=== PATIENT | male | born 1965 | race Caucasian/White ===

== ENCOUNTER 2018-01-04 08:57 | Outpatient (CLI) | payer MEDICARE ==
[~2018-01-04] VITALS: Ht 185.4 cm; Wt 112.5 kg
[2018-01-04 09:07] VITALS: BP 126/73
[2018-01-04 09:41] LABS: BASOPHILS % (AUTO) 0 % (0-10); EOSINOPHILS # (AUTO) 0.1 10^3/uL (0.0-0.3); EOSINOPHILS % (AUTO) 1 % (0-10); HEMATOCRIT 36 % (40-54); HEMOGLOBIN 12.6 G/DL (13.3-17.7); LYMPHOCYTES % (AUTO) 22 % (12-44); MEAN CORPUSCULAR HEMOGLOBIN 29 PG (25-34); MEAN CORPUSCULAR HGB CONC 35 G/DL (32-36); MEAN CORPUSCULAR VOLUME 82 FL (80-99); MEAN PLATELET VOLUME 10.1 FL (7.4-10.4); MONOCYTES # (AUTO) 0.7 X 10^3 (0.0-1.0); MONOCYTES % (AUTO) 8 % (0-12); NEUTROPHILS # (AUTO) 5.9 X 10^3 (1.8-7.8); NEUTROPHILS % (AUTO) 68 % (42-75); PLATELET COUNT 250 10^3/uL (130-400); RED BLOOD COUNT 4.33 10^6/uL (4.35-5.85); RED CELL DISTRIBUTION WIDTH 13.7 % (10.0-14.5); WHITE BLOOD COUNT 8.7 10^3/uL (4.3-11.0)
[2018-01-04] MEDS ORDERED: GLIM4TAB PO (09:54)
[2018-01-04] MEDS ORDERED: ROPI5TAB PO (09:54)
[2018-01-04] MEDS ORDERED: ASPI-586 PO (09:54)
[2018-01-04] MEDS ORDERED: MULT-1056 PO (09:54)
[2018-01-04] MEDS ORDERED: QUET150T PO (09:54)
[2018-01-04] MEDS ORDERED: DOXY100T19 PO (09:54)
[2018-01-04] MEDS ORDERED: DOCU250C11 PO (09:54)
[2018-01-04] MEDS ORDERED: NAPR-1033 PO (09:54)
[2018-01-04] MEDS ORDERED: SENN8.6T68 PO (09:54)
[2018-01-04 09:58] LABS: CALCIUM 8.9 MG/DL (8.5-10.1); CREATININE SERUM 1.32 MG/DL (0.60-1.30); POTASSIUM 3.7 MMOL/L (3.6-5.0)
== END 2018-01-04 09:25 | disposition home or self-care (01) ==
LOC: PREOP 08:57
PROVIDERS: ATTEND Orthopaedic Surgery
DX: Z01.812 Encounter for preprocedural laboratory examination (principal); Z11.2 Encounter for screening for other bacterial diseases; M75.101 Unspecified rotator cuff tear or rupture of right shoulder, not specified as traumatic
CPT/HCPCS: 36415; 80048; 85025; 87081

== ENCOUNTER 2019-02-17 13:07 | Inpatient (IN) | payer MEDICARE ==
[~2019-02-17] VITALS: Ht 182.9 cm; Wt 122.2 kg
[~2019-02-17 13:07] MED LIST: ASPI-586 PO; DOCU250C11 PO; DOXY100T19 PO; GLIM4TAB PO; MULT-1056 PO; NAPR-1033 PO; QUET150T PO; ROPI5TAB3 PO; SENN8.6T68 PO
[2019-02-17] MEDS ORDERED: cefTRIAXone FOR IV USE 2,000 MG in WATER (STERILE) FOR INJECTION 20 ML IV ONE (13:45)
[2019-02-17] MEDS ORDERED: fentaNYL INJECTION 100 MCG/2 ML AMP IVP PRN (13:45)
--- NOTE | 2019-02-17 13:53 | ED Integumentary General ---
General Chief Complaint: Skin/Wound Problems Stated Complaint: LT HAND SWOLLEN Source: patient, family Exam Limitations: no limitations History of Present Illness Date Seen by Provider: Feb 17, 2019 Time Seen by Provider: 13:50 Initial Comments This 53-year-old white male presents with a progressive infection to the dorsum of his left hand. Patient denies puncture wound laceration or bite to the area. Patient denies similar episodes in the past. He denies other area of infection. Patient is diabetic. Allergies and Home Medications Allergies Coded Allergies: No Known Drug Allergies (Unverified , 01/04/18) Home Medications Aspirin 81 Mg Tablet.dr, 81 MG PO DAILY, (Reported) Docusate Sodium 250 Mg Capsule, 250 MG PO BID, (Reported) Doxycycline Monohydrate 100 Mg Tablet, 100 MG PO BID, (Reported) Glimepiride 4 Mg Tablet, 2 MG PO DAILY, (Reported) take 1/2 of 4mg tab Multivit-Min/FA/Lycopen/Lutein 1 Each Tablet, 1 EACH PO DAILY, (Reported) Naproxen Sodium 220 Mg Tablet, 220 MG PO BID, (Reported) Quetiapine Fumarate 150 Mg Tab.er.24h, 150 MG PO HS, (Reported) Ropinirole HCl 5 Mg Tablet, 5 MG PO TID, (Reported) Sennosides 8.6 Mg Tablet, 8.6 MG PO BID, (Reported) Patient Home Medication List Home Medication List Reviewed: Yes Review of Systems Review of Systems Constitutional: No chills, No fever EENTM: no symptoms reported Respiratory: no symptoms reported Cardiovascular: no symptoms reported Gastrointestinal: no symptoms reported Genitourinary: no symptoms reported Musculoskeletal: no symptoms reported Skin: see HPI, other (diffuse erythema over the dorsum of the left hand) Psychiatric/Neurological: No Symptoms Reported Endocrine: No Symptoms Reported Hematologic/Lymphatic: No Symptoms Reported Past Pqagygw-Aufzyh-Ezrzdy Hx Past Med/Social Hx: Reviewed Nursing Past Med/Soc Hx Patient Social History Type Used: Smokeless Tobacco Recent Hopitalizations: No Seasonal Allergies Seasonal Allergies: No Past Medical History Sleep Apnea Currently Using CPAP: No Neuropathy Chronic Constipation Degenerate Disk Disease, Arthritis, Chronic Back Pain Anxiety Physical Exam Vital Signs Capillary Refill : General Appearance: mild distress HEENT: normal ENT inspection Neck: normal inspection Cardiovascular: regular rate, rhythm Respiratory: lungs clear Gastrointestinal: normal bowel sounds, non tender Back: normal inspection Extremities: normal range of motion, swelling (and erythema to the dorsum of the left hand. There is warmth to the elbow but no distinct ascending edema) Neurologic/Psychiatric: no motor/sensory deficits, alert Skin: other (erythema left hand.) Progress/Results/Core Measures Results/Orders Lab Results Laboratory Tests Test 02/17/19 14:15 02/17/19 14:30 Range/Units White Blood Count 15.7 H 4.3-11.0 10^3/uL Red Blood Count 4.26 L 4.35-5.85 10^6/uL Hemoglobin 12.7 L 13.3-17.7 G/DL Hematocrit 35 L 40-54 % Mean Corpuscular Volume 83 80-99 FL Mean Corpuscular Hemoglobin 30 25-34 PG Mean Corpuscular Hemoglobin Concent 36 32-36 G/DL Red Cell Distribution Width 12.0 10.0-14.5 % Platelet Count 274 130-400 10^3/uL Mean Platelet Volume 9.5 7.4-10.4 FL Neutrophils (%) (Auto) 73 42-75 % Lymphocytes (%) (Auto) 18 12-44 % Monocytes (%) (Auto) 8 0-12 % Eosinophils (%) (Auto) 1 0-10 % Basophils (%) (Auto) 0 0-10 % Neutrophils # (Auto) 11.4 H 1.8-7.8 X 10^3 Lymphocytes # (Auto) 2.8 1.0-4.0 X 10^3 Monocytes # (Auto) 1.3 H 0.0-1.0 X 10^3 Eosinophils # (Auto) 0.1 0.0-0.3 10^3/uL Basophils # (Auto) 0.1 0.0-0.1 10^3/uL Neutrophils % (Manual) 64 % Lymphocytes % (Manual) 22 % Monocytes % (Manual) 9 % Eosinophils % (Manual) 0 % Basophils % (Manual) 0 % Band Neutrophils 2 % Atypical Lymphocytes 3 % Erythrocyte Sedimentation Rate 70 H 0-30 MM/HR Sodium Level 129 L 135-145 MMOL/L Potassium Level 4.0 3.6-5.0 MMOL/L Chloride Level 91 L 98-107 MMOL/L Carbon Dioxide Level 21 21-32 MMOL/L Anion Gap 17 H 5-14 MMOL/L Blood Urea Nitrogen 15 7-18 MG/DL Creatinine 0.87 0.60-1.30 MG/DL Estimat Glomerular Filtration Rate > 60 BUN/Creatinine Ratio 17 Glucose Level 282 H 70-105 MG/DL Calcium Level 9.0 8.5-10.1 MG/DL Corrected Calcium 9.5 8.5-10.1 MG/DL Total Bilirubin 0.7 0.1-1.0 MG/DL Aspartate Amino Transf (AST/SGOT) 13 5-34 U/L Alanine Aminotransferase (ALT/SGPT) 17 0-55 U/L Alkaline Phosphatase 114 40-136 U/L Total Protein 7.0 6.4-8.2 GM/DL Albumin 3.4 3.2-4.5 GM/DL Lactic Acid Level 2.16 *H 0.50-2.00 MMOL/L My Orders Orders - PADMINI MARIE MD Ceftriaxone For Iv Use (Rocephin For I (02/17/19 13:45) Fentanyl Injection (Sublimaze Injection (02/17/19 13:45) Vancomycin Injection (Vancomycin Injecti (02/17/19 14:00) Cbc With Automated Diff (02/17/19 13:54) Comprehensive Metabolic Panel (02/17/19 13:54) Ua Culture If Indicated (02/17/19 13:54) Hand 3 View Left (02/17/19 13:54) Erythrocyte Sedimentation Rate (02/17/19 13:54) Blood Culture (02/17/19 13:54) Manual Differential (02/17/19 14:15) Vancomycin Injection (Vancomycin Injecti (02/17/19 15:23) Ns (Ivpb) (Sodium Chloride 0.9%) (02/17/19 15:23) Lactic Acid Analyzer (02/17/19 15:48) Hydromorphone Injection (Dilaudid Inject (02/17/19 16:00) Medications Given in ED Current Medications Medications Dose Ordered Sig/Abhishek Route Start Time Stop Time Status Last Admin Dose Admin Ceftriaxone Sodium 2000 mg/ Sterile Water 20 ml @ 240 mls/hr ONCE ONCE IV 02/17/19 13:45 02/17/19 13:49 DC 02/17/19 15:33 240 MLS/HR Hydromorphone HCl 1 mg ONCE ONCE IVP 02/17/19 16:00 02/17/19 16:01 DC 02/17/19 16:30 1 MG Progress Progress Note : Time: 16:49 Progress Note The patient demonstrated on his workup and elevated white count, hyperglycemia, hyponatremia, and a sedimentation rate that was markedly elevated. Patient received IV Rocephin 2 g and a gram of vancomycin IV. Telephone consultation was undertaken with Drs. Bravo and Rafael. Dr. Bravo except the patient transfer. Dr. Hall will consult on the patient's cellulitis. Departure Communication (Admissions) Time/Spoke to Admitting Phy: 16:51 Dr. Bravo Time/Spoke to Consulting Phy: 16:51 Dr. Hall Impression Primary Impression: Cellulitis of left hand Disposition: ADMITTED INPATIENT Condition: Improved Admissions Decision to Admit Reason: Admit from ER (General) Decision to Admit/Date: Feb 17, 2019 Time/Decision to Admit Time: 16:51 Departure-Patient Inst. Referrals: JESSICA MALDONADO MD (PCP/Family) Primary Care Physician PADMINI MRAIE MD Feb 17, 2019 13:53
[2019-02-17] MEDS ORDERED: VANCOMYCIN INJECTION 1,000 MG in NS (IVPB) 250 ML IV SCH (14:00)
[2019-02-17 14:28] LABS: BASOPHILS % (AUTO) 0 % (0-10); EOSINOPHILS % (AUTO) 1 % (0-10); HEMATOCRIT 35 % (40-54); HEMOGLOBIN 12.7 G/DL (13.3-17.7); LYMPHOCYTES % (AUTO) 18 % (12-44); MEAN CORPUSCULAR HEMOGLOBIN 30 PG (25-34); MEAN CORPUSCULAR HGB CONC 36 G/DL (32-36); MEAN CORPUSCULAR VOLUME 83 FL (80-99); MEAN PLATELET VOLUME 9.5 FL (7.4-10.4); MONOCYTES % (AUTO) 8 % (0-12); NEUTROPHILS # (AUTO) 11.4 X 10^3 (1.8-7.8); NEUTROPHILS % (AUTO) 73 % (42-75); PLATELET COUNT 274 10^3/uL (130-400); WHITE BLOOD COUNT 15.7 10^3/uL (4.3-11.0)
[2019-02-17 14:29] LABS: BASOPHILS # (AUTO) 0.1 10^3/uL (0.0-0.1); EOSINOPHILS # (AUTO) 0.1 10^3/uL (0.0-0.3); LYMPHOCYTES # (AUTO) 2.8 X 10^3 (1.0-4.0); MONOCYTES # (AUTO) 1.3 X 10^3 (0.0-1.0)
[2019-02-17 14:51] LABS: ATYPICAL LYMPHOCYTES 3 %; BAND NEUTROPHILS 2 %; BASOPHILS % (MANUAL) 0 %; EOSINOPHILS % (MANUAL) 0 %; LYMPHOCYTES % (MANUAL) 22 %; MONOCYTES % (MANUAL) 9 %; NEUTROPHILS % (MANUAL) 64 %
[2019-02-17 14:52] LABS: ERYTHROCYTE SEDIMENTATION RATE 70 MM/HR (0-30)
[2019-02-17 14:53] LABS: SODIUM 129 MMOL/L (135-145)
[2019-02-17 14:54] LABS: ALANINE AMINOTRANSFERASE 17 U/L (0-55); ALKALINE PHOSPHATASE 114 U/L (40-136); BILIRUBIN,TOTAL 0.7 MG/DL (0.1-1.0); BUN/CREATININE RATIO 17; CARBON DIOXIDE 21 MMOL/L (21-32); CHLORIDE 91 MMOL/L (98-107); CREATININE SERUM 0.87 MG/DL (0.60-1.30); GFR ESTIMATED > 60; GLUCOSE 282 MG/DL (70-105)
[2019-02-17 14:55] LABS: ALBUMIN 3.4 GM/DL (3.2-4.5)
--- NOTE | 2019-02-17 15:15 | Diagnostic Imaging Report ---
INDICATION: Pain and swelling. EXAMINATION: Three views were obtained. FINDINGS: The fingers are not well evaluated as all three images were obtained during flexion. There is no fracture or dislocation within the carpal bones or metacarpals. Soft tissues are unremarkable. IMPRESSION: No acute fracture or dislocation. The evaluation is limited due to flexion of the fingers on all three images. Dictated by: Dictated on workstation # [id number]
[2019-02-17] MEDS ORDERED: VANCOMYCIN 1000 MG/VIAL ONE (15:23)
[2019-02-17] MEDS ORDERED: NS (IVPB) 250 ML ONE (15:23)
[2019-02-17] MEDS ORDERED: HYDROmorphone 2 MG/ML VIAL (DILAUDID) IVP ONE (16:00)
[2019-02-17] MEDS ORDERED: ACETAMINOPHEN 500 MG TAB (TYLENOL) PO ONE (17:30)
[2019-02-17] MEDS ORDERED: NS IV 1000 ML 1,000 ML IV SCH (17:45)
--- NOTE | 2019-02-17 18:33 | NUR ---
PRINCE SHARMA admitted to room 414-1, with an admitting diagnosis of CELLULITIS OF LEFT HAND, on 02/17/19 from [facility] ED via EMS, accompanied by EMS. PRINCE SHARMA introduced to surroundings, call light, bed controls, phone, TV, temperature control, lights, meal times, smoking policy, visitor policy, side rail policy, bathrooms and showers. PRINCE SHARMA verbalizes understanding that [facility] is not responsible for the loss or damage to any personal effects or valuables that are kept in the patients posession during their hospitalization. The following Patient Care Plans were discussed with the PT: Discharge Planning, CELLULITIS, AND PAIN. PRINCE SHARMA verbalizes understanding of Interdisciplinary Patient Education. Patient and/or family were informed about the Rapid Response Team and its purpose.
[2019-02-17 18:37] VITALS: BP 124/76
--- NOTE | 2019-02-17 19:01 | NUR ---
DR. SALEH NOTIFIED OF NEED FOR PAIN MED ORDERS AND IV ABX ORDER. NOTED TO ONLY MED ORDER IS NS @ 50 CC/HR.
[2019-02-17] MEDS: NS IV 1000 ML 1,000 ML IV SCH ×2 (19:12→20:12)
[2019-02-17] MEDS ORDERED: ONDANSETRON 4 MG/2 ML (SDV) Z0FRAN IVP PRN (19:15)
[2019-02-17] MEDS ORDERED: PHARMACY TO DOSE IV SCH (19:15)
[2019-02-17 20:20] VITALS: BP 132/82
[2019-02-17] MEDS: fentaNYL INJECTION 100 MCG/2 ML AMP IVP PRN (20:31)
--- NOTE | 2019-02-17 20:41 | Consultation - Surgery ---
History of Present Illness History of Present Illness Patient Consulted On(raimundo/time) 02/17/19 20:35 Time Seen by Provider: 18:28 History of Present Illness Surgery asked to consult regarding cellulitis of the left hand. HPI per ED: This 53-year-old white male presents with a progressive infection to the dorsum of his left hand. Patient denies puncture wound laceration or bite to the area. Patient denies similar episodes in the past. He denies other area of infection. Patient is diabetic. When I spoke to pt he rates the pain as 7 out of 10, a dull constant pain. Pain is worse if the hand hangs down. States he can move his fingers with only minimal pain. Only the pain medicines make it better, he has not had any drainage from the hand. Allergies and Home Medications Allergies Coded Allergies: No Known Drug Allergies (Unverified , 01/04/18) Home Medications Aspirin 81 Mg Tablet.dr, 81 MG PO DAILY, (Reported) Docusate Sodium 250 Mg Capsule, 250 MG PO BID, (Reported) Doxycycline Monohydrate 100 Mg Tablet, 100 MG PO BID, (Reported) Glimepiride 4 Mg Tablet, 2 MG PO DAILY, (Reported) take 1/2 of 4mg tab Multivit-Min/FA/Lycopen/Lutein 1 Each Tablet, 1 EACH PO DAILY, (Reported) Naproxen Sodium 220 Mg Tablet, 220 MG PO BID, (Reported) Quetiapine Fumarate 150 Mg Tab.er.24h, 150 MG PO HS, (Reported) Ropinirole HCl 5 Mg Tablet, 5 MG PO TID, (Reported) Sennosides 8.6 Mg Tablet, 8.6 MG PO BID, (Reported) Patient Home Medication List Home Medication List Reviewed: Yes Past Qbooqam-Bannyg-Dacrog Hx Patient Social History Alcohol Use: Denies Use Recreational Drug Use: No Smoking Status: Never a Smoker Type Used: Smokeless Tobacco 2nd Hand Smoke Exposure: No Recent Foreign Travel: No Contact w/Someone Who Travel: No Recent Infectious Disease Expo: No Recent Hopitalizations: No Physical Abuse Screen: No Sexual Abuse: No Immunizations Up To Date Tetanus Booster (TDap): Unknown Seasonal Allergies Seasonal Allergies: No Surgeries History of Surgeries: Yes (Back surgery, Right shoulder surgery) Surgeries: Orthopedic Respiratory History of Respiratory Disorde: Yes Respiratory Disorders: Sleep Apnea Cardiovascular History of Cardiac Disorders: No Cardiac Disorders: Hypertension Neurological History of Neurological Disord: Yes Neurological Disorders: Neuropathy Genitourinary History of Genitourinary Disor: No Gastrointestinal History of Gastrointestinal Di: Yes Gastrointestinal Disorders: Chronic Constipation Musculoskeletal History of Musculoskeletal Dis: Yes Musculoskeletal Disorders: Degenerate Disk Disease, Arthritis, Chronic Back Pain Endocrine History of Endocrine Disorders: Yes Endocrine Disorders: Diabetes, Non-Insulin dep HEENT History of HEENT Disorders: No Loss of Vision: Denies Hearing Impairment: Denies Cancer History of Cancer: No Psychosocial History of Psychiatric Problem: Yes Behavioral Health Disorders: Anxiety, Depression Integumentary History of Skin or Integumenta: Yes (left foot diabetic ulcer NONE CURRENTLY) Blood Transfusions History of Blood Disorders: No Family Medical History Significant Family History: Diabetes (Father) Review of Systems-General Constitutional: No chills, No diaphoresis; malaise EENTM: No blurred vision, No double vision, No mouth pain, No mouth swelling, No epistaxis Respiratory: No cough, No dyspnea on exertion Cardiovascular: No chest pain, No edema, No palpitations Gastrointestinal: No abdominal pain, No constipation, No diarrhea, No nausea, No vomiting Genitourinary: No dysuria, No frequency, No hematuria Musculoskeletal: joint pain, muscle pain, muscle stiffness Skin: see HPI; No hx of skin cancer Psychiatric/Neurological: Anxiety, Depressed; Denies Seizure, Denies Tremors Other pt denies any history of abnormal bleeding or bruising. Physical Exam-General Problems Physical Exam Vital Signs Vital Signs - First Documented 02/17/19 13:10 Temp 98.3 Pulse 102 Resp 22 B/P (MAP) 134/73 (93) Pulse Ox 99 O2 Delivery Room Air Capillary Refill : Less Than 3 Seconds General Appearance: WD/WN, mild distress, obese Eyes: Bilateral Eye PERRL, Bilateral Eye EOMI HEENT: pharynx normal; No scleral icterus (R), No scleral icterus (L), No pale conjunctivae (R), No pale conjunctivae (L) Neck: non-tender, supple, normal inspection Respiratory: chest non-tender, lungs clear, normal breath sounds, no respiratory distress Cardiovascular: regular rate, rhythm, no murmur Gastrointestinal: normal bowel sounds, non tender, soft, no organomegaly, no pulsatile mass Back: no CVA tenderness, no vertebral tenderness Extremities: normal range of motion, non-tender, normal inspection, no pedal edema, no calf tenderness, other (left hand - dorsum, there is erythema and ??fluctuance, does not extend into his fingers) 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, no motor/sensory deficits, alert, normal mood/affect, oriented x 3 Skin: normal color, warm/dry Lymphatic: no adenopathy (neck, axilla or groin) Data Review Labs Laboratory Tests 02/17/19 14:15: White Blood Count 15.7H, Red Blood Count 4.26L, Hemoglobin 12.7L, Hematocrit 35L , Mean Corpuscular Volume 83, Mean Corpuscular Hemoglobin 30, Mean Corpuscular Hemoglobin Concent 36, Red Cell Distribution Width 12.0, Platelet Count 274, Mean Platelet Volume 9.5, Neutrophils (%) (Auto) 73, Lymphocytes (%) (Auto) 18, Monocytes (%) (Auto) 8, Eosinophils (%) (Auto) 1, Basophils (%) (Auto) 0, Neut rophils # (Auto) 11.4H, Lymphocytes # (Auto) 2.8, Monocytes # (Auto) 1.3H, Eosinophils # (Auto) 0.1, Basophils # (Auto) 0.1, Neutrophils % (Manual) 64, Lymphocytes % (Manual) 22, Monocytes % (Manual) 9, Eosinophils % (Manual) 0, Basophils % (Manual) 0, Band Neutrophils 2, Atypical Lymphocytes 3, Erythrocyte Sedimentation Rate 70H, Sodium Level 129L, Potassium Level 4.0, Chloride Level 91L, Carbon Dioxide Level 21, Anion Gap 17H, Blood Urea Nitrogen 15, Creatinine 0.87, Estimat Glomerular Filtration Rate > 60, BUN/Creatinine Ratio 17, Glucose Level 282H, Calcium Level 9.0, Corrected Calcium 9.5, Total Bilirubin 0.7, Aspartate Amino Transf (AST/SGOT) 13, Alanine Aminotransferase (ALT/SGPT) 17, Alkaline Phosphatase 114, Total Protein 7.0, Albumin 3.4 02/17/19 14:30: Lactic Acid Level 2.16*H Assessment/Plan Assessment/Plan Assessment/Plan Left Hand Cellulitis DM Plan is IV ABX, IV fluids, npo after midnight and pt should elevate hand and can use some warm compresses. I will order an US for the morning, would like to assess for abscess collection. If it gets worse or stays the same, I think he will need I&D of this area. If it gets better may be able to hold off on surgery; unless the US shows large abscess. Pt understood this, all questions answered to his satisfaction. Clinical Quality Measures DVT/VTE Risk/Contraindication: Risk Factor Score Per Nursin RFS Level Per Nursing on Admit: 3=High JOSH FOURNIER DO Feb 17, 2019 20:41
--- NOTE | 2019-02-17 22:27 | NUR ---
THIS RN SPOKE WITH GIANNA OF [facility] ABOUT PT VANCO & ZOSYN. THIS RN WAS INFORMED THAT THE VANCO WOULD BE EVALUATED BY THE IN HOUSE PHARMACY IN THE AM SINCE THE PT HAS ALREADY RECEIVED THE INITIAL DOSE. THIS RN WAS ASLO INFORMED THAT GIANNA WOULD LOOK INTO STARTING THE ZOSYN ORDERS.
[2019-02-17] MEDS ORDERED: NS (IVPB) 100 ML ONE (22:29)
[2019-02-17] MEDS ORDERED: PIPERACILLIN/TAZO 4.5 GM VIAL (ZOSYN) IV ONE (22:29)
[2019-02-17] MEDS ORDERED: PIPERACILLIN/TAZO 4.5 GM/NS 100 ML IV ONE ×2 (22:30)
[2019-02-17 23:59] VITALS: BP 133/65
[2019-02-18] VITALS (12 sets, daily range): BP systolic 101–144; BP diastolic 52–80
[2019-02-18] MEDS: fentaNYL INJECTION 100 MCG/2 ML AMP IVP PRN (00:03)
[2019-02-18] MEDS ORDERED: NS (IVPB) 100 ML ONE (04:30)
[2019-02-18] MEDS ORDERED: PIPERACILLIN/TAZO 4.5 GM VIAL (ZOSYN) IV ONE (04:30)
[2019-02-18] MEDS: oxyCODONE/APAP 10/325MG (PERCOCET 10) TABLET PO PRN ×3 (04:48→18:32)
[2019-02-18] MEDS: PIPERACILLIN/TAZO 4.5 GM/NS 100 ML IV SCH ×6 (04:53→22:49)
[2019-02-18 05:17] LABS: BASOPHILS % (AUTO) 0 % (0-10); EOSINOPHILS # (AUTO) 0.1 10^3/uL (0.0-0.3); EOSINOPHILS % (AUTO) 0 % (0-10); HEMATOCRIT 34 % (40-54); HEMOGLOBIN 12.1 G/DL (13.3-17.7); LYMPHOCYTES # (AUTO) 1.5 X 10^3 (1.0-4.0); LYMPHOCYTES % (AUTO) 9 % (12-44); MEAN CORPUSCULAR HEMOGLOBIN 30 PG (25-34); MEAN CORPUSCULAR HGB CONC 35 G/DL (32-36); MEAN CORPUSCULAR VOLUME 84 FL (80-99); MEAN PLATELET VOLUME 10.1 FL (7.4-10.4); MONOCYTES # (AUTO) 1.3 X 10^3 (0.0-1.0); MONOCYTES % (AUTO) 8 % (0-12); NEUTROPHILS # (AUTO) 13.2 X 10^3 (1.8-7.8); NEUTROPHILS % (AUTO) 83 % (42-75); PLATELET COUNT 239 10^3/uL (130-400); RED CELL DISTRIBUTION WIDTH 12.3 % (10.0-14.5)
[2019-02-18 05:37] LABS: ALANINE AMINOTRANSFERASE 26 U/L (0-55); ALBUMIN 3.2 GM/DL (3.2-4.5); ALKALINE PHOSPHATASE 119 U/L (40-136); BILIRUBIN,TOTAL 0.4 MG/DL (0.1-1.0); BUN/CREATININE RATIO 15; CALCIUM 8.6 MG/DL (8.5-10.1); CARBON DIOXIDE 22 MMOL/L (21-32); CHLORIDE 97 MMOL/L (98-107); CREATININE SERUM 0.94 MG/DL (0.60-1.30); GFR ESTIMATED > 60; GLUCOSE 285 MG/DL (70-105); SODIUM 130 MMOL/L (135-145); TOTAL PROTEIN 6.4 GM/DL (6.4-8.2)
[2019-02-18] MEDS: NS IV 1000 ML 1,000 ML IV SCH ×2 (06:33→18:22)
[2019-02-18] MEDS: VANCOMYCIN INJECTION 1,750 MG in NS IV 500 ML 500 ML IV SCH ×2 (08:05→20:37)
--- NOTE | 2019-02-18 08:15 | NUR ---
VANCOMYCIN DOSING SCR 0.94; CRCL ~ 119; VANC 1 GM GIVEN IN ED LAST NIGHT; VANC 15 MG/KG X 122 KG ~ 1750 MG Q12H CHECK TROUGH AFTER 3RD DOSE 02/19 1900 HOLD DOSE AND CONTACT PHARMACY IF LEVEL IS GREATER THAN 20
--- NOTE | 2019-02-18 10:13 | NUR ---
PT BECAME VERY ANGRY WHEN ASKED TO TAKE SURGICAL SHOWER FOR POSSIBLE SURGERY TODAY. STATES HE IS GOING AMA, HOWEVER WENT BACK TO BED AFTER SHOWER AND WENT TO SLEEP.
[2019-02-18] MEDS ORDERED: ALPR0.5T PO (12:43)
[2019-02-18] MEDS ORDERED: BUSP15TA60 PO (12:45)
[2019-02-18] MEDS ORDERED: GABA-488 PO (12:46)
[2019-02-18] MEDS ORDERED: METF-399 PO (12:48)
[2019-02-18] MEDS ORDERED: OMEP40CA36 PO (12:49)
[2019-02-18] MEDS ORDERED: QUET300T2 PO (12:50)
--- NOTE | 2019-02-18 13:28 | History & Physical-Hospitalist ---
History of Present Illness HPI/Chief Complaint Chief complaint: Severe left hand cellulitis History of present illness: This is a 53-year-old white male clinic patient of Dr. [place] in [place] with a past medical history of diabetes mellitus and chronic pain syndrome who presents to the [place] ER with left hand swelling and pain and redness. He was found to have significant right hand cellulitis at high risk for compartment syndrome. X-rays did not show any type of gas formation but Dr. Hall general surgery was consulted. Patient was placed on empiric antibiotics of Zosyn and vancomycin along with IV fluids due to elevated lactic acid and diagnosis of sepsis. Patient is currently reporting not much improvement and is taking pain medication. His white count remains 16,000 patient is overall showing slow progress but remains stable. I did reconcile and restart all of his home medications at his request. Source: patient, RN/MD Exam Limitations: no limitations Date Seen 02/18/19 Time Seen by a Provider: 12:30 Attending Physician Josefa Bravo Maxwell MD Referring Physician Date of Admission Feb 17, 2019 at 16:48 Home Medications & Allergies Home Medications Reviewed patient Home Medication Reconciliation performed by pharmacy medication reconciliations donor support technician and/or nursing. Patients Allergies have been reviewed. Allergies Allergies Coded Allergies No Known Drug Allergies (Unverified01/04/18) Past Chsflmi-Hahfah-Jvkrea Hx Past Med/Social Hx: Reviewed Nursing Past Med/Soc Hx, Reviewed and Corrections made Patient Social History Marrital Status: Alcohol Use: Denies Use Recreational Drug Use: No Smoking Status: Never a Smoker Type Used: Smokeless Tobacco 2nd Hand Smoke Exposure: No Physical Abuse Screen: No Sexual Abuse: No Recent Foreign Travel: No Contact w/other who traveled: No Recent Hopitalizations: No Recent Infectious Disease Expo: No Immunizations Up To Date Tetanus Booster (TDap): Unknown Seasonal Allergies Seasonal Allergies: No Past Medical History Surgeries: Orthopedic Currently Using CPAP: No Cardiac: Hypertension Neurological: Neuropathy Gastrointestinal: Chronic Constipation Musculoskeletal: Degenerate Disk Disease, Arthritis, Chronic Back Pain Endocrine: Diabetes, Non-Insulin dep Loss of Vision: Denies Hearing Impairment: Denies Psychosocial: Anxiety, Depression History of Blood Disorders: No Family History Diabetes (Father) Review of Systems Constitutional: see HPI, fever, malaise, weakness EENTM: no symptoms reported Respiratory: no symptoms reported Cardiovascular: no symptoms reported Gastrointestinal: no symptoms reported Genitourinary: no symptoms reported Musculoskeletal: other (left hand pain) Skin: see HPI Psychiatric/Neurological: No Symptoms Reported All Other Systems Reviewed Negative Unless Noted: Yes Physical Exam Physical Exam Vital Signs Vital Signs - First Documented 02/17/19 02/18/19 13:10 08:00 Temp 98.3 Pulse 102 Resp 22 B/P (MAP) 134/73 (93) Pulse Ox 99 O2 Delivery Room Air O2 Flow Rate 0.00 Capillary Refill : Less Than 3 SecondsLess Than 3 Seconds Height, Weight, BMI Height: 6'0.00" Weight: 269lbs. 5.0oz. 122.209609ml; 35.1 BMI Method:Stated General Appearance: No Apparent Distress, WD/WN, Chronically ill, Obese Eyes: Right Eye Normal Inspection, Right Eye PERRL HEENT: PERRL/EOMI, Normal ENT Inspection, Pharynx Normal, Moist Mucous Membranes Neck: Full Range of Motion, Normal Inspection, Non Tender Respiratory: Chest Non Tender, Lungs Clear, Normal Breath Sounds, No Accessory Muscle Use, No Respiratory Distress Cardiovascular: Regular Rate, Rhythm, No Edema, No Gallop, No JVD, No Murmur, Normal Peripheral Pulses Gastrointestinal: Normal Bowel Sounds, No Organomegaly, No Pulsatile Mass, Non Tender, Soft Back: Normal Inspection, No CVA Tenderness, No Vertebral Tenderness Extremity: Normal Capillary Refill, Normal Inspection, Normal Range of Motion, Non Tender, No Calf Tenderness, No Pedal Edema Neurologic/Psychiatric: Alert, Oriented x3, No Motor/Sensory Deficits, Normal Mood/Affect, 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 Assessment/Plan Admission Diagnosis Assessment: Severe left hand cellulitis at risk for compartment syndrome without gas production on x-ray consulting general surgery Diabetes mellitus mhk-zrmlnrz-qstpuozsn but anv-os-etqigyc levels Chronic anxiety Osteoarthritis Neuropathy Hyperlipidemia Plan: IV antibiotics of Zosyn and vancomycin Appreciate Dr. Hall consultation Pain control IV fluids Home meds Admission Status: Inpatient Order (span 2 midnights) Reason for Inpatient Admission: Severe left hand cellulitis with DM in need of IV abx 4-5 days Diagnosis/Problems Diagnosis/Problems (1) Sepsis Status: Acute Qualifiers: Sepsis type: sepsis due to unspecified organism Qualified Codes: A41.9 - Sepsis, unspecified organism (2) Cellulitis of left hand Status: Acute (3) Left hand pain Status: Acute (4) Diabetes mellitus Status: Chronic Qualifiers: Diabetes mellitus type: type 2 Diabetes mellitus fpc insulin use: without fpc use Diabetes mellitus complication status: with other specified complication Qualified Codes: E11.69 - Type 2 diabetes mellitus with other specified complication (5) Hyperlipemia Status: Chronic Qualifiers: Hyperlipidemia type: mixed hyperlipidemia Qualified Codes: E78.2 - Mixed hyperlipidemia (6) Leukocytosis Status: Acute Qualifiers: Leukocytosis type: leukemoid reaction Qualified Codes: D72.823 - Leukemoid reaction (7) Neuropathy Status: Chronic (8) Anxiety Status: Chronic Clinical Quality Measures DVT/VTE Risk/Contraindication: Risk Factor Score Per Nursin RFS Level Per Nursing on Admit: 3=High JOSEFA BRAVO DO Feb 18, 2019 13:28
--- NOTE | 2019-02-18 14:00 | NUR ---
ORDERS REC'D FOR CONSENT. SIGNED AND MRSA NASAL SWAB DONE. HAD CHLORHEXIDINE SHOWER THIS AM. DR. FOURNIER AND ANESTHESIA NOTIFIED THAT PT HAD GOT COPENHAGEN CANS OUT OF CLOTHING AND WAS BELIEVED TO BE CHEWING TOBACCO THIS AM. NOT VISUALIZED, BUT PT STATED HE "WOULD GO AMA IF HE COULDN'T CHEW."
[2019-02-18] MEDS ORDERED: ONDANSETRON 4 MG/2 ML (SDV) Z0FRAN ONE (14:02)
[2019-02-18] MEDS ORDERED: SEVOFLURANE (ULTANE) 15 ML INHAL SOLN ONE ×2 (14:02→14:46)
[2019-02-18] MEDS ORDERED: proPOfol 200 MG/20 ML (DIPRIVAN) VIAL IV ONE (14:02)
[2019-02-18] MEDS ORDERED: fentaNYL INJECTION 100 MCG/2 ML AMP ONE (14:02)
[2019-02-18] MEDS ORDERED: LIDOCAINE PF 2% 5 ML (XYLOCAINE) VIAL ONE (14:02)
[2019-02-18] MEDS ORDERED: MIDAZOLAM 2 MG/2 ML (VERSED) VIAL ONE (14:03)
[2019-02-18] MEDS: ALPRAZolam 0.5 MG (XANAX) TAB PO SCH ×2 (14:08→20:41)
--- NOTE | 2019-02-18 14:14 | Progress Note - Surgery ---
Subjective Time Seen by a Provider: 13:15 Subjective/Events-last exam Pt seen and examined, he thinks the hand is maybe a little worse and swelling is up to his elbow (per ). Pt states pain is definitely worse. He denies chewing tobacco at all today. Review of Systems General: No Chills, No Night Sweats Pulmonary: No Dyspnea, No Cough Cardiovascular: No: Chest Pain, Palpitations Gastrointestinal: No: Nausea, Vomiting, Abdominal Pain Musculoskeletal: hand pain (left) Focused Exam Lactate Level 02/17/19 14:30: Lactic Acid Level 2.16*H Objective Exam Vital Signs Date Time Temp Pulse Resp B/P (MAP) Pulse Ox O2 Delivery O2 Flow Rate FiO2 02/18/19 12:09 97.6 92 21 101/52 (68) 100 Room Air 0.00 02/18/19 08:00 98.3 95 19 123/56 (78) 99 Room Air 0.00 02/18/19 08:00 Room Air 02/18/19 04:00 100.1 102 18 128/75 (92) 98 Room Air 02/18/19 00:03 99.0 02/17/19 23:59 99.0 90 20 133/65 (87) 99 Room Air 02/17/19 20:20 98.4 94 22 132/82 (99) 98 Room Air 02/17/19 19:30 Room Air 02/17/19 18:37 99.3 92 22 124/76 96 Room Air 02/17/19 18:37 99.3 92 22 124/76 (92) 96 Room Air 02/17/19 17:43 99.3 101 20 132/66 (88) 96 Room Air 02/17/19 17:00 100.6 75 18 126/68 98 Room Air 02/17/19 15:30 99.8 87 20 135/67 99 Room Air I & O 02/18/19 07:00 Intake Total 1860 ml Balance 1860 ml Capillary Refill : Less Than 3 SecondsLess Than 3 Seconds General Appearance: Mild Distress, Obese HEENT: PERRL/EOMI, Moist Mucous Membranes Respiratory: Chest Non Tender, Lungs Clear, Normal Breath Sounds, No Accessory Muscle Use, No Respiratory Distress Cardiovascular: Regular Rate, Rhythm, No Murmur Gastrointestinal: normal bowel sounds, non tender, soft, no organomegaly, no pulsatile mass Extremity: Other (left hand is at least as erythematous as yesterday, hasn't really spread off the hand. Fingers are swollen and he has swelling up to elbow when compared to right hand and arm.) Results Lab Laboratory Tests 02/17/19 14:15: White Blood Count 15.7H, Red Blood Count 4.26L, Hemoglobin 12.7L, Hematocrit 35L , Mean Corpuscular Volume 83, Mean Corpuscular Hemoglobin 30, Mean Corpuscular Hemoglobin Concent 36, Red Cell Distribution Width 12.0, Platelet Count 274, Mean Platelet Volume 9.5, Neutrophils (%) (Auto) 73, Lymphocytes (%) (Auto) 18, Monocytes (%) (Auto) 8, Eosinophils (%) (Auto) 1, Basophils (%) (Auto) 0, Neutrophils # (Auto) 11.4H, Lymphocytes # (Auto) 2.8, Monocytes # (Auto) 1.3H, Eosinophils # (Auto) 0.1, Basophils # (Auto) 0.1, Neutrophils % (Manual) 64, Lymphocytes % (Manual) 22, Monocytes % (Manual) 9, Eosinophils % (Manual) 0, Basophils % (Manual) 0, Band Neutrophils 2, Atypical Lymphocytes 3, Erythrocyte Sedimentation Rate 70H, Sodium Level 129L, Potassium Level 4.0, Chloride Level 91L, Carbon Dioxide Level 21, Anion Gap 17H, Blood Urea Nitrogen 15, Creatinine 0.87, Estimat Glomerular Filtration Rate > 60, BUN/Creatinine Ratio 17, Glucose Level 282H, Calcium Level 9.0, Corrected Calcium 9.5, Total Bilirubin 0.7, Aspartate Amino Transf (AST/SGOT) 13, Alanine Aminotransferase (ALT/SGPT) 17, Alkaline Phosphatase 114, Total Protein 7.0, Albumin 3.4 02/17/19 14:30: Lactic Acid Level 2.16*H 02/18/19 04:55: White Blood Count 16.0H, Red Blood Count 4.10L, Hemoglobin 12.1L, Hematocrit 34L , Mean Corpuscular Volume 84, Mean Corpuscular Hemoglobin 30, Mean Corpuscular Hemoglobin Concent 35, Red Cell Distribution Width 12.3, Platelet Count 239, Mean Platelet Volume 10.1, Neutrophils (%) (Auto) 83H, Lymphocytes (%) (Auto) 9L , Monocytes (%) (Auto) 8, Eosinophils (%) (Auto) 0, Basophils (%) (Auto) 0, Neutrophils # (Auto) 13.2H, Lymphocytes # (Auto) 1.5, Monocytes # (Auto) 1.3H, Eosinophils # (Auto) 0.1, Basophils # (Auto) 0.0, Sodium Level 130L, Potassium Level 4.0, Chloride Level 97L, Carbon Dioxide Level 22, Anion Gap 11, Blood Urea Nitrogen 14, Creatinine 0.94, Estimat Glomerular Filtration Rate > 60, BUN/Creatinine Ratio 15, Glucose Level 285H, Calcium Level 8.6, Corrected Calcium 9.2, Total Bilirubin 0.4, Aspartate Amino Transf (AST/SGOT) 21, Alanine Aminotransferase (ALT/SGPT) 26, Alkaline Phosphatase 119, Total Protein 6.4, Albumin 3.2 Assessment/Plan Assessment/Plan Assessment/Plan Left Hand Cellulitis DM I used an US on the dorsum of his left hand, I think I see abscess and it is not getting better. Plan is to take pt to the OR to do an I&D with possible debridement and possible packing. Will continue IV ABX, IV fluids, elevate hand and can use some warm compresses. All questions answered to his satisfaction. Clinical Quality Measures DVT/VTE Risk/Contraindication: Risk Factor Score Per Nursin RFS Level Per Nursing on Admit: 3=High JOSH FOURNIER DO Feb 18, 2019 14:14
[2019-02-18] MEDS ORDERED: morphine INJ 10 MG/ML 1ML (SYR OR VIAL) ONE (14:20)
[2019-02-18] MEDS ORDERED: HYDROmorphone 2 MG/ML VIAL (DILAUDID) ONE ×2 (14:20→14:47)
--- NOTE | 2019-02-18 14:28 | NUR ---
TO OR PER BED.
[2019-02-18] MEDS ORDERED: SUCCINYLCHOLINE INJ 100 MG/5 ML SYR ONE (14:33)
[2019-02-18] MEDS ORDERED: ROCURONIUM 10 MG/ML 5 ML SYRINGE IV ONE (14:33)
[2019-02-18] MEDS ORDERED: METOCLOPRAMIDE INJ 10 MG/2 ML (REGLAN) ONE (14:44)
[2019-02-18] MEDS ORDERED: GLYCOPYRROLATE 0.2 MG/ML (ROBINUL) 2 ML VIAL ONE (14:46)
[2019-02-18] MEDS ORDERED: NEOSTIGMINE 3 MG/3 ML VIAL ONE (14:46)
--- NOTE | 2019-02-18 15:03 | Progress Note-Post Operative ---
Post-Operative Progess Note Surgeon (s)/Track Man (s) Surgeon JOSH FOURNIER DO Track Man: none Pre-Operative Diagnosis Left hand cellulitis and abscess Post-Operative Diagnosis Same Procedure & Operative Findings Date of Procedure 02/18/19 Procedure Performed/Findings I&D with packing Anesthesia Type GET Estimated Blood Loss Estimated blood loss (mL): less than 20ml Specimens/Packing Specimens Removed abscess culture Packin/2" iodophor packing JOSH FOURNIER DO Feb 18, 2019 15:03
[2019-02-18] MEDS ORDERED: ONDANSETRON 4 MG/2 ML (SDV) Z0FRAN IVP PRN (15:15)
[2019-02-18] MEDS ORDERED: HYDROmorphone 2 MG/ML VIAL (DILAUDID) IV ONE (15:15)
--- NOTE | 2019-02-18 15:57 | NUR ---
REC'D PER BED FROM PAR. ALERT AND ORIENTED. ON RA. IV PATENT. DRESSING WITH COBAN INTACT LEFT HAND. SEE ASSESSMENT.
[2019-02-18] MEDS: metFORMIN 500 MG (GLUCOPHAGE) TAB PO SCH (17:29)
[2019-02-18] MEDS: inSUlin ASPART (NovoLOG) 1 UNIT/0.01 ML (CHARGE PER UNIT) SC SCH ×2 (17:29→21:53)
--- NOTE | 2019-02-18 17:29 | NUR ---
REFUSED TO ORDER DINNER. REFUSED SSI AND METFORMIN.
--- NOTE | 2019-02-18 18:29 | NUR ---
REFUSED TO AMBULATE OR GET UP IN CHAIR. STATES "LEAVE ME ALONE, I WANT TO SLEEP." ATTEMPTED EDUCATION, BUT INAPPROPRIATE AND RUDE WITH STAFF AND CALLING STAFF VULGAR NAMES.
[2019-02-18] MEDS: busPIRone 15 MG (BUSPAR) TABLET PO SCH (20:39)
[2019-02-18] MEDS: NAPROXEN 250 MG (NAPROSYN) TABLET PO SCH (20:40)
[2019-02-18] MEDS: rOPINIRole 5 MG TAB (REQUIP) PO SCH (20:40)
[2019-02-18] MEDS: GABAPENTIN 300 MG (NEURONTIN) CAP PO SCH (20:41)
[2019-02-18] MEDS ORDERED: QUEtiapine 100 MG (SEROquel) TAB IMMEDIATE RELEASE PO SCH (21:00)
--- NOTE | 2019-02-18 22:24 | OPERATIVE REPORT ---
DATE OF SERVICE: 02/18/2019 PREOPERATIVE DIAGNOSIS: Left hand cellulitis abscess. POSTOPERATIVE DIAGNOSIS: Left hand cellulitis abscess. PROCEDURE: Incision and drainage with packing of left hand. BLOOD LOSS: Less than 10 mL. FLUIDS: Per anesthesia. POSTOPERATIVE CONDITION: Stable. INDICATION FOR PROCEDURE: The patient is a 53-year-old male who has had left hand abscess cellulitis and needed a drain. FINDINGS: The patient had purulent fluid drained from deep in his hand. Cultures obtained and sent to pathology. PROCEDURE NOTE: After informed consent was obtained, the patient was brought to the operating room, placed on the table in supine position. He was sterilely prepped and draped in normal fashion. Made incision on the dorsum of his left hand. Right in the middle with a #11 blade approximately 3 to 4 cm incision, carried down through the skin into the subcutaneous tissue and then with blunt dissection went deeper and immediately got purulent fluid coming out. I then kind of use my finger to roughly debride and open up the pockets going superiorly up to just past the wrist medially over to the thumb and then down towards the first knuckle, was a pretty wide area of abscess and purulence measured probably about 4 x 6 cm and then carefully flushed this out with normal saline and then packed with half inch iodoform packing and placed a pressure dressing. The patient tolerated the procedure. Sponge, instrument and needle count correct at the end of the case. Job ID: [id number] DocumentID: [id number] Dictated Date: 02/18/2019 14:58:42 Coroner'S Juror Date: 02/18/2019 22:24:17 Dictated By: JOSH FOURNIER DO
[2019-02-19 00:18] VITALS: BP 104/55
[2019-02-19 04:32] VITALS: BP 101/57
[2019-02-19] MEDS: ALPRAZolam 0.5 MG (XANAX) TAB PO SCH ×3 (05:30→20:44)
[2019-02-19 05:33] LABS: BASOPHILS # (AUTO) 0.1 10^3/uL (0.0-0.1); BASOPHILS % (AUTO) 0 % (0-10); EOSINOPHILS # (AUTO) 0.1 10^3/uL (0.0-0.3); EOSINOPHILS % (AUTO) 1 % (0-10); HEMATOCRIT 30 % (40-54); HEMOGLOBIN 10.5 G/DL (13.3-17.7); LYMPHOCYTES # (AUTO) 2.1 X 10^3 (1.0-4.0); LYMPHOCYTES % (AUTO) 18 % (12-44); MEAN CORPUSCULAR HEMOGLOBIN 30 PG (25-34); MEAN CORPUSCULAR HGB CONC 35 G/DL (32-36); MEAN CORPUSCULAR VOLUME 86 FL (80-99); MEAN PLATELET VOLUME 9.6 FL (7.4-10.4); MONOCYTES # (AUTO) 1.2 X 10^3 (0.0-1.0); MONOCYTES % (AUTO) 10 % (0-12); NEUTROPHILS # (AUTO) 8.4 X 10^3 (1.8-7.8); NEUTROPHILS % (AUTO) 71 % (42-75); PLATELET COUNT 225 10^3/uL (130-400); RED CELL DISTRIBUTION WIDTH 12.5 % (10.0-14.5); WHITE BLOOD COUNT 11.8 10^3/uL (4.3-11.0)
[2019-02-19] MEDS: PIPERACILLIN/TAZO 4.5 GM/NS 100 ML IV SCH ×6 (05:47→20:43)
[2019-02-19 05:55] LABS: ALBUMIN 2.8 GM/DL (3.2-4.5); BILIRUBIN,TOTAL 0.5 MG/DL (0.1-1.0); CALCIUM 7.8 MG/DL (8.5-10.1); CREATININE SERUM 1.53 MG/DL (0.60-1.30); POTASSIUM 3.8 MMOL/L (3.6-5.0); TOTAL PROTEIN 5.9 GM/DL (6.4-8.2)
[2019-02-19] MEDS ORDERED: GLIMEPIRIDE 2 MG (AMARYL) TAB PO SCH (06:30)
[2019-02-19] MEDS: inSUlin ASPART (NovoLOG) 1 UNIT/0.01 ML (CHARGE PER UNIT) SC SCH ×4 (07:58→21:35)
[2019-02-19] MEDS: metFORMIN 500 MG (GLUCOPHAGE) TAB PO SCH ×2 (07:58→16:26)
[2019-02-19 08:00] VITALS: BP 105/68
[2019-02-19] MEDS: GABAPENTIN 300 MG (NEURONTIN) CAP PO SCH ×3 (08:52→20:44)
[2019-02-19] MEDS: PANTOPRAZOLE 40 MG (PROTONIX) TAB PO SCH (08:52)
[2019-02-19] MEDS: busPIRone 15 MG (BUSPAR) TABLET PO SCH ×3 (08:53→20:44)
[2019-02-19] MEDS: rOPINIRole 5 MG TAB (REQUIP) PO SCH ×3 (08:53→20:44)
[2019-02-19] MEDS: ASPIRIN 81 MG CHEW (CHILDREN'S ASA) PO SCH (08:53)
[2019-02-19] MEDS: NAPROXEN 250 MG (NAPROSYN) TABLET PO SCH (08:53)
[2019-02-19] MEDS: VANCOMYCIN INJECTION 1,750 MG in NS IV 500 ML 500 ML IV SCH (08:53)
[2019-02-19 12:00] VITALS: BP 102/62
[2019-02-19] MEDS: NS IV 1000 ML 1,000 ML IV SCH (12:01)
--- NOTE | 2019-02-19 13:55 | Progress Note ---
Subjective Subjective/Events-last exam Patient states that he is feeling much better since surgery. Pain has improved. Swelling and redness has improved. wound Cultures still pending Review of Systems Date Seen by Provider: Feb 19, 2019 Time Seen by Provider: 11:45 Pulmonary: No Dyspnea, No Cough Cardiovascular: No: Chest Pain, Palpitations Gastrointestinal: No: Nausea, Vomiting Musculoskeletal: hand pain (left) Neurological: Weakness Focused Exam Lactate Level 02/17/19 14:30: Lactic Acid Level 2.16*H Objective Exam Last Set of Vital Signs Vital Signs Date Time Temp Pulse Resp B/P (MAP) Pulse Ox O2 Delivery O2 Flow Rate FiO2 02/19/19 12:00 98.2 96 18 102/62 (75) 96 Room Air 0.00 Capillary Refill : Less Than 3 SecondsLess Than 3 Seconds I&O Intake and Output 02/19/19 00:00 Intake Total 4115.0 ml Balance 4115.0 ml Intake Oral 960 ml IV Total 3155.0 ml # Voids 5 General: Alert, Oriented X3, Cooperative, No Acute Distress Lungs: Clear to Auscultation, Normal Air Movement Heart: Regular Rate, No Murmurs Abdomen: Normal Bowel Sounds, Soft, No Tenderness, No Masses Extremities: Other (Swelling and erythema of left hand, ttp, decreased sensation of finger tip, normal cap refill <5 sec) Results/Procedures Lab Laboratory Tests 02/18/19 16:30: Glucometer 189H 02/18/19 21:21: Glucometer 280H 02/19/19 05:19: White Blood Count 11.8H, Red Blood Count 3.53L, Hemoglobin 10.5L, Hematocrit 30L , Mean Corpuscular Volume 86, Mean Corpuscular Hemoglobin 30, Mean Corpuscular Hemoglobin Concent 35, Red Cell Distribution Width 12.5, Platelet Count 225, Mean Platelet Volume 9.6, Neutrophils (%) (Auto) 71, Lymphocytes (%) (Auto) 18, Monocytes (%) (Auto) 10, Eosinophils (%) (Auto) 1, Basophils (%) (Auto) 0, Neutrophils # (Auto) 8.4H, Lymphocytes # (Auto) 2.1, Monocytes # (Auto) 1.2H, Eosinophils # (Auto) 0.1, Basophils # (Auto) 0.1, Sodium Level 132L, Potassium Level 3.8, Chloride Level 102, Carbon Dioxide Level 21, Anion Gap 9, Blood Urea Nitrogen 15, Creatinine 1.53H, Estimat Glomerular Filtration Rate 47, BUN/Creatinine Ratio 10, Glucose Level 216H, Calcium Level 7.8L, Corrected Calcium 8.8, Total Bilirubin 0.5, Aspartate Amino Transf (AST/SGOT) 19, Alanine Aminotransferase (ALT/SGPT) 25, Alkaline Phosphatase 111, Total Protein 5.9L, Albumin 2.8L 02/19/19 07:51: Glucometer 192H 02/19/19 11:12: Glucometer 171H Microbiology 02/18/19 Gram Stain, Resulted Pending 02/18/19 Anaerobic Culture, Resulted Pending 02/18/19 Surgical Culture - Preliminary, Resulted Assessment/Plan Assessment/Plan (1) Cellulitis of left hand Status: Acute Assessment & Plan: 02/19: Wound cultures pending, POD #1, Continue Vanc/Zosyn, Dr Hall consulted (2) Left hand pain Status: Acute Assessment & Plan: 02/19: Improving, D/c IV pain meds (3) Diabetes mellitus Status: Chronic Assessment & Plan: 02/19: Continue home meds, continue to monitor blood sugars, discussed the importance of controlling DM and its role in wound healing Qualifiers: Qualified Codes: E11.69 - Type 2 diabetes mellitus with other specified complication Clinical Quality Measures DVT/VTE Risk/Contraindication: Risk Factor Score Per Nursin RFS Level Per Nursing on Admit: 3=High BENJAMIN AMADOR MD Feb 19, 2019 13:54
--- NOTE | 2019-02-19 14:16 | Progress Note - Surgery ---
Subjective Time Seen by a Provider: 13:14 Subjective/Events-last exam Pt seen and examined, he states his pain is much better and he thinks the swelling is down today. Review of Systems General: No Chills Pulmonary: No Dyspnea, No Cough Cardiovascular: No: Chest Pain, Palpitations Focused Exam Lactate Level 02/17/19 14:30: Lactic Acid Level 2.16*H Objective Exam Vital Signs Date Time Temp Pulse Resp B/P (MAP) Pulse Ox O2 Delivery O2 Flow Rate FiO2 02/19/19 12:00 98.2 96 18 102/62 (75) 96 Room Air 0.00 02/19/19 08:00 Room Air 02/19/19 08:00 98.5 93 18 105/68 (80) 96 Room Air 0.00 02/19/19 04:32 98.6 96 20 101/57 (72) 90 Room Air 0.00 02/19/19 00:18 99.2 94 20 104/55 (71) 94 Room Air 0.00 02/18/19 21:51 99.4 02/18/19 20:00 Room Air 02/18/19 19:51 101.8 107 20 144/77 (99) 98 Room Air 0.00 02/18/19 16:31 99.9 103 22 112/71 (85) 94 Room Air 0.00 02/18/19 15:55 99.4 16 100 Room Air 02/18/19 15:55 Room Air 02/18/19 15:50 20 100 Room Air 02/18/19 15:45 Room Air 02/18/19 15:40 14 99 Room Air 02/18/19 15:30 Room Air 02/18/19 15:30 14 100 Room Air 02/18/19 15:20 15 100 OxyMask 3 02/18/19 15:20 OxyMask 3 02/18/19 15:10 14 100 OxyMask 6 02/18/19 15:08 98.0 12 100 OxyMask 10 02/18/19 15:08 OxyMask 10 I & O 02/19/19 07:00 Intake Total 3285.0 ml Balance 3285.0 ml Capillary Refill : Less Than 3 SecondsLess Than 3 Seconds General Appearance: No Apparent Distress, WD/WN, Obese HEENT: PERRL/EOMI, Moist Mucous Membranes Respiratory: Chest Non Tender, Lungs Clear, No Accessory Muscle Use, No Resp iratory Distress Cardiovascular: Regular Rate, Rhythm, No Murmur Gastrointestinal: normal bowel sounds, non tender, soft, no organomegaly, no pulsatile mass Extremity: No Calf Tenderness Skin: Other (left hand wrapped, but fingers and arm seem less swollen, pt has good motion and feeling in fingers) Results Lab Laboratory Tests 02/18/19 16:30: Glucometer 189H 02/18/19 21:21: Glucometer 280H 02/19/19 05:19: White Blood Count 11.8H, Red Blood Count 3.53L, Hemoglobin 10.5L, Hematocrit 30L , Mean Corpuscular Volume 86, Mean Corpuscular Hemoglobin 30, Mean Corpuscular Hemoglobin Concent 35, Red Cell Distribution Width 12.5, Platelet Count 225, Mean Platelet Volume 9.6, Neutrophils (%) (Auto) 71, Lymphocytes (%) (Auto) 18, Monocytes (%) (Auto) 10, Eosinophils (%) (Auto) 1, Basophils (%) (Auto) 0, Neutrophils # (Auto) 8.4H, Lymphocytes # (Auto) 2.1, Monocytes # (Auto) 1.2H, Eosinophils # (Auto) 0.1, Basophils # (Auto) 0.1, Sodium Level 132L, Potassium Level 3.8, Chloride Level 102, Carbon Dioxide Level 21, Anion Gap 9, Blood Urea Nitrogen 15, Creatinine 1.53H, Estimat Glomerular Filtration Rate 47, BUN/Creatinine Ratio 10, Glucose Level 216H, Calcium Level 7.8L, Corrected Calcium 8.8, Total Bilirubin 0.5, Aspartate Amino Transf (AST/SGOT) 19, Alanine Aminotransferase (ALT/SGPT) 25, Alkaline Phosphatase 111, Total Protein 5.9L, Albumin 2.8L 02/19/19 07:51: Glucometer 192H 02/19/19 11:12: Glucometer 171H Microbiology 02/18/19 Gram Stain, Resulted Pending 02/18/19 Anaerobic Culture, Resulted Pending 02/18/19 Surgical Culture - Preliminary, Resulted Assessment/Plan Assessment/Plan Assessment/Plan Left Hand Cellulitis DM S/P I&D with packing of left hand. Will continue IV ABX until we get culture results. Continue IV fluids, elevate hand and can use some warm compresses. Pain control. Clinical Quality Measures DVT/VTE Risk/Contraindication: Risk Factor Score Per Nursin RFS Level Per Nursing on Admit: 3=High JOSH FOURNIER DO Feb 19, 2019 14:16
[2019-02-19] MEDS ORDERED: HYDR-3820 PO (15:29)
--- NOTE | 2019-02-19 15:34 | NUR ---
SPOKE WITH THE PATIENT AND HIS ABOUT MEDICATIONS. WE WENT OVER THE EXT MED HX AND SHE VERIFIED HOW HE TAKES THEM. SHE STATES HIS GABAPENTIN IS 3 CAPSULES BID HOWEVER IT IS PRESCRIBED 1 TID. SHE STATES SHE NEEDS TO TALK TO TO SEE ABOUT GETTING IT CHANGED HOWEVER ADMITS HE DOES NOT ALWAYS TAKE HIS MEDICATIONS. I LEFT IT IT IS PRESCRIBED AT THIS TIME. HE IS PAST DUE FOR REFILLS ON SEVERAL MEDS, I NOTED THE DATES ON THE MED REC. HE WAS TAKING 1/2 TAB DAILY OF HIS GLIMEPIRIDE BUT HAS RESUMED TAKING 2 TABS DAILY, BECAUSE HE WAS TAKING SIGNIFICANTLY LESS FOR AWHILE HE HAS A SUPPLY BUILT UP ON HAND AT HOME. HE TAKES NAPROXEN BID AND ASPIRIN 81MG OTC. Addendum: 02/19/19 at 1537 by JUSTO VARELA [facility] HE DOES NOT HAVE THE SEROQUEL ON HAND AT HOME, HE RAN OUT AND IT WAS OUT OF REFILLS. HE NO LONGER SEES THE THAT HAD ORIGINALLY PRESCRIBED IT BUT STATES HE NEEDS TO GET IT BECAUSE IT HELPS HIM SLEEP AT NIGHT, HE IS GOING TO TALK TO HIS PCP. I REMOVED IT FROM THE MED REC AT THIS TIME.
[2019-02-19 15:56] VITALS: BP 109/55
[2019-02-19] MEDS ORDERED: TROUGH ORDER-PHARMACY XX NR (19:00)
[2019-02-19 20:58] VITALS: BP 121/57
[2019-02-20] MEDS: oxyCODONE/APAP 10/325MG (PERCOCET 10) TABLET PO PRN ×2 (00:24→12:43)
[2019-02-20 00:48] VITALS: BP 126/51
[2019-02-20 04:24] VITALS: BP 140/65
[2019-02-20] MEDS: PIPERACILLIN/TAZO 4.5 GM/NS 100 ML IV SCH ×6 (05:34→21:08)
[2019-02-20] MEDS: inSUlin ASPART (NovoLOG) 1 UNIT/0.01 ML (CHARGE PER UNIT) SC SCH ×4 (06:01→21:00)
[2019-02-20] MEDS: ALPRAZolam 0.5 MG (XANAX) TAB PO SCH ×3 (06:01→21:09)
[2019-02-20 07:00] LABS: BASOPHILS % (AUTO) 0 % (0-10); EOSINOPHILS # (AUTO) 0.3 10^3/uL (0.0-0.3); EOSINOPHILS % (AUTO) 2 % (0-10); HEMATOCRIT 32 % (40-54); LYMPHOCYTES # (AUTO) 1.6 X 10^3 (1.0-4.0); LYMPHOCYTES % (AUTO) 14 % (12-44); MEAN CORPUSCULAR HEMOGLOBIN 30 PG (25-34); MEAN CORPUSCULAR HGB CONC 35 G/DL (32-36); MEAN CORPUSCULAR VOLUME 85 FL (80-99); MEAN PLATELET VOLUME 9.8 FL (7.4-10.4); MONOCYTES # (AUTO) 0.9 X 10^3 (0.0-1.0); MONOCYTES % (AUTO) 8 % (0-12); NEUTROPHILS # (AUTO) 8.8 X 10^3 (1.8-7.8); NEUTROPHILS % (AUTO) 76 % (42-75); PLATELET COUNT 235 10^3/uL (130-400); RED CELL DISTRIBUTION WIDTH 12.3 % (10.0-14.5); WHITE BLOOD COUNT 11.7 10^3/uL (4.3-11.0)
[2019-02-20] MEDS ORDERED: TROUGH ORDER-PHARMACY XX NR (07:00)
[2019-02-20 07:15] LABS: CALCIUM 8.1 MG/DL (8.5-10.1); CREATININE SERUM 2.52 MG/DL (0.60-1.30)
[2019-02-20 07:23] LABS: VANCOMYCIN,TROUGH 19.7 UG/ML (10.0-20.0)
[2019-02-20] MEDS: GLIMEPIRIDE 4 MG (AMARYL) TAB PO SCH (07:43)
[2019-02-20] MEDS: metFORMIN 500 MG (GLUCOPHAGE) TAB PO SCH (07:43)
[2019-02-20] MEDS: NS IV 1000 ML 1,000 ML IV SCH ×4 (07:43→21:08)
[2019-02-20 08:00] VITALS: BP 124/73
[2019-02-20] MEDS: busPIRone 15 MG (BUSPAR) TABLET PO SCH ×3 (08:34→21:09)
[2019-02-20] MEDS: rOPINIRole 5 MG TAB (REQUIP) PO SCH ×3 (08:34→21:09)
[2019-02-20] MEDS: GABAPENTIN 300 MG (NEURONTIN) CAP PO SCH (08:34)
[2019-02-20] MEDS: PANTOPRAZOLE 40 MG (PROTONIX) TAB PO SCH (08:34)
[2019-02-20] MEDS: ASPIRIN 81 MG CHEW (CHILDREN'S ASA) PO SCH (08:34)
--- NOTE | 2019-02-20 09:23 | Anesthesia-General Post-Op ---
General Patient Condition Mental Status/LOC: Same as Preop Cardiovascular: Satisfactory Nausea/Vomiting: Absent Respiratory: Satisfactory Pain: Controlled Complications: Absent Post Op Complications Complications None Follow Up Care/Instructions Patient Instructions None needed. Anesthesia/Patient Condition Patient Condition Patient is doing well, no complaints, stable vital signs, no apparent adverse anesthesia problems. No complications reported per nursing. [place] [facility] [place] ADAN Dorado CRNA Feb 20, 2019 09:23
[2019-02-20] MEDS: VANCOMYCIN INJECTION 1,250 MG in NS (IVPB) 250 ML IV SCH (11:19)
[2019-02-20 12:00] VITALS: BP 135/76
[2019-02-20] MEDS ORDERED: NS IV 1000 ML 1,000 ML IV SCH (12:45)
--- NOTE | 2019-02-20 13:30 | NUR ---
DRESSING CHANGE DONE BY DR FOURNIER'S VERBAL/TELEPHONE ORDER. FLUSHED WITH NORMAL SALINE, PACKED WITH IODOFORM PACKING STRIP, 4X4 GAUZE AND ABD PAD PLACE ON TOP OF WOUND. WRAPPED WITH GAUZY ROLL..
[2019-02-20 16:19] VITALS: BP 170/78
--- NOTE | 2019-02-20 18:48 | Progress Note - Surgery ---
Subjective Time Seen by a Provider: 12:50 Subjective/Events-last exam Pt seen and examined, took down dressing and looks good. Pt states he feels much better, thinks the swelling has improved. He is asking to go home. Review of Systems General: No Chills, No Night Sweats Pulmonary: No Dyspnea, No Cough Objective Exam Vital Signs Date Time Temp Pulse Resp B/P (MAP) Pulse Ox O2 Delivery O2 Flow Rate FiO2 02/20/19 16:19 98.4 94 20 170/78 (108) 98 Room Air 0.00 02/20/19 12:00 99.0 95 18 135/76 (95) 99 Room Air 0.00 02/20/19 08:00 98.5 93 18 124/73 (90) 96 Room Air 0.00 02/20/19 08:00 Room Air 02/20/19 04:24 98.0 94 16 140/65 (90) Room Air 02/20/19 00:48 99.4 98 18 126/51 (76) 97 Room Air 02/19/19 20:58 98.6 106 22 121/57 (78) 97 Room Air 0.00 02/19/19 20:00 97 Room Air 0.00 I & O 02/20/19 07:00 Intake Total 5677.5 ml Output Total 0 ml Balance 5677.5 ml Capillary Refill : Less Than 3 SecondsLess Than 3 Seconds General Appearance: No Apparent Distress, Obese HEENT: PERRL/EOMI, Moist Mucous Membranes Respiratory: Chest Non Tender, Lungs Clear, No Accessory Muscle Use, No Respiratory Distress Cardiovascular: Regular Rate, Rhythm, No Murmur Extremity: No Calf Tenderness, Other (Left hand wound looks good, no bleeding, no purulence, erythema is less) Skin: Other Results Lab Laboratory Tests 02/19/19 19:04: Vancomycin Level Trough 24.8H 02/19/19 20:58: Glucometer 346H 02/20/19 05:47: Glucometer 173H 02/20/19 06:40: Vancomycin Level Trough 19.7, White Blood Count 11.7H, Red Blood Count 3.71L, Hemoglobin 11.0L, Hematocrit 32L, Mean Corpuscular Volume 85, Mean Corpuscular Hemoglobin 30, Mean Corpuscular Hemoglobin Concent 35, Red Cell Distribution Width 12.3, Platelet Count 235, Mean Platelet Volume 9.8, Neutrophils (%) (Auto) 76H, Lymphocytes (%) (Auto) 14, Monocytes (%) (Auto) 8, Eosinophils (%) (Auto) 2, Basophils (%) (Auto) 0, Neutrophils # (Auto) 8.8H, Lymphocytes # (Auto) 1.6, Monocytes # (Auto) 0.9, Eosinophils # (Auto) 0.3, Basophils # (Auto) 0.0, Sodium Level 138, Potassium Level 4.0, Chloride Level 106, Carbon Dioxide Level 21, Anion Gap 11, Blood Urea Nitrogen 20H, Creatinine 2.52#H, Estimat Glomerular Filtration Rate 27, BUN/Creatinine Ratio 8, Glucose Level 155H, Calcium Level 8.1L 02/20/19 11:00: Glucometer 164H 02/20/19 16:19: Glucometer 186H Microbiology 02/17/19 Blood Culture - Preliminary, Resulted No growth 02/18/19 MRSA Screen - Final, Complete MRSA not isolated 02/18/19 Gram Stain - Final, Resulted 02/18/19 Anaerobic Culture - Preliminary, Resulted No anaerobes isolated 02/18/19 Surgical Culture - Preliminary, Resulted Strep anginosus Strptcoc constellatus ss const Assessment/Plan Assessment/Plan Assessment/Plan Left Hand Cellulitis DM Plan to repack left hand with Iodophor packing. Will switch to PO ABX once we find out what treats the Strep species he has. Continue IV fluids, elevate hand and can use some warm compresses. Pain control. Clinical Quality Measures DVT/VTE Risk/Contraindication: Risk Factor Score Per Nursin RFS Level Per Nursing on Admit: 3=High JOSH FOURNIER DO Feb 20, 2019 18:48
--- NOTE | 2019-02-20 19:21 | Progress Note ---
Subjective Subjective/Events-last exam Patient states that pain is much better. Draining purulent fluid. Tolerating PO diet and ambulation Review of Systems Date Seen by Provider: Feb 20, 2019 Time Seen by Provider: 11:25 Pulmonary: No Dyspnea, No Cough Cardiovascular: No: Chest Pain, Palpitations Musculoskeletal: hand pain Objective Exam Last Set of Vital Signs Vital Signs Date Time Temp Pulse Resp B/P (MAP) Pulse Ox O2 Delivery O2 Flow Rate FiO2 02/20/19 16:19 98.4 94 20 170/78 (108) 98 Room Air 0.00 Capillary Refill : Less Than 3 SecondsLess Than 3 Seconds I&O Intake and Output 02/20/19 00:00 Intake Total 5357.5 ml Output Total 0 ml Balance 5357.5 ml Intake Oral 2480 ml IV Total 2877.5 ml Output Urine Total 0 ml # Voids 2 General: Alert, Oriented X3, Cooperative, No Acute Distress Lungs: Clear to Auscultation, Normal Air Movement Heart: Regular Rate, No Murmurs Abdomen: Normal Bowel Sounds, Soft, No Tenderness, No Masses Skin: Other (Open surgical wound on back of left hand, draining purulent fluid, decreased ROM and strength in left hand, decreased sensation to finger tips) Results/Procedures Lab Laboratory Tests 02/19/19 20:58: Glucometer 346H 02/20/19 05:47: Glucometer 173H 02/20/19 06:40: White Blood Count 11.7H, Red Blood Count 3.71L, Hemoglobin 11.0L, Hematocrit 32L , Mean Corpuscular Volume 85, Mean Corpuscular Hemoglobin 30, Mean Corpuscular Hemoglobin Concent 35, Red Cell Distribution Width 12.3, Platelet Count 235, Mean Platelet Volume 9.8, Neutrophils (%) (Auto) 76H, Lymphocytes (%) (Auto) 14, Monocytes (%) (Auto) 8, Eosinophils (%) (Auto) 2, Basophils (%) (Auto) 0, Neutrophils # (Auto) 8.8H, Lymphocytes # (Auto) 1.6, Monocytes # (Auto) 0.9, Eosinophils # (Auto) 0.3, Basophils # (Auto) 0.0, Sodium Level 138, Potassium Level 4.0, Chloride Level 106, Carbon Dioxide Level 21, Anion Gap 11, Blood Urea Nitrogen 20H, Creatinine 2.52#H, Estimat Glomerular Filtration Rate 27, BUN/Creatinine Ratio 8, Glucose Level 155H, Calcium Level 8.1L, Vancomycin Level Trough 19.7 02/20/19 11:00: Glucometer 164H 02/20/19 16:19: Glucometer 186H Microbiology 02/17/19 Blood Culture - Preliminary, Resulted No growth 02/18/19 MRSA Screen - Final, Complete MRSA not isolated 02/18/19 Gram Stain - Final, Resulted 02/18/19 Anaerobic Culture - Preliminary, Resulted No anaerobes isolated 02/18/19 Surgical Culture - Preliminary, Resulted Strep anginosus Strptcoc constellatus ss const Assessment/Plan Assessment/Plan (1) Cellulitis of left hand Status: Acute Assessment & Plan: 02/19: Wound cultures pending, POD #1, Continue Vanc/Zosyn, Dr Hall consulted 02/20: POD #2, cultures pending (2) Acute renal failure Status: Acute Assessment & Plan: 02/20: Likely 2/2 to Vanc, stopped metformin and Gabapentin due to renal failure Qualifiers: Qualified Codes: N17.9 - Acute kidney failure, unspecified (3) Left hand pain Status: Acute Assessment & Plan: 02/19: Improving, D/c IV pain meds (4) Diabetes mellitus Status: Chronic Assessment & Plan: 02/19: Continue home meds, continue to monitor blood sugars, discussed the importance of controlling DM and its role in wound healing Qualifiers: Qualified Codes: E11.69 - Type 2 diabetes mellitus with other specified complication Clinical Quality Measures DVT/VTE Risk/Contraindication: Risk Factor Score Per Nursin RFS Level Per Nursing on Admit: 3=High BENJAMIN AMADOR MD Feb 20, 2019 19:21
[2019-02-20 20:53] VITALS: BP 130/77
[2019-02-20] MEDS: ACETAMINOPHEN 325 MG TABLET PO PRN (21:09)
[2019-02-20] MEDS: amLODIPine 5 MG (NORVASC) TAB PO SCH (21:09)
[2019-02-21 00:38] VITALS: BP 125/60
[2019-02-21 04:21] VITALS: BP 160/77
[2019-02-21] MEDS: oxyCODONE/APAP 10/325MG (PERCOCET 10) TABLET PO PRN (04:40)
[2019-02-21] MEDS: PIPERACILLIN/TAZO 4.5 GM/NS 100 ML IV SCH ×4 (04:40→12:44)
[2019-02-21] MEDS: inSUlin ASPART (NovoLOG) 1 UNIT/0.01 ML (CHARGE PER UNIT) SC SCH ×2 (06:15→11:14)
[2019-02-21] MEDS: GLIMEPIRIDE 4 MG (AMARYL) TAB PO SCH (06:15)
[2019-02-21] MEDS: ALPRAZolam 0.5 MG (XANAX) TAB PO SCH ×2 (06:20→14:10)
[2019-02-21] MEDS ORDERED: TROUGH ORDER-PHARMACY XX NR (07:00)
[2019-02-21 07:32] LABS: BASOPHILS % (AUTO) 0 % (0-10); EOSINOPHILS # (AUTO) 0.4 10^3/uL (0.0-0.3); EOSINOPHILS % (AUTO) 3 % (0-10); HEMATOCRIT 30 % (40-54); HEMOGLOBIN 10.5 G/DL (13.3-17.7); LYMPHOCYTES # (AUTO) 1.3 X 10^3 (1.0-4.0); LYMPHOCYTES % (AUTO) 12 % (12-44); MEAN CORPUSCULAR HEMOGLOBIN 30 PG (25-34); MEAN CORPUSCULAR HGB CONC 35 G/DL (32-36); MEAN CORPUSCULAR VOLUME 86 FL (80-99); MONOCYTES # (AUTO) 0.8 X 10^3 (0.0-1.0); MONOCYTES % (AUTO) 7 % (0-12); NEUTROPHILS # (AUTO) 9.1 X 10^3 (1.8-7.8); NEUTROPHILS % (AUTO) 78 % (42-75); PLATELET COUNT 274 10^3/uL (130-400); RED CELL DISTRIBUTION WIDTH 12.4 % (10.0-14.5); WHITE BLOOD COUNT 11.6 10^3/uL (4.3-11.0)
[2019-02-21 07:50] LABS: CALCIUM 8.5 MG/DL (8.5-10.1); CREATININE SERUM 2.53 MG/DL (0.60-1.30)
[2019-02-21 08:00] VITALS: BP 149/73
[2019-02-21] MEDS: busPIRone 15 MG (BUSPAR) TABLET PO SCH ×2 (09:18→12:44)
[2019-02-21] MEDS: amLODIPine 5 MG (NORVASC) TAB PO SCH (09:18)
[2019-02-21] MEDS: PANTOPRAZOLE 40 MG (PROTONIX) TAB PO SCH (09:18)
[2019-02-21] MEDS: rOPINIRole 5 MG TAB (REQUIP) PO SCH ×2 (09:18→12:44)
[2019-02-21] MEDS: ASPIRIN 81 MG CHEW (CHILDREN'S ASA) PO SCH (09:18)
[2019-02-21] MEDS: NS IV 1000 ML 1,000 ML IV SCH (09:23)
[2019-02-21] MEDS: VANCOMYCIN INJECTION 1,250 MG in NS (IVPB) 250 ML IV SCH (09:27)
[2019-02-21] MEDS: ACETAMINOPHEN 325 MG TABLET PO PRN ×2 (11:16→12:45)
[2019-02-21] MEDS ORDERED: NS IV 1000 ML 1,000 ML IV SCH (11:30)
[2019-02-21 12:00] VITALS: BP 178/93
[2019-02-21 13:38] LABS: CALCIUM 8.7 MG/DL (8.5-10.1); CREATININE SERUM 2.42 MG/DL (0.60-1.30); POTASSIUM 4.1 MMOL/L (3.6-5.0)
--- NOTE | 2019-02-21 14:56 | Discharge Summary ---
Diagnosis/Chief Complaint Date of Admission Feb 17, 2019 at 16:48 Date of Discharge 02/21/2019 Admission Diagnosis Admission Diagnosis See problem list Discharge Diagnosis See below Problems/Diagnosis: (1) Cellulitis of left hand Assessment & Plan: 02/19: Wound cultures pending, POD #1, Continue Vanc/Zosyn, Dr Hall consulted 02/20: POD #2, cultures pending 02/21: Culture growing Strep, PO antibiotics adjusted, Will have close f.u with Dr Hall to monitor wound Status: Acute (2) Acute renal failure Assessment & Plan: 02/20: Likely 2/2 to Vanc, stopped metformin and Gabapentin due to renal failure Qualifiers: Qualified Codes: N17.9 - Acute kidney failure, unspecified Status: Acute (3) Left hand pain Assessment & Plan: 02/19: Improving, D/c IV pain meds Status: Acute (4) Diabetes mellitus Assessment & Plan: 02/19: Continue home meds, continue to monitor blood sugars, discussed the importance of controlling DM and its role in wound healing Qualifiers: Qualified Codes: E11.69 - Type 2 diabetes mellitus with other specified complication Status: Chronic Discharge Summary-Simple/Stand Procedures Incision and Drainage of left hand Consultations Dr Hall: General Surgery Discharge Physical Examination Allergies: Coded Allergies: No Known Drug Allergies (Unverified , 01/04/18) Vitals & I&Os Vital Sign - Last 12Hours Date Time Temp Pulse Resp B/P (MAP) Pulse Ox O2 Delivery O2 Flow Rate FiO2 02/21/19 12:00 99.0 96 18 178/93 (121) 98 Room Air 02/21/19 08:00 0.00 Intake and Output 02/21/19 00:00 Intake Total 3242.5 ml Balance 3242.5 ml General Appearance: Alert, Oriented X3, Cooperative, No Acute Distress HEENT: Mucous Memb Moist/[place] Respiratory: Clear to Auscultation, Normal Air Movement Cardiovascular: Regular Rate, No Murmurs Abdominal: Normal Bowel Sounds, Soft, No Tenderness, No Masses Extremities: No Edema, No Tenderness/Swelling Skin: Other (Open and draining hand wound on left, erythema and swelling improved) Neuro: Normal Speech, Strength at 5/5 X4 Ext, Sensation Intact, Cranial Nerves 3-12 NL Psych/Mental Status: Mental Status NL, Mood NL Hospital Course Was the Problem List Reviewed?: Yes See final discharge diagnosis. Discussion & Recommendations 53 yo M that presented with cellulitis and abscess of left hand. Seen by general surgery and required I&D and IV antibiotics. Cultures grew out strep. Patient will have f.u with general surgery and PCP. Discharge Condition at discharge stable Instructions to patient/family Please see electronic discharge instructions given to patient. Discharge Medications Reviewed and agree with Discharge Medication list on patient's Discharge Instruction sheet Clinical Quality Measures DVT/VTE Risk/Contraindication: Risk Factor Score Per Nursin RFS Level Per Nursing on Admit: 3=High Copy Copies To 1: SELF,BENJAMIN LOOMIS MD, MD Feb 21, 2019 14:56
--- NOTE | 2019-02-21 15:00 | NUR ---
DRESSING CHANGED PER DR FOURNIER VERBAL ORDERS.
[2019-02-21] MEDS ORDERED: AMOX500T2 PO (15:01)
[2019-02-21] MEDS ORDERED: AMLO5TAB9 PO (15:01)
--- NOTE | 2019-02-21 15:15 | Discharge Instructions ---
Discharge Inst-[facility] Discharge Medications New, Converted or Re-Newed RX: Transmitted to Pharmacy New Medications: Amoxicillin (Amoxicillin) 500 Mg Tablet 500 MG PO BID for 10 Days, #20 TAB Amlodipine Besylate (Amlodipine Besylate) 5 Mg Tablet 5 MG PO DAILY, #30 TAB Continued Medications: Alprazolam (Xanax) 0.5 Mg Tablet 0.5 MG PO Q8H PRN for ANXIETY, TAB Aspirin (Aspir 81) 81 Mg Tablet.dr 81 MG PO DAILY, TAB Buspirone HCl (Buspirone HCl) 15 Mg Tablet 45 MG PO DAILY, TAB LAST FILLED #90 12-14-18 Gabapentin (Gabapentin) 300 Mg Capsule 300 MG PO TID, CAP Glimepiride (Glimepiride) 4 Mg Tablet 8 MG PO DAILY, TAB TAKES 2 (4MG) TABLETS Hydrocodone/Acetaminophen (Hydrocodon-Acetaminophn 10-325) 1 Each Tablet 1 TAB PO Q8H PRN for PAIN-MODERATE, TAB Metformin HCl (Metformin HCl) 1,000 Mg Tablet 1000 MG PO BID, TAB LAST FILLED #180 09-27-18 Naproxen Sodium (Naproxen Sodium) 220 Mg Tablet 220 MG PO BID, TAB Omeprazole (Omeprazole) 40 Mg Capsule.dr 40 MG PO DAILY, CAP Ropinirole HCl (Ropinirole HCl) 5 Mg Tablet 5 MG PO TID, TAB LAST FILLED #90 11-12-18 Patient Instructions Goal/Follow Up Appt: Close f/u with Surgery for wound care F.u with Dr [place] next week Patient Instructions: - Make sure to complete your antibiotics Return to The Hospital For: - Increased Pain or swelling Activity & Diet Discharge Diet: ADA Diet Activity as Tolerated: Yes Orders-Post D/C & Referrals Pneu Vac Indicated: Yes Copy Copies To 1: SELF,BENJAMIN LOOMIS MD, MD Feb 21, 2019 15:06
[2019-02-21 15:37] VITALS: BP 171/80
[2019-02-21 16:00] VITALS: BP 171/80
--- NOTE | 2019-02-21 16:20 | NUR ---
PT STABLE AND READY FOR DISCHARGE PER DR. AMADOR ORDERS. WRITTEN AND VERBAL D/C INSTRUCTIONS GONE OVER WITH PT. SCHEDULED F/U APPOINTMENTS GIVEN TO PT. PT VERBALIZED UNDERSTANDING OF DISCHARGE INSTRUCTIONS. PT AMBULATED DOWN TO PRIVATE VEHICLE WITH AT SIDE. NO FURTHER NEEDS IDENTIFIED
--- NOTE | 2019-02-23 12:14 | Physician Query Clarification ---
PQ-Uncertain Diagnosis Admission/Discharge Admission Date: Feb 17, 2019 at 16:48 Discharge Date: Feb 21, 2019 at 16:20 The medical record reflects the following clinical scenario: History/Risk Factors: cellulitis Clinical Findings: cellulitis, elevated lactic acid Treatment: Zosyn, Vancomycin Question: Is SEPSIS a clinically valid diagnosis? SEPSIS was documented in Dr. Bravo's H&P and with no further documentation in the medical record. Please document a response in Progress Note or Discharge Summary. 1. Yes, clinically valid, condition resolved. 2. No, condition ruled out. 3. Other, with explanation of clinical findings. 4. Undetermined, no explanation for clinical findings. PHYSICIAN RESPONSE Diagnosis clinically valid: No, conditon ruled out Please remember a lack of response to the above will prompt a phone page by [facility]/Coding staff. In responding to this query, please exercise your independent professional judgment. The purpose of this communication is to more accurately reflect the complexity of your patients condition. The fact that a question is asked does not imply that any particular answer is desired or expected. Thank you for your timely response to this clarification. Requestors name: [ ] Phone # [ ] THIS PHYSICIAN QUERY FORM IS A PERMANENT PART OF THE MEDICAL RECORD THOMPSON GONZALEZ Feb 23, 2019 12:14 BENJAMIN AMADOR MD Feb 23, 2019 13:14
== END 2019-02-21 16:20 | disposition home or self-care (01) | DRG 580 ==
LOC: EDUNIT# 13:07 → ER FS 13:09 → 4TH 16:48
PROVIDERS: ADMIT Internal Medicine; ATTEND Family Medicine
PROC: 0J9K0ZZ Drainage of Left Hand Subcutaneous Tissue and Fascia, Open Approach (ICD-10-PCS; principal; 2019-02-18 14:30)
DX: L03.114 Cellulitis of left upper limb (principal); E87.1 Hypo-osmolality and hyponatremia; E78.2 Mixed hyperlipidemia; N17.9 Acute kidney failure, unspecified; E11.65 Type 2 diabetes mellitus with hyperglycemia; E11.40 Type 2 diabetes mellitus with diabetic neuropathy, unspecified; E11.69 Type 2 diabetes mellitus with other specified complication; I10 Essential (primary) hypertension; M54.9 Dorsalgia, unspecified; E66.9 Obesity, unspecified; G89.4 Chronic pain syndrome; G47.30 Sleep apnea, unspecified; F41.9 Anxiety disorder, unspecified; F32.9 Major depressive disorder, single episode, unspecified; K59.09 Other constipation; M19.91 Primary osteoarthritis, unspecified site; Z68.36 Body mass index [BMI] 36.0-36.9, adult; Z72.0 Tobacco use; Z79.84 Long term (current) use of oral hypoglycemic drugs
CPT/HCPCS: 36415; 73130; 80048; 80053; 80202; 82962; 83605; 85007; 85025; 85027; 85652; 87040; 87070; 87075; 87077; 87081; 87185; 87205; 96365; 96375

== ENCOUNTER → 2019-10-29 | Outpatient (CLI) | payer MEDICARE ==
[~2019-10-29] MED LIST changes: +ACHYD1T PO; +ALPR0.5T PO; +AMLO5TAB9 PO; +AMOX500T2 PO; +BUSP15TA60 PO; -DOXY100T19 PO; +DOXY100T31 PO; +GABA-488 PO; -GLIM4TAB PO; +GLIM4TAB5 PO; +METF-399 PO; +OMEP40CA27 PO; +QUET300T2 PO
== END | disposition home or self-care (01) ==
LOC: PREOP 05:57
PROVIDERS: ATTEND Surgery
DX: Z01.818 Encounter for other preprocedural examination (principal)

== ENCOUNTER 2020-12-08 05:37 | Outpatient (CLI) | payer MEDICARE ==
[~2020-12-08] VITALS: Ht 185.4 cm; Wt 119.2 kg
[~2020-12-08 05:37] MED LIST changes: +AMLO-250 PO; -AMLO5TAB9 PO
[2020-12-08] MEDS ORDERED: INSU100V37 SQ (12:54)
[2020-12-08] MEDS ORDERED: INSU100I14 SQ (12:54)
[2020-12-08] MEDS ORDERED: DULA0.75 SQ (12:54)
== END 2020-12-08 13:42 | disposition home or self-care (01) ==
LOC: PREOP 05:37
PROVIDERS: ATTEND Surgery
DX: Z01.818 Encounter for other preprocedural examination (principal)

== ENCOUNTER → 2020-12-11 | Outpatient (CLI) | payer MEDICARE ==
[~2020-12-11] MED LIST changes: +DULA0.75 SQ; +INSU100I14 SQ; +INSU100V37 SQ
--- NOTE | 2020-12-11 12:15 | Diagnostic Imaging Report ---
INDICATION: Foot pain. Wound. COMPARISON: None. FINDINGS: Three views of the right foot demonstrate no acute fracture or dislocation. Moderate degenerative changes at the first metatarsophalangeal joint space are noted. There are no focal osseous lesions. There is no soft tissue swelling. Joint spaces are well maintained. No radiopaque foreign bodies are seen. IMPRESSION: No acute fractures or dislocations of the right foot. Dictated by: Dictated on workstation # [id number]
== END ==
LOC: RAD FS 11:13
PROVIDERS: ATTEND Nurse Practitioner Family
DX: S91.301A Unspecified open wound, right foot, initial encounter (principal)
CPT/HCPCS: 73630

== ENCOUNTER → 2021-01-13 | Outpatient (CLI) | payer MEDICARE ==
--- NOTE | 2021-01-13 20:05 | Diagnostic Imaging Report ---
INDICATION: Soft tissue infection. Three views of the left foot were obtained. FINDINGS: There is a chronic appearing subluxation of the left 5th toe at the metatarsophalangeal joint. There is no acute fracture. There is no radiographic evidence of osteomyelitis. Soft tissues are grossly unremarkable. IMPRESSION: Chronic appearing subluxation at the left 5th metatarsophalangeal joint. No other acute radiographic abnormality. Specifically, there is no radiographic evidence of osteomyelitis. Dictated by: Dictated on workstation # [id number]
== END ==
LOC: RAD FS 15:12
PROVIDERS: ATTEND Nurse Practitioner Family
DX: L97.529 Non-pressure chronic ulcer of other part of left foot with unspecified severity (principal)
CPT/HCPCS: 73630

== ENCOUNTER 2021-06-20 09:47 | Emergency (ER) | payer MEDICARE ==
[~2021-06-20] VITALS: Ht 185 cm; Wt 108.0 kg
[~2021-06-20 09:47] MED LIST changes: -OMEP40CA27 PO; +OMEP40CA6 PO
--- OUTSIDE RECORDS SUMMARY | 2021-06-20 09:52 | XMS REPORT | Clinical Summary ---
Author Author [facility] Organization [facility] Address Unknown Phone Unavailable Care Team Providers Care Hearing Care Professional Name Role Phone PCP Unavailable Allergies Not on File Medications Not on file Active Problems Not on file Social History Date Tobacco Use Types Packs/Day Years Used Never Assessed Sex Assigned at Date Recorded Not on file Last Filed Vital Signs Not on file Plan of Treatment Health Maintenance Due Date Last Done Comments Hepatitis C Screen 1965 Td/Tdap# 1965 COVID-19 Vaccine (1) 1975 Colorectal Screening via 2013 Colonoscopy Zoster Vaccine# (1 of 2) 2013 Influenza Vaccine (#1) 2021 Pneumococcal Vaccine: Aged Out No longer elimalissab jayy based on patient's age to Pediatrics (0 to 5 Years) complete this topic and At-Risk Patients (6 to 64 Years) Results Not on filefrom Last 3 Months
[2021-06-20] MEDS ORDERED: NS IV 1000 ML 1,000 ML IV STA ×2 (10:04→11:42)
[2021-06-20 10:19] LABS: BASOPHILS # (AUTO) 0.1 10^3/uL (0.0-0.1); BASOPHILS % (AUTO) 0 % (0-10); EOSINOPHILS # (AUTO) 0.1 10^3/uL (0.0-0.3); EOSINOPHILS % (AUTO) 1 % (0-10); HEMATOCRIT 42 % (40-54); HEMOGLOBIN 15.1 g/dL (13.3-17.7); LYMPHOCYTES # (AUTO) 1.7 X 10^3 (1.0-4.0); LYMPHOCYTES % (AUTO) 15 % (12-44); MEAN CORPUSCULAR HEMOGLOBIN 30 pg (25-34); MEAN CORPUSCULAR HGB CONC 36 g/dL (32-36); MEAN CORPUSCULAR VOLUME 82 fL (80-99); MEAN PLATELET VOLUME 9.8 fL (9.0-12.2); MONOCYTES # (AUTO) 0.7 X 10^3 (0.0-1.0); MONOCYTES % (AUTO) 6 % (0-12); NEUTROPHILS # (AUTO) 8.9 X 10^3 (1.8-7.8); NEUTROPHILS % (AUTO) 77 % (42-75); PLATELET COUNT 212 10^3/uL (130-400); WHITE BLOOD COUNT 11.5 10^3/uL (4.3-11.0)
--- NOTE | 2021-06-20 10:31 | Diagnostic Imaging Report ---
CHEST 1 VIEW AP/PA ONLY Indication: Shortness of breath Comparison: None available. Findings: No focal airspace disease in the visualized lungs. Please note that the posterior lower lobes are poorly evaluated by portable radiography. No pleural effusion or pneumothorax. Normal cardiomediastinal silhouette. Impression: 1. No acute cardiopulmonary process by portable radiography. Dictated by: Dictated on workstation # [id number]
--- NOTE | 2021-06-20 10:36 | ED General ---
General Chief Complaint: Skin/Wound Problems Stated Complaint: LT TOE WOUND Nursing Triage Note: Pt here from urgent care c/o wound to L 5th toe. pt also reports ulcer to lateral R foot. pt is uncontrolled diabetic and sees wound care HEAD SAMPLER in [place]. Pt's s/o reports fever at home of 104 and motrin taken at 0800 this morning. Source of Information: Patient, Spouse History of Present Illness Date Seen by Provider: Jun 20, 2021 Time Seen by Provider: 09:50 Initial Comments 56 yo male presenting with complaint of new wound to his left pinky toe, between 4th and 5th toes. He is unsure how long it has been present. He had some blood dried on his skin last night that his noticed and she said she thought it was dirt but they did not clean it or do anything with it last night. Then today he had a fever of 104 at home so took Ibuprofen at 8 am and went to urgent care. Urgent care told him he might be septic so they advised him to go to the ED. He follows with Dr. Birmingham for his diabetes but is poorly controlled. He has a Dexcom unit to monitor his sugars but does not remember when it was last working and has not called anybody about it not working. He does not check his sugars or monitor his diabetes. He follows with a wound care nurse at [facility] and was seen this week for a chronic wound on right foot but the area on left foot is new. He just finished a "strong antibiotic" last week for infection to the bone on right foot. He has chronic shortness of breath. He continues to use tobacco and drink alcohol in addition to poor compliance with managing and monitoring his Diabetes. Associated Systoms: No Chest Pain, No Cough, No Diaphoresis, No Headaches, No Loss of Appetite, No Nausea/Vomiting, No Seizure, No Syncope Allergies and Home Medications Allergies Coded Allergies: No Known Drug Allergies (Unverified , 01/04/18) Patient Home Medication List Home Medication List Reviewed: Yes Aspirin (Aspir 81) 81 Mg Tablet.dr, 81 MG PO DAILY, (Reported) Entered as Reported by: MARY HOLMAN on 01/04/18 0954 Dulaglutide (Trulicity) 0.75 Mg/0.5 Ml Pen.injctr, 0.75 MG SQ WEEK, (Reported) Entered as Reported by: YURI VALVERDE on 12/08/20 1254 Insulin Aspart (Novolog Flexpen) 300 Units/3 Ml Solution, UNITS SQ AC, (Reported) Entered as Reported by: YURI VALVERDE on 12/08/20 1254 Insulin Degludec (Tresiba) 100 Unit/1 Ml Vial, 200 UNIT SQ HS, (Reported) Entered as Reported by: YURI VALVERDE on 12/08/20 1254 Naproxen Sodium (Naproxen Sodium) 220 Mg Tablet, 220 MG PO BID, (Reported) Entered as Reported by: MARY HOLMAN on 01/04/18 0954 Omeprazole (Omeprazole) 40 Mg Capsule.dr, 40 MG PO DAILY, (Reported) Entered as Reported by: YAZAN LI on 02/18/19 1249 Ropinirole HCl (Ropinirole HCl) 5 Mg Tablet, 5 MG PO TID, (Reported) Entered as Reported by: MARY HOLMAN on 01/04/18 0954 Review of Systems Review of Systems Constitutional: No chills; fever (reported fever of 104 F this am treated with Ibuprofen at 8 am. ) EENTM: no symptoms reported Respiratory: see HPI Cardiovascular: No chest pain Gastrointestinal: no symptoms reported Genitourinary: no symptoms reported Skin: change in color (redness to both feet around his toes, especially around the left little toe) Psychiatric/Neurological: Numbness (chronic neuropathy to feet) Past Sbvjnmi-Pacwld-Jbmrvx Hx Patient Social History Tobacco Use?: Yes Smokeless Tobacco Frequency: Current Everyday User Use of E-Cig and/or Vaping dev: No Substance use?: No Alcohol Use?: Yes Alcohol Frequency: Rarely Pt feels they are or have been: No Immunizations Up To Date Tetanus Booster (TDap): Unknown Seasonal Allergies Seasonal Allergies: No Past Medical History Surgery/Hospitalization HX: diabetes, high cholesterol, non-compliance, recurrent diabetic foot ulcers Surgeries: Yes (Back surgery, Right shoulder surgery) Orthopedic Respiratory: Yes Sleep Apnea Currently Using CPAP: No Cardiac: No Hypertension Neurological: Yes Neuropathy Genitourinary: No Gastrointestinal: Yes Chronic Constipation Musculoskeletal: Yes Degenerate Disk Disease, Arthritis, Chronic Back Pain Endocrine: Yes Diabetes, Non-Insulin dep HEENT: No Loss of Vision: Denies Hearing Impairment: Denies Cancer: No Psychosocial: Yes Anxiety, Depression Integumentary: Yes (left foot diabetic ulcer NONE CURRENTLY) Blood Disorders: No Family Medical History Diabetes Physical Exam Vital Signs Vital Signs - First Documented 06/20/21 09:52 Temp 36.0 Pulse 102 Resp 20 B/P (MAP) 104/68 (80) Pulse Ox 98 O2 Delivery Room Air Capillary Refill : Less Than 3 Seconds Height, Weight, BMI Height: 6'0.00" Weight: 269lbs. 5.0oz. 122.887896ne; 31.00 BMI Method:Stated General Appearance: No Apparent Distress, Chronically ill HEENT: PERRL/EOMI, Pharynx Normal, Other (mostly edentulous with a few teeth remaining that have advanced dental decay) Neck: Full Range of Motion, Normal Inspection, Non Tender, Supple Respiratory: Chest Non Tender, No Accessory Muscle Use, No Respiratory Distress, Decreased Breath Sounds Cardiovascular: No Normal Peripheral Pulses (decreased peripheral pulses, 1+ bilateral dorsalis pedis); Tachycardia (heart rate 100-108 bpm) Gastrointestinal: Normal Bowel Sounds, No Pulsatile Mass, Non Tender, Soft Rectal: Deferred Extremity: No Pedal Edema, Inflammation (erythema to left pinky toe and surrounding lateral left foot. macerated area between left 4th and 5th toes that has dried bloody drainage present. no purulent drainage noted. callous to left lateral 5th MTP joint ) Neurologic/Psychiatric: Alert, Oriented x3 Skin: Warm/Dry, Erythema (left pinky toe and surrounding area lateral left foot) Focused Exam Lactate Level 06/20/21 10:08: Lactic Acid Level 2.60*H Lactic Acid Level Laboratory Tests Test 06/20/21 10:08 Lactic Acid Level 2.60 MMOL/L (0.50-2.00) *H Progress/Results/Core Measures Suspected Sepsis SIRS Temperature: Pulse: 102 Respiratory Rate: 20 Laboratory Tests 06/20/21 10:08: White Blood Count 11.5H Blood Pressure 104 /68 Mean: 80 06/20/21 10:08: Lactic Acid Level 2.60*H Laboratory Tests 06/20/21 10:08: Creatinine 1.00, Platelet Count 212, Total Bilirubin 0.7 Results/Orders Lab Results Laboratory Tests Test 06/20/21 10:07 06/20/21 10:08 Range/Units Glucometer 306 H 70-110 MG/DL White Blood Count 11.5 H 4.3-11.0 10^3/uL Red Blood Count 5.09 4.30-5.52 10^6/uL Hemoglobin 15.1 13.3-17.7 g/dL Hematocrit 42 40-54 % Mean Corpuscular Volume 82 80-99 fL Mean Corpuscular Hemoglobin 30 25-34 pg Mean Corpuscular Hemoglobin Concent 36 32-36 g/dL Red Cell Distribution Width 12.5 10.0-14.5 % Platelet Count 212 130-400 10^3/uL Mean Platelet Volume 9.8 9.0-12.2 fL Immature Granulocyte % (Auto) 1 % Neutrophils (%) (Auto) 77 H 42-75 % Lymphocytes (%) (Auto) 15 12-44 % Monocytes (%) (Auto) 6 0-12 % Eosinophils (%) (Auto) 1 0-10 % Basophils (%) (Auto) 0 0-10 % Neutrophils # (Auto) 8.9 H 1.8-7.8 X 10^3 Lymphocytes # (Auto) 1.7 1.0-4.0 X 10^3 Monocytes # (Auto) 0.7 0.0-1.0 X 10^3 Eosinophils # (Auto) 0.1 0.0-0.3 10^3/uL Basophils # (Auto) 0.1 0.0-0.1 10^3/uL Immature Granulocyte # (Auto) 0.1 0.0-0.1 10^3/uL Sodium Level 128 L 135-145 MMOL/L Potassium Level 3.6 3.6-5.0 MMOL/L Chloride Level 92 L 98-107 MMOL/L Carbon Dioxide Level 23 21-32 MMOL/L Anion Gap 13 5-14 MMOL/L Blood Urea Nitrogen 11 7-18 MG/DL Creatinine 1.00 0.60-1.30 MG/DL Estimat Glomerular Filtration Rate 77 BUN/Creatinine Ratio 11 Glucose Level 312 H 70-105 MG/DL Lactic Acid Level 2.60 *H 0.50-2.00 MMOL/L Calcium Level 9.0 8.5-10.1 MG/DL Corrected Calcium 9.3 8.5-10.1 MG/DL Total Bilirubin 0.7 0.1-1.0 MG/DL Aspartate Amino Transf (AST/SGOT) 11 5-34 U/L Alanine Aminotransferase (ALT/SGPT) 12 0-55 U/L Alkaline Phosphatase 143 H 40-136 U/L Troponin I < 0.30 <0.30 NG/ML C-Reactive Protein 8.69 H <0.50 MG/DL Pro-B-Type Natriuretic Peptide 265.8 H <75.0 PG/ML Total Protein 7.1 6.4-8.2 GM/DL Albumin 3.6 3.2-4.5 GM/DL My Orders Orders - CRISTINE ROJAS MD Cbc With Automated Diff (06/20/21 10:02) Comprehensive Metabolic Panel (06/20/21 10:02) Blood Culture (06/20/21 10:02) Ua Culture If Indicated (06/20/21 10:02) Chest 1 View Ap/Pa Only (06/20/21 10:02) Ed Iv/Invasive Line Start (06/20/21 10:02) Crp Fs (06/20/21 10:02) Lactic Acid Analyzer (06/20/21 10:02) Ekg Tracing (06/20/21 10:02) Monitor-Rhythm Ecg Trace Only (06/20/21 10:02) Troponin I Fs (06/20/21 10:02) Probnp Fs (06/20/21 10:02) Accucheck Stat ONCE (06/20/21 10:02) Ns Iv 1000 Ml (Sodium Chloride 0.9%) (06/20/21 10:04) Foot 3 View Bilateral (06/20/21 10:05) Vancomycin Injection (Vancomycin Injecti (06/20/21 10:54) Piperacillin Sodium/Tazobactam (Zosyn Vi (06/20/21 10:54) Ns Iv 1000 Ml (Sodium Chloride 0.9%) (06/20/21 11:42) Ns Iv 1000 Ml (Sodium Chloride 0.9%) (06/20/21 11:45) Vital Signs/I&O 06/20/21 09:52 Temp 36.0 Pulse 102 Resp 20 B/P (MAP) 104/68 (80) Pulse Ox 98 O2 Delivery Room Air Capillary Refill : Less Than 3 Seconds Blood Pressure Mean: 80 Point of Care Testing Finger Stick Blood Glucose: 306 Progress Note #1: Progress Note Since complaint of having fever 104 at home although he is afebrile here, he does have an area for possible ear infection the sore on his left foot between the fourth and fifth toes. With his poor compliance and uncontrolled diabetes he is at risk for sepsis as well as osteomyelitis. He reports having just finished a course of antibiotics a week ago for osteomyelitis in the right foot. Will obtain x-rays to evaluate both feet to look for any evidence of bony erosion concerning for osteomyelitis. Check labs as well as blood cultures and lactic acid to help evaluate for sepsis or electrolyte imbalance. Give IV fluids for hydration with his borderline tachycardia heart rate at 100 and concern for possible sepsis as well as complaint of fever of 104 this morning. Differential diagnosis includes sepsis, osteomyelitis, diabetic foot wound, myocardial infarction, pneumonia, congestive heart failure, uncontrolled diabetes, DKA Progress Note #2: Progress Note Labs show elevated white blood cell count of 11.5 with a left shift with 77% neutrophils. The chemistry panel shows glucose of 312 with a fingerstick of 306. His lactic acid was elevated to 2.6. His sodium was 128 due to his elevated glucose. He has troponin was negative. His CRP was elevated to 8.69. His alkaline phosphatase is elevated to 143. His x-rays of the chest did not show any acute process. His x-rays of the feet showed no acute process on the right foot but on the left he does have signs of osteolytic process concerning for osteomyelitis of the head of the left fifth metatarsal at the site of where he has the sore or wound between his fourth and fifth toes on the left foot. Considering he has uncontrolled diabetes as well as recurrent osteomyelitis and reported temperature of 104 Fahrenheit earlier this is concerning for sepsis and advancing osteomyelitis of his foot since he also reports just finishing antibio tics a week ago. On arrival continue with IV fluids for sepsis and hydration as well as start vancomycin and Zosyn for his osteomyelitis. Blood cultures are pending. Discussed with patient and spouse about the need for admission to get IV antibiotics and he may need surgery on the left foot. They requested to go to [facility] if possible since that was closer for them as well as his wound care is managed there. 1104 am left voice mail for nursing correctional supervisor at [facility] to see about possible transfer of patient. [address] Coker as he is usually the Hospitalist for [facility]. He advised to contact the hospital to get in touch with the Hospitalist montessori program director and have them accept for him. 1113 Called the batch operator at [facility] and asked for Hospitalist to see if they would be able to accept pt for transfer. 1119 Dr. Blake Dias is the Hospitalist today and after reviewing the case w ith him he accepted the patient for transfer, provided beds were available. 1121 d/w ARMIDA Miles, Nurse correctional supervisor at [facility]. She was given information about the patient and that Dr. Dias was willing to accept transfer provided a bed is available. She stated they did have med/surg beds available. Will pass info to nurses on Med/surg floor and then they will call ARMIDA Spencer, here at [facility] to give room number and get report. ECG Initial ECG Impression Date: Jun 20, 2021 Initial ECG Impression Time: 10:04 Initial ECG Rate: 100 Initial ECG Rhythm: S.Tach Initial ECG Comparisson: No Previous ECG Available Comment Sinus tachycardia with heart rate 100 bpm. MA interval [address] elevation. QT interval 353 ms with a QTc interval 456 ms. No prior tracing available for comparison. Diagnostic Imaging Diagonstic Imaging: Xray Plain Films/CT/US/NM/MRI: other (foot bilateral) Comments [facility] [place] [place] NAME: [facility]IN[facility] D [facility] REC#: [id number] PT STATUS: REG ER : 1965 PHYSICIAN: CRISTINE ROJAS MD ADMIT DATE: 06/20/21/ER FS Signed Date of Exam:06/20/21 FOOT 3 VIEW BILATERAL FOOT 3 VIEW BILATERAL INDICATION: Bilateral foot ulcers. History of osteomyelitis. COMPARISON: Left foot radiographs of 01/13/2021 and right foot radiograph's of 12/11/2020 TECHNIQUE: 3 nonweightbearing views of each foot were obtained for a total of 6 views. FINDINGS: Left foot: There is a chronic deformity of the 5th metatarsal head and phalanges. However, there appear to be some increased erosive changes along the lateral aspect of the 5th metatarsal head. No additional osseous erosions are appreciated. No acute fracture. Vascular calcifications are unchanged. Right foot: No osseous erosions or periosteal reaction. 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 No fracture. Vascular calcifications are unchanged. IMPRESSION: 1. Since left foot radiographs of 01/13/2021, there are progressive erosive changes in the left 5th metatarsal head. This could be due to osteomyelitis if there is a open wound in this region. 2. No radiographic features of osteomyelitis in the right foot. Dictated by: Dictated on workstation # [id number] Dict: 06/20/21 1027 Trans: 06/20/21 1040 [facility] [id number] Interpreted by: SPENCER ROMAN MD Electronically signed by: SPENECR ROMAN MD 06/20/21 1040 Reviewed: Reviewed by Me Diagonstic Imaging: Xray Plain Films/CT/US/NM/MRI: chest Comments [facility] [place], [place] NAME: [facility] REC#: [id number] PT STATUS: REG ER : 1965 PHYSICIAN: CRISTINE ROJAS MD ADMIT DATE: 06/20/21/ER FS Signed Date of Exam:06/20/21 CHEST 1 VIEW AP/PA ONLY CHEST 1 VIEW AP/PA ONLY Indication: Shortness of breath Comparison: None available. Findings: No focal airspace disease in the visualized lungs. Please note that the posterior lower lobes are poorly evaluated by portable radiography. No pleural effusion or pneumothorax. Normal cardiomediastinal silhouette. Impression: 1. No acute cardiopulmonary process by portable radiography. 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 Blake Dias montessori program director hospitalist for [facility]. D/w him that the patient follows with Casandra Barry and wound care at [facility] and has chronic wounds to feet as well as recurrent osteomyelitis and diabetic wounds with uncontrolled DM. he Has some signs for sepsis with lactic acid at 2.6, which may be up from infection but may also be up due to his hyperglycemia of 306. Xrays show osteomyelitis left 5th metatarsal. Given IVF here and started on Vancomycin and Zosyn. He accepted pt for transfer provided a bed was available. 1121 d/w Ginger, hothouse worker, and she advised they did have a med surg bed available for the patient. She would give the information to Med Surg floor nurses and they would call ARMIDA Spencer, Here in the [facility] ED to give room number and get report. Transfer Facility: [facility] Method of Transfer: EMS Departure-Patient Inst. Referrals: SELF,JESSICA ORDOÑEZ (PCP/Family) Primary Care Physician Images Extremities-Lower 1 - Cellulitis, Other-See Progress Note (erythema to left lateral foot with callous over 5th MTP joint. macerated skin with open wound between 4th and 5th toes on left foot. trace amount serosanguineous drainage. no purulent drainage noted) 1 - Other-See Progress Note (Mild erythema between Big toe and 2nd toe on right foot. Callous to lateral foot 5th MTP joint) CRISTINE ROJAS MD Jun 20, 2021 10:36
[2021-06-20 10:37] LABS: ALBUMIN 3.6 GM/DL (3.2-4.5); BILIRUBIN,TOTAL 0.7 MG/DL (0.1-1.0); POTASSIUM 3.6 MMOL/L (3.6-5.0); TOTAL PROTEIN 7.1 GM/DL (6.4-8.2)
[2021-06-20] MEDS ORDERED: VANCOMYCIN INJECTION 1,000 MG in NS (IVPB) 250 ML IV STA (10:54)
[2021-06-20] MEDS ORDERED: PIPERACILLIN SODIUM/TAZOBACTAM 4.5 GM in NS (IVPB) 100 ML IV STA (10:54)
[2021-06-20] MEDS ORDERED: NS IV 1000 ML 1,000 ML ONE (11:45)
[2021-06-20 12:24] VITALS: BP 102/54
== END 2021-06-20 12:24 | disposition short-term general hospital (02) ==
LOC: EDUNIT# 09:47 → ER FS 09:49
DX: M86.8X7 Other osteomyelitis, ankle and foot (principal); A41.9 Sepsis, unspecified organism; E10.65 Type 1 diabetes mellitus with hyperglycemia; R00.0 Tachycardia, unspecified; G47.30 Sleep apnea, unspecified; I10 Essential (primary) hypertension; F17.200 Nicotine dependence, unspecified, uncomplicated; Z79.82 Long term (current) use of aspirin
CPT/HCPCS: 36415; 71045; 80053; 82947; 83605; 83880; 84484; 85025; 86141; 87040; 87077; 87186; 93005; 93041

== ENCOUNTER 2021-07-31 12:59 | Inpatient (IN) | payer MEDICARE ==
[~2021-07-31] VITALS: Ht 185 cm; Wt 118.6 kg
[2021-07-31] MEDS ORDERED: ACETAMINOPHEN 325 MG TABLET PO ONE (13:15)
[2021-07-31] MEDS ORDERED: NS IV 1000 ML 1,000 ML IV SCH ×3 (13:15→18:15)
--- NOTE | 2021-07-31 13:25 | ED General ---
General Stated Complaint: SOB Source of Information: Patient, EMS, Old Records History of Present Illness Date Seen by Provider: Jul 31, 2021 Time Seen by Provider: 12:59 Initial Comments 56-year-old male presenting by EMS with complaints of increased shortness of breath and weakness. He was starting to get sick on 23 July. She was diagnosed with Covid on July 25. He was having increased cough and shortness of breath as well as weakness today. He denies having nausea or vomiting. He has had no diarrhea. He has decreased urination. He has had fevers but has not taken anything for his temperature today. He was having more trouble concentrating today. Severity: Moderate Associated Systoms: No Chest Pain; Cough, Diaphoresis, Fever/Chills, Headaches, Loss of Appetite, Malaise; No Nausea/Vomiting, No Seizure; Shortness of Air; No Syncope; Weakness Allergies and Home Medications Allergies Coded Allergies: No Known Drug Allergies (Unverified , 01/04/18) Patient Home Medication List Home Medication List Reviewed: Yes Aspirin (Aspir 81) 81 Mg Tablet.dr, 81 MG PO DAILY, (Reported) Entered as Reported by: MARY HOLMAN on 01/04/18 0954 Dulaglutide (Trulicity) 0.75 Mg/0.5 Ml Pen.injctr, 0.75 MG SQ WEEK, (Reported) Entered as Reported by: YURI VALVERDE on 12/08/20 1254 Insulin Aspart (Novolog Flexpen) 300 Units/3 Ml Solution, UNITS SQ AC, (Reported) Entered as Reported by: YURI VALVERDE on 12/08/20 1254 Insulin Degludec (Tresiba) 100 Unit/1 Ml Vial, 200 UNIT SQ HS, (Reported) Entered as Reported by: YURI VALVERDE on 12/08/20 1254 Naproxen Sodium (Naproxen Sodium) 220 Mg Tablet, 220 MG PO BID, (Reported) Entered as Reported by: MARY HOLMAN on 01/04/18 0954 Omeprazole (Omeprazole) 40 Mg Capsule.dr, 40 MG PO DAILY, (Reported) Entered as Reported by: YAZAN LI on 02/18/19 1249 Ropinirole HCl (Ropinirole HCl) 5 Mg Tablet, 5 MG PO TID, (Reported) Entered as Reported by: MARY HOLMAN on 01/04/18 0954 Review of Systems Review of Systems Constitutional: see HPI EENTM: see HPI Respiratory: see HPI, cough, phlegm, short of breath; No stridor; wheezing Cardiovascular: palpitations Gastrointestinal: No nausea, No vomiting Genitourinary: decreased output; No dysuria Musculoskeletal: joint pain (Generalized muscle and joint pain), muscle pain (Generalized muscle and joint pain) Skin: No rash Psychiatric/Neurological: Anxiety, Headache, Weakness (Generalized weakness) Past Mpfqawa-Rltalc-Fjlpku Hx Immunizations Up To Date Tetanus Booster (TDap): Unknown Seasonal Allergies Seasonal Allergies: No Past Medical History Surgery/Hospitalization HX: diabetes, high cholesterol, non-compliance, recurrent diabetic foot ulcers Surgeries: Yes (Back surgery, Right shoulder surgery) Orthopedic Respiratory: Yes Sleep Apnea Currently Using CPAP: No Cardiac: No Hypertension Neurological: Yes Neuropathy Genitourinary: No Gastrointestinal: Yes Chronic Constipation Musculoskeletal: Yes Degenerate Disk Disease, Arthritis, Chronic Back Pain Endocrine: Yes Diabetes, Non-Insulin dep HEENT: No Loss of Vision: Denies Hearing Impairment: Denies Cancer: No Psychosocial: Yes Anxiety, Depression Integumentary: Yes (left foot diabetic ulcer NONE CURRENTLY) Blood Disorders: No Family Medical History Diabetes Physical Exam Vital Signs Vital Signs - First Documented 07/31/21 13:49 Temp 39.5 Pulse 150 Resp 32 B/P (MAP) 180/95 (123) Capillary Refill : Height, Weight, BMI Height: 6'0.00" Weight: 269lbs. 5.0oz. 122.061876cp; 31.00 BMI Method:Stated General Appearance: Chronically ill, Moderate Distress, Obese, Other (Diaphoretic. Asking repetitive questions) HEENT: PERRL/EOMI; No Moist Mucous Membranes (Slightly dry mucous membranes) Neck: Full Range of Motion, Normal Inspection, Non Tender, Supple Respiratory: Chest Non Tender, Accessory Muscle Use, Decreased Breath Sounds, Respiratory Distress; No Stridor; Wheezing Cardiovascular: Normal Peripheral Pulses, Tachycardia Gastrointestinal: Normal Bowel Sounds, No Pulsatile Mass, Non Tender, Soft Rectal: Deferred Back: No CVA Tenderness Extremity: Normal Capillary Refill, Normal Inspection Neurologic/Psychiatric: Alert Skin: Diaphoresis Focused Exam Lactate Level 07/31/21 13:15: Lactic Acid Level 4.09*H Lactic Acid Level Laboratory Tests Test 07/31/21 13:15 Lactic Acid Level 4.09 MMOL/L (0.50-2.00) *H Progress/Results/Core Measures Suspected Sepsis Recent Fever Within 48 Hours: Yes Infection Criteria Present: Documented Infection (COVID 07/25) New/Unexplained Altered Menta: Yes Within 3hrs of presentation: Admin fluids, Admin ABX, Blood cultures prior to ABX's, Lactate level SIRS Temperature: Pulse: Respiratory Rate: Laboratory Tests 07/31/21 13:15: White Blood Count 32.8*H Blood Pressure / Mean: 07/31/21 13:15: Lactic Acid Level 4.09*H Laboratory Tests 07/31/21 13:15: Creatinine 1.48H, INR Comment 1.3, Platelet Count 234, Total Bilirubin 1.3H Results/Orders Lab Results Laboratory Tests Test 07/31/21 13:15 Range/Units White Blood Count 32.8 *H 4.3-11.0 10^3/uL Red Blood Count 4.64 4.30-5.52 10^6/uL Hemoglobin 13.6 13.3-17.7 g/dL Hematocrit 37 L 40-54 % Mean Corpuscular Volume 80 80-99 fL Mean Corpuscular Hemoglobin 29 25-34 pg Mean Corpuscular Hemoglobin Concent 37 H 32-36 g/dL Red Cell Distribution Width 13.0 10.0-14.5 % Platelet Count 234 130-400 10^3/uL Mean Platelet Volume 10.9 9.0-12.2 fL Immature Granulocyte % (Auto) 6 % Neutrophils (%) (Auto) 82 H 42-75 % Lymphocytes (%) (Auto) 4 L 12-44 % Monocytes (%) (Auto) 7 0-12 % Eosinophils (%) (Auto) 0 0-10 % Basophils (%) (Auto) 0 0-10 % Neutrophils # (Auto) 27.0 H 1.8-7.8 X 10^3 Lymphocytes # (Auto) 1.2 1.0-4.0 X 10^3 Monocytes # (Auto) 2.4 H 0.0-1.0 X 10^3 Eosinophils # (Auto) 0.0 0.0-0.3 10^3/uL Basophils # (Auto) 0.1 0.0-0.1 10^3/uL Immature Granulocyte # (Auto) 2.0 H 0.0-0.1 10^3/uL Neutrophils % (Manual) 76 % Lymphocytes % (Manual) 2 % Monocytes % (Manual) 8 % Metamyelocytes % 4 % Myelocytes % 1 % Band Neutrophils 9 % Toxic Granulation 1+ Platelet Estimate NORMAL Blood Morphology Comment NORMAL Prothrombin Time 16.4 H 12.2-14.7 SEC INR Comment 1.3 0.8-1.4 Activated Partial Thromboplast Time 34 24-35 SEC D-Dimer 7.64 H 0.00-0.49 UG/ML Blood Gas Puncture Site LT. RADIAL Blood Gas Patient Temperature 39.5 Arterial Blood pH 7.51 H 7.37-7.43 Arterial Blood Partial Pressure CO2 29 L 35-45 MMHG Arterial Blood Partial Pressure O2 53 L 79-93 MMHG Arterial Blood HCO3 23 23-27 MMOL/L Arterial Blood Total CO2 24.0 21.0-31.0 MMOL/L Arterial Blood Oxygen Saturation 90 L 94-100 % Arterial Blood Base Excess 0.9 -2.5-2.5 MMOL/L Dima Test YES-POS Blood Gas Ventilator Setting NO Blood Gas Inspired Oxygen ROOM AIR Sodium Level 116 *L 135-145 MMOL/L Potassium Level 4.9 3.6-5.0 MMOL/L Chloride Level 75 L 98-107 MMOL/L Carbon Dioxide Level 20 L 21-32 MMOL/L Anion Gap 21 H 5-14 MMOL/L Blood Urea Nitrogen 33 H 7-18 MG/DL Creatinine 1.48 H 0.60-1.30 MG/DL Estimat Glomerular Filtration Rate 49 BUN/Creatinine Ratio 22 Glucose Level 511 *H 70-105 MG/DL Lactic Acid Level 4.09 *H 0.50-2.00 MMOL/L Calcium Level 9.1 8.5-10.1 MG/DL Corrected Calcium 9.8 8.5-10.1 MG/DL Total Bilirubin 1.3 H 0.1-1.0 MG/DL Aspartate Amino Transf (AST/SGOT) 65 H 5-34 U/L Alanine Aminotransferase (ALT/SGPT) 25 0-55 U/L Alkaline Phosphatase 130 40-136 U/L Troponin I < 0.30 <0.30 NG/ML C-Reactive Protein > 41.00 H <0.50 MG/DL Pro-B-Type Natriuretic Peptide 18375.0 H <75.0 PG/ML Total Protein 8.1 6.4-8.2 GM/DL Albumin 3.1 L 3.2-4.5 GM/DL My Orders Orders - CRISTINE ROJAS MD Monitor-Rhythm Ecg Trace Only (07/31/21 13:13) Ed Iv/Invasive Line Start (07/31/21 13:13) Cbc With Automated Diff (07/31/21 13:13) Comprehensive Metabolic Panel (07/31/21 13:13) Crp Fs (07/31/21 13:13) Troponin I Fs (07/31/21 13:13) Protime With Inr (07/31/21 13:13) Partial Thromboplastin Time (07/31/21 13:13) Ekg Tracing (07/31/21 13:13) Arterial Blood Gas (07/31/21 13:13) Ns Iv 1000 Ml (Sodium Chloride 0.9%) (07/31/21 13:15) Acetaminophen Tablet/Caplet (Tylenol T (07/31/21 13:15) Covid-19 External Lab Results (07/31/21 13:13) Isolation Central Supply Req (07/31/21 13:13) Blood Culture (07/31/21 13:13) Chest 1 View Ap/Pa Only (07/31/21 13:13) Fibrin Degradation Products (07/31/21 13:13) Probnp Fs (07/31/21 13:13) Ua Culture If Indicated (07/31/21 13:13) Lactic Acid Analyzer (07/31/21 13:13) O2 (07/31/21 13:30) Manual Differential (07/31/21 13:15) Ns Iv 1000 Ml (Sodium Chloride 0.9%) (07/31/21 14:43) Morphine Injection (Morphine Injection (07/31/21 14:43) Lorazepam Injection (Ativan Injection) (07/31/21 14:43) Ceftriaxone (Rocephin) (07/31/21 14:45) Azithromycin Injection (Zithromax Inject (07/31/21 14:45) Dexamethasone Injection (Decadron Inje (07/31/21 14:45) Ed Admission (Communication) (07/31/21 15:04) Medications Given in ED Current Medications Medications Dose Ordered Sig/Abhishek Route Start Time Stop Time Status Last Admin Dose Admin Acetaminophen 650 mg ONCE ONCE PO 07/31/21 13:15 07/31/21 13:17 DC 07/31/21 13:26 650 MG Ceftriaxone Sodium 1000 mg/ Sterile Water 10 ml @ 60 mls/hr ONCE ONCE IV 07/31/21 14:45 07/31/21 14:54 DC 07/31/21 15:00 60 MLS/HR Vital Signs/I&O 07/31/21 13:49 Temp 39.5 Pulse 150 Resp 32 B/P (MAP) 180/95 (123) Capillary Refill : Progress Note #1: Progress Note With his oxygen 90 to 91% on room air obtain a blood gas as well as IV with blood cultures. Give IV fluids for his tachycardia and dehydration. Supplemental oxygen once the ABG has been obtained. Electrocardiogram for evaluation of his tachycardia. Cardiac telemetry monitoring to watch his heart rate and rhythm. Check basic labs to look at electrolytes and blood count. Coags and cardiac enzymes. Progress Note #2: Progress Note His blood gas shows he is alkalotic with a pH of 7.51, PCO2 of 29, PO2 of 53 and this was on room air with an O2 sat of 90%. His lactic acid came back at 4.09. His CBC showed a white count of 32.8 with a left shift. Chest x-ray was showing diffuse patchy bilateral infiltrates. While the initial liter bolus was infusing patient had removed all of his monitoring leads and pulled his own IV after about half of that liter bolus at infuse. He was complaining that his buttocks hurt from sitting in the bed and that he was going to walk home. He wanted his back in the room although she was not here at the ED. It was explained that with him being Covid positive he cannot have visitors coming to the room. He initially was confused and did not understand that he could not have people back. He was becoming ill agitated and said that he was just going to walk home. I explained to him that he is v denny sick and was septic with a bad pneumonia infection from the Covid and he would not live if he tried to walk home. As I was speaking with him his other labs came back showing sodium of 116 and glucose of 511 with elevated creatinine of 1.48. His CRP was greater than 41. proBNP was 10,000 599. His D-dimer was high at 7.64. His troponin was normal at less than 0.3. Patient family agreed and understood that he needed to be admitted and understood that he was very sick. He was agreeable for the admission but said that he needed something to take care of the pain in his buttocks. I ordered at 2 mg IV dose of morphine in addition to 0.5 mg of Ativan to try and help with pain and agitation. I also ordered Rocephin 1 g IV and Zithromax 500 mg IV as well as 10 mg of Decadron IV. Progress Note #3: Progress Note 1502 after checking with the household assistant at [facility] to ensure that there was an ICU bed available I spoke with Dr. Medel the on-call provider for Dr. Birmingham and the [facility] clinic. She accepted the patient for admission to the ICU. She will place acute orders for him. In the meantime I ordered 2 L of fluid for treatment of sepsis and antibiotics. He was more calm and cooperative after the morphine and Ativan. He was assigned a bed in the ICU at [facility]. I will call and update the [facility] eICU provider so that they are also aware and can follow along. 1543 I spoke with the eICU provider and advised her of the patient and gave her a rundown of what was going on with the patient so far so that she has at least an idea of what is going on for the patient when they arrive in ICU 7 in [place]. ECG Initial ECG Impression Date: Jul 31, 2021 Initial ECG Impression Time: 13:05 Initial ECG Rate: 147 Initial ECG Rhythm: S.Tach Initial ECG Comparisson: No Previous ECG Available Comment Sinus tachycardia with a heart rate of 147 bpm. MT interval 121 ms. QT interval 279 ms with a QTc interval 437 ms. There is no acute ST elevation. There is baseline wander on the tracing due to tachypnea. There is low voltage throughout the leads. There is no prior tracing available for comparison. Diagnostic Imaging Diagonstic Imaging: Xray Plain Films/CT/US/NM/MRI: chest Comments NAME: [facility] REC#: [id number] PT STATUS: REG ER : 1965 PHYSICIAN: CRISTINE ROJAS MD ADMIT DATE: 07/31/21/ER FS Draft Date of Exam:07/31/21 CHEST 1 VIEW AP/PA ONLY Portable erect AP chest at 137 hours. INDICATION: Tachycardia. FINDINGS: The heart size is within normal limits, but the heart does seem more prominent than noted on the prior exam of 06/20/2021. Furthermore, in the interval since the prior study, a few vague alveolar/interstitial infiltrates have developed in the right midlung, the left suprahilar region and the left lung base. These findings are suspicious for pneumonia/atelectasis and may be related to the patient's diagnosis of Covid-19. The mediastinum is not widened. The osseous structures are intact. IMPRESSION: The appearance of the chest has worsened since the prior study as patchy alveolar/interstitial infiltrates have developed in both lungs, particularly the left lung. This finding may be related to pneumonia/atelectasis secondary to the patient's diagnosis of Covid-19. Dictated on workstation # [id number] Dict: 07/31/21 1346 Trans: 07/31/21 1350 [id number] Interpreted by: GIGI ASHBY MD Electronically signed by: Reviewed: Reviewed by Me Departure Communication (Admissions) Time/Spoke to Admitting Phy: 15:02 d/w Dr. Medel for [facility] service since pt follows with Dr. Birmingham. She accepts the patient to the ICU for sepsis and Covid pneumonia. He also has hyponatremia with hyperglycemia and dehydration. He has hypoxic. He was having some agitation and had pulled his own IV out so a 2 mg dose of morphine to help with his breathing and because he was complaining of pain in his buttocks from sitting on the bed as well as 0.5 mg of Ativan was given to help with his anxiety and agitation. Impression Primary Impression: Sepsis Qualified Codes: A41.9 - Sepsis, unspecified organism; R65.20 - Severe sepsis without septic shock; J96.01 - Acute respiratory failure with hypoxia Additional Impressions: Lower respiratory tract infection due to COVID-19 virus Dehydration Hypoxia Weakness Pneumonia due to COVID-19 virus Hyponatremia Hyperglycemia Acute kidney injury Disposition: 30 STILL A PATIENT Condition: Critical Admissions Decision to Admit Reason: Admit from ER (General) Decision to Admit/Date: Jul 31, 2021 Time/Decision to Admit Time: 15:02 Departure-Patient Inst. Referrals: JESSICA BIRMINGHAM MD (PCP/Family) Primary Care Physician CRISTINE ROJAS MD Jul 31, 2021 13:25
[2021-07-31 13:39] LABS: ABG BASE EXCESS 0.9 MMOL/L (-2.5-2.5); ABG OXYGEN SATURATION 90 % (94-100); ABG PCO2 29 MMHG (35-45); ABG PH 7.51 (7.37-7.43); ABG PO2 53 MMHG (79-93)
[2021-07-31 13:40] LABS: ALLENS TEST YES-POS; INSPIRED O2 ROOM AIR; PATIENT TEMP 39.5; VENTILATOR NO
--- NOTE | 2021-07-31 13:50 | Diagnostic Imaging Report ---
Portable erect AP chest at 137 hours. INDICATION: Tachycardia. FINDINGS: The heart size is within normal limits, but the heart does seem more prominent than noted on the prior exam of 06/20/2021. Furthermore, in the interval since the prior study, a few vague alveolar/interstitial infiltrates have developed in the right midlung, the left suprahilar region and the left lung base. These findings are suspicious for pneumonia/atelectasis and may be related to the patient's diagnosis of Covid-19. The mediastinum is not widened. The osseous structures are intact. IMPRESSION: The appearance of the chest has worsened since the prior study as patchy alveolar/interstitial infiltrates have developed in both lungs, particularly the left lung. This finding may be related to pneumonia/atelectasis secondary to the patient's diagnosis of Covid-19. Dictated by: Dictated on workstation # [id number]
[2021-07-31 14:01] LABS: INR 1.3 (0.8-1.4); PROTHROMBIN TIME PATIENT 16.4 SEC (12.2-14.7)
[2021-07-31 14:04] LABS: WHITE BLOOD COUNT 32.8 10^3/uL (4.3-11.0)
[2021-07-31 14:05] LABS: HEMATOCRIT 37 % (40-54); HEMOGLOBIN 13.6 g/dL (13.3-17.7); MEAN CORPUSCULAR HEMOGLOBIN 29 pg (25-34); MEAN CORPUSCULAR HGB CONC 37 g/dL (32-36); MEAN CORPUSCULAR VOLUME 80 fL (80-99)
[2021-07-31 14:06] LABS: BASOPHILS # (AUTO) 0.1 10^3/uL (0.0-0.1); BASOPHILS % (AUTO) 0 % (0-10); EOSINOPHILS % (AUTO) 0 % (0-10); LYMPHOCYTES # (AUTO) 1.2 X 10^3 (1.0-4.0); LYMPHOCYTES % (AUTO) 4 % (12-44); MEAN PLATELET VOLUME 10.9 fL (9.0-12.2); MONOCYTES # (AUTO) 2.4 X 10^3 (0.0-1.0); MONOCYTES % (AUTO) 7 % (0-12); NEUTROPHILS % (AUTO) 82 % (42-75); PLATELET COUNT 234 10^3/uL (130-400)
[2021-07-31 14:28] LABS: BUN/CREATININE RATIO 22; CARBON DIOXIDE 20 MMOL/L (21-32); CHLORIDE 75 MMOL/L (98-107); CREATININE SERUM 1.48 MG/DL (0.60-1.30); GFR ESTIMATED 49; POTASSIUM 4.9 MMOL/L (3.6-5.0)
[2021-07-31 14:29] LABS: ALANINE AMINOTRANSFERASE 25 U/L (0-55); ALBUMIN 3.1 GM/DL (3.2-4.5); ALKALINE PHOSPHATASE 130 U/L (40-136); BILIRUBIN,TOTAL 1.3 MG/DL (0.1-1.0); CALCIUM 9.1 MG/DL (8.5-10.1); TOTAL PROTEIN 8.1 GM/DL (6.4-8.2)
[2021-07-31 14:34] LABS: GLUCOSE 511 MG/DL (70-105); SODIUM 116 MMOL/L (135-145)
[2021-07-31] MEDS ORDERED: LORazepam INJ 2 MG/ML (ATIVAN) VIAL IVP STA (14:43)
[2021-07-31] MEDS ORDERED: NS IV 1000 ML 1,000 ML IV STA (14:43)
[2021-07-31] MEDS ORDERED: morphine INJ 10 MG/ML 1ML (SYR OR VIAL) IVP STA (14:43)
[2021-07-31] MEDS ORDERED: AZITHROMYCIN INJECTION 500 MG in NS (IVPB) 250 ML IV STA (14:45)
[2021-07-31] MEDS ORDERED: cefTRIAXone 1,000 MG in WATER (STERILE) FOR INJECTION 10 ML IV ONE (14:45)
[2021-07-31 15:02] LABS: BAND NEUTROPHILS 9 %; LYMPHOCYTES % (MANUAL) 2 %; NEUTROPHILS % (MANUAL) 76 %
[2021-07-31 15:03] LABS: METAMYELOCYTES % 4 %; MONOCYTES % (MANUAL) 8 %; MYELOCYTES % 1 %; PLATELET ESTIMATE NORMAL; RBC MORPH NORMAL; TOXIC GRANULATION/VACUOLAZATIO 1+
[2021-07-31] MEDS ORDERED: ONDANSETRON 4 MG/2 ML (SDV) Z0FRAN IV PRN (16:00)
[2021-07-31] MEDS ORDERED: RT-ALBUTEROL HFA 8.5 GM INHALER IH PRN (16:00)
[2021-07-31] MEDS ORDERED: inSUlin ASPART (NovoLOG) 1 UNIT/0.01 ML (CHARGE PER UNIT) SQ PRN (16:00)
[2021-07-31] MEDS ORDERED: ENOXAPARIN 100 MG/1 ML (LOVENOX) SYR SC SCH (16:00)
[2021-07-31] MEDS ORDERED: NS (IVPB) 50 ML IV SCH (16:00)
[2021-07-31] MEDS ORDERED: ACETAMINOPHEN 325 MG TABLET PO PRN (16:00)
[2021-07-31 17:08] VITALS: BP_SYST 111
[2021-07-31 17:25] LABS: ABG BASE EXCESS -5.8 MMOL/L (-2.5-2.5); ABG OXYGEN SATURATION 100 % (94-100); ABG PCO2 31 MMHG (35-45); ABG PH 7.39 (7.37-7.43); ABG PO2 326 MMHG (79-93); ABG TCO2 19.6 MMOL/L (21.0-31.0); INSPIRED O2 16/8 100%; PATIENT TEMP 96; VENTILATOR NO
--- NOTE | 2021-07-31 17:25 | Tele-ICU Consult ---
History of Present Illness History of Present Illness Date Seen by Provider: Jul 31, 2021 Time Seen by Provider: 17:00 Date of Admission Allergies and Home Medications Allergies Coded Allergies: No Known Drug Allergies (Unverified , 01/04/18) Home Medications Aspirin 81 Mg Tablet.dr, 81 MG PO DAILY, (Reported) Dulaglutide 0.75 Mg/0.5 Ml Pen.injctr, 0.75 MG SQ WEEK, (Reported) Insulin Aspart 300 Units/3 Ml Solution, UNITS SQ AC, (Reported) Insulin Degludec 100 Unit/1 Ml Vial, 200 UNIT SQ HS, (Reported) Naproxen Sodium 220 Mg Tablet, 220 MG PO BID, (Reported) Omeprazole 40 Mg Capsule.dr, 40 MG PO DAILY, (Reported) Ropinirole HCl 5 Mg Tablet, 5 MG PO TID, (Reported) LAST FILLED #90 11-12-18 Past Medical/Social/Family Hx Patient Social History Use of E-Cig and/or Vaping dev: No Substance use?: No Alcohol Use?: No Immunizations Up To Date Tetanus Booster (TDap): Unknown Current Status Primary Language: Tamazight Preferred Spoken Language: Tamazight Review of Systems Constitutional: see HPI Focused Exam Lactate Level 07/31/21 13:15: Lactic Acid Level 4.09*H Height, Weight, BMI Height: 6'0.00" Weight: 269lbs. 5.0oz. 122.667631ih; 35.00 BMI Method:Stated Exam Exam Patient acknowledged, consented, and participated in this virtual visit which was conducted using real time audio/video Vital Signs Date Time Temp Pulse Resp B/P (MAP) Pulse Ox O2 Delivery O2 Flow Rate FiO2 07/31/21 17:08 131 40 95 80.00 07/31/21 17:05 138 07/31/21 17:00 131 18 111/103 99 NIV Bilevel 80.00 07/31/21 16:30 138 21 109/96 91 NIV Bilevel 80.00 07/31/21 13:49 39.5 150 32 180/95 (123) Height & Weight Height: 6'0.00" Weight: 269lbs. 5.0oz. 122.966711qh; 35.00 BMI Method:Stated General Appearance: No Apparent Distress, Chronically ill, Moderate Distress, Obese, Other (Diaphoretic. Asking repetitive questions) HEENT: PERRL/EOMI; No Moist Mucous Membranes (Slightly dry mucous membranes) Neck: Full Range of Motion, Normal Inspection, Non Tender, Supple Respiratory: Chest Non Tender, Accessory Muscle Use, Decreased Breath Sounds, Respiratory Distress; No Stridor; Wheezing Cardiovascular: Normal Peripheral Pulses, Tachycardia Extremity: Normal Capillary Refill, Normal Inspection Neurologic/Psychiatric: Alert Skin: Diaphoresis Results Lab Laboratory Tests 07/31/21 13:15 Assessment/Plan Assessment/Plan (Tele-ICU Physician , consultation) Available chart/ vitals / labs / Images reviewed H&P is from ER notes Patient's information available about PMH, Shx, Fhx allergy reviewed in EMR. ROS as per chart and RN report Now in ICU, hemodynamically stable Video assessment done using teleICU camera, rest of exam as per RN Discussed with RN. Consultants: Hospital course: 07/31 - to ICU from ER with COVID , hyperglycemia, o2 - FM 5L A/P AHRF due to COVID19 - on FM 5L -prone position if able - conservative fluid strategy (aim for even fluid balance [id number]-19 PNA ( Symptom onset ~07/23 DX unvaccinted --Remdesivir 12 ( given severe dz and time frame no major clinical benefit ) --Dexamethasone -- Cytokine release syndrome - CRP 40 - ?Tocilizumab to consider , one might want to hold on Tocilizumab due to concomitant septicemia of unclear etiology -Hypercoagulable state , DDIMER= 7.6 on -> with TED would fully anticoagulate now , and follow with CT with Cr is better ( heparin gtt would be preferable to lovenox ) . Suspected superimposed bact PNA / infection -empiric abx started TED - cont hydration very carefuly , follow Elvated BNP > 10 K - monitor for VO Diabetes Mellitus with severe hyperglycemia - repeat now - might need insulin gtt ( non DKA - ISS , close f/up on steroids Hyponatremia ( adjusted to BS NA =126 _ at 1 pm - minitor carefully , repeat now Confusion - receicved morphine and ativan in ER [facility] - follow closely ,repeat abg Plans in collaboration with bedside consultants and IM MDs. Discussed with RN to reach out if any questions or concerns A total of 40 minutes of critical care time was devoted to this patient today, required to treat and/or prevent further deterioration of critical care condition ( as above) . ONIEL SOTO MD Jul 31, 2021 17:25
[2021-07-31] MEDS ORDERED: inSUlin (REGULAR) HUMAN 1 UNIT/0.01 ML (CHARGE PER UNIT) IV NR ×2 (17:30→18:30)
[2021-07-31 18:02] LABS: HEMATOCRIT 36 % (40-54); HEMOGLOBIN 12.9 g/dL (13.3-17.7); MEAN CORPUSCULAR HEMOGLOBIN 29 pg (25-34); MEAN CORPUSCULAR HGB CONC 36 g/dL (32-36); MEAN CORPUSCULAR VOLUME 82 fL (80-99); MEAN PLATELET VOLUME 11.4 fL (9.0-12.2); PLATELET COUNT 215 10^3/uL (130-400)
[2021-07-31 18:13] LABS: POTASSIUM 5.4 MMOL/L (3.6-5.0)
[2021-07-31 18:14] LABS: CALCIUM 8.5 MG/DL (8.5-10.1)
[2021-07-31] MEDS ORDERED: D5 1/2 NS 1000 ML IV SOLUTION 1,000 ML IV SCH (18:15)
[2021-07-31] MEDS ORDERED: 1/2 NS IV SOLUTION 1,000 ML IV SCH (18:15)
[2021-07-31] MEDS ORDERED: POTASSIUM CL 10MEQ/50ML IVPB 50 ML IV SCH ×3 (18:15→23:15)
[2021-07-31 18:18] LABS: CREATININE SERUM 1.98 MG/DL (0.60-1.30)
[2021-07-31 18:35] LABS: WHITE BLOOD COUNT 31.3 10^3/uL (4.3-11.0)
[2021-07-31] MEDS: ENOXAPARIN 300 MG/3 ML (LOVENOX) MULTI-DOSE VIAL SQ SCH (18:56)
[2021-07-31 19:27] VITALS: BP 140/94
[2021-07-31] MEDS: NS IV 1000 ML 1,000 ML IV SCH (19:55)
--- NOTE | 2021-07-31 20:13 | Diagnostic Imaging Report ---
INDICATION: Line placement. Comparison made with prior examination of 07/31/2021. FINDINGS: The right upper extremity PICC line is directed in a cephalad direction up the right internal jugular vein. The heart size is normal. Lungs clear. No pleural effusion or pneumothorax. IMPRESSION: The right upper extremity PICC line has its tip directed in a cephalad direction up the right internal jugular vein. Please contact the PICC line nurse with these results. No other acute cardiopulmonary abnormality. Dictated by: Dictated on workstation # [id number]
[2021-07-31 22:26] VITALS: BP 139/84
[2021-07-31 22:39] LABS: POTASSIUM 4.9 MMOL/L (3.6-5.0)
[2021-07-31 22:41] LABS: CALCIUM 8.5 MG/DL (8.5-10.1)
[2021-07-31 22:45] LABS: CREATININE SERUM 1.93 MG/DL (0.60-1.30)
[2021-07-31] MEDS ORDERED: POTASSIUM CL 10MEQ/50ML IVPB 50 ML IV ONE (23:40)
[2021-07-31] MEDS: POTASSIUM CL 10MEQ/50ML IVPB 50 ML IV SCH (23:58)
[2021-08-01 02:23] LABS: POTASSIUM 4.5 MMOL/L (3.6-5.0)
[2021-08-01 02:24] LABS: CALCIUM 8.5 MG/DL (8.5-10.1)
[2021-08-01] MEDS: POTASSIUM CL 10MEQ/50ML IVPB 50 ML IV SCH ×8 (02:28→16:05)
[2021-08-01 02:29] LABS: CREATININE SERUM 1.81 MG/DL (0.60-1.30)
[2021-08-01] MEDS: NS IV 1000 ML 1,000 ML IV SCH ×3 (03:29→16:05)
[2021-08-01 03:38] VITALS: BP 125/83
[2021-08-01] MEDS ORDERED: D5 NS 1000 ML IV SOLUTION 1,000 ML IV ONE (04:38)
[2021-08-01 05:12] LABS: BASOPHILS # (AUTO) 0.1 10^3/uL (0.0-0.1); BASOPHILS % (AUTO) 0 % (0-10); EOSINOPHILS % (AUTO) 0 % (0-10); HEMATOCRIT 34 % (40-54); HEMOGLOBIN 11.9 g/dL (13.3-17.7); LYMPHOCYTES # (AUTO) 1.1 10^3/uL (1.0-4.0); LYMPHOCYTES % (AUTO) 4 % (12-44); MEAN CORPUSCULAR HEMOGLOBIN 29 pg (25-34); MEAN CORPUSCULAR HGB CONC 35 g/dL (32-36); MEAN CORPUSCULAR VOLUME 81 fL (80-99); MEAN PLATELET VOLUME 11.4 fL (9.0-12.2); MONOCYTES # (AUTO) 1.7 10^3/uL (0.0-1.0); MONOCYTES % (AUTO) 6 % (0-12); NEUTROPHILS # (AUTO) 23.5 10^3/uL (1.8-7.8); NEUTROPHILS % (AUTO) 88 % (42-75); PLATELET COUNT 238 10^3/uL (130-400); WHITE BLOOD COUNT 26.7 10^3/uL (4.3-11.0)
[2021-08-01 05:31] LABS: ALBUMIN 2.9 GM/DL (3.2-4.5)
[2021-08-01 05:32] LABS: POTASSIUM 4.4 MMOL/L (3.6-5.0)
[2021-08-01 05:33] LABS: CALCIUM 8.6 MG/DL (8.5-10.1)
[2021-08-01 05:34] LABS: TOTAL PROTEIN 7.2 GM/DL (6.4-8.2)
[2021-08-01 05:36] LABS: BILIRUBIN,TOTAL 0.6 MG/DL (0.1-1.0)
[2021-08-01 05:37] LABS: PHOSPHORUS 2.5 MG/DL (2.3-4.7)
[2021-08-01 05:38] LABS: CREATININE SERUM 1.67 MG/DL (0.60-1.30)
[2021-08-01 05:41] LABS: MAGNESIUM 2.1 MG/DL (1.6-2.4)
[2021-08-01] MEDS: MAGNESIUM 1 GM/100 ML IVPB 100 ML IV SCH (05:42)
[2021-08-01] MEDS: KCL 20 MEQ TAB (K-DUR) PO SCH (05:43)
[2021-08-01] MEDS: ENOXAPARIN 300 MG/3 ML (LOVENOX) MULTI-DOSE VIAL SQ SCH ×2 (05:52→18:17)
[2021-08-01] MEDS: D5 NS 1000 ML IV SOLUTION 1,000 ML IV SCH ×3 (05:52→13:28)
[2021-08-01 07:02] VITALS: BP 134/84
[2021-08-01] MEDS ORDERED: VANCOMYCIN INJECTION 0.1 MG in NS (IVPB) 250 ML IV SCH (07:30)
[2021-08-01] MEDS ORDERED: VANCOMYCIN 2000 MG/NS 500 ML IVPB IV NR ×2 (08:00)
--- NOTE | 2021-08-01 08:06 | History & Physical-Hospitalist ---
History of Present Illness HPI/Chief Complaint Chief complaint: Respiratory failure History of present illness: This is a 56-year-old white male known to [facility] for frequent ER visits who has been very noncompliant with all medical management who presents to ICU 7 in respiratory failure BiPAP dependent. He was found to have delirium and very complicated medical issues requiring BiPAP and insulin drip with aggressive IV fluids to resolve elevated lactic acid from sepsis. Creatinine was 1.80 is 1.4 for now. D-dimer was elevated at 7.64 and Lovenox initiated therapeutic dose twice daily due to unable to perform angiogram to rule out PE due to kidney function. Currently patient is sleeping. Microbiology notified me that 4/4 bottles of blood cultures were positive for MRSA. Vancomycin. ABG 7.3 . Source: RN/ Exam Limitations: clinical condition (On BiPAP) Date Seen 08/01/21 Time Seen by a Provider: 10:00 Attending Physician Josefa Bravo DO PCP Self,Jarocho ORDOÑEZ Referring Physician Date of Admission Jul 31, 2021 at 16:10 Home Medications & Allergies Home Medications Reviewed patient Home Medication Reconciliation performed by pharmacy medication reconciliations certified ophthalmic medical technician and/or nursing. Patients Allergies have been reviewed. Allergies Allergies Coded Allergies No Known Drug Allergies (Unverified01/04/18) Past Cwhlicz-Ozedah-Qnlwfu Hx Patient Social History Marrital Status: single Employed/Student: unemployed Smoking Status: Current Everyday Smoker Use of E-Cig and/or Vaping dev: No Substance use?: No Alcohol Use?: No Immunizations Up To Date Tetanus Booster (TDap): Unknown Seasonal Allergies Seasonal Allergies: No Current Status Primary Language: Romanian Preferred Spoken Language: Romanian Past Medical History Surgeries: Orthopedic Sleep Apnea Currently Using CPAP: No Hypertension Neuropathy Chronic Constipation Degenerate Disk Disease, Arthritis, Chronic Back Pain Diabetes, Non-Insulin dep Loss of Vision: Denies Hearing Impairment: Denies Anxiety, Depression Blood Disorders: No Family Medical History Diabetes Review of Systems Constitutional: see HPI, malaise, weakness EENTM: no symptoms reported Respiratory: no symptoms reported Cardiovascular: no symptoms reported Gastrointestinal: no symptoms reported Genitourinary: no symptoms reported Musculoskeletal: no symptoms reported Skin: no symptoms reported Psychiatric/Neurological: No Symptoms Reported All Other Systems Reviewed Negative Unless Noted: Yes Physical Exam Physical Exam Vital Signs Vital Signs - First Documented 07/31/21 07/31/21 08/01/21 13:49 16:00 08:00 Temp 39.5 Pulse 150 Resp 32 B/P (MAP) 180/95 (123) Pulse Ox 96 O2 Delivery Non Rebreather O2 Flow Rate 5.00 FiO2 30 Capillary Refill : Height, Weight, BMI Height: 6'0.00" Weight: 269lbs. 5.0oz. [id number]; 35.00 BMI Method:Stated General Appearance: No Apparent Distress, Chronically ill, Obese, Other (Sedated) Eyes: Right Eye Normal Inspection, Right Eye PERRL HEENT: PERRL/EOMI, Normal ENT Inspection, Pharynx Normal, Moist Mucous Membranes Neck: Full Range of Motion, Normal Inspection, Non Tender Respiratory: Chest Non Tender, Lungs Clear, Normal Breath Sounds, No Accessory Muscle Use, No Respiratory Distress Cardiovascular: Regular Rate, Rhythm, No Edema, No Gallop, No JVD, No Murmur, Normal Peripheral Pulses Gastrointestinal: Normal Bowel Sounds, No Organomegaly, No Pulsatile Mass, Soft Back: Normal Inspection, No CVA Tenderness Extremity: Normal Capillary Refill, Normal Inspection, Normal Range of Motion, No Calf Tenderness, No Pedal Edema Skin: Normal Color, Warm/Dry Lymphatic: No Adenopathy Results Results/Procedures Labs Laboratory Tests 07/31/21 13:15 07/31/21 17:45 07/31/21 22:20 08/01/21 02:05 08/01/21 04:54 08/01/21 10:20 08/01/21 13:56 08/01/21 18:25 Patient resulted labs reviewed. Assessment/Plan Admission Diagnosis Assessment: Respiratory failure maintain on BiPAP COVID-19 pneumonia Sepsis Hyperosmolar hyperglycemic nonketotic state placed on insulin drip Hyponatremia of 115 Acute kidney injury MRSA bacteremia Hyperkalemia Elevated D-dimer unable to rule out PE so placed on Lovenox therapeutic dose Noncompliance Plan: Vancomycin Rocephin eICU management BiPAP Insulin drip Lovenox Aggressive IV fluid of D5NS Admission Status: Inpatient Order (span 2 midnights) Reason for Inpatient Admission: Critical illness Diagnosis/Problems Diagnosis/Problems (1) Pneumonia due to COVID-19 virus Status: Acute (2) Lower respiratory tract infection due to COVID-19 virus Status: Acute (3) Acute kidney injury Status: Acute (4) Sepsis Status: Acute Qualifiers: Sepsis type: sepsis due to unspecified organism Sepsis acute organ dysfunction status: with acute organ dysfunction Severe sepsis acute organ dysfunction type: acute respiratory failure Acute respiratory failure type: with hypoxia Severe sepsis shock status: without septic shock Qualified Codes: A41.9 - Sepsis, unspecified organism; R65.20 - Severe sepsis without septic shock; J96.01 - Acute respiratory failure with hypoxia (5) Hypoxia Status: Acute (6) Hyponatremia Status: Acute (7) Hyperglycemia Status: Acute (8) Dehydration Status: Acute (9) 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
[2021-08-01] MEDS: cefTRIAXone 1 GM/50 ML (PRE-MIX) IV SCH (08:40)
--- NOTE | 2021-08-01 09:08 | Tele-ICU Progress Note ---
Progress Note video rounds completed 56 y/o male with Covid PNA and 2nard bacterial PNA Severe hyperglycemia with decadron and on insulin drip PE: BIPAP currently Pulse: 116 BP: 135/81 O2 sat 98% RR 14 On vanc/ ceftriaxone and zithromax Glu 214 on insulin drip Focused Exam Lactate Level 07/31/21 13:15: Lactic Acid Level 4.09*H 07/31/21 17:45: Lactic Acid Level 2.60*H 07/31/21 19:45: Lactic Acid Level 1.76 Height, Weight, BMI Height: 6'0.00" Weight: 269lbs. 5.0oz. [id number]; 34.47 BMI Method:Stated Labs Laboratory Tests 07/31/21 13:15 07/31/21 17:45 07/31/21 22:20 08/01/21 02:05 08/01/21 04:54 Labs Labs Laboratory Tests 07/31/21 13:15: White Blood Count 32.8*H, Red Blood Count 4.64, Hemoglobin 13.6, Hematocrit 37L, Mean Corpuscular Volume 80, Mean Corpuscular Hemoglobin 29, Mean Corpuscular Hemoglobin Concent 37H, Red Cell Distribution Width 13.0, Platelet Count 234, Mean Platelet Volume 10.9, Immature Granulocyte % (Auto) 6, Neutrophils (%) (Auto) 82H, Lymphocytes (%) (Auto) 4L, Monocytes (%) (Auto) 7, Eosinophils (%) (Auto) 0, Basophils (%) (Auto) 0, Neutrophils # (Auto) 27.0H, Lymphocytes # (Auto) 1.2, Monocytes # (Auto) 2.4H, Eosinophils # (Auto) 0.0, Basophils # (Auto) 0.1, Immature Granulocyte # (Auto) 2.0H, Neutrophils % (Manual) 76, Lymphocytes % (Manual) 2, Monocytes % (Manual) 8, Metamyelocytes % 4, Myelocytes % 1, Band Neutrophils 9, Toxic Granulation 1+, Platelet Estimate NORMAL, Blood Morphology Comment NORMAL, Prothrombin Time 16.4H, INR Comment 1.3, Activated Partial Thromboplast Time 34, D-Dimer 7.64H, Blood Gas Puncture Site LT. RADIAL, Blood Gas Patient Temperature 39.5, Arterial Blood pH 7.51H, Arterial Blood Partial Pressure CO2 29L, Arterial Blood Partial Pressure O2 53L, Arterial Blood HCO3 23, Arterial Blood Total CO2 24.0, Arterial Blood Oxygen Saturation 90L, Arterial Blood Base Excess 0.9, Dima Test YES-POS, Blood Gas Ventilator Setting NO, Blood Gas Inspired Oxygen ROOM AIR, Sodium Level 116*L, Potassium Level 4.9, Chloride Level 75L, Carbon Dioxide Level 20L, Anion Gap 21H, Blood Urea Nitrogen 33H, Creatinine 1.48H, Estimat Glomerular Filtration Rate 49, BUN/Creatinine Ratio 22, Glucose Level 511*H, Lactic Acid Level 4.09*H, Calcium Level 9.1, Corrected Calcium 9.8, Total Bilirubin 1.3H, Aspartate Amino Transf (AST/SGOT) 65H, Alanine Aminotransferase (ALT/SGPT) 25, Alkaline Phosphatase 130, Troponin I < 0.30, C-Reactive Protein > 41.00H, Pro-B-Type Natriuretic Peptide 28438.0H, Total Protein 8.1, Albumin 3.1L 07/31/21 16:55: Blood Gas Puncture Site LT RAD, Blood Gas Patient Temperature 96, Arterial Blood pH 7.39, Arterial Blood Partial Pressure CO2 31L, Arterial Blood Partial Pressure O2 326H, Arterial Blood HCO3 19L, Arterial Blood Total CO2 19.6L, Arterial Blood Oxygen Saturation 100, Arterial Blood Base Excess -5.8L, Dima Test NA, Blood Gas Ventilator Setting NO, Blood Gas Inspired Oxygen 16/8 100% 07/31/21 17:26: Glucometer 570*H 07/31/21 17:45: White Blood Count 31.3*H, Red Blood Count 4.44, Hemoglobin 12.9L, Hematocrit 36L , Mean Corpuscular Volume 82, Mean Corpuscular Hemoglobin 29, Mean Corpuscular Hemoglobin Concent 36, Red Cell Distribution Width 13.1, Platelet Count 215, Mean Platelet Volume 11.4, Sodium Level 115*L, Potassium Level 5.4H, Chloride Level 85L, Carbon Dioxide Level 16L, Anion Gap 14, Blood Urea Nitrogen 38H, Creatinine 1.98H, Estimat Glomerular Filtration Rate 35, BUN/Creatinine Ratio 19, Glucose Level 635*H, Lactic Acid Level 2.60*H, Calcium Level 8.5 07/31/21 19:45: Lactic Acid Level 1.76 07/31/21 21:13: Glucometer 385H 07/31/21 21:57: Glucometer 484*H 07/31/21 22:20: Sodium Level 119*L, Potassium Level 4.9, Chloride Level 87L, Carbon Dioxide Level 17L, Anion Gap 15H, Blood Urea Nitrogen 42H, Creatinine 1.93H, Estimat Glomerular Filtration Rate 36, BUN/Creatinine Ratio 22, Glucose Level 515*H, Calcium Level 8.5 07/31/21 23:54: Glucometer 463*H 08/01/21 01:07: Glucometer 411*H 08/01/21 02:05: Sodium Level 122*L, Potassium Level 4.5, Chloride Level 91L, Carbon Dioxide Level 18L, Anion Gap 13, Blood Urea Nitrogen 44H, Creatinine 1.81H, Estimat Glomerular Filtration Rate 39, BUN/Creatinine Ratio 24, Glucose Level 370H, Calcium Level 8.5 08/01/21 02:27: Glucometer 360H 08/01/21 03:33: Glucometer 299H 08/01/21 04:52: Glucometer 268H 08/01/21 04:54: White Blood Count 26.7H, Red Blood Count 4.14L, Hemoglobin 11.9L, Hematocrit 34L , Mean Corpuscular Volume 81, Mean Corpuscular Hemoglobin 29, Mean Corpuscular Hemoglobin Concent 35, Red Cell Distribution Width 13.1, Platelet Count 238, Mean Platelet Volume 11.4, Immature Granulocyte % (Auto) 1, Neutrophils (%) (Auto) 88H, Lymphocytes (%) (Auto) 4L, Monocytes (%) (Auto) 6, Eosinophils (%) (Auto) 0, Basophils (%) (Auto) 0, Neutrophils # (Auto) 23.5H, Lymphocytes # (Auto) 1.1, Monocytes # (Auto) 1.7H, Eosinophils # (Auto) 0.0, Basophils # (Auto) 0.1, Immature Granulocyte # (Auto) 0.3H, Sodium Level 125*L, Potassium Level 4.4, Chloride Level 93L, Carbon Dioxide Level 19L, Anion Gap 13, Blood Urea Nitrogen 44H, Creatinine 1.67H, Estimat Glomerular Filtration Rate 42, BUN/Creatinine Ratio 26, Glucose Level 259H, Calcium Level 8.6, Corrected Calcium 9.5, Phosphorus Level 2.5, Magnesium Level 2.1, Total Bilirubin 0.6, Aspartate Amino Transf (AST/SGOT) 51H, Alanine Aminotransferase (ALT/SGPT) 29, Alkaline Phosphatase 97, Total Protein 7.2, Albumin 2.9L 08/01/21 05:49: Glucometer 214H 08/01/21 06:38: Glucometer 224H 08/01/21 08:01: Glucometer 263H 08/01/21 08:05: Glucometer 257H 08/01/21 08:58: Glucometer 267H Microbiology 07/31/21 Blood Culture - Preliminary, Resulted Staphylococcus aureus GA BARBOZA MD Aug 01, 2021 09:08
[2021-08-01 10:11] VITALS: BP 134/84
[2021-08-01 10:39] LABS: POTASSIUM 4.2 MMOL/L (3.6-5.0)
[2021-08-01 10:41] LABS: CALCIUM 8.3 MG/DL (8.5-10.1)
[2021-08-01 10:45] LABS: CREATININE SERUM 1.44 MG/DL (0.60-1.30)
[2021-08-01 14:17] LABS: POTASSIUM 4.5 MMOL/L (3.6-5.0)
[2021-08-01 14:19] LABS: CALCIUM 8.5 MG/DL (8.5-10.1)
[2021-08-01 14:23] LABS: CREATININE SERUM 1.45 MG/DL (0.60-1.30)
[2021-08-01] MEDS ORDERED: AZITHROMYCIN INJECTION 500 MG in NS (IVPB) 250 ML IV SCH (15:00)
[2021-08-01 15:47] VITALS: BP 138/93
[2021-08-01] MEDS: AZITHROMYCIN INJECTION 500 MG in NS (IVPB) 250 ML IV SCH (16:15)
--- NOTE | 2021-08-01 16:28 | Consultation-Cardiology ---
HPI-Cardiology Cardiology Consultation: Date of Consultation 08/01/21 Time Seen by a Provider: 16:10 Date of Admission Attending Physician Josefa Bravo DO Admitting Physician Jarocho Birmingham MD Consulting Physician DEANDRE FRANK MD, MA, FACP, FACC, FSCAI, CCDS Physician requesting Card consult: Dr Bravo HPI: Chief Complaint: Reason for Card consult: MRSA 56 yo man admitted with increasing shortness of breath to Dr Bravo's service on 07/31/21. He is currently on BiPAP and does not provide any detailed history. D oes acknowledge shortness of breath for a few days prior to admission. Reports fever at home. Denies cp. Denies palp or syncope. Does not report n/v/d. Reports feeling generally unwell Review of Systems-Cardiology Review of Systems Constitutional: other (pt is mildly confused, on BiPAP, and not able to provide a detailed history or ROS. To the extent an ROS could be obtained is reported under HPI) YQF-Puuduf-Siyvxi Hx Patient Social History Smoking Status: Never a Smoker 2nd Hand Smoke Exposure: No Alcohol Use?: No Immunizations Up To Date Tetanus Booster (TDap): Unknown Past Medical History PMH As described under Assessment. Family Medical History Family Medical History: Pt did not report fam h/o early CAD Allergies and Home Medications Allergies Coded Allergies: No Known Drug Allergies (Unverified , 01/04/18) Patient Home Medication List Home Medication List Reviewed: Yes Aspirin (Aspir 81) 81 Mg Tablet.dr, 81 MG PO DAILY, (Reported) Entered as Reported by: MARY HOLMAN on 01/04/18 0954 Dulaglutide (Trulicity) 0.75 Mg/0.5 Ml Pen.injctr, 0.75 MG SQ WEEK, (Reported) Entered as Reported by: YURI VALVERDE on 12/08/20 1254 Insulin Aspart (Novolog Flexpen) 300 Units/3 Ml Solution, UNITS SQ AC, (Reported) Entered as Reported by: YURI VALVERDE on 12/08/20 1254 Insulin Degludec (Tresiba) 100 Unit/1 Ml Vial, 200 UNIT SQ HS, (Reported) Entered as Reported by: YURI VALVERDE on 12/08/20 1254 Naproxen Sodium (Naproxen Sodium) 220 Mg Tablet, 220 MG PO BID, (Reported) Entered as Reported by: MARY HOLMAN on 01/04/18 0954 Omeprazole (Omeprazole) 40 Mg Capsule.dr, 40 MG PO DAILY, (Reported) Entered as Reported by: YAZAN LI on 02/18/19 1249 Ropinirole HCl (Ropinirole HCl) 5 Mg Tablet, 5 MG PO TID, (Reported) Entered as Reported by: MARY HOLMAN on 01/04/18 0954 Physical Exam-Cardiology Physical Exam Vital Signs/I&O 08/01/21 08/01/21 08/01/21 08/01/21 05:00 05:56 06:00 07:00 Pulse 120 120 120 Resp B/P (MAP) 128/89 130/84 134/85 Pulse Ox 97 97 99 O2 Delivery NIV Bilevel NIV Bilevel NIV Bilevel NIV Bilevel O2 Flow Rate 35.00 30.00 30.00 30.00 08/01/21 08/01/21 08/01/21 08/01/21 07:00 07:02 08:00 08:00 Pulse 118 120 120 Resp 31 29 B/P (MAP) 121/83 Pulse Ox 97 97 98 O2 Delivery NIV Bilevel NIV Bilevel O2 Flow Rate 30.00 30.00 FiO2 30 08/01/21 08/01/21 08/01/21 08/01/21 09:00 10:00 10:11 11:00 Pulse 115 115 112 112 Resp B/P (MAP) 135/81 134/84 121/80 Pulse Ox 98 98 99 98 O2 Delivery NIV Bilevel NIV Bilevel NIV Bilevel O2 Flow Rate 30.00 30.00 30.00 30.00 08/01/21 08/01/21 08/01/21 08/01/21 12:00 12:00 13:00 13:00 Pulse 110 111 110 Resp 25 B/P (MAP) 133/83 130/82 Pulse Ox 97 100 99 O2 Delivery NIV Bilevel NIV Bilevel NIV Bilevel O2 Flow Rate 30.00 30.00 FiO2 30 08/01/21 08/01/21 08/01/21 08/01/21 14:00 15:00 15:47 16:00 Pulse 110 111 111 110 Resp B/P (MAP) 134/84 130/89 137/89 Pulse Ox 98 100 97 100 O2 Delivery NIV Bilevel NIV Bilevel NIV Bilevel O2 Flow Rate 30.00 30.00 30.00 30.00 08/01/21 16:03 Temp 36.2 08/01/21 00:00 Intake Total 810 ml Output Total 2050 ml Balance -1240 ml Capillary Refill : Constitutional: No AAO x 3 (mildly confused); well-developed, well-nourished HEENT: PERRL, EOMI, hearing is well preserved Neck: carotid pulses are 2 + bilaterally Respiratory: No accessory muscle use; other (on BiPAP, good air entry on both side, diminished bs at bases) Cardiovascular: regular rate-rhythm, S1 and S2, systolic murmur (faint PEEWEE at card base) Gastrointestinal: No tender; soft; No guarding, No rebound; audible bowel sounds Extremities: swelling (mild leg edema, bilat); No clubbing, No cyanosis Neurologic/Psychiatric: other (moves all limbs equally) Data Review Labs Laboratory Tests 07/31/21 16:55: Blood Gas Puncture Site LT RAD, Blood Gas Patient Temperature 96, Arterial Blood pH 7.39, Arterial Blood Partial Pressure CO2 31L, Arterial Blood Partial P ressure O2 326H, Arterial Blood HCO3 19L, Arterial Blood Total CO2 19.6L, Arterial Blood Oxygen Saturation 100, Arterial Blood Base Excess -5.8L, Dima Test NA, Blood Gas Ventilator Setting NO, Blood Gas Inspired Oxygen 16/8 100% 07/31/21 17:26: Glucometer 570*H 07/31/21 17:45: White Blood Count 31.3*H, Red Blood Count 4.44, Hemoglobin 12.9L, Hematocrit 36L , Mean Corpuscular Volume 82, Mean Corpuscular Hemoglobin 29, Mean Corpuscular Hemoglobin Concent 36, Red Cell Distribution Width 13.1, Platelet Count 215, Mean Platelet Volume 11.4, Sodium Level 115*L, Potassium Level 5.4H, Chloride Level 85L, Carbon Dioxide Level 16L, Anion Gap 14, Blood Urea Nitrogen 38H, Creatinine 1.98H, Estimat Glomerular Filtration Rate 35, BUN/Creatinine Ratio 19, Glucose Level 635*H, Lactic Acid Level 2.60*H, Calcium Level 8.5 07/31/21 19:45: Lactic Acid Level 1.76 07/31/21 21:13: Glucometer 385H 07/31/21 21:57: Glucometer 484*H 07/31/21 22:20: Sodium Level 119*L, Potassium Level 4.9, Chloride Level 87L, Carbon Dioxide Level 17L, Anion Gap 15H, Blood Urea Nitrogen 42H, Creatinine 1.93H, Estimat Glomerular Filtration Rate 36, BUN/Creatinine Ratio 22, Glucose Level 515*H, Calcium Level 8.5 07/31/21 23:54: Glucometer 463*H 08/01/21 01:07: Glucometer 411*H 08/01/21 02:05: Sodium Level 122*L, Potassium Level 4.5, Chloride Level 91L, Carbon Dioxide Level 18L, Anion Gap 13, Blood Urea Nitrogen 44H, Creatinine 1.81H, Estimat Gl omerular Filtration Rate 39, BUN/Creatinine Ratio 24, Glucose Level 370H, Calci um Level 8.5 08/01/21 02:27: Glucometer 360H 08/01/21 03:33: Glucometer 299H 08/01/21 04:52: Glucometer 268H 08/01/21 04:54: White Blood Count 26.7H, Red Blood Count 4.14L, Hemoglobin 11.9L, Hematocrit 34L , Mean Corpuscular Volume 81, Mean Corpuscular Hemoglobin 29, Mean Corpuscular Hemoglobin Concent 35, Red Cell Distribution Width 13.1, Platelet Count 238, Mean Platelet Volume 11.4, Immature Granulocyte % (Auto) 1, Neutrophils (%) (Auto) 88H, Lymphocytes (%) (Auto) 4L, Monocytes (%) (Auto) 6, Eosinophils (%) (Auto) 0, Basophils (%) (Auto) 0, Neutrophils # (Auto) 23.5H, Lymphocytes # (Auto) 1.1, Monocytes # (Auto) 1.7H, Eosinophils # (Auto) 0.0, Basophils # (Auto) 0.1, Immature Granulocyte # (Auto) 0.3H, Sodium Level 125*L, Potassium Level 4.4, Chloride Level 93L, Carbon Dioxide Level 19L, Anion Gap 13, Blood Urea Nitrogen 44H, Creatinine 1.67H, Estimat Glomerular Filtration Rate 42, BUN/Creatinine Ratio 26, Glucose Level 259H, Calcium Level 8.6, Corrected Calcium 9.5, Phosphorus Level 2.5, Magnesium Level 2.1, Total Bilirubin 0.6, Aspartate Amino Transf (AST/SGOT) 51H, Alanine Aminotransferase (ALT/SGPT) 29, Alkaline Phosphatase 97, Total Protein 7.2, Albumin 2.9L 08/01/21 05:49: Glucometer 214H 08/01/21 06:38: Glucometer 224H 08/01/21 08:01: Glucometer 263H 08/01/21 08:05: Glucometer 257H 08/01/21 08:58: Glucometer 267H 08/01/21 09:55: Glucometer 235H 08/01/21 10:20: Sodium Level 127L, Potassium Level 4.2, Chloride Level 96L, Carbon Dioxide Level 19L, Anion Gap 12, Blood Urea Nitrogen 43H, Creatinine 1.44H, Estimat Glomerular Filtration Rate 50, BUN/Creatinine Ratio 30, Glucose Level 222H, Calcium Level 8.3L 08/01/21 11:17: Glucometer 203H 08/01/21 12:18: Glucometer 181H 08/01/21 13:16: Glucometer 173H 08/01/21 13:56: Sodium Level 130L, Potassium Level 4.5, Chloride Level 96L, Carbon Dioxide Level 22, Anion Gap 12, Blood Urea Nitrogen 42H, Creatinine 1.45H, Estimat Glomerular Filtration Rate 50, BUN/Creatinine Ratio 29, Glucose Level 122H, Calcium Level 8.5 08/01/21 14:57: Glucometer 156H 08/01/21 16:03: Glucometer 165H Microbiology 07/31/21 Blood Culture - Preliminary, Resulted Staphylococcus aureus Laboratory Tests 07/31/21 13:15 07/31/21 17:45 07/31/21 22:20 08/01/21 02:05 08/01/21 04:54 08/01/21 10:20 08/01/21 13:56 A/P-Cardiology Assessment/Admission Diagnosis Ac resp failure due to COVID pneumonia, MRSA pneumonia, and ARDS DM II Discussion and Recomendations * Dr Bravo and Kev managing pneumonia and ARDS and metabolic abnormalities * No physical signs of endocarditis. Obtain echo * Monitor labs DEANDRE FRANK MD FACP [facility] Aug 01, 2021 16:28
[2021-08-01] MEDS: D5 1/2 NS 1000 ML IV SOLUTION 1,000 ML IV SCH (18:16)
[2021-08-01] MEDS: inSUlin ASPART (NovoLOG) 1 UNIT/0.01 ML (CHARGE PER UNIT) SC SCH (18:19)
[2021-08-01 18:47] VITALS: BP 130/84
[2021-08-01 18:53] LABS: POTASSIUM 4.5 MMOL/L (3.6-5.0)
[2021-08-01 18:54] LABS: CALCIUM 8.2 MG/DL (8.5-10.1)
[2021-08-01 18:59] LABS: CREATININE SERUM 1.38 MG/DL (0.60-1.30)
[2021-08-01 23:53] LABS: POTASSIUM 4.6 MMOL/L (3.6-5.0)
[2021-08-01 23:54] LABS: CALCIUM 8.4 MG/DL (8.5-10.1)
[2021-08-01 23:58] LABS: CREATININE SERUM 1.23 MG/DL (0.60-1.30)
[2021-08-02] MEDS: D5 NS 1000 ML IV SOLUTION 1,000 ML IV SCH ×2 (00:03→08:23)
[2021-08-02] MEDS: inSUlin ASPART (NovoLOG) 1 UNIT/0.01 ML (CHARGE PER UNIT) SC SCH ×4 (00:10→22:12)
[2021-08-02] MEDS: D5 1/2 NS 1000 ML IV SOLUTION 1,000 ML IV SCH (04:52)
[2021-08-02] MEDS: ENOXAPARIN 300 MG/3 ML (LOVENOX) MULTI-DOSE VIAL SQ SCH ×2 (04:54→18:34)
[2021-08-02 05:45] LABS: BASOPHILS # (AUTO) 0.1 10^3/uL (0.0-0.1); BASOPHILS % (AUTO) 0 % (0-10); EOSINOPHILS % (AUTO) 0 % (0-10); HEMATOCRIT 34 % (40-54); HEMOGLOBIN 11.9 g/dL (13.3-17.7); LYMPHOCYTES # (AUTO) 0.7 10^3/uL (1.0-4.0); LYMPHOCYTES % (AUTO) 3 % (12-44); MEAN CORPUSCULAR HEMOGLOBIN 29 pg (25-34); MEAN CORPUSCULAR HGB CONC 35 g/dL (32-36); MEAN CORPUSCULAR VOLUME 85 fL (80-99); MEAN PLATELET VOLUME 11.7 fL (9.0-12.2); MONOCYTES # (AUTO) 1.2 10^3/uL (0.0-1.0); MONOCYTES % (AUTO) 6 % (0-12); NEUTROPHILS # (AUTO) 19.3 10^3/uL (1.8-7.8); NEUTROPHILS % (AUTO) 88 % (42-75); PLATELET COUNT 257 10^3/uL (130-400); WHITE BLOOD COUNT 21.8 10^3/uL (4.3-11.0)
[2021-08-02 05:46] LABS: ALBUMIN 2.8 GM/DL (3.2-4.5); POTASSIUM 4.8 MMOL/L (3.6-5.0)
[2021-08-02 05:47] LABS: CALCIUM 8.7 MG/DL (8.5-10.1)
[2021-08-02 05:49] LABS: TOTAL PROTEIN 7.1 GM/DL (6.4-8.2)
[2021-08-02 05:50] LABS: BILIRUBIN,TOTAL 0.6 MG/DL (0.1-1.0)
[2021-08-02 05:52] LABS: CREATININE SERUM 1.25 MG/DL (0.60-1.30); PHOSPHORUS 2.2 MG/DL (2.3-4.7)
[2021-08-02 05:55] LABS: MAGNESIUM 2.2 MG/DL (1.6-2.4)
[2021-08-02] MEDS: MAGNESIUM 1 GM/100 ML IVPB 100 ML IV SCH (06:57)
[2021-08-02] MEDS: KCL 20 MEQ TAB (K-DUR) PO SCH (06:57)
[2021-08-02] MEDS: VANCOMYCIN 1500 MG/NS 500 ML IVPB IV SCH ×2 (08:22)
[2021-08-02] MEDS: cefTRIAXone 1 GM/50 ML (PRE-MIX) IV SCH (08:23)
[2021-08-02] MEDS ORDERED: EMPA10TA PO (10:09)
[2021-08-02] MEDS ORDERED: ROPI5TAB3 PO (10:09)
[2021-08-02] MEDS ORDERED: ROSU20TA32 PO (10:09)
[2021-08-02] MEDS ORDERED: FUROSEMIDE 40 MG/4 ML INJ (LASIX) IVP ONE (10:30)
--- NOTE | 2021-08-02 10:35 | Tele-ICU Progress Note ---
Subjective Date Seen by a Provider: Aug 02, 2021 Time Seen by a Provider: 10:03 Sepsis Event Evaluation Height, Weight, BMI Height: 6'0.00" Weight: 269lbs. 5.0oz. 122.493922ez; 34.47 BMI Method:Stated Focused Exam Lactate Level 07/31/21 13:15: Lactic Acid Level 4.09*H 07/31/21 17:45: Lactic Acid Level 2.60*H 07/31/21 19:45: Lactic Acid Level 1.76 Exam Exam Patient acknowledged, consented, and participated in this virtual visit which was conducted using real time audio/video Vital Signs Date Time Temp Pulse Resp B/P (MAP) Pulse Ox O2 Delivery O2 Flow Rate FiO2 08/02/21 10:00 108 29 151/94 94 Room Air 08/02/21 09:09 95 Room Air 0.00 08/02/21 09:00 110 26 150/106 96 Room Air 08/02/21 08:00 110 31 151/91 92 Room Air 08/02/21 08:00 95 Room Air 08/02/21 07:30 112 23 155/88 93 Room Air 08/02/21 07:00 112 20 161/95 93 Room Air 08/02/21 07:00 114 08/02/21 06:00 111 28 158/106 95 Room Air 08/02/21 05:00 108 29 151/95 94 Room Air 08/02/21 04:30 Room Air 08/02/21 04:04 97 Nasal Cannula 3.00 08/02/21 04:00 105 26 136/87 95 High Flow N/C 3.00 08/02/21 04:00 98 High Flow N/C 3.00 08/02/21 03:00 107 13 138/88 95 High Flow N/C 3.00 08/02/21 02:00 105 22 153/96 97 High Flow N/C 3.00 08/02/21 01:00 100 08/02/21 01:00 101 18 137/84 96 High Flow N/C 3.00 08/02/21 00:09 High Flow N/C 3.00 08/02/21 00:00 107 27 150/87 100 High Flow N/C 5.00 08/02/21 00:00 98 High Flow N/C 5.00 08/01/21 23:00 36.9 High Flow N/C 5.00 08/01/21 23:00 112 36 156/102 100 High Flow N/C 5.00 08/01/21 22:00 109 23 137/93 98 High Flow N/C 8.00 08/01/21 21:15 High Flow N/C 8.00 08/01/21 21:00 High Flow N/C 10.00 08/01/21 21:00 108 14 121/82 96 NIV Bilevel 25.00 08/01/21 20:00 97 NIV Bilevel 25 08/01/21 20:00 111 25 126/81 99 NIV Bilevel 25.00 08/01/21 19:42 36.9 08/01/21 19:15 NIV Bilevel 25.00 08/01/21 19:00 113 18 140/94 97 NIV Bilevel 30.00 08/01/21 19:00 113 08/01/21 18:47 113 22 100 30.00 08/01/21 18:00 112 31 125/78 100 NIV Bilevel 30.00 08/01/21 17:00 114 11 110/85 NIV Bilevel 30.00 08/01/21 16:03 36.2 08/01/21 16:00 110 18 137/89 100 NIV Bilevel 30.00 08/01/21 16:00 97 NIV Bilevel 30 08/01/21 15:47 111 24 97 30.00 08/01/21 15:00 111 18 130/89 100 NIV Bilevel 30.00 08/01/21 14:00 110 18 134/84 98 NIV Bilevel 30.00 08/01/21 13:00 110 08/01/21 13:00 111 25 130/82 99 NIV Bilevel 30.00 08/01/21 12:00 110 26 133/83 100 NIV Bilevel 30.00 08/01/21 12:00 97 NIV Bilevel 30 08/01/21 11:00 112 21 121/80 98 NIV Bilevel 30.00 I & O 08/02/21 07:00 Intake Total 4175 ml Output Total 2425 ml Balance 1750 ml Height & Weight Height: 6'0.00" Weight: 269lbs. 5.0oz. 122.503117uv; 34.47 BMI Method:Stated General Appearance: No Apparent Distress, Chronically ill, Obese, Other (Sedated) HEENT: PERRL/EOMI, Normal ENT Inspection, Pharynx Normal, Moist Mucous Membranes Neck: Full Range of Motion, Normal Inspection, Non Tender Respiratory: Chest Non Tender, Lungs Clear, Normal Breath Sounds, No Accessory Muscle Use, No Respiratory Distress Cardiovascular: Regular Rate, Rhythm, No Edema, No Gallop, No JVD, No Murmur, Normal Peripheral Pulses Extremity: Normal Capillary Refill, Normal Inspection, Normal Range of Motion, No Calf Tenderness, No Pedal Edema Neurologic/Psychiatric: Alert Skin: Normal Color, Warm/Dry Lymphatic: No Adenopathy Results Lab Laboratory Tests 07/31/21 13:15 07/31/21 17:45 07/31/21 22:20 08/01/21 02:05 08/01/21 04:54 08/01/21 10:20 08/01/21 13:56 08/01/21 18:25 08/01/21 23:25 08/02/21 05:04 Assessment/Plan Assessment/Plan (Tele-ICU Physician , Progress Note ) Available chart/ vitals / labs / Images reviewed Video assessment done using teleICU camera, rest of exam as per RN Discussed with RN , EXAM PER RN Events overnight : Afebrile FiO2 - ra I/O = + Drips: Pressors: , hemodynamically stable Consultants: Hospital course: 07/31 - to ICU from ER with COVID , hyperglycemia, o2 - FM 5L 08/01 - BIPAP 08/02 - on ra , off insulin gtt A/P AHRF due to COVID19 - on RA -prone position if able - conservative fluid strategy (aim for even fluid balance WSZA-Xzibzuzwrsz-0/COVID-19 PNA ( Symptom onset ~07/23 DX unvaccinted --Remdesivir ( given severe dz and time frame no major clinical benefit ) --Dexamethasone -Hypercoagulable state , DDIMER= 7.6 on -> with TED would fully anticoagulate now , and follow with CT with Cr is better ( heparin gtt would be preferable to lovenox ) . Suspected superimposed bact PNA / infection -empiric abx [id number] TED - improved , follow Elvated BNP > 10 K - monitor for VO . lasix x1 08/02 Diabetes Mellitus with severe hyperglycemia - OFF insulin gtt - ISS , close f/up on steroids - starting levemir Hyponatremia ( adjusted to BS NA =126 - now is adjusted 131 - stop d51/2 - follow Confusion - improving , speech almost clear as per RN - aax3 , but as per RN - " something is wrong " - will need family assessment Plans in collaboration with bedside consultants and IM MDs. Discussed with RN to reach out if any questions or concerns A total of 40 minutes of critical care time was devoted to this patient today, required to treat and/or prevent further deterioration of critical care condition ( as above) . ONIEL SOTO MD Aug 02, 2021 10:35
[2021-08-02] MEDS ORDERED: diphenhydrAMINE 25 MG TAB (BENADRYL) PO PRN (12:15)
[2021-08-02] MEDS ORDERED: MELATONIN 3 MG TABLET PO PRN (12:15)
[2021-08-02] MEDS ORDERED: CALCIUM CARBONATE 500 MG (TUMS) TAB.CHEW PO PRN (12:15)
[2021-08-02] MEDS ORDERED: LOPERAMIDE 2 MG (IMODIUM) TABLET PO PRN (12:15)
[2021-08-02] MEDS ORDERED: ALPRAZolam 0.25 MG (XANAX) TAB PO PRN (12:15)
[2021-08-02] MEDS ORDERED: DOCUSATE SODIUM 100 MG (COLACE) CAP PO PRN (12:15)
[2021-08-02] MEDS ORDERED: LACTULOSE SYRUP 10GM/15ML (ENULOSE) 30ML UDC PO PRN (12:15)
--- NOTE | 2021-08-02 12:16 | Progress Note - Hospitalist ---
Subjective HPI/CC On Admission Date Seen by Provider: Aug 02, 2021 Time Seen by Provider: 11:30 Chief complaint: Respiratory failure History of present illness: This is a 56-year-old white male known to [facility] for frequent ER visits who has been very noncompliant with all medical management who presents to ICU 7 in respiratory failure BiPAP dependent. He was found to have delirium and very complicated medical issues requiring BiPAP and insulin drip with aggressive IV fluids to resolve elevated lactic acid from sepsis. Creatinine was 1.80 is 1.4 for now. D-dimer was elevated at 7.64 and Lovenox initiated therapeutic dose twice daily due to unable to perform angiogram to rule out PE due to kidney function. Currently patient is sleeping. Microbiology notified me that 4/4 bottles of blood cultures were positive for MRSA. Vancomycin. ABG 7.3 . Subjective/Events-last exam Patient doing a lot better Does not really interact much Spoke with and it appears he is near baseline Checked meds and labs Hyperglycemia severe We will check hemoglobin A1c Transfer to cardiac stepdown Review of Systems General: Fatigue, Malaise Focused Exam Lactate Level 07/31/21 13:15: Lactic Acid Level 4.09*H 07/31/21 17:45: Lactic Acid Level 2.60*H 07/31/21 19:45: Lactic Acid Level 1.76 Objective Exam Vital Signs Vital Signs Date Time Temp Pulse Resp B/P (MAP) Pulse Ox O2 Delivery O2 Flow Rate FiO2 08/03/21 00:00 37.1 108 22 145/89 (107) 95 Room Air 08/02/21 09:09 0.00 08/01/21 20:00 25 Capillary Refill : General Appearance: No Apparent Distress, WD/WN, Chronically ill, Obese Respiratory: Lungs Clear, Normal Breath Sounds Cardiovascular: Regular Rate, Rhythm Neurologic/Psychiatric: Alert Results/Procedures Lab Patient resulted labs reviewed. Assessment/Plan Assessment and Plan Assess & Plan/Chief Complaint Assessment: Respiratory failure status post BiPAP now on nasal cannula and room air COVID-19 pneumonia Sepsis Hyperosmolar hyperglycemic nonketotic state placed on insulin drip Hyponatremia of 115 Acute kidney injury MRSA bacteremia Hyperkalemia Elevated D-dimer unable to rule out PE so placed on Lovenox therapeutic dose Noncompliance Plan: Vancomycin Rocephin eICU management BiPAP Insulin drip Lovenox Aggressive IV fluid of D5NS 08/02/2021: Transfer to stepdown Hep-Lock IV fluid Vancomycin for bacteremia Appreciate cardiology Aggressive insulin regimen Add hemoglobin A1c Diagnosis/Problems Diagnosis/Problems (1) Pneumonia due to COVID-19 virus Status: Acute (2) Lower respiratory tract infection due to COVID-19 virus Status: Acute (3) Acute kidney injury Status: Acute (4) Sepsis Status: Acute Qualifiers: Sepsis type: sepsis due to unspecified organism Sepsis acute organ dysfunction status: with acute organ dysfunction Severe sepsis acute organ dysfunction type: acute respiratory failure Acute respiratory failure type: with hypoxia Severe sepsis shock status: without septic shock Qualified Codes: A41.9 - Sepsis, unspecified organism; R65.20 - Severe sepsis without septic shock; J96.01 - Acute respiratory failure with hypoxia (5) Hypoxia Status: Acute (6) Hyponatremia Status: Acute (7) Hyperglycemia Status: Acute (8) Dehydration Status: Acute (9) 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
[2021-08-02] MEDS ORDERED: inSUlin ASPART (NovoLOG) 1 UNIT/0.01 ML (CHARGE PER UNIT) SC ONE (16:15)
[2021-08-02] MEDS: AZITHROMYCIN INJECTION 500 MG in NS (IVPB) 250 ML IV SCH (16:29)
[2021-08-02] MEDS ORDERED: inSUlin (REGULAR) HUMAN 1 UNIT/0.01 ML (CHARGE PER UNIT) SC PRN (19:00)
[2021-08-02] MEDS ORDERED: inSUlin (REGULAR) HUMAN 1 UNIT/0.01 ML (CHARGE PER UNIT) SC ONE (19:00)
[2021-08-02] MEDS ORDERED: inSUlin NPH (NovoLIN N) 1 UNIT/0.01 ML (CHARGE PER UNIT) SQ ONE (19:59)
[2021-08-02] MEDS: SENNA W/DOCUSATE (SENOKOT S) TABLET PO SCH (22:10)
[2021-08-03] VITALS: BP 145/89
[2021-08-03 04:00] VITALS: BP 143/89
[2021-08-03 05:33] LABS: BASOPHILS # (AUTO) 0.1 10^3/uL (0.0-0.1); BASOPHILS % (AUTO) 0 % (0-10); EOSINOPHILS % (AUTO) 0 % (0-10); HEMATOCRIT 37 % (40-54); LYMPHOCYTES # (AUTO) 0.9 10^3/uL (1.0-4.0); LYMPHOCYTES % (AUTO) 4 % (12-44); MEAN CORPUSCULAR HEMOGLOBIN 29 pg (25-34); MEAN CORPUSCULAR HGB CONC 35 g/dL (32-36); MEAN CORPUSCULAR VOLUME 83 fL (80-99); MONOCYTES # (AUTO) 1.1 10^3/uL (0.0-1.0); MONOCYTES % (AUTO) 5 % (0-12); NEUTROPHILS # (AUTO) 21.4 10^3/uL (1.8-7.8); NEUTROPHILS % (AUTO) 88 % (42-75); PLATELET COUNT 311 10^3/uL (130-400); WHITE BLOOD COUNT 24.5 10^3/uL (4.3-11.0)
[2021-08-03 05:51] LABS: ALBUMIN 2.7 GM/DL (3.2-4.5); POTASSIUM 4.1 MMOL/L (3.6-5.0)
[2021-08-03 05:52] LABS: CALCIUM 9.4 MG/DL (8.5-10.1)
[2021-08-03 05:53] LABS: TOTAL PROTEIN 7.2 GM/DL (6.4-8.2)
[2021-08-03 05:55] LABS: BILIRUBIN,TOTAL 0.7 MG/DL (0.1-1.0)
[2021-08-03 05:57] LABS: CREATININE SERUM 0.94 MG/DL (0.60-1.30)
[2021-08-03 05:59] LABS: MAGNESIUM 1.8 MG/DL (1.6-2.4)
[2021-08-03] MEDS: inSUlin ASPART (NovoLOG) 1 UNIT/0.01 ML (CHARGE PER UNIT) SC SCH ×4 (06:23→20:14)
[2021-08-03] MEDS: ENOXAPARIN 300 MG/3 ML (LOVENOX) MULTI-DOSE VIAL SQ SCH ×2 (06:24→18:05)
[2021-08-03 08:13] VITALS: BP 164/93
[2021-08-03] MEDS: VANCOMYCIN 1500 MG/NS 500 ML IVPB IV SCH ×2 (09:00)
[2021-08-03] MEDS: cefTRIAXone 1 GM/50 ML (PRE-MIX) IV SCH (09:02)
--- NOTE | 2021-08-03 09:05 | Progress Note - Hospitalist ---
Subjective HPI/CC On Admission Date Seen by Provider: Aug 03, 2021 Time Seen by Provider: 10:00 Chief complaint: Respiratory failure History of present illness: This is a 56-year-old white male known to [facility] for frequent ER visits who has been very noncompliant with all medical management who presents to ICU 7 in respiratory failure BiPAP dependent. He was found to have delirium and very complicated medical issues requiring BiPAP and insulin drip with aggressive IV fluids to resolve elevated lactic acid from sepsis. Creatinine was 1.80 is 1.4 for now. D-dimer was elevated at 7.64 and Lovenox initiated therapeutic dose twice daily due to unable to perform angiogram to rule out PE due to kidney function. Currently patient is sleeping. Microbiology notified me that 4/4 bottles of blood cultures were positive for MRSA. Vancomycin. ABG 7.3 . Subjective/Events-last exam Pt doing about the same Very chronically debilitated WBC at 24,000 Glucose is in the 300s HgbA1C pending Sodium 128 PT and OT will be ordered Review of Systems General: Fatigue, Malaise Focused Exam Lactate Level Objective Exam Vital Signs Vital Signs Date Time Temp Pulse Resp B/P (MAP) Pulse Ox O2 Delivery O2 Flow Rate FiO2 08/04/21 04:20 36.1 88 19 122/94 (103) 97 Room Air 08/03/21 15:46 0.00 08/01/21 20:00 25 Capillary Refill : General Appearance: No Apparent Distress, WD/WN, Chronically ill, Obese Respiratory: No Accessory Muscle Use, No Respiratory Distress, Decreased Breath Sounds Cardiovascular: Regular Rate, Rhythm Neurologic/Psychiatric: Alert, Oriented x3, Depressed Affect, Disoriented Results/Procedures Lab Patient resulted labs reviewed. Assessment/Plan Assessment and Plan Assess & Plan/Chief Complaint Assessment: Respiratory failure status post BiPAP now on nasal cannula and room air COVID-19 pneumonia Sepsis Hyperosmolar hyperglycemic nonketotic state placed on insulin drip Hyponatremia of 115 Acute kidney injury MRSA bacteremia Hyperkalemia Elevated D-dimer unable to rule out PE so placed on Lovenox therapeutic dose Noncompliance Plan: Vancomycin Rocephin eICU management BiPAP Insulin drip Lovenox Aggressive IV fluid of D5NS 08/02/2021: Transfer to stepdown Hep-Lock IV fluid Vancomycin for bacteremia Appreciate cardiology Aggressive insulin regimen Add hemoglobin A1c 08/03/2021: Increase insulin Supportive care IV antibiotics PT and OT Isolation Decadron Diagnosis/Problems Diagnosis/Problems (1) Pneumonia due to COVID-19 virus Status: Acute (2) Lower respiratory tract infection due to COVID-19 virus Status: Acute (3) Acute kidney injury Status: Acute (4) Sepsis Status: Acute Qualifiers: Sepsis type: sepsis due to unspecified organism Sepsis acute organ dysfunction status: with acute organ dysfunction Severe sepsis acute organ dysfunction type: acute respiratory failure Acute respiratory failure type: with hypoxia Severe sepsis shock status: without septic shock Qualified Codes: A41.9 - Sepsis, unspecified organism; R65.20 - Severe sepsis without septic shock; J96.01 - Acute respiratory failure with hypoxia (5) Hypoxia Status: Acute (6) Hyponatremia Status: Acute (7) Hyperglycemia Status: Acute (8) Dehydration Status: Acute (9) 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
--- NOTE | 2021-08-03 09:08 | Progress Note - Cardiology ---
Cardiology SOAP Progress Note Subjective: Lying in bed No c/o CP Gen aches Objective: I&O/Vital Signs 08/03/21 08/03/21 08/03/21 08/03/21 08:13 08:45 12:22 15:46 Temp 36.7 36.7 Pulse 114 110 Resp 16 30 B/P (MAP) 164/93 (116) 165/100 (121) Pulse Ox 99 100 95 97 O2 Delivery Room Air Room Air Room Air Room Air O2 Flow Rate 0.00 08/03/21 16:00 Temp 36.4 Pulse 156 Resp 84 B/P (MAP) 156/84 (108) Pulse Ox 97 O2 Delivery Room Air 08/03/21 00:00 Intake Total 900 ml Output Total 2850 ml Balance -1950 ml Weight (Pounds): 269 Weight (Ounces): 5.0 Weight (Calculated Kilograms): 122.172121 Constitutional: AAO x 3 (mildly confused), well-developed, well-nourished Respiratory: No accessory muscle use; other (coarse breath sounds throughout) Cardiovascular: regular rate-rhythm, S1 and S2, systolic murmur (faint PEEWEE at card base) Gastrointestional: No tender; soft; No guarding, No rebound; audible bowel sounds Extremities: swelling (mild leg edema, bilat); No clubbing, No cyanosis Neurologic/Psychiatric: other (moves all limbs equally) Skin: No rash on exposed areas, No ulcerations on exposed areas Results/Procedures: Labs Laboratory Tests 08/02/21 18:33: Glucometer 405*H 08/02/21 20:13: Glucometer 364H 08/02/21 21:36: Glucometer 353H 08/03/21 05:14: White Blood Count 24.5H, Red Blood Count 4.47, Hemoglobin 13.0L, Hematocrit 37L, Mean Corpuscular Volume 83, Mean Corpuscular Hemoglobin 29, Mean Corpuscular Hemoglobin Concent 35, Red Cell Distribution Width 13.3, Platelet Count 311, Mean Platelet Volume 11.0, Immature Granulocyte % (Auto) 4, Neutrophils (%) (Auto) 88H, Lymphocytes (%) (Auto) 4L, Monocytes (%) (Auto) 5, Eosinophils (%) (Auto) 0, Basophils (%) (Auto) 0, Neutrophils # (Auto) 21.4H, Lymphocytes # (Auto) 0.9L, Monocytes # (Auto) 1.1H, Eosinophils # (Auto) 0.0, Basophils # (Auto) 0.1, Immature Granulocyte # (Auto) 1.0H, Sodium Level 128L, Potassium Level 4.1, Chloride Level 96L, Carbon Dioxide Level 19L, Anion Gap 13, Blood Urea Nitrogen 43H, Creatinine 0.94, Estimat Glomerular Filtration Rate 82, BUN/Creatinine Ratio 46, Glucose Level 360H, Calcium Level 9.4, Corrected Calcium 10.4H, Magnesium Level 1.8, Total Bilirubin 0.7, Aspartate Amino Transf (AST/SGOT) 97H, Alanine Aminotransferase (ALT/SGPT) 71H, Alkaline Phosphatase 168H, Total Protein 7.2, Albumin 2.7L 08/03/21 06:14: Glucometer 331H 08/03/21 10:45: Glucometer 341H Microbiology 07/31/21 Blood Culture - Final, Complete Staphylococcus aureus A/P: Assessment: Ac resp failure due to COVID pneumonia, MRSA pneumonia, and ARDS - Echo on 08/03/21: LVEF 50-55%, PASP WNL, mild thickening of the aortic valve leaflets, no significant valvular lesions seen DM II Plan: * Dr Bravo and eICU managing pneumonia and ARDS and metabolic abnormalities * No physical signs or TTE evidence of endocarditis * HTN and tachycardic - start BB and monitor * Monitor labs NOTE: Elodia Stanton APRN and took care of the patient collaboratively. My changes to Assessment and Plan are in italics EMILY STANTON [facility] Aug 03, 2021 09:08 DEANDRE FRANK MD [facility] Aug 03, 2021 18:12
[2021-08-03] MEDS: SENNA W/DOCUSATE (SENOKOT S) TABLET PO SCH ×2 (09:09→20:12)
[2021-08-03] MEDS ORDERED: OMEG-160 PO (11:00)
[2021-08-03] MEDS ORDERED: TURM500C4 PO (11:00)
[2021-08-03] MEDS ORDERED: ASPI-1238 PO (11:00)
[2021-08-03 12:22] VITALS: BP 165/100
--- NOTE | 2021-08-03 14:49 | Occ Therapy Progress Note ---
Therapy Progress Note OT orders received and chart was reviewed. At OT arrival, pt quickly turned head and closed eyes. Post introduction, pt refusing to open eyes and continues to shake head "no." Pt does not verbalize with words, only with gestures. Encouragement/education provided on benefits, pt still shaking head "no." OT to attempt again 08/03/21 if appropriate. Mimi Fleming OT Aug 03, 2021 14:49
--- NOTE | 2021-08-03 14:59 | Physical Therapy Evaluation ---
PT Evaluation-General Medical Diagnosis Admission Date Jul 31, 2021 at 16:10 Medical Diagnosis: Respiratory failure Onset Date: Jul 31, 2021 Therapy Diagnosis Therapy Diagnosis: Gait deficit, strength deficit Height/Weight Height (Feet): 6 Height (Inches): 0.00 Weight (Pounds): 269 Weight (Ounces): 5.0 Precautions Precautions/Isolations: Airborne Isolation, Contact Isolation, Fall Prevention Referral Physician: Dr. Bravo Reason for Referral: Evaluation/Treatment Social History Home: Multilevel Current Living Status: Spouse Entry Into Home: Stairs With Railing PT Steps Into Home: 5 PT Steps Inside Home: 14 Prior Prior Level of Function SCALE: Activities may be completed with or without assistive devices. 9-Yjjlwfgvue-pxfsubk completes the activity by him/herself with no assistance from a helper. 5-Set-up or Clean-up Assistance-helper sets up or cleans up; patient completes activity. [place] assists only prior to or following the activity. 4-Supervision or Touching Assistance-helper provides verbal cues and/or touching/steadying and/or contact guard assistance as patient completes activity. Assistance may be provided throughout the activity or intermittently. 3-Partial/Moderate Assistance-helper does LESS THAN HALF the effort. [place] lifts, holds or supports trunk or limbs, but provides less than half the effort. 2-Substantial/Maximal Assistance-helper does MORE THAN HALF the effort. [place] lifts or holds trunk or limbs and provides more than half the effort. 2-Kbvjerhtl-vdfjjp does ALL the effort. Patient does none of the effort to complete the activity. Or, the assistance of 2 or more helpers is required for the patient to complete the activity. If activity was not attempted, code reason: 7-Patient Refused. 9-Not Applicable-not attempted and the patient did not perform the activity before the current illness, exacerbation or injury. 10-Not Attempted due to Environmental Limitations-(lack of equipment, weather restraints, etc.). 88-Not Attempted due to Medical Conditions or Safety Concerns. Bed Mobility: 6 Transfers (B,C,W/C): 6 Gait: 6 Stairs: 6 Indoor Mobility (Ambulation): Independent Stairs: Independent Prior Devices Use: None PT Evaluation-Current Subjective Patient very groggy and difficult to arouse. When he opens his eyes, answers are whispered and very limited. Requires questions repeated 2-3 times. Objective Patient Orientation: Person Attachments: Oxygen, Mina Catheter, IV ROM/Strength ROM Lower Extremities Limited due to pain bilaterally. When patient is not jerking his LEs away due to pain, they appear to be WFLs bilaterally. Strength Lower Extremities Patient unable or unwilling to participate in MMT, however with observation of BLEs, patient demonstrates 3/5 or greater bilaterally with AROM Sensory Vision: Functional Hearing: Functional Sensation Right Lower Extremit: Intact Sensation Left Lower Extremity: Intact Transfers Roll Left to Right (QC): 1 Sit to Lying (QC): 1 Gait Does the Patient Walk?: No and Walking Goal IS indicated Mode of Locomotion: Walk Anticipated Mode of Locomotion: Walk Assessment/Needs Patient moderately resistant to PT evaluation, however does participate ~ 25% of the time. Patient performs all bed mobility with Dep/max A. He refuses anything beyond bed mobility. Patient participates in AAROM to BLEs all available planes x 20 each. Patient in bed post treatment with all needs met, nursing notified, call light in reach. Rehab Potential: Guarded PT Short Term Goals Short Term Goals Time Frame: Aug 14, 2021 Roll Left & Right: 3 Sit to lyin Lying to sitting on side of be: 3 Sit to stand: 3 Chair/bsn-vf-tvxhj transfer: 3 Toilet transfer: 3 Walk 10 feet: 3 Walk 50 feet with two turns: 3 PT Skilled Nursing Goals Skilled Nursing Goals PT [employer] Goals Time Frame: Aug 28, 2021 Roll Left & Right (QC): 5 Sit to Lying (QC): 5 Lying-Sitting on Side/Bed(QC): 5 Sit to Stand (QC): 5 Chair/Bfx-lt-Mltto Xfer(QC): 5 Toilet Transfer (QC): 5 Does the Patient Walk: Yes Walk 10 feet (QC): 4 Walk 50ft with 2 Turns (QC): 4 Walk 150 ft (QC): 4 1 Step (curb) (QC): 4 4 Steps (QC): 4 12 Steps (QC): 4 PT Plan Problem List Problem List: Activity Tolerance, Functional Strength, Safety, Balance, Gait, Transfer, Bed Mobility, ROM Treatment/Plan Treatment Plan: Continue Plan of Care Treatment Plan: Bed Mobility, Education, Functional Activity Franco, Functional Strength, Group Therapy, Gait, Safety, Therapeutic Exercise, Transfers Treatment Duration: Sep 14, 2021 Frequency: 6 times per week Estimated Hrs Per Day: .25 hour per day Safety Risks/Education Patient Education: Transfer Techniques Teaching Recipient: Patient Teaching Methods: Demonstration, Discussion Response to Teaching: Reinforcement Needed Discharge Recommendations Target Placement SNF Time/GCodes Time In: 1341 Time Out: 1415 Total Billed Treatment Time: 34 Total Billed Treatment Visit, EDIL Omer JOHN A PT Aug 03, 2021 14:59
[2021-08-03 16:00] VITALS: BP 156/84
[2021-08-03] MEDS: AZITHROMYCIN INJECTION 500 MG in NS (IVPB) 250 ML IV SCH (16:32)
[2021-08-03 19:48] VITALS: BP 154/92
[2021-08-03] MEDS: HYDROcodone/APAP 5 MG/325 MG (LORTAB) TAB PO PRN (20:21)
[2021-08-04] VITALS (7 sets, daily range): BP systolic 86–144; BP diastolic 69–94
[2021-08-04] MEDS: ENOXAPARIN 300 MG/3 ML (LOVENOX) MULTI-DOSE VIAL SQ SCH ×2 (05:30→16:58)
[2021-08-04] MEDS: inSUlin ASPART (NovoLOG) 1 UNIT/0.01 ML (CHARGE PER UNIT) SC SCH ×7 (05:32→21:25)
--- NOTE | 2021-08-04 05:59 | Progress Note - Hospitalist ---
Subjective HPI/CC On Admission Date Seen by Provider: Aug 04, 2021 Time Seen by Provider: 10:00 Chief complaint: Respiratory failure History of present illness: This is a 56-year-old white male known to [facility] for frequent ER visits who has been very noncompliant with all medical management who presents to ICU 7 in respiratory failure BiPAP dependent. He was found to have delirium and very complicated medical issues requiring BiPAP and insulin drip with aggressive IV fluids to resolve elevated lactic acid from s epsis. Creatinine was 1.80 is 1.4 for now. D-dimer was elevated at 7.64 and Lovenox initiated therapeutic dose twice daily due to unable to perform angiogram to rule out PE due to kidney function. Currently patient is sleeping. Microbiology notified me that 4/4 bottles of blood cultures were positive for MRSA. Vancomycin. ABG 7.3 . Subjective/Events-last exam Pt doing about the same Very motivated Sodium level 129 WBC 30,000 Now on room air Refuses PT and OT Needs fdc Review of Systems General: Fatigue, Malaise Pulmonary: Dyspnea Neurological: Confusion Objective Exam Vital Signs Vital Signs Date Time Temp Pulse Resp B/P (MAP) Pulse Ox O2 Delivery O2 Flow Rate FiO2 08/05/21 04:00 36.8 119 18 138/69 (92) 92 Room Air 08/03/21 15:46 0.00 08/01/21 20:00 25 Capillary Refill : General Appearance: No Apparent Distress, WD/WN, Chronically ill, Obese Respiratory: No Accessory Muscle Use, No Respiratory Distress, Decreased Breath Sounds Cardiovascular: Regular Rate, Rhythm Neurologic/Psychiatric: Alert, Oriented x3, Depressed Affect Results/Procedures Lab Laboratory Tests 08/04/21 07:35 Patient resulted labs reviewed. Assessment/Plan Assessment and Plan Assess & Plan/Chief Complaint Assessment: Respiratory failure status post BiPAP now on nasal cannula and room air COVID-19 pneumonia Sepsis Hyperosmolar hyperglycemic nonketotic state placed on insulin drip Hyponatremia of 115 Acute kidney injury MRSA bacteremia Hyperkalemia Elevated D-dimer unable to rule out PE so placed on Lovenox therapeutic dose Noncompliance Plan: Vancomycin Rocephin eICU management BiPAP Insulin drip Lovenox Aggressive IV fluid of D5NS 08/02/2021: Transfer to stepdown Hep-Lock IV fluid Vancomycin for bacteremia Appreciate cardiology Aggressive insulin regimen Add hemoglobin A1c 08/03/2021: Increase insulin Supportive care IV antibiotics PT and OT Isolation Decadron 08/04/2021: Supportive care Needs fdc Apathy noted may ultimately become hospice candidate Diagnosis/Problems Diagnosis/Problems (1) Pneumonia due to COVID-19 virus Status: Acute (2) Lower respiratory tract infection due to COVID-19 virus Status: Acute (3) Acute kidney injury Status: Acute (4) Sepsis Status: Acute Qualifiers: Sepsis type: sepsis due to unspecified organism Sepsis acute organ dysfunction status: with acute organ dysfunction Severe sepsis acute organ dysfunction type: acute respiratory failure Acute respiratory failure type: with hypoxia Severe sepsis shock status: without septic shock Qualified Codes: A41.9 - Sepsis, unspecified organism; R65.20 - Severe sepsis without septic shock; J96.01 - Acute respiratory failure with hypoxia (5) Hypoxia Status: Acute (6) Hyponatremia Status: Acute (7) Hyperglycemia Status: Acute (8) Dehydration Status: Acute (9) 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
[2021-08-04] MEDS ORDERED: TROUGH ORDER-PHARMACY XX NR (07:00)
--- NOTE | 2021-08-04 07:09 | Diagnostic Imaging Report ---
Indication: Pneumonia Comparison: 07/31/2021 Findings: Single view of the chest demonstrates slightly worsening bilateral pulmonary infiltrates. There is no pneumothorax or effusion. The heart is normal. Osseous structures are age appropriate. Impression: Slightly worsening bilateral pulmonary infiltrates. Dictated by: Dictated on workstation # [id number]
[2021-08-04 07:44] LABS: BASOPHILS % (AUTO) 0 % (0-10); EOSINOPHILS % (AUTO) 0 % (0-10); HEMATOCRIT 41 % (40-54); HEMOGLOBIN 14.3 g/dL (13.3-17.7); LYMPHOCYTES # (AUTO) 1.5 10^3/uL (1.0-4.0); LYMPHOCYTES % (AUTO) 5 % (12-44); MEAN CORPUSCULAR HEMOGLOBIN 29 pg (25-34); MEAN CORPUSCULAR HGB CONC 35 g/dL (32-36); MEAN CORPUSCULAR VOLUME 85 fL (80-99); MEAN PLATELET VOLUME 10.7 fL (9.0-12.2); MONOCYTES # (AUTO) 1.3 10^3/uL (0.0-1.0); MONOCYTES % (AUTO) 4 % (0-12); NEUTROPHILS # (AUTO) 25.8 10^3/uL (1.8-7.8); NEUTROPHILS % (AUTO) 84 % (42-75); PLATELET COUNT 307 10^3/uL (130-400)
[2021-08-04 07:54] LABS: WHITE BLOOD COUNT 30.9 10^3/uL (4.3-11.0)
[2021-08-04 07:56] LABS: ALBUMIN 2.5 GM/DL (3.2-4.5)
[2021-08-04 07:57] LABS: POTASSIUM 4.6 MMOL/L (3.6-5.0)
[2021-08-04 07:58] LABS: CALCIUM 9.3 MG/DL (8.5-10.1)
[2021-08-04 07:59] LABS: TOTAL PROTEIN 7.1 GM/DL (6.4-8.2)
[2021-08-04 08:01] LABS: BILIRUBIN,TOTAL 0.7 MG/DL (0.1-1.0)
[2021-08-04 08:03] LABS: CREATININE SERUM 0.8 MG/DL (0.60-1.30)
[2021-08-04 08:06] LABS: MAGNESIUM 1.6 MG/DL (1.6-2.4)
[2021-08-04] MEDS: ROSUVASTATIN 20 MG (CRESTOR) TABLET PO SCH (08:42)
[2021-08-04] MEDS: PANTOPRAZOLE 40 MG (PROTONIX) TAB PO SCH (08:42)
[2021-08-04] MEDS: ASPIRIN E.C. 81 MG (ECOTRIN) TAB PO SCH (08:42)
[2021-08-04] MEDS: cefTRIAXone 1 GM/50 ML (PRE-MIX) IV SCH (08:43)
[2021-08-04] MEDS: SENNA W/DOCUSATE (SENOKOT S) TABLET PO SCH ×2 (08:43→21:03)
[2021-08-04] MEDS ORDERED: rOPINIRole 1 MG (REQUIP) TABLET PO SCH (09:00)
[2021-08-04] MEDS: HYDROcodone/APAP 5 MG/325 MG (LORTAB) TAB PO PRN (09:51)
[2021-08-04] MEDS: VANCOMYCIN 1500 MG/NS 500 ML IVPB IV SCH ×4 (09:51→21:03)
[2021-08-04] MEDS: EMPAGLIFLOZIN 10 MG TABLET (JARDIANCE) PO SCH (09:51)
--- NOTE | 2021-08-04 10:20 | Occupational Therapy Eval ---
OT Evaluation-General/PLF Medical Diagnosis Admission Date Jul 31, 2021 at 16:10 Medical Diagnosis: Respiratory failure Onset Date: Jul 31, 2021 Height/Weight Height (Feet): 6 Height (Inches): 0.00 Weight (Pounds): 269 Weight (Ounces): 5.0 Precautions Precautions/Isolations: Airborne Isolation, Contact Isolation, Fall Prevention Referral Physician: Dr. Bravo Social History Home: Multilevel Current Living Status: Spouse Entry Into Home: Stairs With Railing Steps Into Home: 5 Steps Inside Home: 14 ADL-Prior Level of Function SCALE: Activities may be completed with or without assistive devices. 4-Jrlrftwxzm-lqnrmjw completes the activity by him/herself with no assistance from a helper. 5-Set-up or Clean-up Assistance-helper sets up or cleans up; patient completes activity. [place] assists only prior to or following the activity. 4-Supervision or Touching Assistance-helper provides verbal cues and/or touching/steadying and/or contact guard assistance as patient completes activi ty. Assistance may be provided throughout the activity or intermittently. 3-Partial/Moderate Assistance-helper does LESS THAN HALF the effort. [place] lifts, holds or supports trunk or limbs, but provides less than half the effort. 2-Substantial/Maximal Assistance-helper does MORE THAN HALF the effort. [place] lifts or holds trunk or limbs and provides more than half the effort. 4-Uibvbbuja-uradpa does ALL the effort. Patient does none of the effort to complete the activity. Or, the assistance of 2 or more helpers is required for the patient to complete the activity. If activity was not attempted, code reason: 7-Patient Refused. 9-Not Applicable-not attempted and the patient did not perform the activity before the current illness, exacerbation or injury. 10-Not Attempted due to Environmental Limitations-(lack of equipment, weather restraints, etc.). 88-Not Attempted due to Medical Conditions or Safety Concerns. OT Nursing Home Goals Broach Operator Goals 1=Demonstrate adherence to instructed precautions during ADL tasks. 2=Patient will verbalize/demonstrate understanding of assistive devices/modific ations for ADL. 3=Patient will improve strength/tolerance for activity to enable patient to perform ADL's. OT Education/Plan Treatment Plan/Plan of Care Patient would benefit from OT for education, treatment and training to promote independence in ADL's, mobility, safety and/or upper extremity function for ADL's. Rehab Potential: Guarded Mimi Fleming OT Aug 04, 2021 10:20
--- NOTE | 2021-08-04 10:27 | Occupational Therapy Eval ---
OT Evaluation-General/PLF Medical Diagnosis Admission Date Jul 31, 2021 at 16:10 Medical Diagnosis: Respiratory failure Onset Date: Jul 31, 2021 Therapy Diagnosis Therapy Diagnosis: Impaired adls, cognition Height/Weight Height (Feet): 6 Height (Inches): 0.00 Weight (Pounds): 269 Weight (Ounces): 5.0 Precautions Precautions/Isolations: Airborne Isolation, Contact Isolation, Fall Prevention Safety Interventions: Bed Exit Alarm, Reorient-Attempt Referral Physician: Dr. Bravo Referral Reason: Evaluation/Treatment Medical History Pertinent Medical History: Arthritis, DM, HTN, Neuropathy Additional Medical History DDD Current History Pt presents to ER with respiratory failure. Found to be Covid + and have MRSA in blood. Pt has history of being noncompliant with medical management. Pt confused and oriented to self only. He reports living with his but unable to give any further PLOF information. No family present to verify accuracy of responses. Reviewed History: Yes Social History Home: Multilevel Current Living Status: Spouse Entry Into Home: Stairs With Railing Steps Into Home: 5 Steps Inside Home: 14 ADL-Prior Level of Function SCALE: Activities may be completed with or without assistive devices. 8-Qyrehzcvvr-rlclvlj completes the activity by him/herself with no assistance from a helper. 5-Set-up or Clean-up Assistance-helper sets up or cleans up; patient completes activity. [place] assists only prior to or following the activity. 4-Supervision or Touching Assistance-helper provides verbal cues and/or touching/steadying and/or contact guard assistance as patient completes activity. Assistance may be provided throughout the activity or intermittently. 3-Partial/Moderate Assistance-helper does LESS THAN HALF the effort. [place] lifts, holds or supports trunk or limbs, but provides less than half the effort. 2-Substantial/Maximal Assistance-helper does MORE THAN HALF the effort. [place] lifts or holds trunk or limbs and provides more than half the effort. 0-Tojwzomyu-aeyyeo does ALL the effort. Patient does none of the effort to complete the activity. Or, the assistance of 2 or more helpers is required for the patient to complete the activity. If activity was not attempted, code reason: 7-Patient Refused. 9-Not Applicable-not attempted and the patient did not perform the activity before the current illness, exacerbation or injury. 10-Not Attempted due to Environmental Limitations-(lack of equipment, weather restraints, etc.). 88-Not Attempted due to Medical Conditions or Safety Concerns. Self Care: Unknown Functional Cognition: Unknown OT Current Status Subjective Pt reports pain as a 6/10 "all over." Appearance Left supine in bed, all needs within reach. RN informed. Mental Status/Objective Patient Orientation: Person, Confused Attachments: Garcia Catheter, IV, Oxygen, Telemetry Current Hearing Aids: No Hand Dominance: Right Upper Extremity ROM Impaired R shoulder. ~75 degrees PROM shoulder flexion (to pain tolerance) Upper Extremity Strength not tested due to pain with light touch ADL-Treatment Eating (QC): 5 (Able to bring cup to mouth without difficulty with L hand) On/Off Footwear (QC): 1 Toileting Hygiene (QC): 1 (garcia catheter ) Pt supine at OT arrival. Confused, oriented to name only. Pt crying out in pain with all light touch or movement. Max a to roll R/L, difficulty following simple commands. At this time, pt will be dependent for all lyric care and clothing management. He refuses sitting EOB, but also appears to not fully comprehend what therapist is asking. Education OT Patient Education: Correct positioning, Disease process, Purpose of tx/functional activities, Transfer techniques Teaching Recipient: Patient Teaching Methods: Discussion Response to Teaching: Unable to Comprehend, Reinforcement Needed OT Assisted Goals Assisted Goals Time Frame: Aug 25, 2021 Eating (QC): 6 Oral Hygiene (QC): 5 Toileting Hygiene (QC): 4 Lower Body Dressing (QC): 4 On/Off Footwear (QC): 4 1=Demonstrate adherence to instructed precautions during ADL tasks. 2=Patient will verbalize/demonstrate understanding of assistive devices/modifications for ADL. 3=Patient will improve strength/tolerance for activity to enable patient to perform ADL's. OT Education/Plan Problem List/Assessment Assessment: Decreased Activ Tolerance, Decreased Safety Aware, Decreased UE Strength, Dependent Transfers, Impaired Bed Mobility, Impaired Cognition, Impaired Funct Balance, Impaired I ADL's, Impaired Self-Care Skills, Restricted Funct UE ROM Discharge Recommendations Plan/Recommendations: Continue POC Therapy Discharge Recommendati: Post Acute OT Comment Ongoing assessment Treatment Plan/Plan of Care Treatment,Training & Education: Yes Patient would benefit from OT for education, treatment and training to promote independence in ADL's, mobility, safety and/or upper extremity function for ADL's. Plan of Care: ADL Retraining, Caregiver Training, Functional Mobility, UE Funct Exercise/Act Treatment Duration: Aug 25, 2021 Frequency: 3 times per week Estimated Hrs Per Day: .25 hour per day Rehab Potential: Guarded 3-5x/week Time/GCodes Start Time: 09:49 Stop Time: 09:58 Total Time Billed (hr/min): 9 Billed Treatment Time 1 visit Mimi Yañez OT Aug 04, 2021 10:27
--- NOTE | 2021-08-04 14:54 | Physical Therapy Daily Note ---
PT Daily Note-Current Subjective Patient lying supine in bed upon PT arrival, feigns sleeping, however opens his eyes minimally upon moving his LEs and lowering the head of the bed. Mental Status Patient Orientation: Person Attachments: Oxygen, Mina Catheter, IV Transfers SCALE: Activities may be completed with or without assistive devices. 5-Zjxqsthmnm-pqwktlj completes the activity by him/herself with no assistance from a helper. 5-Set-up or Clean-up Assistance-helper sets up or cleans up; patient completes a ctivity. [place] assists only prior to or following the activity. 4-Supervision or Touching Assistance-helper provides verbal cues and/or touching/steadying and/or contact guard assistance as patient completes activity. Assistance may be provided throughout the activity or intermittently. 3-Partial/Moderate Assistance-helper does LESS THAN HALF the effort. [place] lifts, holds or supports trunk or limbs, but provides less than half the effort. 2-Substantial/Maximal Assistance-helper does MORE THAN HALF the effort. [place] lifts or holds trunk or limbs and provides more than half the effort. 8-Afpidjpac-gbpgud does ALL the effort. Patient does none of the effort to complete the activity. Or, the assistance of 2 or more helpers is required for the patient to complete the activity. If activity was not attempted, code reason: 7-Patient Refused. 9-Not Applicable-not attempted and the patient did not perform the activity before the current illness, exacerbation or injury. 10-Not Attempted due to Environmental Limitations-(lack of equipment, weather restraints, etc.). 88-Not Attempted due to Medical Conditions or Safety Concerns. Roll Left & Right (QC): 1 Patient was able to pull himself up higher in the bed with bed declined and mod A pulling on the pad. Gait Training Does the Patient Walk?: No and Walking Goal IS indicated Exercises Supine Ex: Ankle pumps, Quad Set, Heel Slides, Short Arc Quads, Straight leg raise, Hip abd/add Supine Reps: 20 Assessment Current Status: Poor Progress Patient poorly motivated to participate. Requests "Will you just take me home and my can take care of me?" Patient was able to pull himself up higher in the bed with bed declined and mod A pulling on the pad. Patient refused any other mobility and continued to feign sleep. Patient received PROM/AAROM to bilateral LEs all planes x 20 each. Patient in bed post treatment with all needs met, nursing notified and call in reach. PT Short Term Goals Short Term Goals Time Frame: Aug 14, 2021 Roll Left & Right: 3 Sit to lyin Lying to sitting on side of be: 3 Sit to stand: 3 Chair/efz-ma-psxwt transfer: 3 Toilet transfer: 3 Walk 10 feet: 3 Walk 50 feet with two turns: 3 PT Agriculture Consultant Goals Agriculture Consultant Goals PT Fdc Goals Time Frame: Aug 28, 2021 Roll Left & Right (QC): 5 Sit to Lying (QC): 5 Lying-Sitting on Side/Bed(QC): 5 Sit to Stand (QC): 5 Chair/Arb-oa-Ksadn Xfer(QC): 5 Toilet Transfer (QC): 5 Does the Patient Walk: Yes Walk 10 feet (QC): 4 Walk 50ft with 2 Turns (QC): 4 Walk 150 ft (QC): 4 1 Step (curb) (QC): 4 4 Steps (QC): 4 12 Steps (QC): 4 PT Plan Treatment/Plan Treatment Plan: Continue Plan of Care Treatment Plan: Bed Mobility, Education, Functional Activity Franco, Functional Strength, Group Therapy, Gait, Safety, Therapeutic Exercise, Transfers Treatment Duration: Sep 14, 2021 Frequency: 6 times per week Estimated Hrs Per Day: .25 hour per day Safety Risks/Education Patient Education: Transfer Techniques Teaching Recipient: Patient Teaching Methods: Demonstration, Discussion Response to Teaching: Reinforcement Needed Time/GCodes Time In: 958 Time Out: 1023 Total Billed Treatment Time: 25 Total Billed Treatment Visit, Ex, WILL MAR PT Aug 04, 2021 14:54
[2021-08-04] MEDS: AZITHROMYCIN INJECTION 500 MG in NS (IVPB) 250 ML IV SCH (15:33)
--- NOTE | 2021-08-04 16:38 | Progress Note - Cardiology ---
Cardiology SOAP Progress Note Subjective: No c/o CP C/O continuing SOB No c/o palpitations Gen weakness Objective: I&O/Vital Signs 08/04/21 08/04/21 08/04/21 08/04/21 07:58 08:40 11:54 15:37 Temp 36.6 37.0 36.6 Pulse 99 107 66 Resp 28 14 18 B/P (MAP) 134/85 (101) 86/77 (80) 119/69 (86) Pulse Ox 94 94 100 95 O2 Delivery Room Air Room Air Room Air 08/04/21 19:47 Temp 36.8 Pulse 106 Resp 20 B/P (MAP) 121/73 (89) Pulse Ox 96 O2 Delivery Room Air 08/03/21 23:59 Intake Total 720 ml Output Total 3425 ml Balance -2705 ml Weight (Pounds): 269 Weight (Ounces): 5.0 Weight (Calculated Kilograms): 122.191950 Constitutional: AAO x 3 (mildly confused), well-developed, well-nourished Respiratory: No accessory muscle use; other (coarse breath sounds throughout) Cardiovascular: regular rate-rhythm, S1 and S2, systolic murmur (faint PEEWEE at card base) Gastrointestional: No tender; soft; No guarding, No rebound; audible bowel sounds Extremities: swelling (mild leg edema, bilat); No clubbing, No cyanosis Neurologic/Psychiatric: other (moves all limbs equally) Skin: No rash on exposed areas, No ulcerations on exposed areas Results/Procedures: Labs Laboratory Tests 08/03/21 20:10: Glucometer 273H 08/03/21 20:56: Glucometer 280H 08/04/21 05:28: Glucometer 253H 08/04/21 07:35: White Blood Count 30.9*H, Red Blood Count 4.87, Hemoglobin 14.3, Hematocrit 41, Mean Corpuscular Volume 85, Mean Corpuscular Hemoglobin 29, Mean Corpuscular Hemoglobin Concent 35, Red Cell Distribution Width 13.8, Platelet Count 307, Mean Platelet Volume 10.7, Immature Granulocyte % (Auto) 7, Neutrophils (%) (Auto) 84H, Lymphocytes (%) (Auto) 5L, Monocytes (%) (Auto) 4, Eosinophils (%) (Auto) 0, Basophils (%) (Auto) 0, Neutrophils # (Auto) 25.8H, Lymphocytes # (Auto) 1.5, Monocytes # (Auto) 1.3H, Eosinophils # (Auto) 0.0, Basophils # (Au to) 0.0, Immature Granulocyte # (Auto) 2.2H, Sodium Level 129L, Potassium Level 4.6, Chloride Level 100, Carbon Dioxide Level 18L, Anion Gap 11, Blood Urea Nitrogen 37H, Creatinine 0.80, Estimat Glomerular Filtration Rate 99, BUN/Creatinine Ratio 46, Glucose Level 274H, Calcium Level 9.3, Corrected Calcium 10.5H, Magnesium Level 1.6, Total Bilirubin 0.7, Aspartate Amino Transf (AST/SGOT) 39H, Alanine Aminotransferase (ALT/SGPT) 53, Alkaline Phosphatase 182H, Total Protein 7.1, Albumin 2.5L, Procalcitonin 1.49H, Vancomycin Level Trough 9.1L 08/04/21 10:47: Glucometer 262H Microbiology 07/31/21 Blood Culture - Final, Complete Staphylococcus aureus A/P: Assessment: Ac resp failure due to COVID pneumonia, MRSA pneumonia, and ARDS - Echo on 08/03/21: LVEF 50-55%, PASP WNL, mild thickening of the aortic valve leaflets, no significant valvular lesions seen DM II Plan: * Dr Bravo and Kev managing pneumonia and ARDS and metabolic abnormalities * No physical signs or TTE evidence of endocarditis * Continue current medication regimen * Monitor labs NOTE: Elodia Stanton APRN and took care of the patient collaboratively. My changes to Assessment and Plan are in italics EMILY STANTON [facility] Aug 04, 2021 16:38 DEANDRE FRANK MD [facility] Aug 04, 2021 19:54
[2021-08-05] VITALS (11 sets, daily range): BP systolic 90–138; BP diastolic 66–89
[2021-08-05] MEDS: ENOXAPARIN 300 MG/3 ML (LOVENOX) MULTI-DOSE VIAL SQ SCH ×2 (05:11→18:43)
[2021-08-05] MEDS: inSUlin ASPART (NovoLOG) 1 UNIT/0.01 ML (CHARGE PER UNIT) SC SCH ×7 (05:59→20:56)
--- NOTE | 2021-08-05 06:51 | Progress Note - Hospitalist ---
Subjective HPI/CC On Admission Date Seen by Provider: Aug 05, 2021 Time Seen by Provider: 09:30 Chief complaint: Respiratory failure History of present illness: This is a 56-year-old white male known to [facility] for frequent ER visits who has been very noncompliant with all medical management who presents to ICU 7 in respiratory failure BiPAP dependent. He was found to have delirium and very complicated medical issues requiring BiPAP and insulin drip with aggressive IV fluids to resolve elevated lactic acid from s epsis. Creatinine was 1.80 is 1.4 for now. D-dimer was elevated at 7.64 and Lovenox initiated therapeutic dose twice daily due to unable to perform angiogram to rule out PE due to kidney function. Currently patient is sleeping. Microbiology notified me that 4/4 bottles of blood cultures were positive for MRSA. Vancomycin. ABG 7.3 . Subjective/Events-last exam Pt having more issues Refused therapy WBC is now 42,000 Elevated liver enzymes noted Added Procalcitonin and added Cefepime and added back Vancomycin, last dose this morning so he will be closely monitored but Pt is just not recovering and not motivating to get better Overall prognosis is poor After rounds I did assess him at 1500 hrs due to report of mild hypotension with tachycardia and lethargy. Patient has not been active more motivated and awake and alert at all during all entire hospital course. Patient is not eating or drinking and patient's mouth appears to be very dry so we will place him up in ICU with aggressive IV fluid resuscitation due to hypovolemia. Review of Systems General: Fatigue Focused Exam Lactate Level 08/05/21 16:45: Lactic Acid Level 1.41 Objective Exam Vital Signs Vital Signs Date Time Temp Pulse Resp B/P (MAP) Pulse Ox O2 Delivery O2 Flow Rate FiO2 08/06/21 05:00 106 110/74 (86) 93 Nasal Cannula 2.00 08/06/21 04:01 35.6 08/06/21 04:00 36 08/01/21 20:00 25 Capillary Refill : General Appearance: No Apparent Distress, WD/WN, Chronically ill, Other (Lethargic) Respiratory: No Accessory Muscle Use, No Respiratory Distress, Decreased Breath Sounds Cardiovascular: Regular Rate, Rhythm Neurologic/Psychiatric: Alert Results/Procedures Lab Laboratory Tests 08/05/21 09:15 08/05/21 16:45 08/06/21 04:50 Patient resulted labs reviewed. Assessment/Plan Assessment and Plan Assess & Plan/Chief Complaint Assessment: Respiratory failure status post BiPAP now on nasal cannula and room air Hypovolemia from dehydration due to not eating or drinking requiring ICU transfer again on 08/05/2021 COVID-19 pneumonia Sepsis Hyperosmolar hyperglycemic nonketotic state placed on insulin drip Hyponatremia of 115 Acute kidney injury MRSA bacteremia Hyperkalemia Elevated D-dimer unable to rule out PE so placed on Lovenox therapeutic dose Noncompliance Plan: Vancomycin Rocephin eICU management BiPAP Insulin drip Lovenox Aggressive IV fluid of D5NS 08/02/2021: Transfer to stepdown Hep-Lock IV fluid Vancomycin for bacteremia Appreciate cardiology Aggressive insulin regimen Add hemoglobin A1c 08/03/2021: Increase insulin Supportive care IV antibiotics PT and OT Isolation Decadron 08/04/2021: Supportive care Needs group home Apathy noted may ultimately become hospice candidate 08/05/2021: Transfer to ICU Aggressive IV fluid IV antibiotics High risk for intubation Severe apathy noted Updated Diagnosis/Problems Diagnosis/Problems (1) Pneumonia due to COVID-19 virus Status: Acute (2) Lower respiratory tract infection due to COVID-19 virus Status: Acute (3) Acute kidney injury Status: Acute (4) Sepsis Status: Acute Qualifiers: Sepsis type: sepsis due to unspecified organism Sepsis acute organ dysfunction status: with acute organ dysfunction Severe sepsis acute organ dysfunction type: acute respiratory failure Acute respiratory failure type: with hypoxia Severe sepsis shock status: without septic shock Qualified Codes: A41.9 - Sepsis, unspecified organism; R65.20 - Severe sepsis without septic shock; J96.01 - Acute respiratory failure with hypoxia (5) Hypoxia Status: Acute (6) Hyponatremia Status: Acute (7) Hyperglycemia Status: Acute (8) Dehydration Status: Acute (9) 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
[2021-08-05 09:23] LABS: BASOPHILS # (AUTO) 0.1 10^3/uL (0.0-0.1); BASOPHILS % (AUTO) 0 % (0-10); EOSINOPHILS % (AUTO) 0 % (0-10); HEMATOCRIT 42 % (40-54); HEMOGLOBIN 14.6 g/dL (13.3-17.7); LYMPHOCYTES # (AUTO) 2.4 10^3/uL (1.0-4.0); LYMPHOCYTES % (AUTO) 6 % (12-44); MEAN CORPUSCULAR HEMOGLOBIN 29 pg (25-34); MEAN CORPUSCULAR HGB CONC 34 g/dL (32-36); MEAN CORPUSCULAR VOLUME 85 fL (80-99); MEAN PLATELET VOLUME 10.5 fL (9.0-12.2); MONOCYTES # (AUTO) 2.1 10^3/uL (0.0-1.0); MONOCYTES % (AUTO) 5 % (0-12); NEUTROPHILS # (AUTO) 32.4 10^3/uL (1.8-7.8); NEUTROPHILS % (AUTO) 77 % (42-75); PLATELET COUNT 378 10^3/uL (130-400)
[2021-08-05 09:26] LABS: WHITE BLOOD COUNT 42.1 10^3/uL (4.3-11.0)
[2021-08-05 09:34] LABS: ALBUMIN 2.6 GM/DL (3.2-4.5)
[2021-08-05 09:35] LABS: POTASSIUM 4.7 MMOL/L (3.6-5.0)
[2021-08-05 09:36] LABS: CALCIUM 8.9 MG/DL (8.5-10.1)
[2021-08-05 09:37] LABS: TOTAL PROTEIN 7.4 GM/DL (6.4-8.2)
[2021-08-05 09:39] LABS: BILIRUBIN,TOTAL 0.9 MG/DL (0.1-1.0)
[2021-08-05 09:41] LABS: CREATININE SERUM 1.06 MG/DL (0.60-1.30)
[2021-08-05] MEDS: VANCOMYCIN 1500 MG/NS 500 ML IVPB IV SCH ×2 (10:00)
[2021-08-05] MEDS: ROSUVASTATIN 20 MG (CRESTOR) TABLET PO SCH (10:01)
[2021-08-05] MEDS: ASPIRIN E.C. 81 MG (ECOTRIN) TAB PO SCH (10:01)
[2021-08-05] MEDS: EMPAGLIFLOZIN 10 MG TABLET (JARDIANCE) PO SCH (10:01)
[2021-08-05] MEDS: PANTOPRAZOLE 40 MG (PROTONIX) TAB PO SCH (10:01)
[2021-08-05] MEDS: SENNA W/DOCUSATE (SENOKOT S) TABLET PO SCH ×2 (10:01→20:07)
[2021-08-05] MEDS: ROPINIROLE HCL 5 MG PO SCH (10:02)
[2021-08-05] MEDS: CEFEPIME INJECTION 1,000 MG in NS (IVPB) 50 ML IV SCH ×3 (10:34→23:02)
--- NOTE | 2021-08-05 11:24 | Occ Therapy Progress Note ---
Therapy Progress Note CASAS entered room and introduced self. Pt only acknowledge CASSA by grunting and would not open eyes. CASAS attempted to engage pt in conversation, ADL task or B UE exercises. Pt kept eyes closed and ignored questions. When asked if pt was wanting to work with CASAS, pt mumbled 'no'. CASAS educated pt on the benefits of exercise and movement, pt kept eyes closed and ignored conversation. 1 visit-refusal [id number] DALTON BENITEZ Aug 05, 2021 11:24
[2021-08-05] MEDS ORDERED: VANCOMYCIN INJECTION 0.1 MG in NS (IVPB) 250 ML IV SCH (12:15)
--- NOTE | 2021-08-05 12:30 | Diagnostic Imaging Report ---
INDICATION: COVID pneumonia. FINDINGS: Upright portable chest shows normal heart size and vascularity. There are persistent bilateral infiltrates, similar to the 08/04/2021 study. There is no effusion or pneumothorax. IMPRESSION: Persistent bilateral infiltrates. Dictated by: Dictated on workstation # [id number]
[2021-08-05 12:39] LABS: ABG BASE EXCESS -5.1 MMOL/L (-2.5-2.5); ABG OXYGEN SATURATION 89 % (94-100); ABG PCO2 23 MMHG (35-45); ABG PH 7.49 (7.37-7.43); ABG PO2 55 MMHG (79-93); ABG TCO2 18.4 MMOL/L (21.0-31.0)
[2021-08-05 12:41] LABS: INSPIRED O2 25%; VENTILATOR NO
--- NOTE | 2021-08-05 12:43 | Physical Therapy Daily Note ---
PT Daily Note-Current Subjective Patient only minimally responds to questions. Patient moans and yells with most all movements especially bed mobility and transfers. Mental Status Patient Orientation: Person Attachments: Mina Catheter Transfers SCALE: Activities may be completed with or without assistive devices. 2-Ustfduglwr-nkqvfgk completes the activity by him/herself with no assistance from a helper. 5-Set-up or Clean-up Assistance-helper sets up or cleans up; patient completes activity. Eaton assists only prior to or following the activity. 4-Supervision or Touching Assistance-helper provides verbal cues and/or touching/steadying and/or contact guard assistance as patient completes activity. Assistance may be provided throughout the activity or intermittently. 3-Partial/Moderate Assistance-helper does LESS THAN HALF the effort. Eaton lifts, holds or supports trunk or limbs, but provides less than half the effort. 2-Substantial/Maximal Assistance-helper does MORE THAN HALF the effort. Eaton l ifts or holds trunk or limbs and provides more than half the effort. 7-Axdkwiwyd-dfxrlw does ALL the effort. Patient does none of the effort to complete the activity. Or, the assistance of 2 or more helpers is required for the patient to complete the activity. If activity was not attempted, code reason: 7-Patient Refused. 9-Not Applicable-not attempted and the patient did not perform the activity before the current illness, exacerbation or injury. 10-Not Attempted due to Environmental Limitations-(lack of equipment, weather restraints, etc.). 88-Not Attempted due to Medical Conditions or Safety Concerns. Roll Left & Right (QC): 1 Sit to Lying (QC): 1 Lying to Sitting/Side of Bed(Q: 1 Gait Training Does the Patient Walk?: No and Walking Goal IS indicated Exercises Supine Ex: Ankle pumps, Quad Set, Heel Slides, Short Arc Quads, Straight leg raise, Hip abd/add Supine Reps: 20 Assessment Current Status: Poor Progress Patient initially awoke to take pills from the nurse and drink water. However after that he feigned sleep and would not respond to questions. He required t otal assistance for all bed mobility and transfers to the edge of bed. Patient sat at edge of bed x 5 minutes, then required total assistance for transfer back to supine. Patient received PROM to bilateral LEs in all available planes. Patient did not assist with these movements. Patient in bed post treatment with all needs met, nursing notified, call light in hand. PT Short Term Goals Short Term Goals Time Frame: Aug 14, 2021 Roll Left & Right: 3 Sit to lyin Lying to sitting on side of be: 3 Sit to stand: 3 Chair/dgr-dt-jvfvu transfer: 3 Toilet transfer: 3 Walk 10 feet: 3 Walk 50 feet with two turns: 3 PT Bed Teacher Goals Bed Teacher Goals PT Residential Goals Time Frame: Aug 28, 2021 Roll Left & Right (QC): 5 Sit to Lying (QC): 5 Lying-Sitting on Side/Bed(QC): 5 Sit to Stand (QC): 5 Chair/Hzo-ma-Pllcz Xfer(QC): 5 Toilet Transfer (QC): 5 Does the Patient Walk: Yes Walk 10 feet (QC): 4 Walk 50ft with 2 Turns (QC): 4 Walk 150 ft (QC): 4 1 Step (curb) (QC): 4 4 Steps (QC): 4 12 Steps (QC): 4 PT Plan Treatment/Plan Treatment Plan: Continue Plan of Care Treatment Plan: Bed Mobility, Education, Functional Activity Franco, Functional Strength, Group Therapy, Gait, Safety, Therapeutic Exercise, Transfers Treatment Duration: Sep 14, 2021 Frequency: 6 times per week Estimated Hrs Per Day: .25 hour per day Safety Risks/Education Patient Education: Transfer Techniques Teaching Recipient: Patient Teaching Methods: Demonstration, Discussion Response to Teaching: Reinforcement Needed Time/GCodes Time In: 1015 Time Out: 1040 Total Billed Treatment Time: 25 Total Billed Treatment Visit, Ex, WILL MAR PT Aug 05, 2021 12:43
[2021-08-05] MEDS ORDERED: NS IV 1000 ML 1,000 ML ONE ×2 (15:52→20:40)
[2021-08-05] MEDS ORDERED: NS IV 1000 ML 1,000 ML IV SCH (16:00)
[2021-08-05 16:52] LABS: BASOPHILS % (AUTO) 0 % (0-10); EOSINOPHILS % (AUTO) 0 % (0-10); HEMATOCRIT 36 % (40-54); HEMOGLOBIN 12.7 g/dL (13.3-17.7); LYMPHOCYTES # (AUTO) 2.4 10^3/uL (1.0-4.0); LYMPHOCYTES % (AUTO) 6 % (12-44); MEAN CORPUSCULAR HEMOGLOBIN 29 pg (25-34); MEAN CORPUSCULAR HGB CONC 35 g/dL (32-36); MEAN CORPUSCULAR VOLUME 83 fL (80-99); MEAN PLATELET VOLUME 10.6 fL (9.0-12.2); MONOCYTES # (AUTO) 1.4 10^3/uL (0.0-1.0); MONOCYTES % (AUTO) 4 % (0-12); NEUTROPHILS # (AUTO) 30.1 10^3/uL (1.8-7.8); NEUTROPHILS % (AUTO) 77 % (42-75); PLATELET COUNT 329 10^3/uL (130-400)
[2021-08-05 16:56] LABS: WHITE BLOOD COUNT 39.1 10^3/uL (4.3-11.0)
[2021-08-05 17:05] LABS: ALBUMIN 2.2 GM/DL (3.2-4.5); POTASSIUM 4.6 MMOL/L (3.6-5.0)
[2021-08-05 17:06] LABS: CALCIUM 8.1 MG/DL (8.5-10.1)
[2021-08-05 17:07] LABS: TOTAL PROTEIN 6.4 GM/DL (6.4-8.2)
[2021-08-05] MEDS: NS IV 1000 ML 1,000 ML IV SCH ×2 (17:08→20:55)
[2021-08-05 17:09] LABS: BILIRUBIN,TOTAL 0.8 MG/DL (0.1-1.0)
[2021-08-05 17:11] LABS: CREATININE SERUM 1.03 MG/DL (0.60-1.30)
[2021-08-05] MEDS ORDERED: TROUGH ORDER-PHARMACY XX NR (18:00)
--- NOTE | 2021-08-05 18:21 | Cardiology Progress Note ---
Progress Note-Cardiology Events since last exam Date Seen by Provider: Aug 05, 2021 Time Seen by Provider: 18:17 Events since last exam We had initially been consulted due to staph bacteremia and question of possible endocarditis. I did not see the patient due to his Covid status. I did speak to his nurse of the day. Other than some mild tachycardia, there have not been any other cardiac issues. He does remain in the ICU but has transfer orders to the medical floor. Certain portions of this document may have been dictated utilizing voice recognition technology. Inherent to this technology, typographical and grammatical errors may exist. As much as I am diligent to identify and correct these mistakes, some errors may remain in the document. Vitals Last set of Vitals Signs Vital Signs 08/01/21 08/05/21 08/05/21 08/05/21 08/05/21 20:00 15:37 15:52 17:02 17:13 Temp 36.3 Pulse 112 Resp 26 B/P (MAP) 96/66 (76) Pulse Ox 93 O2 Delivery Nasal Cannula O2 Flow Rate 2.00 FiO2 25 Labs Labs Laboratory Tests 08/05/21 09:15 08/05/21 16:45 Exam Vital Signs Vital Signs Date Time Temp Pulse Resp B/P (MAP) Pulse Ox O2 Delivery O2 Flow Rate FiO2 08/05/21 17:13 36.3 08/05/21 17:02 112 08/05/21 15:52 93 Nasal Cannula 2.00 08/05/21 15:37 26 96/66 (76) 08/01/21 20:00 25 Physical Exam I did not examine the patient due to Covid status. Labs Laboratory Tests Test 08/04/21 21:22 08/05/21 05:38 08/05/21 09:06 08/05/21 09:15 Range/Units Glucometer 98 104 132 H 70-110 MG/DL White Blood Count 42.1 *H 4.3-11.0 10^3/uL Red Blood Count 5.02 4.30-5.52 10^6/uL Hemoglobin 14.6 13.3-17.7 g/dL Hematocrit 42 40-54 % Mean Corpuscular Volume 85 80-99 fL Mean Corpuscular Hemoglobin 29 25-34 pg Mean Corpuscular Hemoglobin Concent 34 32-36 g/dL Red Cell Distribution Width 14.0 10.0-14.5 % Platelet Count 378 130-400 10^3/uL Mean Platelet Volume 10.5 9.0-12.2 fL Immature Granulocyte % (Auto) 12 % Neutrophils (%) (Auto) 77 H 42-75 % Lymphocytes (%) (Auto) 6 L 12-44 % Monocytes (%) (Auto) 5 0-12 % Eosinophils (%) (Auto) 0 0-10 % Basophils (%) (Auto) 0 0-10 % Neutrophils # (Auto) 32.4 H 1.8-7.8 10^3/uL Lymphocytes # (Auto) 2.4 1.0-4.0 10^3/uL Monocytes # (Auto) 2.1 H 0.0-1.0 10^3/uL Eosinophils # (Auto) 0.0 0.0-0.3 10^3/uL Basophils # (Auto) 0.1 0.0-0.1 10^3/uL Immature Granulocyte # (Auto) 5.1 H 0.0-0.1 10^3/uL Sodium Level 130 L 135-145 MMOL/L Potassium Level 4.7 3.6-5.0 MMOL/L Chloride Level 98 98-107 MMOL/L Carbon Dioxide Level 20 L 21-32 MMOL/L Anion Gap 12 5-14 MMOL/L Blood Urea Nitrogen 43 H 7-18 MG/DL Creatinine 1.06 0.60-1.30 MG/DL Estimat Glomerular Filtration Rate 72 BUN/Creatinine Ratio 41 Glucose Level 123 H 70-105 MG/DL Calcium Level 8.9 8.5-10.1 MG/DL Corrected Calcium 10.0 8.5-10.1 MG/DL Total Bilirubin 0.9 0.1-1.0 MG/DL Aspartate Amino Transf (AST/SGOT) 86 H 5-34 U/L Alanine Aminotransferase (ALT/SGPT) 85 H 0-55 U/L Alkaline Phosphatase 243 H 40-136 U/L Total Protein 7.4 6.4-8.2 GM/DL Albumin 2.6 L 3.2-4.5 GM/DL Procalcitonin 2.46 H <0.10 NG/ML Test 08/05/21 11:43 08/05/21 12:29 08/05/21 15:40 08/05/21 16:45 Range/Units Glucometer 157 H 186 H 70-110 MG/DL Blood Gas Puncture Site UNK Blood Gas Patient Temperature 37.0 Arterial Blood pH 7.49 H 7.37-7.43 Arterial Blood Partial Pressure CO2 23 L 35-45 MMHG Arterial Blood Partial Pressure O2 55 L 79-93 MMHG Arterial Blood HCO3 18 L 23-27 MMOL/L Arterial Blood Total CO2 18.4 L 21.0-31.0 MMOL/L Arterial Blood Oxygen Saturation 89 L 94-100 % Arterial Blood Base Excess -5.1 L -2.5-2.5 MMOL/L Dima Test NA Blood Gas Ventilator Setting NO Blood Gas Inspired Oxygen 25% White Blood Count 39.1 *H 4.3-11.0 10^3/uL Red Blood Count 4.35 4.30-5.52 10^6/uL Hemoglobin 12.7 L 13.3-17.7 g/dL Hematocrit 36 L 40-54 % Mean Corpuscular Volume 83 80-99 fL Mean Corpuscular Hemoglobin 29 25-34 pg Mean Corpuscular Hemoglobin Concent 35 32-36 g/dL Red Cell Distribution Width 13.8 10.0-14.5 % Platelet Count 329 130-400 10^3/uL Mean Platelet Volume 10.6 9.0-12.2 fL Immature Granulocyte % (Auto) 13 % Neutrophils (%) (Auto) 77 H 42-75 % Lymphocytes (%) (Auto) 6 L 12-44 % Monocytes (%) (Auto) 4 0-12 % Eosinophils (%) (Auto) 0 0-10 % Basophils (%) (Auto) 0 0-10 % Neutrophils # (Auto) 30.1 H 1.8-7.8 10^3/uL Lymphocytes # (Auto) 2.4 1.0-4.0 10^3/uL Monocytes # (Auto) 1.4 H 0.0-1.0 10^3/uL Eosinophils # (Auto) 0.0 0.0-0.3 10^3/uL Basophils # (Auto) 0.0 0.0-0.1 10^3/uL Immature Granulocyte # (Auto) 5.1 H 0.0-0.1 10^3/uL Sodium Level 129 L 135-145 MMOL/L Potassium Level 4.6 3.6-5.0 MMOL/L Chloride Level 102 98-107 MMOL/L Carbon Dioxide Level 15 L 21-32 MMOL/L Anion Gap 12 5-14 MMOL/L Blood Urea Nitrogen 53 H 7-18 MG/DL Creatinine 1.03 0.60-1.30 MG/DL Estimat Glomerular Filtration Rate 74 BUN/Creatinine Ratio 51 Glucose Level 181 H 70-105 MG/DL Lactic Acid Level 1.41 0.50-2.00 MMOL/L Calcium Level 8.1 L 8.5-10.1 MG/DL Corrected Calcium 9.5 8.5-10.1 MG/DL Total Bilirubin 0.8 0.1-1.0 MG/DL Aspartate Amino Transf (AST/SGOT) 59 H 5-34 U/L Alanine Aminotransferase (ALT/SGPT) 65 H 0-55 U/L Alkaline Phosphatase 202 H 40-136 U/L Total Protein 6.4 6.4-8.2 GM/DL Albumin 2.2 L 3.2-4.5 GM/DL Diagnosis/Problems Diagnosis/Problems (1) Staphylococcus aureus bacteremia Assessment & Plan: There were no obvious valvular vegetations and no significant valvular regurgitation noted on his transthoracic echocardiogram. The bacteremia may be due to another source. He is being treated with antibiotics for the bacteremia. Given his Covid status, we have been reluctant to perform transesophageal echocardiogram due to the risk this would pose to the staff. At this point in time, there do not appear to be any acute, active cardiac issues. As such, cardiology will sign off. Please call if you have any other questions or concerns. Once he recovers from Covid, if there is still a question about possible endocarditis, we could arrange for a transesophageal echocardiogram as an outpatient after discharge. (2) Sinus tachycardia Assessment & Plan: Most likely related to his Covid infection on top of Staphylococcus bacteremia. (3) Mixed hyperlipidemia Assessment & Plan: Continue statin medication. TAMIE HERMAN JR, MD Aug 05, 2021 18:21
--- NOTE | 2021-08-05 18:21 | Tele-ICU Progress Note ---
Subjective Date Seen by a Provider: Aug 05, 2021 Time Seen by a Provider: 18:15 Subjective/Events-last exam PT TRANSFERRED BACK TO ICU B/O HYPOTENSION. RECENTLY ADMITTED WITH COVID PNEUMONIA, HHS, MRSA SEPSIS. NOW RESTING COMFORTABLY. Review of Systems ROS PER RN Sepsis Event Evaluation Height, Weight, BMI Height: 6'0.00" Weight: 269lbs. 5.0oz. 122.458302rf; 34.47 BMI Method:Stated Focused Exam Lactate Level 08/05/21 16:45: Lactic Acid Level 1.41 Lactic Acid Level Laboratory Tests Test 08/05/21 16:45 Lactic Acid Level 1.41 MMOL/L (0.50-2.00) Exam Exam Patient acknowledged, consented, and participated in this virtual visit which was conducted using real time audio/video Vital Signs Date Time Temp Pulse Resp B/P (MAP) Pulse Ox O2 Delivery O2 Flow Rate FiO2 08/05/21 17:13 36.3 08/05/21 17:02 112 08/05/21 15:52 93 Nasal Cannula 2.00 08/05/21 15:37 36.4 111 26 96/66 (76) 91 Room Air 08/05/21 11:45 36.6 118 32 103/72 (82) 92 Room Air 08/05/21 09:39 97 Room Air 0.00 08/05/21 09:00 Room Air 08/05/21 08:00 35.8 58 20 102/68 (79) 91 Room Air 08/05/21 04:00 36.8 119 18 138/69 (92) 92 Room Air 08/04/21 23:55 37.3 112 22 119/77 (91) 93 Room Air 08/04/21 21:03 Room Air 08/04/21 19:47 36.8 106 20 121/73 (89) 96 Room Air I & O 08/05/21 07:00 Intake Total 2300 ml Output Total 2925 ml Balance -625 ml Height & Weight Height: 6'0.00" Weight: 269lbs. 5.0oz. 122.705695me; 34.47 BMI Method:Stated General Appearance: No Apparent Distress, WD/WN, Chronically ill, Obese HEENT: PERRL/EOMI, Normal ENT Inspection, Pharynx Normal, Moist Mucous Membranes Neck: Full Range of Motion, Normal Inspection, Non Tender Respiratory: No Accessory Muscle Use, No Respiratory Distress, Decreased Breath Sounds Cardiovascular: Regular Rate, Rhythm Extremity: Normal Capillary Refill, Normal Inspection, Normal Range of Motion, No Calf Tenderness, No Pedal Edema Neurologic/Psychiatric: Alert, Oriented x3, Depressed Affect Skin: Normal Color, Warm/Dry Lymphatic: No Adenopathy Other comments PE PER RN Results Lab Laboratory Tests 08/04/21 07:35 08/05/21 09:15 08/05/21 16:45 Assessment/Plan Assessment/Plan 1. HYPOTENSION DUE TO DEHYDRATION AND SEPSIS. 2. MRSA SEPSIS 3. HHS IMPROVING. 4. COVID PNEUMONIA 5. HYPONATREMIA RECOMMENDATIONS. 1. CONTINUE IVF 2. IV VANCO AND MAXIPIME. 3. INSULIN PER PCP 4. MONITOR BLOOD SUGARS ,BUN, CR, WBC 5. DVT AND ULCER PRPHYLAXIS Critical Care: Critically Ill Patient Time spent with patient (mins): 25 KELSEY BARKSDALE MD Aug 05, 2021 18:21
[2021-08-05] MEDS ORDERED: VANCOMYCIN 1500 MG/NS 500 ML IVPB IV SCH ×2 (20:00)
[2021-08-06] VITALS (22 sets, daily range): BP systolic 70–124; BP diastolic 32–90
[2021-08-06] MEDS: CEFEPIME INJECTION 1,000 MG in NS (IVPB) 50 ML IV SCH ×4 (03:23→21:04)
[2021-08-06] MEDS ORDERED: VANCOMYCIN INJECTION 1,500 MG in NS IV 500 ML 500 ML IV SCH (04:00)
[2021-08-06 05:09] LABS: BASOPHILS % (AUTO) 0 % (0-10); EOSINOPHILS % (AUTO) 0 % (0-10); HEMATOCRIT 36 % (40-54); HEMOGLOBIN 12.3 g/dL (13.3-17.7); LYMPHOCYTES # (AUTO) 2.1 10^3/uL (1.0-4.0); LYMPHOCYTES % (AUTO) 5 % (12-44); MEAN CORPUSCULAR HEMOGLOBIN 29 pg (25-34); MEAN CORPUSCULAR HGB CONC 34 g/dL (32-36); MEAN CORPUSCULAR VOLUME 84 fL (80-99); MEAN PLATELET VOLUME 10.4 fL (9.0-12.2); MONOCYTES # (AUTO) 1.9 10^3/uL (0.0-1.0); MONOCYTES % (AUTO) 5 % (0-12); NEUTROPHILS # (AUTO) 30.9 10^3/uL (1.8-7.8); NEUTROPHILS % (AUTO) 79 % (42-75); PLATELET COUNT 315 10^3/uL (130-400)
[2021-08-06 05:18] LABS: ALBUMIN 2.2 GM/DL (3.2-4.5); POTASSIUM 4.3 MMOL/L (3.6-5.0)
[2021-08-06 05:19] LABS: CALCIUM 8.1 MG/DL (8.5-10.1)
[2021-08-06 05:21] LABS: TOTAL PROTEIN 6.6 GM/DL (6.4-8.2)
[2021-08-06 05:23] LABS: BILIRUBIN,TOTAL 0.7 MG/DL (0.1-1.0)
[2021-08-06 05:29] LABS: WHITE BLOOD COUNT 39.3 10^3/uL (4.3-11.0)
[2021-08-06 05:58] LABS: BAND NEUTROPHILS 7 %; LYMPHOCYTES % (MANUAL) 4 %; MONOCYTES % (MANUAL) 6 %; NEUTROPHILS % (MANUAL) 80 %
[2021-08-06 05:59] LABS: ATYPICAL LYMPHOCYTES 1 %; BLAST CELLS 2 %; RBC MORPH NORMAL
[2021-08-06] MEDS: ENOXAPARIN 300 MG/3 ML (LOVENOX) MULTI-DOSE VIAL SQ SCH ×2 (06:11→16:56)
[2021-08-06] MEDS: inSUlin ASPART (NovoLOG) 1 UNIT/0.01 ML (CHARGE PER UNIT) SC SCH ×7 (06:11→21:05)
[2021-08-06] MEDS ORDERED: TROUGH ORDER-PHARMACY XX NR ×2 (08:00→15:00)
[2021-08-06] MEDS: dilTIAZem DRIP PRE-MIX 125 ML IV SCH ×2 (08:16→20:30)
[2021-08-06] MEDS: PANTOPRAZOLE 40 MG (PROTONIX) TAB PO SCH (08:22)
[2021-08-06] MEDS: SENNA W/DOCUSATE (SENOKOT S) TABLET PO SCH ×2 (08:22→21:05)
[2021-08-06] MEDS: ROSUVASTATIN 20 MG (CRESTOR) TABLET PO SCH (08:22)
[2021-08-06] MEDS: ASPIRIN E.C. 81 MG (ECOTRIN) TAB PO SCH (08:22)
[2021-08-06] MEDS: HYDROcodone/APAP 5 MG/325 MG (LORTAB) TAB PO PRN ×2 (08:25→16:22)
[2021-08-06] MEDS: ROPINIROLE HCL 5 MG PO SCH (08:35)
[2021-08-06] MEDS: EMPAGLIFLOZIN 10 MG TABLET (JARDIANCE) PO SCH (08:35)
--- NOTE | 2021-08-06 08:45 | Tele-ICU Progress Note ---
Subjective Date Seen by a Provider: Aug 06, 2021 Time Seen by a Provider: 08:45 Subjective/Events-last exam RESTING COMFORTABLY. BP STABLE BUT DEVELOPPED AFIB WITH RVR, NOW ON CARDIAZEM DRIP PER CARDIOLOGY. HR DOWN TO 80'S. Review of Systems ROS PER RN Sepsis Event Evaluation Height, Weight, BMI Height: 6'0.00" Weight: 269lbs. 5.0oz. 122.760708ol; 34.47 BMI Method:Stated Focused Exam Lactate Level 08/05/21 16:45: Lactic Acid Level 1.41 Exam Exam Patient acknowledged, consented, and participated in this virtual visit which was conducted using real time audio/video Vital Signs Date Time Temp Pulse Resp B/P (MAP) Pulse Ox O2 Delivery O2 Flow Rate FiO2 08/06/21 08:37 96 Room Air 08/06/21 08:30 100 Nasal Cannula 2.00 08/06/21 08:00 35.1 08/06/21 07:00 118 08/06/21 06:00 110 113/73 (86) 96 Nasal Cannula 2.00 08/06/21 05:00 106 110/74 (86) 93 Nasal Cannula 2.00 08/06/21 04:01 35.6 08/06/21 04:00 106 36 113/77 (89) 93 Nasal Cannula 2.00 08/06/21 03:00 106 30 112/72 (85) 95 Nasal Cannula 2.00 08/06/21 02:00 107 26 114/75 (88) 95 Nasal Cannula 2.00 08/06/21 01:00 106 08/06/21 01:00 107 32 123/80 (94) 95 Nasal Cannula 2.00 08/06/21 00:00 107 30 117/75 (89) 89 Nasal Cannula 2.00 08/05/21 23:06 35.7 08/05/21 23:00 113 20 122/79 (93) 98 Nasal Cannula 2.00 08/05/21 22:00 107 26 118/81 (93) 98 Nasal Cannula 2.00 08/05/21 21:00 99 Nasal Cannula 2.00 08/05/21 21:00 105 34 90/85 (87) 99 Nasal Cannula 2.00 08/05/21 20:00 105 33 121/81 (94) 98 Nasal Cannula 2.00 08/05/21 20:00 35.8 08/05/21 19:28 100 Nasal Cannula 2.00 08/05/21 19:00 106 08/05/21 19:00 116 31 116/79 (91) 99 Nasal Cannula 2.00 08/05/21 18:00 106 29 114/81 (92) 99 Nasal Cannula 2.00 08/05/21 17:13 36.3 08/05/21 17:02 112 08/05/21 17:00 111 118/89 (99) 97 Nasal Cannula 2.00 08/05/21 17:00 96 Nasal Cannula 2.00 08/05/21 15:52 93 Nasal Cannula 2.00 08/05/21 15:37 36.4 111 26 96/66 (76) 91 Room Air 08/05/21 11:45 36.6 118 32 103/72 (82) 92 Room Air 08/05/21 09:39 97 Room Air 0.00 08/05/21 09:00 Room Air I & O 08/06/21 07:00 Intake Total 6660 ml Output Total 1675 ml Balance 4985 ml Height & Weight Height: 6'0.00" Weight: 269lbs. 5.0oz. 122.570824vd; 34.47 BMI Method:Stated General Appearance: No Apparent Distress, WD/WN, Chronically ill, Other HEENT: PERRL/EOMI, Normal ENT Inspection, Pharynx Normal, Moist Mucous Membranes Neck: Full Range of Motion, Normal Inspection, Non Tender Respiratory: No Accessory Muscle Use, No Respiratory Distress, Decreased Breath Sounds Cardiovascular: Regular Rate, Rhythm Extremity: Normal Capillary Refill, Normal Inspection, Normal Range of Motion, No Calf Tenderness, No Pedal Edema Neurologic/Psychiatric: Alert Skin: Normal Color, Warm/Dry Lymphatic: No Adenopathy Other comments PE PER RN Results Lab Laboratory Tests 08/05/21 09:15 08/05/21 16:45 08/06/21 04:50 Assessment/Plan Assessment/Plan 1. HYPOTENSION DUE TO DEHYDRATION AND SEPSIS IMPROVED 2. MRSA SEPSIS 3. HHS IMPROVING. 4. COVID PNEUMONIA 5. HYPONATREMIA UP TRENDING 6. AFIB WITH RVR NEW ONSET RECOMMENDATIONS. 1. CONTINUE IVF 2. IV VANCO AND MAXIPIME. 3. INSULIN PER PCP 4. MONITOR BLOOD SUGARS ,BUN, CR, WBC 5. DVT AND ULCER PRPHYLAXIS 6. CONTINUE CARDIAZEM PER CARDIOLOGY Critical Care: Critically Ill Patient Time spent with patient (mins): 20 KELSEY BARKSDALE MD Aug 06, 2021 08:45
--- NOTE | 2021-08-06 09:43 | Physical Therapy Progress Note ---
Therapy Progress Note Patient is a recent transfer to ICU from the medical floor. PT will need new orders to continue with patient if appropriate. Nurse notified. JES HINOJOSA PT Aug 06, 2021 09:43
--- NOTE | 2021-08-06 10:51 | Progress Note - Hospitalist ---
Subjective HPI/CC On Admission Date Seen by Provider: Aug 06, 2021 Time Seen by Provider: 11:30 Chief complaint: Respiratory failure History of present illness: This is a 56-year-old white male known to [facility] for frequent ER visits who has been very noncompliant with all medical management who presents to ICU 7 in respiratory failure BiPAP dependent. He was found to have delirium and very complicated medical issues requiring BiPAP and insulin drip with aggressive IV fluids to resolve elevated lactic acid from s epsis. Creatinine was 1.80 is 1.4 for now. D-dimer was elevated at 7.64 and Lovenox initiated therapeutic dose twice daily due to unable to perform angiogram to rule out PE due to kidney function. Currently patient is sleeping. Microbiology notified me that 4/4 bottles of blood cultures were positive for MRSA. Vancomycin. ABG 7.3 . Subjective/Events-last exam Pt went into AF with RVR now on Cardizem drip Heart rates of 80s More awake today but ignores me WC is 39,000 IV fluids helped the hypovolemia dehydration and hyponatremia Kidney function good Blood cultures still positive for staph so will changed to Daptomycin since he just doesn't appear to be responding to Vancomycin Review of Systems General: Fatigue, Malaise Focused Exam Lactate Level 08/05/21 16:45: Lactic Acid Level 1.41 Objective Exam Vital Signs Vital Signs Date Time Temp Pulse Resp B/P (MAP) Pulse Ox O2 Delivery O2 Flow Rate FiO2 08/07/21 04:00 82 20 127/70 (89) 98 Room Air 08/07/21 00:00 35.9 08/06/21 08:30 2.00 08/01/21 20:00 25 Capillary Refill : General Appearance: No Apparent Distress, WD/WN, Chronically ill Respiratory: Lungs Clear, Normal Breath Sounds, Decreased Breath Sounds Cardiovascular: Regular Rate, Rhythm Neurologic/Psychiatric: Alert, Depressed Affect Results/Procedures Lab Laboratory Tests 08/07/21 04:55 Patient resulted labs reviewed. Assessment/Plan Assessment and Plan Assess & Plan/Chief Complaint Assessment: Respiratory failure status post BiPAP now on nasal cannula and room air Hypovolemia from dehydration due to not eating or drinking requiring ICU transfer again on 08/05/2021 COVID-19 pneumonia Sepsis Hyperosmolar hyperglycemic nonketotic state placed on insulin drip Hyponatremia of 115 Acute kidney injury MRSA bacteremia change from vancomycin to daptomycin due to breakthrough with positive repeat cultures Hyperkalemia Elevated D-dimer unable to rule out PE so placed on Lovenox therapeutic dose Noncompliance Plan: Vancomycin Rocephin eICU management BiPAP Insulin drip Lovenox Aggressive IV fluid of D5NS 08/02/2021: Transfer to stepdown Hep-Lock IV fluid Vancomycin for bacteremia Appreciate cardiology Aggressive insulin regimen Add hemoglobin A1c 08/03/2021: Increase insulin Supportive care IV antibiotics PT and OT Isolation Decadron 08/04/2021: Supportive care Needs shelter Apathy noted may ultimately become hospice candidate 08/05/2021: Transfer to ICU Aggressive IV fluid IV antibiotics High risk for intubation Severe apathy noted Updated 08/06/2021: Daptomycin Supportive care Critical Care Critically Ill Patient Diagnosis/Problems Diagnosis/Problems (1) Pneumonia due to COVID-19 virus Status: Acute (2) Lower respiratory tract infection due to COVID-19 virus Status: Acute (3) Acute kidney injury Status: Acute (4) Sepsis Status: Acute Qualifiers: Sepsis type: sepsis due to unspecified organism Sepsis acute organ dysfunction status: with acute organ dysfunction Severe sepsis acute organ dysfunction type: acute respiratory failure Acute respiratory failure type: with hypoxia Severe sepsis shock status: without septic shock Qualified Codes: A41.9 - Sepsis, unspecified organism; R65.20 - Severe sepsis without septic shock; J96.01 - Acute respiratory failure with hypoxia (5) Hypoxia Status: Acute (6) Hyponatremia Status: Acute (7) Hyperglycemia Status: Acute (8) Dehydration Status: Acute (9) 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
--- NOTE | 2021-08-06 12:30 | Cardiology Progress Note ---
Progress Note-Cardiology Events since last exam Date Seen by Provider: Aug 06, 2021 Time Seen by Provider: 12:26 Events since last exam We were initially seeing him due to Staphylococcus bacteremia. On 08/05 I a ctually signed off since there did not appear to be any acute, active cardiac issues. However, earlier this morning the patient went into atrial fibrillation. He does not have any known history of atrial fibrillation. His clinical status has otherwise been unchanged. I did not speak to the patient due to his Covid status. I did speak to his nurse for today. Certain portions of this document may have been dictated utilizing voice recognition technology. Inherent to this technology, typographical and grammatical errors may exist. As much as I am diligent to identify and correct these mistakes, some errors may remain in the document. Vitals Last set of Vitals Signs Vital Signs 08/01/21 08/06/21 08/06/21 08/06/21 20:00 08:00 08:30 11:00 Temp 35.1 Pulse 84 Resp 28 B/P (MAP) 96/60 (72) Pulse Ox 95 O2 Delivery Room Air O2 Flow Rate 2.00 FiO2 25 Labs Labs Laboratory Tests 08/05/21 16:45 08/06/21 04:50 Exam Vital Signs Vital Signs Date Time Temp Pulse Resp B/P (MAP) Pulse Ox O2 Delivery O2 Flow Rate FiO2 08/06/21 11:00 84 28 96/60 (72) 95 Room Air 08/06/21 08:30 2.00 08/06/21 08:00 35.1 08/01/21 20:00 25 Physical Exam I did not examine the patient due to his Covid status. Labs Laboratory Tests Test 08/05/21 12:29 08/05/21 15:40 08/05/21 16:45 08/05/21 20:24 Range/Units Blood Gas Puncture Site UNK Blood Gas Patient Temperature 37.0 Arterial Blood pH 7.49 H 7.37-7.43 Arterial Blood Partial Pressure CO2 23 L 35-45 MMHG Arterial Blood Partial Pressure O2 55 L 79-93 MMHG Arterial Blood HCO3 18 L 23-27 MMOL/L Arterial Blood Total CO2 18.4 L 21.0-31.0 MMOL/L Arterial Blood Oxygen Saturation 89 L 94-100 % Arterial Blood Base Excess -5.1 L -2.5-2.5 MMOL/L Dima Test NA Blood Gas Ventilator Setting NO Blood Gas Inspired Oxygen 25% Glucometer 186 H 190 H 70-110 MG/DL White Blood Count 39.1 *H 4.3-11.0 10^3/uL Red Blood Count 4.35 4.30-5.52 10^6/uL Hemoglobin 12.7 L 13.3-17.7 g/dL Hematocrit 36 L 40-54 % Mean Corpuscular Volume 83 80-99 fL Mean Corpuscular Hemoglobin 29 25-34 pg Mean Corpuscular Hemoglobin Concent 35 32-36 g/dL Red Cell Distribution Width 13.8 10.0-14.5 % Platelet Count 329 130-400 10^3/uL Mean Platelet Volume 10.6 9.0-12.2 fL Immature Granulocyte % (Auto) 13 % Neutrophils (%) (Auto) 77 H 42-75 % Lymphocytes (%) (Auto) 6 L 12-44 % Monocytes (%) (Auto) 4 0-12 % Eosinophils (%) (Auto) 0 0-10 % Basophils (%) (Auto) 0 0-10 % Neutrophils # (Auto) 30.1 H 1.8-7.8 10^3/uL Lymphocytes # (Auto) 2.4 1.0-4.0 10^3/uL Monocytes # (Auto) 1.4 H 0.0-1.0 10^3/uL Eosinophils # (Auto) 0.0 0.0-0.3 10^3/uL Basophils # (Auto) 0.0 0.0-0.1 10^3/uL Immature Granulocyte # (Auto) 5.1 H 0.0-0.1 10^3/uL Sodium Level 129 L 135-145 MMOL/L Potassium Level 4.6 3.6-5.0 MMOL/L Chloride Level 102 98-107 MMOL/L Carbon Dioxide Level 15 L 21-32 MMOL/L Anion Gap 12 5-14 MMOL/L Blood Urea Nitrogen 53 H 7-18 MG/DL Creatinine 1.03 0.60-1.30 MG/DL Estimat Glomerular Filtration Rate 74 BUN/Creatinine Ratio 51 Glucose Level 181 H 70-105 MG/DL Lactic Acid Level 1.41 0.50-2.00 MMOL/L Calcium Level 8.1 L 8.5-10.1 MG/DL Corrected Calcium 9.5 8.5-10.1 MG/DL Total Bilirubin 0.8 0.1-1.0 MG/DL Aspartate Amino Transf (AST/SGOT) 59 H 5-34 U/L Alanine Aminotransferase (ALT/SGPT) 65 H 0-55 U/L Alkaline Phosphatase 202 H 40-136 U/L Total Protein 6.4 6.4-8.2 GM/DL Albumin 2.2 L 3.2-4.5 GM/DL Test 08/06/21 04:50 08/06/21 10:22 Range/Units White Blood Count 39.3 *H 4.3-11.0 10^3/uL Red Blood Count 4.31 4.30-5.52 10^6/uL Hemoglobin 12.3 L 13.3-17.7 g/dL Hematocrit 36 L 40-54 % Mean Corpuscular Volume 84 80-99 fL Mean Corpuscular Hemoglobin 29 25-34 pg Mean Corpuscular Hemoglobin Concent 34 32-36 g/dL Red Cell Distribution Width 14.1 10.0-14.5 % Platelet Count 315 130-400 10^3/uL Mean Platelet Volume 10.4 9.0-12.2 fL Immature Granulocyte % (Auto) 11 % Neutrophils (%) (Auto) 79 H 42-75 % Lymphocytes (%) (Auto) 5 L 12-44 % Monocytes (%) (Auto) 5 0-12 % Eosinophils (%) (Auto) 0 0-10 % Basophils (%) (Auto) 0 0-10 % Neutrophils # (Auto) 30.9 H 1.8-7.8 10^3/uL Lymphocytes # (Auto) 2.1 1.0-4.0 10^3/uL Monocytes # (Auto) 1.9 H 0.0-1.0 10^3/uL Eosinophils # (Auto) 0.0 0.0-0.3 10^3/uL Basophils # (Auto) 0.0 0.0-0.1 10^3/uL Immature Granulocyte # (Auto) 4.4 H 0.0-0.1 10^3/uL Neutrophils % (Manual) 80 % Lymphocytes % (Manual) 4 % Monocytes % (Manual) 6 % Band Neutrophils 7 % Atypical Lymphocytes 1 % Blast Cells 2 % Blood Morphology Comment NORMAL Sodium Level 131 L 135-145 MMOL/L Potassium Level 4.3 3.6-5.0 MMOL/L Chloride Level 104 98-107 MMOL/L Carbon Dioxide Level 13 L 21-32 MMOL/L Anion Gap 14 5-14 MMOL/L Blood Urea Nitrogen 57 H 7-18 MG/DL Creatinine 1.00 0.60-1.30 MG/DL Estimat Glomerular Filtration Rate 77 BUN/Creatinine Ratio 57 Glucose Level 178 H 70-105 MG/DL Calcium Level 8.1 L 8.5-10.1 MG/DL Corrected Calcium 9.5 8.5-10.1 MG/DL Phosphorus Level 5.0 H 2.3-4.7 MG/DL Magnesium Level 2.0 1.6-2.4 MG/DL Total Bilirubin 0.7 0.1-1.0 MG/DL Aspartate Amino Transf (AST/SGOT) 51 H 5-34 U/L Alanine Aminotransferase (ALT/SGPT) 58 H 0-55 U/L Alkaline Phosphatase 192 H 40-136 U/L Total Protein 6.6 6.4-8.2 GM/DL Albumin 2.2 L 3.2-4.5 GM/DL Glucometer 258 H 70-110 MG/DL Diagnosis/Problems Diagnosis/Problems (1) Paroxysmal atrial fibrillation Assessment & Plan: This is a new finding in this patient. I placed him on intravenous diltiazem and his heart rate is now improved. If he does not convert to sinus rhythm by tomorrow, then I may consider cardioversion. For the time being, I will not start oral anticoagulation. We can wait until tomorrow to determine whether or not he will need oral anticoagulation. I suspect the atrial fibrillation was brought on by his acute, noncardiac illnesses including the Staphylococcus bacteremia on top of Covid. I will plan to transition him over to oral diltiazem tomorrow. (2) Staphylococcus aureus bacteremia Assessment & Plan: There were no obvious valvular vegetations and no signific ant valvular regurgitation noted on his transthoracic echocardiogram. The bacteremia may be due to another source. He is being treated with antibiotics for the bacteremia. Given his Covid status, we have been reluctant to perform transesophageal echocardiogram due to the risk this would pose to the staff. At this point in time, there do not appear to be any acute, active cardiac issues. As such, cardiology will sign off. Please call if you have any other questions or concerns. Once he recovers from Covid, if there is still a question about possible endocarditis, we could arrange for a transesophageal echocardiogram as an outpatient after discharge. (3) Sinus tachycardia Assessment & Plan: Most likely related to his Covid infection on top of Staphylococcus bacteremia. However, he now has atrial fibrillation. (4) Mixed hyperlipidemia Assessment & Plan: Continue statin medication. TAMIE HERMAN JR, MD Aug 06, 2021 12:30
[2021-08-06] MEDS: DAPTOmycin 500 MG/NS 50 ML IVPB IV SCH ×2 (13:30)
[2021-08-07] VITALS (23 sets, daily range): BP systolic 99–145; BP diastolic 36–91
[2021-08-07] MEDS: CEFEPIME INJECTION 1,000 MG in NS (IVPB) 50 ML IV SCH ×4 (03:27→21:01)
[2021-08-07 05:25] LABS: BASOPHILS # (AUTO) 0.1 10^3/uL (0.0-0.1); BASOPHILS % (AUTO) 0 % (0-10); EOSINOPHILS % (AUTO) 0 % (0-10); HEMATOCRIT 37 % (40-54); HEMOGLOBIN 12.8 g/dL (13.3-17.7); LYMPHOCYTES # (AUTO) 2.1 10^3/uL (1.0-4.0); LYMPHOCYTES % (AUTO) 5 % (12-44); MEAN CORPUSCULAR HEMOGLOBIN 29 pg (25-34); MEAN CORPUSCULAR HGB CONC 34 g/dL (32-36); MEAN CORPUSCULAR VOLUME 83 fL (80-99); MONOCYTES # (AUTO) 1.8 10^3/uL (0.0-1.0); MONOCYTES % (AUTO) 4 % (0-12); NEUTROPHILS # (AUTO) 37.7 10^3/uL (1.8-7.8); NEUTROPHILS % (AUTO) 81 % (42-75); PLATELET COUNT 357 10^3/uL (130-400)
[2021-08-07 05:27] LABS: WHITE BLOOD COUNT 46.6 10^3/uL (4.3-11.0)
[2021-08-07 05:42] LABS: ALBUMIN 2.3 GM/DL (3.2-4.5); POTASSIUM 4.3 MMOL/L (3.6-5.0)
[2021-08-07 05:43] LABS: CALCIUM 8.5 MG/DL (8.5-10.1)
[2021-08-07 05:44] LABS: TOTAL PROTEIN 7.2 GM/DL (6.4-8.2)
[2021-08-07 05:46] LABS: BILIRUBIN,TOTAL 1.8 MG/DL (0.1-1.0)
[2021-08-07] MEDS: inSUlin ASPART (NovoLOG) 1 UNIT/0.01 ML (CHARGE PER UNIT) SC SCH ×7 (05:46→21:00)
[2021-08-07] MEDS: ENOXAPARIN 300 MG/3 ML (LOVENOX) MULTI-DOSE VIAL SQ SCH ×2 (05:52→18:30)
--- NOTE | 2021-08-07 06:17 | Progress Note - Hospitalist ---
Subjective HPI/CC On Admission Date Seen by Provider: Aug 07, 2021 Time Seen by Provider: 11:00 Chief complaint: Respiratory failure History of present illness: This is a 56-year-old white male known to [facility] for frequent ER visits who has been very noncompliant with all medical management who presents to ICU 7 in respiratory failure BiPAP dependent. He was found to have delirium and very complicated medical issues requiring BiPAP and insulin drip with aggressive IV fluids to resolve elevated lactic acid from s epsis. Creatinine was 1.80 is 1.4 for now. D-dimer was elevated at 7.64 and Lovenox initiated therapeutic dose twice daily due to unable to perform angiogram to rule out PE due to kidney function. Currently patient is sleeping. Microbiology notified me that 4/4 bottles of blood cultures were positive for MRSA. Vancomycin. ABG 7.3 . Subjective/Events-last exam Patient about the same Metabolic acidosis noted Lactic acid 3.2 will start fluids again Daptomycin tolerated Labs reviewed Liver enzymes elevated Ammonia 33 Very complicated at baseline and Covid became more complicated Review of Systems General: Fatigue, Malaise Focused Exam Lactate Level 08/05/21 16:45: Lactic Acid Level 1.41 08/07/21 12:44: Lactic Acid Level 2.21*H Lactic Acid Level Laboratory Tests Test 08/07/21 12:44 Lactic Acid Level 2.21 MMOL/L (0.50-2.00) *H Objective Exam Vital Signs Vital Signs Date Time Temp Pulse Resp B/P (MAP) Pulse Ox O2 Delivery O2 Flow Rate FiO2 08/07/21 15:59 35.0 08/07/21 13:00 64 08/07/21 13:00 118/83 (95) 98 Nasal Cannula 2.00 08/07/21 12:00 31 08/01/21 20:00 25 Capillary Refill : General Appearance: No Apparent Distress, WD/WN, Chronically ill Respiratory: Lungs Clear, Normal Breath Sounds Cardiovascular: Regular Rate, Rhythm Neurologic/Psychiatric: Depressed Affect, Other (Lethargic) Results/Procedures Lab Laboratory Tests 08/07/21 04:55 Patient resulted labs reviewed. Assessment/Plan Assessment and Plan Assess & Plan/Chief Complaint Assessment: Respiratory failure status post BiPAP now on nasal cannula and room air Hypovolemia from dehydration due to not eating or drinking requiring ICU transfer again on 08/05/2021 COVID-19 pneumonia Sepsis Hyperosmolar hyperglycemic nonketotic state status post insulin drip Hyponatremia of 115 now much improved Acute kidney injury MRSA bacteremia change from vancomycin to daptomycin due to breakthrough with positive repeat cultures Hyperkalemia Elevated D-dimer unable to rule out PE so placed on Lovenox therapeutic dose Noncompliance Plan: Vancomycin Rocephin eICU management BiPAP Insulin drip Lovenox Aggressive IV fluid of D5NS 08/02/2021: Transfer to stepdown Hep-Lock IV fluid Vancomycin for bacteremia Appreciate cardiology Aggressive insulin regimen Add hemoglobin A1c 08/03/2021: Increase insulin Supportive care IV antibiotics PT and OT Isolation Decadron 08/04/2021: Supportive care Needs long term Apathy noted may ultimately become hospice candidate 08/05/2021: Transfer to ICU Aggressive IV fluid IV antibiotics High risk for intubation Severe apathy noted Updated 08/06/2021: Daptomycin Supportive care 08/07/2021: Severe apathy and lethargy precludes anything but a poor prognosis Severe noncompliance as an outpatient Critical Care Critically Ill Patient Diagnosis/Problems Diagnosis/Problems (1) Pneumonia due to COVID-19 virus Status: Acute (2) Lower respiratory tract infection due to COVID-19 virus Status: Acute (3) Acute kidney injury Status: Acute (4) Sepsis Status: Acute Qualifiers: Sepsis type: sepsis due to unspecified organism Sepsis acute organ dysfunction status: with acute organ dysfunction Severe sepsis acute organ dysfunction type: acute respiratory failure Acute respiratory failure type: with hypoxia Severe sepsis shock status: without septic shock Qualified Codes: A41.9 - Sepsis, unspecified organism; R65.20 - Severe sepsis without septic shock; J96.01 - Acute respiratory failure with hypoxia (5) Hypoxia Status: Acute (6) Hyponatremia Status: Acute (7) Hyperglycemia Status: Acute (8) Dehydration Status: Acute (9) 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
[2021-08-07] MEDS: ASPIRIN E.C. 81 MG (ECOTRIN) TAB PO SCH ×2 (09:22→09:38)
[2021-08-07] MEDS: ROSUVASTATIN 20 MG (CRESTOR) TABLET PO SCH ×2 (09:22→09:38)
[2021-08-07] MEDS: SENNA W/DOCUSATE (SENOKOT S) TABLET PO SCH ×2 (09:22→21:56)
[2021-08-07] MEDS: PANTOPRAZOLE 40 MG (PROTONIX) TAB PO SCH ×2 (09:26→09:38)
[2021-08-07] MEDS: ROPINIROLE HCL 5 MG PO SCH ×2 (09:27→09:53)
--- NOTE | 2021-08-07 10:04 | Cardiology Progress Note ---
Progress Note-Cardiology Events since last exam Date Seen by Provider: Aug 07, 2021 Time Seen by Provider: 09:58 Events since last exam I am following him due to atrial fibrillation. He remains in the intensive care unit but he is on room air. He seems to be remaining in atrial fibrillation. He remains on isolation due to Covid infection which his nurse states started 07/25. His mental status has been his most concerning issue. His nurse told me it took her quite a while to wake him up from sleep this morning. His nurse does not report that he has any cardiac complaints. I did not see the patient d ue to his Covid status. Certain portions of this document may have been dictated utilizing voice re cognition technology. Inherent to this technology, typographical and grammatical errors may exist. As much as I am diligent to identify and correct these mistakes, some errors may remain in the document. Vitals Last set of Vitals Signs Vital Signs 08/01/21 08/06/21 08/07/21 08/07/21 08/07/21 08/07/21 20:00 08:30 06:00 07:00 07:45 09:46 Temp 34.9 Pulse 82 Resp 27 B/P (MAP) 107/69 (82) Pulse Ox 96 O2 Delivery Room Air O2 Flow Rate 2.00 FiO2 25 Labs Labs Laboratory Tests 08/07/21 04:55 Exam Vital Signs Vital Signs Date Time Temp Pulse Resp B/P (MAP) Pulse Ox O2 Delivery O2 Flow Rate FiO2 08/07/21 09:46 96 Room Air 08/07/21 07:45 34.9 08/07/21 07:00 82 08/07/21 06:00 27 107/69 (82) 08/06/21 08:30 2.00 08/01/21 20:00 25 Physical Exam I did not examine the patient due to his Covid status. Labs Laboratory Tests Test 08/06/21 10:22 08/06/21 15:42 08/06/21 20:41 08/07/21 04:55 Range/Units Glucometer 258 H 248 H 265 H 70-110 MG/DL White Blood Count 46.6 *H 4.3-11.0 10^3/uL Red Blood Count 4.46 4.30-5.52 10^6/uL Hemoglobin 12.8 L 13.3-17.7 g/dL Hematocrit 37 L 40-54 % Mean Corpuscular Volume 83 80-99 fL Mean Corpuscular Hemoglobin 29 25-34 pg Mean Corpuscular Hemoglobin Concent 34 32-36 g/dL Red Cell Distribution Width 14.0 10.0-14.5 % Platelet Count 357 130-400 10^3/uL Mean Platelet Volume 11.0 9.0-12.2 fL Immature Granulocyte % (Auto) 10 % Neutrophils (%) (Auto) 81 H 42-75 % Lymphocytes (%) (Auto) 5 L 12-44 % Monocytes (%) (Auto) 4 0-12 % Eosinophils (%) (Auto) 0 0-10 % Basophils (%) (Auto) 0 0-10 % Neutrophils # (Auto) 37.7 H 1.8-7.8 10^3/uL Lymphocytes # (Auto) 2.1 1.0-4.0 10^3/uL Monocytes # (Auto) 1.8 H 0.0-1.0 10^3/uL Eosinophils # (Auto) 0.0 0.0-0.3 10^3/uL Basophils # (Auto) 0.1 0.0-0.1 10^3/uL Immature Granulocyte # (Auto) 4.8 H 0.0-0.1 10^3/uL Sodium Level 129 L 135-145 MMOL/L Potassium Level 4.3 3.6-5.0 MMOL/L Chloride Level 104 98-107 MMOL/L Carbon Dioxide Level 12 L 21-32 MMOL/L Anion Gap 13 5-14 MMOL/L Blood Urea Nitrogen 68 H 7-18 MG/DL Creatinine 1.00 0.60-1.30 MG/DL Estimat Glomerular Filtration Rate 77 BUN/Creatinine Ratio 68 Glucose Level 168 H 70-105 MG/DL Calcium Level 8.5 8.5-10.1 MG/DL Corrected Calcium 9.9 8.5-10.1 MG/DL Total Bilirubin 1.8 H 0.1-1.0 MG/DL Aspartate Amino Transf (AST/SGOT) 293 H 5-34 U/L Alanine Aminotransferase (ALT/SGPT) 221 H 0-55 U/L Alkaline Phosphatase 539 H 40-136 U/L Total Protein 7.2 6.4-8.2 GM/DL Albumin 2.3 L 3.2-4.5 GM/DL Diagnosis/Problems Diagnosis/Problems (1) Paroxysmal atrial fibrillation Assessment & Plan: This is a new finding in this patient. I placed him on intravenous diltiazem and his heart rate is now improved. Since he remains in atrial fibrillation, I will start him on oral amiodarone. This will be temporary. He has been on therapeutic dose of enoxaparin for issue unrelated to the atrial fibrillation. I suspect the atrial fibrillation was brought on by his acute, noncardiac illnesses including the Staphylococcus bacteremia on top of Covid. I will transition the diltiazem infusion over to oral diltiazem today. If he gets closer to discharge and remains in atrial fibrillation, I may consider cardioversion prior to discharge. At this point, I have not decided whether or not he will need to go home on oral anticoagulation for the atrial fibrillation. (2) Staphylococcus aureus bacteremia Assessment & Plan: There were no obvious valvular vegetations and no significant valvular regurgitation noted on his transthoracic echocardiogram. The bacteremia may be due to another source. He is being treated with antibiotics for the bacteremia. Given his Covid status, we have been reluctant to perform transesophageal echocardiogram due to the risk this would pose to the staff. At this point in time, there do not appear to be any acute, active cardiac issues. As such, cardiology will sign off. Please call if you have any other questions or concerns. Once he recovers from Covid, if there is still a question about possible endocarditis, we could arrange for a transesophageal echocardiogram as an outpatient after discharge. (3) Sinus tachycardia Assessment & Plan: Most likely related to his Covid infection on top of Staphylococcus bacteremia. However, he now has atrial fibrillation. (4) Mixed hyperlipidemia Assessment & Plan: Continue statin medication. (5) Type 2 diabetes mellitus with complication Assessment & Plan: This is being managed the hospital team. TAMIE HERMAN JR, MD Aug 07, 2021 10:04
--- NOTE | 2021-08-07 11:45 | Tele-ICU Progress Note ---
Subjective Date Seen by a Provider: Aug 07, 2021 Time Seen by a Provider: 11:45 Sepsis Event Evaluation Height, Weight, BMI Height: 6'0.00" Weight: 269lbs. 5.0oz. 122.959312ch; 34.47 BMI Method:Stated Focused Exam Lactate Level 08/05/21 16:45: Lactic Acid Level 1.41 Exam Exam Patient acknowledged, consented, and participated in this virtual visit which was conducted using real time audio/video Vital Signs Date Time Temp Pulse Resp B/P (MAP) Pulse Ox O2 Delivery O2 Flow Rate FiO2 08/07/21 11:00 80 29 104/55 (71) 97 Room Air 08/07/21 10:00 89 37 107/53 (71) 98 Room Air 08/07/21 09:46 96 Room Air 08/07/21 09:00 38 100 Room Air 08/07/21 08:00 82 26 102/75 (84) 99 Room Air 08/07/21 07:45 34.9 08/07/21 07:00 81 37 107/63 (78) 98 Room Air 08/07/21 07:00 82 08/07/21 06:00 82 27 107/69 (82) 100 Room Air 08/07/21 05:00 77 26 99/42 (61) 100 Room Air 08/07/21 04:00 35.4 08/07/21 04:00 94 Room Air 08/07/21 04:00 82 20 127/70 (89) 98 Room Air 08/07/21 03:00 80 23 117/80 (92) 100 Room Air 08/07/21 02:00 93 27 112/75 (87) 99 Room Air 08/07/21 01:00 80 08/07/21 01:00 80 29 129/51 (77) 99 Room Air 08/07/21 00:00 35.9 Room Air 08/07/21 00:00 82 28 121/36 (64) 100 Room Air 08/07/21 00:00 94 Room Air 08/06/21 23:00 80 30 110/48 (68) 98 Room Air 08/06/21 22:00 84 32 121/64 (83) 98 Room Air 08/06/21 21:00 86 30 97/68 (78) 99 Room Air 08/06/21 20:00 96 Room Air 08/06/21 20:00 84 28 116/90 (99) 96 Room Air 08/06/21 20:00 96 Room Air 08/06/21 19:31 36.1 08/06/21 19:00 78 08/06/21 19:00 78 22 104/70 (81) 99 Room Air 08/06/21 18:36 99 Room Air 08/06/21 18:00 79 32 113/59 (77) 96 Room Air 08/06/21 17:00 81 36 119/82 (94) 97 Room Air 08/06/21 16:25 98 Room Air 08/06/21 16:20 35.7 08/06/21 16:00 82 30 108/32 (57) 97 Room Air 08/06/21 15:00 86 26 117/84 (95) 99 Room Air 08/06/21 14:00 80 26 112/75 (87) 95 Room Air 08/06/21 13:00 92 08/06/21 13:00 82 20 124/67 (86) 97 Room Air 08/06/21 12:00 97 Room Air 08/06/21 12:00 85 20 124/69 (87) 94 Room Air I & O 08/07/21 07:00 Intake Total 2560 ml Output Total 2450 ml Balance 110 ml Height & Weight Height: 6'0.00" Weight: 269lbs. 5.0oz. 122.944311dz; 34.47 BMI Method:Stated General Appearance: No Apparent Distress, WD/WN, Chronically ill HEENT: PERRL/EOMI, Normal ENT Inspection, Pharynx Normal, Moist Mucous Membranes Neck: Full Range of Motion, Normal Inspection, Non Tender Respiratory: Lungs Clear, Normal Breath Sounds, Decreased Breath Sounds Cardiovascular: Regular Rate, Rhythm Extremity: Normal Capillary Refill, Normal Inspection, Normal Range of Motion, No Calf Tenderness, No Pedal Edema Neurologic/Psychiatric: Alert, Depressed Affect Skin: Normal Color, Warm/Dry Lymphatic: No Adenopathy Results Lab Laboratory Tests 08/05/21 16:45 08/06/21 04:50 08/07/21 04:55 Assessment/Plan Assessment/Plan (Tele-ICU Physician , Progress Note ) Available chart/ vitals / labs / Images reviewed Video assessment done using teleICU camera, rest of exam as per RN Discussed with RN , EXAM PER RN Events overnight : Afebrile FiO2 - ra I/O = + Drips: Pressors: , hemodynamically stable Consultants: Hospital course: 07/31 - to ICU from ER with COVID , hyperglycemia, o2 - FM 5L 08/01 - BIPAP 08/02 - on ra , off insulin gtt 08/06 - afib RVR , cardizem gtt 08/07 RA , cardisem PO , lethargic A/P AHRF due to COVID19 - on RA -prone position if able - conservative fluid strategy (aim for even fluid balance STAPH AUREUAS bacteremis - SOURSE ? - as per cards - no obvious valvular vegetations and no significant valvular regurgitation noted on his transthoracic echocardiogram- ( do nor see ECHO ressults in EMR - follow repeated cx = on DAPTO / cefepime ISOF-[id number]-9/COVID-19 PNA ( Symptom onset ~07/23 DX unvaccinted --Dexamethasone - consider take off isolation id no more resp symptoms - on lovenox 120 bid Suspected superimposed bact PNA / infection -empiric abx [id number] TED - improved , follow Diabetes Mellitus with severe hyperglycemia - OFF insulin gtt - ISS , close f/up on steroids - starting levemir Hyponatremia ( adjusted to BS NA =126 - now is adjusted 131 - stop d51 - follow Confusion - improving , speech almost clear as per RN - aax3 , but as per RN - " something is wrong " - will need family assessment Plans in collaboration with bedside consultants and IM MDs. Discussed with RN to reach out if any questions or concerns A total of 40 minutes of critical care time was devoted to this patient today, required to treat and/or prevent further deterioration of critical care condition ( as above) . ONIEL SOTO MD Aug 07, 2021 11:45
[2021-08-07 12:07] LABS: ABG BASE EXCESS -8.6 MMOL/L (-2.5-2.5); ABG OXYGEN SATURATION 93 % (94-100); ABG PCO2 20 MMHG (35-45); ABG PH 7.47 (7.37-7.43); ABG PO2 60 MMHG (79-93); ABG TCO2 15.4 MMOL/L (21.0-31.0)
[2021-08-07 12:09] LABS: ALLENS TEST YES-POS
[2021-08-07 12:10] LABS: INSPIRED O2 25%; PATIENT TEMP 35.1; VENTILATOR NO
[2021-08-07] MEDS ORDERED: NS IV 1000 ML 1,000 ML ONE (13:38)
[2021-08-07] MEDS: NS IV 1000 ML 1,000 ML IV SCH ×2 (13:50→23:59)
[2021-08-07] MEDS: dilTIAZem120 MG (CARDIZEM CD) CAP PO SCH ×2 (13:51→14:03)
[2021-08-07] MEDS: AMIODARONE 200 MG (CORDARONE) TAB PO SCH ×3 (13:51→21:52)
[2021-08-07] MEDS: DAPTOmycin 500 MG/NS 50 ML IVPB IV SCH ×2 (15:09)
--- NOTE | 2021-08-07 18:30 | Diagnostic Imaging Report ---
EXAMINATION: CT abdomen and pelvis without contrast. TECHNIQUE: Multiple contiguous axial images were obtained through the abdomen and pelvis without the use of intravenous contrast. All CT scans use one or more of the following dose optimizing techniques: automated exposure control, MA and/or KvP adjustment based on patient size and exam type or iterative reconstruction. HISTORY: Elevated lactic acid, bacteremia. COMPARISON: None available. FINDINGS: Lung bases: Patchy groundglass consolidation in the lung bases. There are bilateral pleural effusions. Solid organs: The liver is normal. The gallbladder is normal. There is no biliary ductal dilation. Pancreas is normal. Spleen is normal. Adrenal glands are normal. The kidneys are normal without visualized calculus or hydronephrosis. Bowel: The stomach and small bowel are normal without obstruction. The colon and appendix are normal. Peritoneum: There is no intraperitoneal free fluid or free air. No suspicious lymphadenopathy. Vasculature: Calcification of the aorta without aneurysm. Musculoskeletal: Surgical degenerative changes of the spine without suspicious osseous lesion or compression fracture. Pelvis: The uterus is surgically absent. No adnexal mass. A Mina catheter is present within the urinary bladder which is decompressed. IMPRESSION: 1. No acute abnormality in the abdomen or pelvis. 2. Groundglass opacities and consolidation as well as bilateral pleural effusions in the lung bases concerning for multifocal pneumonia. Dictated by: Dictated on workstation # [id number]
--- NOTE | 2021-08-07 18:39 | Diagnostic Imaging Report ---
EXAMINATION: CT head without contrast. TECHNIQUE: Multiple contiguous axial images were obtained through the brain without the use of intravenous contrast. All CT scans use one or more of the following dose optimizing techniques: automated exposure control, MA and/or KvP adjustment based on patient size and exam type or iterative reconstruction. HISTORY: Altered mental status. COMPARISON: None available. FINDINGS: The ventricles and sulci are normal. No abnormal attenuation of brain parenchyma is present. There are two foci of intraparenchymal hemorrhage within the left cerebellum which measures up to 2.6 x 2.1 cm. There is surrounding vasogenic edema. Mild mass effect seen within the cerebellum. Calcification of the intracranial ICAs. No hyperdense vessel. The calvarium is intact. The mastoid air cells are clear. The visualized paranasal sinuses are clear. The orbits are normal. IMPRESSION: A 2.6 x 2.1 cm intraparenchymal hemorrhage within the left cerebellum. Critical finding. Report was given to Dr. Josefa Bravo at 6:32 p.m., by hans. Dictated by: Dictated on workstation # [id number]
--- NOTE | 2021-08-07 18:56 | Progress Note ---
Progress Note Due to continued AMS I ordered CT brain and was called by Radiology which noted hemorrhagic area left cerebellum. Spoke to [facility] Stroke Neurologist Dr Crooks and he recommended repeat imaging in 6 hours which I ordered and to stop the Lovenox and if progresses he will need transferred where NSG is. [facility] is on diversion currently. SANTI SALEH DO Aug 07, 2021 18:56
[2021-08-07] MEDS ORDERED: MEROPENEM 500 MG in NS (IVPB) 100 ML IV SCH (19:00)
--- NOTE | 2021-08-07 21:57 | Diagnostic Imaging Report ---
PROCEDURE: CT head without contrast. TECHNIQUE: Multiple contiguous axial images were obtained through the brain without the use of intravenous contrast. Auto Exposure Controls were utilized during the CT exam to meet ALARA standards for radiation dose reduction. DATE: August 07, 2021. COMPARISON: CT head August 07, 2021 at 1810 hours. INDICATION: 56-year-old male, follow-up acute intracranial hemorrhage. FINDINGS: There is an area of acute hemorrhage involving the left cerebellum with adjacent edema. The foci of high attenuation blood product are unchanged in size since earlier the same day exam. The degree of adjacent edema and mass effect is also largely similar. There is no hydrocephalus. There is effacement of the basilar cisterns and fourth ventricle relating to the above-mentioned mass effect. This is also present on the comparison study. There is no new site of acute intracranial hemorrhage. There are air-fluid levels in the bilateral sphenoid sinuses. IMPRESSION: Redemonstrated foci of acute intracranial hemorrhage in the left cerebellum with associated edema and prominent mass effect including effacement of the basilar cisterns and fourth ventricle. No current hydrocephalus. These findings are essentially unchanged since August 07, 2021 at 1810 hours. Report was faxed and called to patient's nurse, Dana, on the [facility], [place], [facility] at 9:50 p.m., by hans. Dictated by: Dictated on workstation # [id number]
[2021-08-08] VITALS (25 sets, daily range): BP systolic 82–135; BP diastolic 52–89
[2021-08-08] MEDS: CEFEPIME INJECTION 1,000 MG in NS (IVPB) 50 ML IV SCH (04:38)
[2021-08-08 05:26] LABS: BASOPHILS % (AUTO) 0 % (0-10); EOSINOPHILS % (AUTO) 0 % (0-10); HEMATOCRIT 37 % (40-54); LYMPHOCYTES # (AUTO) 2.3 10^3/uL (1.0-4.0); LYMPHOCYTES % (AUTO) 5 % (12-44); MEAN CORPUSCULAR HEMOGLOBIN 29 pg (25-34); MEAN CORPUSCULAR HGB CONC 35 g/dL (32-36); MEAN CORPUSCULAR VOLUME 84 fL (80-99); MEAN PLATELET VOLUME 10.8 fL (9.0-12.2); MONOCYTES # (AUTO) 1.9 10^3/uL (0.0-1.0); MONOCYTES % (AUTO) 4 % (0-12); NEUTROPHILS # (AUTO) 39.8 10^3/uL (1.8-7.8); NEUTROPHILS % (AUTO) 83 % (42-75); PLATELET COUNT 308 10^3/uL (130-400)
[2021-08-08 05:35] LABS: WHITE BLOOD COUNT 47.8 10^3/uL (4.3-11.0)
[2021-08-08 05:47] LABS: ALBUMIN 2.2 GM/DL (3.2-4.5)
[2021-08-08 05:48] LABS: POTASSIUM 4.5 MMOL/L (3.6-5.0)
[2021-08-08 05:49] LABS: CALCIUM 8.3 MG/DL (8.5-10.1)
[2021-08-08 05:52] LABS: BILIRUBIN,TOTAL 1.3 MG/DL (0.1-1.0)
[2021-08-08 05:54] LABS: CREATININE SERUM 0.9 MG/DL (0.60-1.30)
--- NOTE | 2021-08-08 06:08 | Progress Note - Hospitalist ---
Subjective HPI/CC On Admission Date Seen by Provider: Aug 08, 2021 Time Seen by Provider: 10:00 Chief complaint: Respiratory failure History of present illness: This is a 56-year-old white male known to [facility] for frequent ER visits who has been very noncompliant with all medical management who presents to ICU 7 in respiratory failure BiPAP dependent. He was found to have delirium and very complicated medical issues requiring BiPAP and insulin drip with aggressive IV fluids to resolve elevated lactic acid from s epsis. Creatinine was 1.80 is 1.4 for now. D-dimer was elevated at 7.64 and Lovenox initiated therapeutic dose twice daily due to unable to perform angiogram to rule out PE due to kidney function. Currently patient is sleeping. Microbiology notified me that 4/4 bottles of blood cultures were positive for MRSA. Vancomycin. ABG 7.3 . Subjective/Events-last exam Patient the same Hemorrhagic stroke diagnosed yesterday but I spoke with stroke neurologist and CT scan repeated showed no progression so we will hold aspirin and Lovenox and ultimately may need neurosurgery All blood cultures are MRSA I suspect endocarditis ELI cannot be done at this facility so we will pursue transfer of care to higher level request neurosurgery, financial systems director with ELI capabilities, infectious disease due to MRSA bacteremia failing vancomycin and daptomycin and needs an ICU bed due to Covid related critical illness. Review of Systems General: Fatigue, Malaise Neurological: Confusion Focused Exam Lactate Level 08/07/21 12:44: Lactic Acid Level 2.21*H 08/07/21 16:35: Lactic Acid Level 2.39*H 08/07/21 18:45: Lactic Acid Level 1.74 Objective Exam Vital Signs Vital Signs Date Time Temp Pulse Resp B/P (MAP) Pulse Ox O2 Delivery O2 Flow Rate FiO2 08/08/21 16:00 35.6 08/08/21 15:00 89 29 124/82 (96) 96 Room Air 08/07/21 19:00 Capillary Refill : General Appearance: No Apparent Distress, WD/WN, Chronically ill, Obese Respiratory: Lungs Clear, Normal Breath Sounds Cardiovascular: Regular Rate, Rhythm Neurologic/Psychiatric: Alert, Depressed Affect, Disoriented Results/Procedures Lab Laboratory Tests 08/08/21 04:35 Patient resulted labs reviewed. Assessment/Plan Assessment and Plan Assess & Plan/Chief Complaint Assessment: Respiratory failure status post BiPAP now on nasal cannula and room air Hypovolemia from dehydration due to not eating or drinking requiring ICU transfer again on 08/05/2021 COVID-19 pneumonia Sepsis Hyperosmolar hyperglycemic nonketotic state status post insulin drip Hyponatremia of 115 now much improved Acute kidney injury MRSA bacteremia change from vancomycin to daptomycin due to breakthrough with positive repeat cultures suspect endocarditis needs ELI Hyperkalemia Elevated D-dimer unable to rule out PE so placed on Lovenox therapeutic dose Noncompliance as outpatient Hemorrhagic CVA diagnosed 08/07/2021 holding Lovenox and aspirin Plan: Vancomycin Rocephin eICU management BiPAP Insulin drip Lovenox Aggressive IV fluid of D5NS 08/02/2021: Transfer to stepdown Hep-Lock IV fluid Vancomycin for bacteremia Appreciate cardiology Aggressive insulin regimen Add hemoglobin A1c 08/03/2021: Increase insulin Supportive care IV antibiotics PT and OT Isolation Decadron 08/04/2021: Supportive care Needs prison Apathy noted may ultimately become hospice candidate 08/05/2021: Transfer to ICU Aggressive IV fluid IV antibiotics High risk for intubation Severe apathy noted Updated 08/06/2021: Daptomycin Supportive care 08/07/2021: Severe apathy and lethargy precludes anything but a poor prognosis Severe noncompliance as an outpatient 08/08/2021: Pursue higher level of care with patient control due to needing ELI due to suspected endocarditis with infectious disease since failing daptomycin and vancomycin in edition needing ICU bed for Covid related issues with neurosurgery capabilities for hemorrhagic CVA Critical Care Critically Ill Patient Diagnosis/Problems Diagnosis/Problems (1) Pneumonia due to COVID-19 virus Status: Acute (2) Lower respiratory tract infection due to COVID-19 virus Status: Acute (3) Acute kidney injury Status: Acute (4) Sepsis Status: Acute Qualifiers: Sepsis type: sepsis due to unspecified organism Sepsis acute organ dysfunction status: with acute organ dysfunction Severe sepsis acute organ dysfunction type: acute respiratory failure Acute respiratory failure type: with hypoxia Severe sepsis shock status: without septic shock Qualified Codes: A41.9 - Sepsis, unspecified organism; R65.20 - Severe sepsis without septic shock; J96.01 - Acute respiratory failure with hypoxia (5) Hypoxia Status: Acute (6) Hyponatremia Status: Acute (7) Hyperglycemia Status: Acute (8) Dehydration Status: Acute (9) 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
[2021-08-08] MEDS: inSUlin ASPART (NovoLOG) 1 UNIT/0.01 ML (CHARGE PER UNIT) SC SCH ×7 (06:20→20:28)
[2021-08-08] MEDS: MEROPENEM 500 MG in NS (IVPB) 100 ML IV SCH ×3 (09:55→20:28)
[2021-08-08] MEDS: SENNA W/DOCUSATE (SENOKOT S) TABLET PO SCH ×2 (09:56→20:29)
[2021-08-08] MEDS: rOPINIRole 5 MG TAB (REQUIP) PO SCH (09:56)
[2021-08-08] MEDS: PANTOPRAZOLE 40 MG (PROTONIX) TAB PO SCH (09:56)
[2021-08-08] MEDS: AMIODARONE 200 MG (CORDARONE) TAB PO SCH ×2 (09:56→20:29)
[2021-08-08] MEDS: dilTIAZem120 MG (CARDIZEM CD) CAP PO SCH (09:56)
[2021-08-08] MEDS: ROSUVASTATIN 20 MG (CRESTOR) TABLET PO SCH (09:56)
[2021-08-08] MEDS: ASPIRIN E.C. 81 MG (ECOTRIN) TAB PO SCH (09:56)
--- NOTE | 2021-08-08 10:22 | Cardiology Progress Note ---
Progress Note-Cardiology Events since last exam Date Seen by Provider: Aug 08, 2021 Time Seen by Provider: 10:16 Events since last exam I am following him due to atrial fibrillation. He remains in the intensive care unit. I did not see the patient due to his Covid status. His heart rates have improved and he is now on oral diltiazem but he remains in atrial fibrillation. I am loading him with oral amiodarone. Certain portions of this document may have been dictated utilizing voice recognition technology. Inherent to this technology, typographical and grammatical errors may exist. As much as I am diligent to identify and correct these mistakes, some errors may remain in the document. Vitals Last set of Vitals Signs Vital Signs 08/07/21 08/08/21 08/08/21 18:00 07:45 08:00 Temp 35.8 Pulse 82 Resp 24 B/P (MAP) 108/69 (82) Pulse Ox 99 O2 Delivery Room Air O2 Flow Rate 2.00 Labs Labs Laboratory Tests 08/08/21 04:35 Exam Vital Signs Vital Signs Date Time Temp Pulse Resp B/P (MAP) Pulse Ox O2 Delivery O2 Flow Rate FiO2 08/08/21 08:00 82 24 108/69 (82) 99 Room Air 08/08/21 07:45 35.8 08/07/21 19:00 Physical Exam I did not examine the patient due to his Covid status. Labs Laboratory Tests Test 08/07/21 10:48 08/07/21 11:38 08/07/21 12:44 08/07/21 15:49 Range/Units Glucometer 159 H 99 70-110 MG/DL Blood Gas Puncture Site RT RAD Blood Gas Patient Temperature 35.1 Arterial Blood pH 7.47 H 7.37-7.43 Arterial Blood Partial Pressure CO2 20 L 35-45 MMHG Arterial Blood Partial Pressure O2 60 L 79-93 MMHG Arterial Blood HCO3 15 *L 23-27 MMOL/L Arterial Blood Total CO2 15.4 L 21.0-31.0 MMOL/L Arterial Blood Oxygen Saturation 93 L 94-100 % Arterial Blood Base Excess -8.6 L -2.5-2.5 MMOL/L Dima Test YES-POS Blood Gas Ventilator Setting NO Blood Gas Inspired Oxygen 25% Lactic Acid Level 2.21 *H 0.50-2.00 MMOL/L Ammonia 33 H 11-32 UMOL/L Procalcitonin 3.66 H <0.10 NG/ML Test 08/07/21 16:35 08/07/21 18:45 08/07/21 20:42 08/08/21 04:35 Range/Units Lactic Acid Level 2.39 *H 1.74 0.50-2.00 MMOL/L Glucometer 94 70-110 MG/DL White Blood Count 47.8 *H 4.3-11.0 10^3/uL Red Blood Count 4.46 4.30-5.52 10^6/uL Hemoglobin 13.0 L 13.3-17.7 g/dL Hematocrit 37 L 40-54 % Mean Corpuscular Volume 84 80-99 fL Mean Corpuscular Hemoglobin 29 25-34 pg Mean Corpuscular Hemoglobin Concent 35 32-36 g/dL Red Cell Distribution Width 14.3 10.0-14.5 % Platelet Count 308 130-400 10^3/uL Mean Platelet Volume 10.8 9.0-12.2 fL Immature Granulocyte % (Auto) 8 % Neutrophils (%) (Auto) 83 H 42-75 % Lymphocytes (%) (Auto) 5 L 12-44 % Monocytes (%) (Auto) 4 0-12 % Eosinophils (%) (Auto) 0 0-10 % Basophils (%) (Auto) 0 0-10 % Neutrophils # (Auto) 39.8 H 1.8-7.8 10^3/uL Lymphocytes # (Auto) 2.3 1.0-4.0 10^3/uL Monocytes # (Auto) 1.9 H 0.0-1.0 10^3/uL Eosinophils # (Auto) 0.0 0.0-0.3 10^3/uL Basophils # (Auto) 0.0 0.0-0.1 10^3/uL Immature Granulocyte # (Auto) 3.8 H 0.0-0.1 10^3/uL Sodium Level 132 L 135-145 MMOL/L Potassium Level 4.5 3.6-5.0 MMOL/L Chloride Level 107 98-107 MMOL/L Carbon Dioxide Level 13 L 21-32 MMOL/L Anion Gap 12 5-14 MMOL/L Blood Urea Nitrogen 67 H 7-18 MG/DL Creatinine 0.90 0.60-1.30 MG/DL Estimat Glomerular Filtration Rate 87 BUN/Creatinine Ratio 74 Glucose Level 103 70-105 MG/DL Calcium Level 8.3 L 8.5-10.1 MG/DL Corrected Calcium 9.7 8.5-10.1 MG/DL Total Bilirubin 1.3 H 0.1-1.0 MG/DL Aspartate Amino Transf (AST/SGOT) 189 H 5-34 U/L Alanine Aminotransferase (ALT/SGPT) 197 H 0-55 U/L Alkaline Phosphatase 464 H 40-136 U/L Total Protein 7.0 6.4-8.2 GM/DL Albumin 2.2 L 3.2-4.5 GM/DL Diagnosis/Problems Diagnosis/Problems (1) Paroxysmal atrial fibrillation Assessment & Plan: This is a new finding in this patient. I suspect this was related to the Covid infection. He is on oral diltiazem for rate control and now amiodarone for rhythm management. Since the atrial fibrillation has now been going on for at least 48 hours, I will start him on oral anticoagulation. He had been on therapeutic dosing of enoxaparin which is now discontinued. Since there is no urgency for cardioversion given that his heart rates are reasonably controlled, I will hold off on performing this procedure. (2) Staphylococcus aureus bacteremia Assessment & Plan: There were no obvious valvular vegetations and no significant valvular regurgitation noted on his transthoracic echocardiogram. The bacteremia may be due to another source. He is being treated with antibiotics for the bacteremia. Given his Covid status, we have been reluctant to perform a transesophageal echocardiogram due to the risk this would pose to the staff. (3) Mixed hyperlipidemia Assessment & Plan: Continue statin medication. (4) Type 2 diabetes mellitus with complication Assessment & Plan: This is being managed the hospital team. TAMIE HERMAN JR, MD Aug 08, 2021 10:21
[2021-08-08] MEDS ORDERED: APIXABAN 5 MG (ELIQUIS) TABLET PO NR (10:30)
[2021-08-08] MEDS: NS IV 1000 ML 1,000 ML IV SCH ×2 (11:02→22:12)
[2021-08-08] MEDS ORDERED: MANNITOL 25% 12.5 GM/50 ML VIAL IV ONE (11:45)
[2021-08-08] MEDS ORDERED: MANNITOL 20% IV ONE (12:15)
--- NOTE | 2021-08-08 12:19 | Tele-ICU Progress Note ---
Subjective Date Seen by a Provider: Aug 08, 2021 Time Seen by a Provider: 12:18 Sepsis Event Evaluation Height, Weight, BMI Height: 6'0.00" Weight: 269lbs. 5.0oz. 122.385572sz; 34.47 BMI Method:Stated Focused Exam Lactate Level 08/07/21 12:44: Lactic Acid Level 2.21*H 08/07/21 16:35: Lactic Acid Level 2.39*H 08/07/21 18:45: Lactic Acid Level 1.74 Exam Exam Patient acknowledged, consented, and participated in this virtual visit which was conducted using real time audio/video Vital Signs Date Time Temp Pulse Resp B/P (MAP) Pulse Ox O2 Delivery O2 Flow Rate FiO2 08/08/21 12:00 93 31 98/83 (88) 98 Room Air 08/08/21 11:00 89 31 115/78 (90) 100 Room Air 08/08/21 10:00 91 16 111/89 (96) 100 Room Air 08/08/21 09:00 85 32 102/64 (77) 99 Room Air 08/08/21 08:55 Room Air 08/08/21 08:00 82 24 108/69 (82) 99 Room Air 08/08/21 07:45 35.8 87 28 101/68 (79) 100 Room Air 08/08/21 07:00 82 30 100/62 (75) 99 Room Air 08/08/21 07:00 85 08/08/21 06:00 90 26 112/74 (87) 98 Room Air 08/08/21 05:00 81 29 102/52 (69) 97 Room Air 08/08/21 04:00 36.1 08/08/21 04:00 Room Air 08/08/21 04:00 85 28 113/75 (88) 95 Room Air 08/08/21 03:00 86 32 115/72 (86) 92 Room Air 08/08/21 02:00 85 29 113/70 (84) 97 Room Air 08/08/21 01:00 86 08/08/21 01:00 83 27 110/75 (87) 98 Room Air 08/08/21 00:00 83 30 114/73 (87) 98 Room Air 08/08/21 00:00 Room Air 08/08/21 00:00 35.7 Room Air 08/07/21 23:00 84 26 124/83 (97) 98 Room Air 08/07/21 22:21 35.0 08/07/21 22:00 84 28 126/80 (95) 97 Room Air 08/07/21 21:00 86 27 121/78 (92) 98 Room Air 08/07/21 20:00 86 28 119/79 (92) 97 Room Air 08/07/21 20:00 Room Air 08/07/21 20:00 Room Air 08/07/21 19:00 86 08/07/21 19:00 86 28 119/70 (86) 98 Room Air 08/07/21 18:00 24 113/87 (96) 97 Nasal Cannula 2.00 08/07/21 17:00 28 114/86 (95) 98 Nasal Cannula 2.00 08/07/21 16:00 86 31 127/80 (96) 95 Nasal Cannula 2.00 08/07/21 15:59 35.0 08/07/21 15:30 Room Air 08/07/21 15:00 82 30 145/81 (102) 100 Nasal Cannula 2.00 08/07/21 14:00 86 42 131/91 (104) 97 Nasal Cannula 2.00 08/07/21 13:00 64 08/07/21 13:00 84 118/83 (95) 98 Nasal Cannula 2.00 I & O 08/08/21 07:00 Intake Total 980 ml Output Total 1800 ml Balance -820 ml Height & Weight Height: 6'0.00" Weight: 269lbs. 5.0oz. 122.704234oz; 34.47 BMI Method:Stated General Appearance: No Apparent Distress, WD/WN, Chronically ill HEENT: PERRL/EOMI, Normal ENT Inspection, Pharynx Normal, Moist Mucous Membranes Neck: Full Range of Motion, Normal Inspection, Non Tender Respiratory: Lungs Clear, Normal Breath Sounds Cardiovascular: Regular Rate, Rhythm Extremity: Normal Capillary Refill, Normal Inspection, Normal Range of Motion, No Calf Tenderness, No Pedal Edema Neurologic/Psychiatric: Depressed Affect, Other (Lethargic) Skin: Normal Color, Warm/Dry Lymphatic: No Adenopathy Results Lab Laboratory Tests 08/07/21 04:55 08/08/21 04:35 Assessment/Plan Assessment/Plan (Tele-ICU Physician , Progress Note ) Available chart/ vitals / labs / Images reviewed Video assessment done using teleICU camera, rest of exam as per RN Discussed with RN , EXAM PER RN Events overnight : (08/07) CT head: redemonstrated foci of acute hemorrhage left cerebellum Afebrile FiO2 - ra I/O = + Drips: Pressors: , hemodynamically stable Consultants: Hospital course: 07/31 - to ICU from ER with COVID , hyperglycemia, o2 - FM 5L 08/01 - BIPAP 08/02 - on ra , off insulin gtt 08/06 - afib RVR , cardizem gtt 08/07 RA , cardisem PO , lethargic A/P (08/07) CT head: redemonstrated foci of acute hemorrhage left cerebellum - neurochecks q 1 h - keep SBP < 130 - stop IVF , one dose of mannitol , follow - off lovenox now - as per bedside - attempts to transfer to other centers with neur AHRF due to COVID19 - on RA -prone position if able - conservative fluid strategy (aim for even fluid balance STAPH AUREUAS bacteremis - SOURSE ? - as per cards - no obvious valvular vegetations and no significant valvular regurgitation noted on his transthoracic echocardiogram- ( do nor see ECHO ressults in EMR - follow repeated cx = on DAPTO / cefepime [id number]/[id number]-19 PNA ( Symptom onset ~07/23 DX unvaccinted --Dexamethasone - consider take off isolation id no more resp symptoms - on lovenox 120 bid A fib - as per cards - off lovenox Suspected superimposed bact PNA / infection -empiric abx [id number] TED - improved , follow Diabetes Mellitus with severe hyperglycemia - OFF insulin gtt - ISS , close f/up on steroids - starting levemir Hyponatremia ( adjusted to BS NA =126 - now is adjusted 131 - stop IVF - follow closely with hemorrahic styroke with edema Plans in collaboration with bedside consultants and IM MDs. Discussed with RN to reach out if any questions or concerns A total of 40 minutes of critical care time was devoted to this patient today, required to treat and/or prevent further deterioration of critical care condition ( as above) . ONIEL SOTO MD Aug 08, 2021 12:19
[2021-08-08] MEDS: DAPTOmycin 500 MG/NS 50 ML IVPB IV SCH ×2 (13:57)
[2021-08-08 17:22] LABS: INR 1.4 (0.8-1.4); POTASSIUM 5.1 MMOL/L (3.6-5.0); PROTHROMBIN TIME PATIENT 17.3 SEC (12.2-14.7)
[2021-08-08 17:24] LABS: CALCIUM 7.9 MG/DL (8.5-10.1)
[2021-08-08 17:28] LABS: CREATININE SERUM 1.13 MG/DL (0.60-1.30)
[2021-08-08] MEDS: HYDROcodone/APAP 5 MG/325 MG (LORTAB) TAB PO PRN (20:29)
[2021-08-08] MEDS ORDERED: APIXABAN 5 MG (ELIQUIS) TABLET PO SCH (21:00)
[2021-08-08 21:29] LABS: CALCIUM 7.7 MG/DL (8.5-10.1)
[2021-08-08 21:33] LABS: CREATININE SERUM 1.19 MG/DL (0.60-1.30)
[2021-08-09] VITALS (24 sets, daily range): BP systolic 116–152; BP diastolic 67–108
[2021-08-09] MEDS ORDERED: inSUlin ASPART (NovoLOG) 1 UNIT/0.01 ML (CHARGE PER UNIT) SC ONE (00:15)
[2021-08-09] MEDS: MEROPENEM 500 MG in NS (IVPB) 100 ML IV SCH ×4 (02:08→21:05)
[2021-08-09 04:47] LABS: BASOPHILS # (AUTO) 0.1 10^3/uL (0.0-0.1); BASOPHILS % (AUTO) 0 % (0-10); EOSINOPHILS % (AUTO) 0 % (0-10); HEMATOCRIT 37 % (40-54); HEMOGLOBIN 12.4 g/dL (13.3-17.7); LYMPHOCYTES # (AUTO) 1.6 10^3/uL (1.0-4.0); LYMPHOCYTES % (AUTO) 4 % (12-44); MEAN CORPUSCULAR HEMOGLOBIN 29 pg (25-34); MEAN CORPUSCULAR HGB CONC 34 g/dL (32-36); MEAN CORPUSCULAR VOLUME 85 fL (80-99); MEAN PLATELET VOLUME 10.6 fL (9.0-12.2); MONOCYTES # (AUTO) 1.3 10^3/uL (0.0-1.0); MONOCYTES % (AUTO) 4 % (0-12); NEUTROPHILS # (AUTO) 31.1 10^3/uL (1.8-7.8); NEUTROPHILS % (AUTO) 84 % (42-75); PLATELET COUNT 277 10^3/uL (130-400)
[2021-08-09 05:30] LABS: ALBUMIN 2.2 GM/DL (3.2-4.5)
[2021-08-09 05:32] LABS: CALCIUM 8.1 MG/DL (8.5-10.1)
[2021-08-09 05:35] LABS: BILIRUBIN,TOTAL 1.1 MG/DL (0.1-1.0)
[2021-08-09 05:36] LABS: CREATININE SERUM 1.22 MG/DL (0.60-1.30)
[2021-08-09] MEDS: inSUlin ASPART (NovoLOG) 1 UNIT/0.01 ML (CHARGE PER UNIT) SC SCH ×7 (05:55→21:05)
--- NOTE | 2021-08-09 07:02 | Progress Note - Hospitalist ---
Subjective HPI/CC On Admission Date Seen by Provider: Aug 09, 2021 Time Seen by Provider: 11:30 Chief complaint: Respiratory failure History of present illness: This is a 56-year-old white male known to [facility] for frequent ER visits who has been very noncompliant with all medical management who presents to ICU 7 in respiratory failure BiPAP dependent. He was found to have delirium and very complicated medical issues requiring BiPAP and insulin drip with aggressive IV fluids to resolve elevated lactic acid from sepsis. Creatinine was 1.80 is 1.4 for now. D-dimer was elevated at 7.64 and Lovenox initiated therapeutic dose twice daily due to unable to perform angiogram to rule out PE due to kidney function. Currently patient is sleeping. Microbiology notified me that 4/4 bottles of blood cultures were positive for MRSA. Vancomycin. ABG 7.3 . Subjective/Events-last exam Patient about the same Updated who is upset she cannot visit the patient and she told me " something better not happen to him and me not see him" but I told her that since he has COVID he cannot have any visitors due to infectious disease. MRSA in all blood cultures maintained on daptomycin Review of Systems General: Fatigue, Malaise Neurological: Confusion Focused Exam Lactate Level 08/07/21 12:44: Lactic Acid Level 2.21*H 08/07/21 16:35: Lactic Acid Level 2.39*H 08/07/21 18:45: Lactic Acid Level 1.74 Objective Exam Vital Signs Vital Signs Date Time Temp Pulse Resp B/P (MAP) Pulse Ox O2 Delivery O2 Flow Rate FiO2 08/10/21 03:50 Room Air 08/10/21 03:49 36.2 08/10/21 01:00 84 08/10/21 01:00 22 99 08/07/21 19:00 Capillary Refill : General Appearance: No Apparent Distress, WD/WN, Chronically ill Respiratory: Lungs Clear, Normal Breath Sounds Cardiovascular: Regular Rate, Rhythm Neurologic/Psychiatric: Alert, Disoriented Results/Procedures Lab Patient resulted labs reviewed. Assessment/Plan Assessment and Plan Assess & Plan/Chief Complaint Assessment: Respiratory failure status post BiPAP now on nasal cannula and room air Hypovolemia from dehydration due to not eating or drinking requiring ICU transfer again on 08/05/2021 COVID-19 pneumonia Sepsis Hyperosmolar hyperglycemic nonketotic state status post insulin drip Hyponatremia of 115 now much improved Acute kidney injury MRSA bacteremia change from vancomycin to daptomycin due to breakthrough with positive repeat cultures suspect endocarditis needs ELI Hyperkalemia Elevated D-dimer unable to rule out PE so placed on Lovenox therapeutic dose Noncompliance as outpatient Hemorrhagic CVA diagnosed 08/07/2021 holding Lovenox and aspirin Plan: Vancomycin Rocephin eICU management BiPAP Insulin drip Lovenox Aggressive IV fluid of D5NS 08/02/2021: Transfer to stepdown Hep-Lock IV fluid Vancomycin for bacteremia Appreciate cardiology Aggressive insulin regimen Add hemoglobin A1c 08/03/2021: Increase insulin Supportive care IV antibiotics PT and OT Isolation Decadron 08/04/2021: Supportive care Needs long term Apathy noted may ultimately become hospice candidate 08/05/2021: Transfer to ICU Aggressive IV fluid IV antibiotics High risk for intubation Severe apathy noted Updated 08/06/2021: Daptomycin Supportive care 08/07/2021: Severe apathy and lethargy precludes anything but a poor prognosis Severe noncompliance as an outpatient 08/08/2021: Pursue higher level of care with patient control due to needing ELI due to suspected endocarditis with infectious disease since failing daptomycin and vancomycin in edition needing ICU bed for Covid related issues with neurosurgery capabilities for hemorrhagic CVA 08/09/2021: [place] control pending Continue aggressive care Critical Care Critically Ill Patient Diagnosis/Problems Diagnosis/Problems (1) Pneumonia due to COVID-19 virus Status: Acute (2) Lower respiratory tract infection due to COVID-19 virus Status: Acute (3) Acute kidney injury Status: Acute (4) Sepsis Status: Acute Qualifiers: Sepsis type: sepsis due to unspecified organism Sepsis acute organ dysfunction status: with acute organ dysfunction Severe sepsis acute organ dysfunction type: acute respiratory failure Acute respiratory failure type: with hypoxia Severe sepsis shock status: without septic shock Qualified Codes: A41.9 - Sepsis, unspecified organism; R65.20 - Severe sepsis without septic shock; J96.01 - Acute respiratory failure with hypoxia (5) Hypoxia Status: Acute (6) Hyponatremia Status: Acute (7) Hyperglycemia Status: Acute (8) Dehydration Status: Acute (9) 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
[2021-08-09] MEDS: AMIODARONE 200 MG (CORDARONE) TAB PO SCH ×2 (08:35→21:05)
[2021-08-09] MEDS: SENNA W/DOCUSATE (SENOKOT S) TABLET PO SCH ×2 (08:35→21:05)
[2021-08-09] MEDS: HYDROcodone/APAP 5 MG/325 MG (LORTAB) TAB PO PRN (08:35)
[2021-08-09] MEDS: rOPINIRole 5 MG TAB (REQUIP) PO SCH (08:35)
[2021-08-09] MEDS: ROSUVASTATIN 20 MG (CRESTOR) TABLET PO SCH (08:35)
[2021-08-09] MEDS: dilTIAZem120 MG (CARDIZEM CD) CAP PO SCH (08:35)
[2021-08-09] MEDS: PANTOPRAZOLE 40 MG (PROTONIX) TAB PO SCH (08:35)
[2021-08-09] MEDS: NS IV 1000 ML 1,000 ML IV SCH ×2 (08:36→21:04)
--- NOTE | 2021-08-09 09:39 | Cardiology Progress Note ---
Progress Note-Cardiology Events since last exam Date Seen by Provider: Aug 09, 2021 Time Seen by Provider: 09:34 Events since last exam I am following him for atrial fibrillation. He remains in the intensive care unit. He has now developed an intracerebral hemorrhage and all anticoagulation is on hold. He is back in sinus rhythm on oral amiodarone. I did not see the patient due to his Covid status. I did speak with his nurse of today. There have not been any new cardiac issues overnight. Certain portions of this document may have been dictated utilizing voice recognition technology. Inherent to this technology, typographical and grammatical errors may exist. As much as I am diligent to identify and correct these mistakes, some errors may remain in the document. Vitals Last set of Vitals Signs Vital Signs 08/07/21 08/09/21 08/09/21 18:00 08:00 09:00 Temp 35.9 Pulse 75 Resp 22 B/P (MAP) 146/98 (114) Pulse Ox 99 O2 Delivery Room Air O2 Flow Rate 2.00 Labs Labs Laboratory Tests 08/08/21 17:00 08/08/21 21:10 08/09/21 04:10 Exam Vital Signs Vital Signs Date Time Temp Pulse Resp B/P (MAP) Pulse Ox O2 Delivery O2 Flow Rate FiO2 08/09/21 09:00 75 146/98 (114) 99 Room Air 08/09/21 08:00 35.9 08/09/21 08:00 22 08/07/21 19:00 Physical Exam I did not see the patient due to his Covid status. Labs Laboratory Tests Test 08/08/21 11:02 08/08/21 15:41 08/08/21 17:00 08/08/21 20:14 Range/Units Glucometer 212 H 290 H 357 H 70-110 MG/DL Prothrombin Time 17.3 H 12.2-14.7 SEC INR Comment 1.4 0.8-1.4 Sodium Level 128 L 135-145 MMOL/L Potassium Level 5.1 H 3.6-5.0 MMOL/L Chloride Level 103 98-107 MMOL/L Carbon Dioxide Level 13 L 21-32 MMOL/L Anion Gap 12 5-14 MMOL/L Blood Urea Nitrogen 69 H 7-18 MG/DL Creatinine 1.13 0.60-1.30 MG/DL Estimat Glomerular Filtration Rate 67 BUN/Creatinine Ratio 61 Glucose Level 329 H 70-105 MG/DL Calcium Level 7.9 L 8.5-10.1 MG/DL Test 08/08/21 21:10 08/08/21 23:57 08/09/21 04:10 Range/Units Sodium Level 124 *L 129 L 135-145 MMOL/L Potassium Level 5.0 5.0 3.6-5.0 MMOL/L Chloride Level 101 104 98-107 MMOL/L Carbon Dioxide Level 13 L 13 L 21-32 MMOL/L Anion Gap 10 12 5-14 MMOL/L Blood Urea Nitrogen 68 H 70 H 7-18 MG/DL Creatinine 1.19 1.22 0.60-1.30 MG/DL Estimat Glomerular Filtration Rate 63 61 BUN/Creatinine Ratio 57 57 Glucose Level 433 *H 322 H 70-105 MG/DL Calcium Level 7.7 L 8.1 L 8.5-10.1 MG/DL Glucometer 406 *H 70-110 MG/DL White Blood Count 37.0 *H 4.3-11.0 10^3/uL Red Blood Count 4.32 4.30-5.52 10^6/uL Hemoglobin 12.4 L 13.3-17.7 g/dL Hematocrit 37 L 40-54 % Mean Corpuscular Volume 85 80-99 fL Mean Corpuscular Hemoglobin 29 25-34 pg Mean Corpuscular Hemoglobin Concent 34 32-36 g/dL Red Cell Distribution Width 14.5 10.0-14.5 % Platelet Count 277 130-400 10^3/uL Mean Platelet Volume 10.6 9.0-12.2 fL Immature Granulocyte % (Auto) 8 % Neutrophils (%) (Auto) 84 H 42-75 % Lymphocytes (%) (Auto) 4 L 12-44 % Monocytes (%) (Auto) 4 0-12 % Eosinophils (%) (Auto) 0 0-10 % Basophils (%) (Auto) 0 0-10 % Neutrophils # (Auto) 31.1 H 1.8-7.8 10^3/uL Lymphocytes # (Auto) 1.6 1.0-4.0 10^3/uL Monocytes # (Auto) 1.3 H 0.0-1.0 10^3/uL Eosinophils # (Auto) 0.0 0.0-0.3 10^3/uL Basophils # (Auto) 0.1 0.0-0.1 10^3/uL Immature Granulocyte # (Auto) 2.8 H 0.0-0.1 10^3/uL Corrected Calcium 9.5 8.5-10.1 MG/DL Total Bilirubin 1.1 H 0.1-1.0 MG/DL Aspartate Amino Transf (AST/SGOT) 304 H 5-34 U/L Alanine Aminotransferase (ALT/SGPT) 414 H 0-55 U/L Alkaline Phosphatase 1454 H 40-136 U/L Total Protein 7.0 6.4-8.2 GM/DL Albumin 2.2 L 3.2-4.5 GM/DL Diagnosis/Problems Diagnosis/Problems (1) Paroxysmal atrial fibrillation Assessment & Plan: This is a new finding in this patient. I suspect this was related to the Covid infection. He is on oral diltiazem for rate control and now amiodarone for rhythm management. He is now back in sinus rhythm. He had been on therapeutic dosing of enoxaparin and I had planned to change this over to oral apixaban. However, he has developed an intracerebral hemorrhage and all anticoagulation is now on hold. (2) Intracerebral hemorrhage Assessment & Plan: This certainly raises a concern for possible septic emboli. He has persistent MRSA bacteremia. All anticoagulation is now on hold. A transesophageal echocardiogram may be of some help but we cannot presently do this in our hospital since we have no providers available to perform this procedure at the present time. The hospitalist is working on finding hospital with an available ICU bed to transfer the patient. (3) Staphylococcus aureus bacteremia Assessment & Plan: There were no obvious valvular vegetations and no significant valvular regurgitation noted on his transthoracic echocardiogram. However, due to the new finding of an intracerebral hemorrhage, coupled with persistent bacteremia despite antibiotics, this again raises a concern of endocarditis. (4) Mixed hyperlipidemia Assessment & Plan: Continue statin medication. (5) Type 2 diabetes mellitus with complication Assessment & Plan: This is being managed the hospital team. TAMIE HERMAN JR, MD Aug 09, 2021 09:39
--- NOTE | 2021-08-09 11:12 | Diagnostic Imaging Report ---
PROCEDURE: CT head without contrast. TECHNIQUE: Multiple contiguous axial images were obtained through the brain without the use of intravenous contrast. Auto Exposure Controls were utilized during the CT exam to meet ALARA standards for radiation dose reduction. INDICATION: Intracranial hemorrhage. Compared with study 08/07. FINDINGS Areas of intracerebral hemorrhage in the inferior left cerebellar hemisphere redemonstrated. The largest hematoma measuring 2.8 x 2.2 cm today, previously 2.6 x 1.5 cm, slightly increased and more anteroinferiorly, smaller subcentimeter hematoma is unchanged. There is distortion of the 4th ventricle as well as effacement of the basilar and ambient cisterns unchanged. The lateral and 3rd ventricles are nondilated with no transependymal resorption of CSF apparent. No new site of hemorrhage. Left posterior fossa edema extends through the middle cerebellar peduncle into the brainstem unchanged. There is no intraventricular blood. No supratentorial edema or evidence for elevated pressures. IMPRESSION: The dominant left cerebellar hemispheric hematoma measures mildly larger than on prior but there is unchanged edema and mass effect effacing the 4th ventricle and basilar cisterns but resulting in no hydrocephalus. No supratentorial abnormality. Dictated by: Dictated on workstation # [id number]
--- NOTE | 2021-08-09 11:25 | Tele-ICU Progress Note ---
Subjective Time Seen by a Provider: 08:59 Sepsis Event Evaluation Height, Weight, BMI Height: 6'0.00" Weight: 269lbs. 5.0oz. 122.122866td; 34.47 BMI Method:Stated Focused Exam Lactate Level 08/07/21 12:44: Lactic Acid Level 2.21*H 08/07/21 16:35: Lactic Acid Level 2.39*H 08/07/21 18:45: Lactic Acid Level 1.74 Exam Exam Patient acknowledged, consented, and participated in this virtual visit which was conducted using real time audio/video Vital Signs Date Time Temp Pulse Resp B/P (MAP) Pulse Ox O2 Delivery O2 Flow Rate FiO2 08/09/21 11:00 81 27 134/67 (89) 98 Room Air 08/09/21 10:00 76 26 152/97 (115) 98 Room Air 08/09/21 09:00 75 146/98 (114) 99 Room Air 08/09/21 08:00 35.9 08/09/21 08:00 75 22 124/80 (95) 98 Room Air 08/09/21 07:00 78 17 132/75 (94) 97 Room Air 08/09/21 07:00 79 08/09/21 06:00 75 20 131/86 (101) 99 Room Air 08/09/21 05:00 74 15 142/83 (102) 98 Room Air 08/09/21 04:00 Room Air 08/09/21 04:00 36.5 08/09/21 04:00 76 21 122/83 (96) 100 Room Air 08/09/21 03:00 77 24 126/87 (100) 99 Room Air 08/09/21 02:00 75 21 117/81 (93) 98 Room Air 08/09/21 01:00 80 08/09/21 01:00 78 22 126/77 (93) 98 Room Air 08/09/21 00:49 35.6 08/09/21 00:00 Room Air 08/09/21 00:00 78 21 118/76 (90) 98 Room Air 08/08/21 23:00 80 29 118/66 (83) 99 Room Air 08/08/21 22:00 80 29 114/73 (87) 97 Room Air 08/08/21 21:00 82 32 121/82 (95) 98 Room Air 08/08/21 20:05 35.3 08/08/21 20:00 Room Air 08/08/21 20:00 93 18 123/84 (97) 98 Room Air 08/08/21 19:00 91 08/08/21 19:00 93 21 133/89 (104) 99 Room Air 08/08/21 18:00 85 26 114/72 (86) 98 Room Air 08/08/21 17:00 87 37 133/88 (103) 95 Room Air 08/08/21 16:25 Room Air 08/08/21 16:00 35.6 08/08/21 16:00 88 32 135/87 (103) 94 Room Air 08/08/21 15:00 89 29 124/82 (96) 96 Room Air 08/08/21 14:00 98 25 82/56 (65) 99 Room Air 08/08/21 13:00 99 27 96/56 (69) 97 Room Air 08/08/21 12:52 93 08/08/21 12:35 Room Air 08/08/21 12:00 93 31 98/83 (88) 98 Room Air I & O 08/09/21 07:00 Intake Total 1650 ml Output Total 2525 ml Balance -875 ml Height & Weight Height: 6'0.00" Weight: 269lbs. 5.0oz. 122.653572cu; 34.47 BMI Method:Stated General Appearance: No Apparent Distress, WD/WN, Chronically ill, Obese HEENT: PERRL/EOMI, Normal ENT Inspection, Pharynx Normal, Moist Mucous Membranes Neck: Full Range of Motion, Normal Inspection, Non Tender Respiratory: Lungs Clear, Normal Breath Sounds Cardiovascular: Regular Rate, Rhythm Extremity: Normal Capillary Refill, Normal Inspection, Normal Range of Motion, No Calf Tenderness, No Pedal Edema Neurologic/Psychiatric: Alert, Depressed Affect, Disoriented Skin: Normal Color, Warm/Dry Lymphatic: No Adenopathy Results Lab Laboratory Tests 08/08/21 04:35 08/08/21 17:00 08/08/21 21:10 08/09/21 04:10 Assessment/Plan Assessment/Plan (Tele-ICU Physician , Progress Note ) Available chart/ vitals / labs / Images reviewed Video assessment done using teleICU camera, rest of exam as per RN Discussed with RN , EXAM PER RN Events overnight : (08/07) CT head: redemonstrated foci of acute hemorrhage left cerebellum Afebrile FiO2 - ra I/O = neg Drips: Pressors: , hemodynamically stable Consultants: Hospital course: 07/31 - to ICU from ER with COVID , hyperglycemia, o2 - FM 5L 08/01 - BIPAP 08/02 - on ra , off insulin gtt 08/06 - afib RVR , cardizem gtt 08/07 RA , cardisem PO , lethargic A/P (08/07) CT head: redemonstrated foci of acute hemorrhage left cerebellum - neurochecks q 1 h - keep SBP < 130 - stop IVF , one dose of mannitol 08/08 -follow - order repeated 24 h f/up CT today - off lovenox now - as per bedside - attempts to transfer to other centers with neuro [facility] bacteremis - SOURSE ? - as per cards - no obvious valvular vegetations and no significant valvular regurgitation noted on his transthoracic echocardiogram- ( do nor see ECHO ressults in EMR - follow repeated cx -TO REPEAT TODAY AGAIN = on DAPTO / cefepime Elevated LFTS -WILL NEED TO DISCUSS WITH pcp - ?DUE TO DAPTO VS OTHER ETIOLOGY SUSPECTED - CONSIDER TO CHANGE ABX DCLA-[id number]-6/COVID-19 PNA ( Symptom onset ~07/23 DX unvaccinted --Dexamethasone - STOPPED 08/09 - consider take off isolation id no more resp symptoms A fib - as per cards - off lovenox - on amio po as per cards TED - improved , follow Diabetes Mellitus with severe hyperglycemia - OFF insulin gtt - ISS , close f/up on steroids - starting levemir Hyponatremia ( adjusted to BS NA =126 - now is adjusted 131 - stop IVF - follow closely with hemorrahic stroke with edema Plans in collaboration with bedside consultants and IM MDs. Discussed with RN to reach out if any questions or concerns A total of 40 minutes of critical care time was devoted to this patient today, required to treat and/or prevent further deterioration of critical care condition ( as above) . ONIEL SOTO MD Aug 09, 2021 11:25
[2021-08-09] MEDS: DAPTOmycin 500 MG/NS 50 ML IVPB IV SCH ×2 (14:19)
[2021-08-10] VITALS (24 sets, daily range): BP systolic 112–150; BP diastolic 45–104
[2021-08-10] MEDS: HYDROcodone/APAP 5 MG/325 MG (LORTAB) TAB PO PRN (00:54)
[2021-08-10] MEDS: MEROPENEM 500 MG in NS (IVPB) 100 ML IV SCH ×4 (00:59→20:28)
[2021-08-10 06:09] LABS: BASOPHILS # (AUTO) 0.1 10^3/uL (0.0-0.1); BASOPHILS % (AUTO) 0 % (0-10); EOSINOPHILS % (AUTO) 0 % (0-10); HEMATOCRIT 38 % (40-54); HEMOGLOBIN 12.5 g/dL (13.3-17.7); LYMPHOCYTES # (AUTO) 1.6 10^3/uL (1.0-4.0); LYMPHOCYTES % (AUTO) 4 % (12-44); MEAN CORPUSCULAR HEMOGLOBIN 28 pg (25-34); MEAN CORPUSCULAR HGB CONC 33 g/dL (32-36); MEAN CORPUSCULAR VOLUME 85 fL (80-99); MEAN PLATELET VOLUME 10.3 fL (9.0-12.2); MONOCYTES # (AUTO) 1.7 10^3/uL (0.0-1.0); MONOCYTES % (AUTO) 4 % (0-12); NEUTROPHILS # (AUTO) 33.3 10^3/uL (1.8-7.8); NEUTROPHILS % (AUTO) 86 % (42-75); PLATELET COUNT 225 10^3/uL (130-400)
[2021-08-10 06:15] LABS: WHITE BLOOD COUNT 38.7 10^3/uL (4.3-11.0)
[2021-08-10 06:29] LABS: ALBUMIN 2.2 GM/DL (3.2-4.5); BILIRUBIN,TOTAL 0.9 MG/DL (0.1-1.0); CALCIUM 7.9 MG/DL (8.5-10.1); CREATININE SERUM 0.84 MG/DL (0.60-1.30); POTASSIUM 4.6 MMOL/L (3.6-5.0); TOTAL PROTEIN 6.7 GM/DL (6.4-8.2)
[2021-08-10] MEDS: inSUlin ASPART (NovoLOG) 1 UNIT/0.01 ML (CHARGE PER UNIT) SC SCH ×7 (06:32→21:04)
[2021-08-10] MEDS: NS IV 1000 ML 1,000 ML IV SCH ×3 (06:32→20:30)
[2021-08-10] MEDS: dilTIAZem120 MG (CARDIZEM CD) CAP PO SCH (08:25)
[2021-08-10] MEDS: SENNA W/DOCUSATE (SENOKOT S) TABLET PO SCH ×2 (08:25→20:28)
[2021-08-10] MEDS: PANTOPRAZOLE 40 MG (PROTONIX) TAB PO SCH (08:25)
[2021-08-10] MEDS: AMIODARONE 200 MG (CORDARONE) TAB PO SCH ×2 (08:25→20:28)
[2021-08-10] MEDS: rOPINIRole 5 MG TAB (REQUIP) PO SCH (08:25)
[2021-08-10] MEDS: ROSUVASTATIN 20 MG (CRESTOR) TABLET PO SCH (08:25)
--- NOTE | 2021-08-10 10:35 | Progress Note - Hospitalist ---
Subjective HPI/CC On Admission Date Seen by Provider: Aug 10, 2021 Time Seen by Provider: 11:00 Chief complaint: Respiratory failure History of present illness: This is a 56-year-old white male known to [facility] for frequent ER visits who has been very noncompliant with all medical management who presents to ICU 7 in respiratory failure BiPAP dependent. He was found to have delirium and very complicated medical issues requiring BiPAP and insulin drip with aggressive IV fluids to resolve elevated lactic acid from s epsis. Creatinine was 1.80 is 1.4 for now. D-dimer was elevated at 7.64 and Lovenox initiated therapeutic dose twice daily due to unable to perform angiogram to rule out PE due to kidney function. Currently patient is sleeping. Microbiology notified me that 4/4 bottles of blood cultures were positive for MRSA. Vancomycin. ABG 7.3 . Subjective/Events-last exam Martha control cannot find a bed for the patient and have aborted the mission Blood cultures are still positive Confusion and lethargy continue CT scan hemorrhagic CVA showed enlargement in the bleed Pt will continue aggressive care here May very well be a hospice candidate Review of Systems General: Fatigue, Malaise Neurological: Weakness Focused Exam Lactate Level Objective Exam Vital Signs Vital Signs Date Time Temp Pulse Resp B/P (MAP) Pulse Ox O2 Delivery O2 Flow Rate FiO2 08/11/21 04:49 NIV Bilevel 70.00 08/11/21 03:48 36.4 08/11/21 03:47 08/11/21 03:46 92 08/11/21 00:00 98 53 Capillary Refill : General Appearance: No Apparent Distress, WD/WN, Chronically ill, Obese Respiratory: No Accessory Muscle Use, No Respiratory Distress, Decreased Breath Sounds Cardiovascular: Regular Rate, Rhythm Neurologic/Psychiatric: Alert, Disoriented Results/Procedures Lab Laboratory Tests 08/10/21 05:45 08/11/21 04:20 Patient resulted labs reviewed. Assessment/Plan Assessment and Plan Assess & Plan/Chief Complaint Assessment: Respiratory failure status post BiPAP now on nasal cannula and room air Hypovolemia from dehydration due to not eating or drinking requiring ICU transfer again on 08/05/2021 COVID-19 pneumonia Sepsis Hyperosmolar hyperglycemic nonketotic state status post insulin drip Hyponatremia of 115 now much improved Acute kidney injury MRSA bacteremia change from vancomycin to daptomycin due to breakthrough with positive repeat cultures suspect endocarditis needs ELI Hyperkalemia Elevated D-dimer unable to rule out PE so placed on Lovenox therapeutic dose Noncompliance as outpatient Hemorrhagic CVA diagnosed 08/07/2021 holding Lovenox and aspirin Plan: Vancomycin Rocephin eICU management BiPAP Insulin drip Lovenox Aggressive IV fluid of D5NS 08/02/2021: Transfer to stepdown Hep-Lock IV fluid Vancomycin for bacteremia Appreciate cardiology Aggressive insulin regimen Add hemoglobin A1c 08/03/2021: Increase insulin Supportive care IV antibiotics PT and OT Isolation Decadron 08/04/2021: Supportive care [facility]eds [facility]pathy noted may ultimately become hospice candidate 08/05/2021: Transfer to ICU Aggressive IV fluid IV antibiotics High risk for intubation Severe apathy noted Updated 08/06/2021: Daptomycin Supportive care 08/07/2021: Severe apathy and lethargy precludes anything but a poor prognosis Severe noncompliance as an outpatient 08/08/2021: Pursue higher level of care with patient control due to needing ELI due to suspected endocarditis with infectious disease since failing daptomycin and vancomycin in edition needing ICU bed for Covid related issues with neurosurgery capabilities for hemorrhagic CVA 08/09/2021: Martha control pending Continue aggressive care 08/10/2021: No possibility of a bed for higher level of care per Martha control Continue what we can can here locally Critical Care Critically Ill Patient Diagnosis/Problems Diagnosis/Problems (1) Pneumonia due to COVID-19 virus Status: Acute (2) Lower respiratory tract infection due to COVID-19 virus Status: Acute (3) Acute kidney injury Status: Acute (4) Sepsis Status: Acute Qualifiers: Sepsis type: sepsis due to unspecified organism Sepsis acute organ dysfunction status: with acute organ dysfunction Severe sepsis acute organ dysfunction type: acute respiratory failure Acute respiratory failure type: with hypoxia Severe sepsis shock status: without septic shock Qualified Codes: A41.9 - Sepsis, unspecified organism; R65.20 - Severe sepsis without septic shock; J96.01 - Acute respiratory failure with hypoxia (5) Hypoxia Status: Acute (6) Hyponatremia Status: Acute (7) Hyperglycemia Status: Acute (8) Dehydration Status: Acute (9) 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
--- NOTE | 2021-08-10 11:11 | Tele-ICU Progress Note ---
Subjective Date Seen by a Provider: Aug 10, 2021 Time Seen by a Provider: 10:20 Subjective/Events-last exam This virtual visit was conducted using real time audio/video. Thank you for asking us to see this patient for respiratory insufficiency due to covid pna. Also afib/RVR, ICH and St. Aureus bacteremia. Recent events: None overnight. Remains in NSR. PE: Obese. VSS. NSR. O2 sat 99% on RA HEENT: No obvious masses, adenopathy or JVD. Chest: clear to auscultation. CV: RRR S1 S2 No murmur or added sounds. Abd: Non-tender. Bowel sounds Y. : Unremarkable. Mina N. INSTRUMENTAL MUSICIAN/psychiatric: Grossly intact. No obvious focal findings. Extremities: No edema. Capillary refill < 3 seconds. Skin: unremarkable. Results: Elevated WCC 38.7. Decreased Hb 12.5. Available chart/ vitals / labs / images reviewed. Video assessment done using teleICU camera, rest of exam as per RN. A/P: Respiratory insufficiency: Continue present management with albuterol. Dex D/Cd 08/09/21. Monitor for increasing oxygenation needs and/or need for intubation. Critical Care: critically ill patient. Cont. Abx, metop., amiod., dilt., requip. Diana D/Cd due to ICH. ELI pending. Awaiting transfer for neurosurg eval. Discussed with ARMIDA Franco. Asked RN to reach out to eICU if any questions or concerns later. Time spent with patient/coordination of care with other health professionals (mins): 20 Sepsis Event Evaluation Height, Weight, BMI Height: 6'0.00" Weight: 269lbs. 5.0oz. 122.060701tc; 34.47 BMI Method:Stated Focused Exam Lactate Level 08/07/21 12:44: Lactic Acid Level 2.21*H 08/07/21 16:35: Lactic Acid Level 2.39*H 08/07/21 18:45: Lactic Acid Level 1.74 Exam Exam Patient acknowledged, consented, and participated in this virtual visit which was conducted using real time audio/video Vital Signs Date Time Temp Pulse Resp B/P (MAP) Pulse Ox O2 Delivery O2 Flow Rate FiO2 08/10/21 08:33 100 Room Air 08/10/21 07:45 35.8 08/10/21 06:30 75 08/10/21 06:00 78 20 140/92 (108) 100 Room Air 08/10/21 05:00 77 19 128/73 (91) 98 Room Air 08/10/21 04:00 75 19 123/87 (99) 100 Room Air 08/10/21 03:50 Room Air 08/10/21 03:49 36.2 Room Air 08/10/21 03:00 77 24 122/83 (96) 99 Room Air 08/10/21 02:00 75 24 118/69 (85) 98 Room Air 08/10/21 01:00 84 08/10/21 01:00 84 22 131/97 (108) 99 Room Air 08/10/21 00:48 Room Air 08/10/21 00:47 36.2 Room Air 08/10/21 00:00 80 23 131/65 (87) 100 Room Air 08/09/21 23:00 76 25 119/72 (88) 100 Room Air 08/09/21 22:00 77 28 128/81 (97) 99 Room Air 08/09/21 21:00 84 28 148/108 (121) 100 Room Air 08/09/21 20:00 73 18 124/84 (97) 100 Room Air 08/09/21 20:00 Room Air 08/09/21 19:57 35.4 08/09/21 19:00 73 27 122/88 (99) 100 Room Air 08/09/21 19:00 80 08/09/21 18:00 71 23 125/80 (95) 100 Room Air 08/09/21 17:00 72 26 116/78 (91) 100 Room Air 08/09/21 16:02 Room Air 08/09/21 16:00 74 23 125/80 (95) 100 Room Air 08/09/21 15:48 35.5 08/09/21 15:00 74 29 120/76 (91) 100 Room Air 08/09/21 14:00 73 21 125/84 (98) 100 Room Air 08/09/21 13:00 74 24 137/74 (95) 98 Room Air 08/09/21 12:55 73 08/09/21 12:35 Room Air 08/09/21 12:00 73 26 122/75 (91) 97 Room Air 08/09/21 12:00 35.9 I & O 08/10/21 07:00 Intake Total 2060 ml Output Total 1850 ml Balance 210 ml Height & Weight Height: 6'0.00" Weight: 269lbs. 5.0oz. 122.659624rk; 34.47 BMI Method:Stated General Appearance: No Apparent Distress, WD/WN, Chronically ill, Obese (See free text.) HEENT: PERRL/EOMI, Normal ENT Inspection, Pharynx Normal, Moist Mucous Membranes Neck: Full Range of Motion, Normal Inspection, Non Tender Respiratory: Lungs Clear, Normal Breath Sounds Cardiovascular: Regular Rate, Rhythm Peripheral Pulses: 1+ Dorsalis Pedis (R), 1+ Left Dors-Pedis (L) Extremity: Normal Capillary Refill, Normal Inspection, Normal Range of Motion, No Calf Tenderness, No Pedal Edema Neurologic/Psychiatric: Alert, Disoriented Skin: Normal Color, Warm/Dry Lymphatic: No Adenopathy Results Lab Laboratory Tests 08/08/21 17:00 08/08/21 21:10 08/09/21 04:10 08/10/21 05:45 Assessment/Plan Assessment/Plan See free text. Critical Care: Critically Ill Patient WILBERT VIRGEN MD Aug 10, 2021 11:11
[2021-08-10] MEDS: DAPTOmycin 500 MG/NS 50 ML IVPB IV SCH ×2 (13:56)
--- NOTE | 2021-08-10 18:52 | Cardiology Progress Note ---
Progress Note-Cardiology Events since last exam Date Seen by Provider: Aug 10, 2021 Time Seen by Provider: 18:48 Events since last exam I am following him due to atrial fibrillation. He has remained in sinus rhythm since converting with amiodarone. He remains in the intensive care unit. The primary team is trying to get him transferred to a tertiary care facility due to hemorrhagic cerebrovascular accident. I spoke to his nurse of today. I did not examine the patient due to his Covid status. Certain portions of this document may have been dictated utilizing voice recognition technology. Inherent to this technology, typographical and grammatical errors may exist. As much as I am diligent to identify and correct these mistakes, some errors may remain in the document. Vitals Last set of Vitals Signs Vital Signs 08/07/21 08/10/21 08/10/21 08/10/21 18:00 16:06 17:00 18:00 Temp 36.7 Pulse 91 Resp 31 B/P (MAP) 148/88 (108) Pulse Ox 95 O2 Delivery Room Air O2 Flow Rate 2.00 Labs Labs Laboratory Tests 08/10/21 05:45 Exam Vital Signs Vital Signs Date Time Temp Pulse Resp B/P (MAP) Pulse Ox O2 Delivery O2 Flow Rate FiO2 08/10/21 18:00 31 148/88 (108) 95 Room Air 08/10/21 17:00 91 08/10/21 16:06 36.7 08/07/21 19:00 Physical Exam I did not examine the patient due to his Covid status. Labs Laboratory Tests Test 08/09/21 20:36 08/10/21 05:45 08/10/21 10:58 08/10/21 15:42 Range/Units Glucometer 192 H 148 H 149 H 70-110 MG/DL White Blood Count 38.7 *H 4.3-11.0 10^3/uL Red Blood Count 4.46 4.30-5.52 10^6/uL Hemoglobin 12.5 L 13.3-17.7 g/dL Hematocrit 38 L 40-54 % Mean Corpuscular Volume 85 80-99 fL Mean Corpuscular Hemoglobin 28 25-34 pg Mean Corpuscular Hemoglobin Concent 33 32-36 g/dL Red Cell Distribution Width 14.7 H 10.0-14.5 % Platelet Count 225 130-400 10^3/uL Mean Platelet Volume 10.3 9.0-12.2 fL Immature Granulocyte % (Auto) 5 % Neutrophils (%) (Auto) 86 H 42-75 % Lymphocytes (%) (Auto) 4 L 12-44 % Monocytes (%) (Auto) 4 0-12 % Eosinophils (%) (Auto) 0 0-10 % Basophils (%) (Auto) 0 0-10 % Neutrophils # (Auto) 33.3 H 1.8-7.8 10^3/uL Lymphocytes # (Auto) 1.6 1.0-4.0 10^3/uL Monocytes # (Auto) 1.7 H 0.0-1.0 10^3/uL Eosinophils # (Auto) 0.0 0.0-0.3 10^3/uL Basophils # (Auto) 0.1 0.0-0.1 10^3/uL Immature Granulocyte # (Auto) 2.0 H 0.0-0.1 10^3/uL Sodium Level 132 L 135-145 MMOL/L Potassium Level 4.6 3.6-5.0 MMOL/L Chloride Level 108 H 98-107 MMOL/L Carbon Dioxide Level 14 L 21-32 MMOL/L Anion Gap 10 5-14 MMOL/L Blood Urea Nitrogen 55 H 7-18 MG/DL Creatinine 0.84 0.60-1.30 MG/DL Estimat Glomerular Filtration Rate 94 BUN/Creatinine Ratio 65 Glucose Level 157 H 70-105 MG/DL Calcium Level 7.9 L 8.5-10.1 MG/DL Corrected Calcium 9.3 8.5-10.1 MG/DL Total Bilirubin 0.9 0.1-1.0 MG/DL Aspartate Amino Transf (AST/SGOT) 103 H 5-34 U/L Alanine Aminotransferase (ALT/SGPT) 277 H 0-55 U/L Alkaline Phosphatase 1064 H 40-136 U/L Total Protein 6.7 6.4-8.2 GM/DL Albumin 2.2 L 3.2-4.5 GM/DL Diagnosis/Problems Diagnosis/Problems (1) Paroxysmal atrial fibrillation Assessment & Plan: This is a new finding in this patient during this admission. I suspect this was related to the Covid infection. He is on oral diltiazem and metoprolol for rate control and amiodarone for rhythm management. He remains in sinus rhythm. He had been on therapeutic dosing of enoxaparin and I had planned to change this over to oral apixaban. However, he has developed an intracerebral hemorrhage and all anticoagulation is now on hold. (2) Intracerebral hemorrhage Assessment & Plan: This certainly raises a concern for possible septic emboli. He has persistent MRSA bacteremia. All anticoagulation is now on hold. A transesophageal echocardiogram may be of some help but we cannot presently do this in our hospital since we have no providers available to perform this procedure at the present time. The hospitalist is working on finding a hospital with an available ICU bed and neurosurgery to transfer the patient. (3) Staphylococcus aureus bacteremia Assessment & Plan: There were no obvious valvular vegetations and no significant valvular regurgitation noted on his transthoracic echocardiogram. However, due to the finding of an intracerebral hemorrhage, coupled with persistent bacteremia despite antibiotics, this again raises a concern of endocarditis. He may benefit from a transesophageal echocardiogram but my partners who perform this test are both out of town until August 19. (4) Mixed hyperlipidemia Assessment & Plan: Continue statin medication. TAMIE HERMAN JR, MD Aug 10, 2021 18:52
[2021-08-11] VITALS (18 sets, daily range): BP systolic 76–166; BP diastolic 34–86
[2021-08-11] MEDS ORDERED: DEXTROSE 50% 50 ML (IMS) SYR ONE (00:17)
[2021-08-11] MEDS ORDERED: D5 NS 1000 ML IV SOLUTION 1,000 ML IV ONE (00:17)
[2021-08-11] MEDS: D5 NS 1000 ML IV SOLUTION 1,000 ML IV SCH ×2 (00:28→10:38)
[2021-08-11] MEDS ORDERED: DEXTROSE 50% 50 ML (IMS) SYR IV ONE (00:30)
[2021-08-11] MEDS: MEROPENEM 500 MG in NS (IVPB) 100 ML IV SCH ×3 (01:12→15:04)
[2021-08-11 04:35] LABS: EOSINOPHILS % (AUTO) 0 % (0-10); LYMPHOCYTES % (AUTO) 4 % (12-44); MONOCYTES % (AUTO) 3 % (0-12)
[2021-08-11 04:36] LABS: ABG BASE EXCESS -8.3 MMOL/L (-2.5-2.5); ABG OXYGEN SATURATION 84 % (94-100); ABG PCO2 23 MMHG (35-45); ABG PH 7.43 (7.37-7.43); ABG PO2 50 MMHG (79-93)
[2021-08-11 04:37] LABS: BASOPHILS # (AUTO) 0.2 10^3/uL (0.0-0.1); BASOPHILS % (AUTO) 0 % (0-10); HEMATOCRIT 41 % (40-54); LYMPHOCYTES # (AUTO) 1.9 10^3/uL (1.0-4.0); MEAN CORPUSCULAR HEMOGLOBIN 29 pg (25-34); MEAN CORPUSCULAR HGB CONC 34 g/dL (32-36); MEAN CORPUSCULAR VOLUME 85 fL (80-99); MEAN PLATELET VOLUME 11.4 fL (9.0-12.2); MONOCYTES # (AUTO) 1.5 10^3/uL (0.0-1.0); NEUTROPHILS # (AUTO) 48.2 10^3/uL (1.8-7.8); NEUTROPHILS % (AUTO) 90 % (42-75); PLATELET COUNT 159 10^3/uL (130-400)
[2021-08-11 04:45] LABS: ALLENS TEST YES-POS; INSPIRED O2 6L; PATIENT TEMP 36.6; VENTILATOR NO
[2021-08-11 04:46] LABS: WHITE BLOOD COUNT 53.8 10^3/uL (4.3-11.0)
[2021-08-11 04:52] LABS: ALBUMIN 2.2 GM/DL (3.2-4.5)
[2021-08-11 04:53] LABS: CALCIUM 7.8 MG/DL (8.5-10.1)
[2021-08-11 04:54] LABS: TOTAL PROTEIN 6.7 GM/DL (6.4-8.2)
[2021-08-11 04:56] LABS: BILIRUBIN,TOTAL 1.1 MG/DL (0.1-1.0)
--- NOTE | 2021-08-11 04:56 | Tele-ICU Progress Note ---
Subjective Date Seen by a Provider: Aug 11, 2021 Time Seen by a Provider: 04:53 Sepsis Event Evaluation Height, Weight, BMI Height: 6'0.00" Weight: 269lbs. 5.0oz. 122.505692vd; 34.47 BMI Method:Stated Exam Exam Patient acknowledged, consented, and participated in this virtual visit which was conducted using real time audio/video Vital Signs Date Time Temp Pulse Resp B/P (MAP) Pulse Ox O2 Delivery O2 Flow Rate FiO2 08/11/21 04:49 NIV Bilevel 70.00 08/11/21 03:48 36.4 08/11/21 03:47 High Flow N/C 5.00 08/11/21 03:46 92 Room Air 08/11/21 00:30 94 Room Air 08/11/21 00:00 98 53 119/86 (97) 93 Room Air 08/11/21 00:00 100 08/10/21 23:54 36.8 08/10/21 23:00 Room Air 08/10/21 23:00 100 43 112/85 (94) 93 Room Air 08/10/21 22:00 96 26 129/45 (73) 91 Room Air 08/10/21 21:00 98 40 130/78 (95) 94 Room Air 08/10/21 20:34 100 Room Air 08/10/21 20:01 35.1 08/10/21 20:00 93 23 130/88 (102) 95 Room Air 08/10/21 19:00 92 37 150/94 (112) 94 Room Air 08/10/21 19:00 93 08/10/21 19:00 Room Air 08/10/21 18:00 31 148/88 (108) 95 Room Air 08/10/21 17:00 91 23 131/87 (102) 97 Room Air 08/10/21 16:06 36.7 08/10/21 16:00 90 27 136/104 (115) 94 Room Air 08/10/21 15:31 99 Room Air 08/10/21 15:00 85 135/91 (106) 94 Room Air 08/10/21 14:00 130/80 (97) 94 Room Air 08/10/21 13:00 86 08/10/21 13:00 87 137/83 (101) 92 Room Air 08/10/21 12:00 84 27 146/77 (100) 92 Room Air 08/10/21 11:45 35.7 08/10/21 11:14 100 Room Air 08/10/21 11:00 88 124/82 (96) 98 Room Air 08/10/21 10:00 90 127/76 (93) 99 Room Air 08/10/21 09:00 89 32 123/71 (88) 100 Room Air 08/10/21 08:33 100 Room Air 08/10/21 08:00 87 130/64 (86) 100 Room Air 08/10/21 07:45 35.8 08/10/21 07:00 78 22 139/96 (110) 100 Room Air 08/10/21 06:30 75 08/10/21 06:00 78 20 140/92 (108) 100 Room Air 08/10/21 05:00 77 19 128/73 (91) 98 Room Air I & O 08/11/21 07:00 Intake Total 2230 ml Output Total 1775 ml Balance 455 ml Height & Weight Height: 6'0.00" Weight: 269lbs. 5.0oz. 122.645334do; 34.47 BMI Method:Stated General Appearance: No Apparent Distress, WD/WN, Chronically ill, Obese (See free text.) HEENT: PERRL/EOMI, Normal ENT Inspection, Pharynx Normal, Moist Mucous Membranes Neck: Full Range of Motion, Normal Inspection, Non Tender Respiratory: Lungs Clear, Normal Breath Sounds Cardiovascular: Regular Rate, Rhythm Peripheral Pulses: 1+ Dorsalis Pedis (R), 1+ Left Dors-Pedis (L) Extremity: Normal Capillary Refill, Normal Inspection, Normal Range of Motion, No Calf Tenderness, No Pedal Edema Neurologic/Psychiatric: Alert, Disoriented Skin: Normal Color, Warm/Dry Lymphatic: No Adenopathy Results Lab Laboratory Tests 08/10/21 05:45 08/11/21 04:20 Assessment/Plan Assessment/Plan Pt developed sob; cxray shows worsening infiltrates; we will proceed with i ntubation- orders placed. ADAN WHITTINGTON MD Aug 11, 2021 04:56
[2021-08-11 04:58] LABS: CREATININE SERUM 0.81 MG/DL (0.60-1.30)
[2021-08-11] MEDS: inSUlin ASPART (NovoLOG) 1 UNIT/0.01 ML (CHARGE PER UNIT) SC SCH ×3 (05:11→11:36)
--- NOTE | 2021-08-11 05:37 | Diagnostic Imaging Report ---
INDICATION: Respiratory distress COMPARISON: 08/05/2021 TECHNIQUE: Single radiograph of the chest dated 08/11/2021 FINDINGS: The cardiac silhouette and pulmonary vasculature are predominantly obscured. Extensive bilateral pulmonary opacities are present, severely worsened since the prior examination. No large-volume pleural effusion. No pneumothorax. No acute osseous abnormality. IMPRESSION: Severely worsened extensive bilateral pulmonary opacities concerning for worsened pneumonia. Dictated by: Dictated on workstation # [id number]
--- NOTE | 2021-08-11 05:58 | Progress Note - Hospitalist ---
Subjective HPI/CC On Admission Date Seen by Provider: Aug 11, 2021 Chief complaint: Respiratory failure History of present illness: This is a 56-year-old white male known to [facility] for frequent ER visits who has been very noncompliant with all medical management who presents to ICU 7 in respiratory failure BiPAP dependent. He was found to have delirium and very complicated medical issues requiring BiPAP and insulin drip with aggressive IV fluids to resolve elevated lactic acid from sepsis. Creatinine was 1.80 is 1.4 for now. D-dimer was elevated at 7.64 and Lovenox initiated therapeutic dose twice daily due to unable to perform a ngiogram to rule out PE due to kidney function. Currently patient is sleeping. Microbiology notified me that 4/4 bottles of blood cultures were positive for MRSA. Vancomycin. ABG 7.3 . Objective Exam Vital Signs Vital Signs Date Time Temp Pulse Resp B/P (MAP) Pulse Ox O2 Delivery O2 Flow Rate FiO2 08/11/21 16:00 95 Room Air 50 08/11/21 15:43 35.2 08/11/21 15:11 80 24 08/11/21 15:08 102/73 08/11/21 15:00 70.00 Capillary Refill : Results/Procedures Lab Laboratory Tests 08/11/21 04:20 Patient resulted labs reviewed. Assessment/Plan Assessment and Plan Assess & Plan/Chief Complaint Assessment: Respiratory failure status post BiPAP now on nasal cannula and room air Hypovolemia from dehydration due to not eating or drinking requiring ICU transfer again on 08/05/2021 COVID-19 pneumonia Sepsis Hyperosmolar hyperglycemic nonketotic state status post insulin drip Hyponatremia of 115 now much improved Acute kidney injury MRSA bacteremia change from vancomycin to daptomycin due to breakthrough with positive repeat cultures suspect endocarditis needs ELI Hyperkalemia Elevated D-dimer unable to rule out PE so placed on Lovenox therapeutic dose Noncompliance as outpatient Hemorrhagic CVA diagnosed 08/07/2021 holding Lovenox and aspirin Plan: Vancomycin Rocephin eICU management BiPAP Insulin drip Lovenox Aggressive IV fluid of D5NS 08/02/2021: Transfer to stepdown Hep-Lock IV fluid Vancomycin for bacteremia Appreciate cardiology Aggressive insulin regimen Add hemoglobin A1c 08/03/2021: Increase insulin Supportive care IV antibiotics PT and OT Isolation Decadron 08/04/2021: Supportive care Needs snf Apathy noted may ultimately become hospice candidate 08/05/2021: Transfer to ICU Aggressive IV fluid IV antibiotics High risk for intubation Severe apathy noted Updated 08/06/2021: Daptomycin Supportive care 08/07/2021: Severe apathy and lethargy precludes anything but a poor prognosis Severe noncompliance as an outpatient 08/08/2021: Pursue higher level of care with patient control due to needing ELI due to suspected endocarditis with infectious disease since failing daptomycin and vancomycin in edition needing ICU bed for Covid related issues with neurosurgery capabilities for hemorrhagic CVA 08/09/2021: [place] control pending Continue aggressive care 08/10/2021: No possibility of a bed for higher level of care per [place] control Continue what we can can here locally Critical Care Critically Ill Patient Diagnosis/Problems Diagnosis/Problems (1) Pneumonia due to COVID-19 virus Status: Acute (2) Lower respiratory tract infection due to COVID-19 virus Status: Acute (3) Acute kidney injury Status: Acute (4) Sepsis Status: Acute Qualifiers: Sepsis type: sepsis due to unspecified organism Sepsis acute organ dysfunction status: with acute organ dysfunction Severe sepsis acute organ dysfunction type: acute respiratory failure Acute respiratory failure type: with hypoxia Severe sepsis shock status: without septic shock Qualified Codes: A41.9 - Sepsis, unspecified organism; R65.20 - Severe sepsis without septic shock; J96.01 - Acute respiratory failure with hypoxia (5) Hypoxia Status: Acute (6) Hyponatremia Status: Acute (7) Hyperglycemia Status: Acute (8) Dehydration Status: Acute (9) 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
[2021-08-11] MEDS ORDERED: ROCURONIUM 10 MG/ML 5 ML SYRINGE IV ONE ×2 (06:00→13:05)
[2021-08-11] MEDS ORDERED: ETOMIDATE IV SOLN 20 MG/10 ML VIAL IV ONE ×2 (06:00→13:05)
[2021-08-11] MEDS: NOREPINEPHRINE 8 MG/250 ML 250 ML IV SCH ×2 (06:05→15:08)
[2021-08-11] MEDS ORDERED: MIDAZOLAM 5 MG/5 ML (VERSED) VIAL IVP ONE (06:40)
[2021-08-11] MEDS ORDERED: PROPOFOL DRIP (ICU) 100 ML IV ONE (06:40)
--- NOTE | 2021-08-11 06:52 | Procedure/Intervention Note ---
Procedures/Interventions Lumen: triple Central Line Procedure: betadine prep (Chlorhexidine prep), sterile drapes applied, sterile dressing applied Position: internal jugular (R) Anesthesia: Lidocaine (1) Volume Anesthetic (ccs): 2 Complications: none Post Position: sutured, good blood return, position confirmed w/ CXR The patient's gave the nurse a verbal consent over the phone for intubation and central lines. The patient had a blood pressure of 60/20. Half milligram epinephrine push dose through the right peripheral 20-gauge followed by norepinephrine at 0.5 micrograms per kilogram per minute was initiated. The patient was positioned in the usual format and using the usual sterile garments and drapes the patient was dressed out. The skin was thoroughly cleaned with the supplied chlorhexidine prep. After the prep had dried a sterile drape was placed. The 20 cm 7 [place] triple-lumen catheter was flushed with sterile saline. We used ultrasound guidance to pass the introducer needle into the right internal jugular without difficulty. A guidewire was placed easily without difficulty. No ectopy was seen on the monitor. The supplied 11 blade scalpel was used to make a 2 mm incision at the inferior portion of the introducer needle. The introducer needle was replaced with the dilator. The dilator was taken out and the patient had the central lumen of the triple lumen catheter threaded over the guidewire and placed at 15 cm. The guidewire was removed and the triple- lumen catheter was stitched in place using the supplied braided stitch at 2 different points. The catheter withdrew blood and flushed easily. A sterile dressing was placed over the catheter. The patient tolerated the procedure well. A chest x-ray was obtained that demonstrated no pneumothorax and a new interval central catheter over the shadow of the right internal jugular down the superior vena cava and terminating just proximal to the right atria. Reason for Intubation: COVID-19 respiratory failure oxygen saturations 69% on BiPAP FiO2 100% Date of ETT Placement: Aug 11, 2021 Time of ETT Placement: 06:10 Intubation Method: orotracheal Tube Size: 8.0 Medications: Etomidate (100 mg), Rocuronium (50 mg) Positive End Tide CO2: Yes (Colorimetric paper change and fogged the ET tube) Breath Sounds after Intubation: bilateral-equal Intubation Complications: O2 saturation decreased (O2 saturations down to 81% after intubation.) Post Intubation Xray: Yes Successful intubation. Emergency consent was obtained as well as the gave verbal consent over the phone to intubate the patient. He was positioned, preoxygenated as best as possible with a nasopharyngeal airway in place and given the etomidate followed by rocuronium. When he was appropriately anesthetized we used the glide scope, video laryngoscope and obtain full view of the vocal cords. Passed the 8.0 ET tube with stylette easily and remove the stylette inflated the bulb and started giving breaths. The colorimetric capnography paper changed colors and the tube was fogged. Chest ryanne evenly and had symmetric sounding breath sounds. Patient's oxygen saturation improved. We are struggling to get him up above 85 to 86% until we set him up taking some of his abdominal weight off of his chest and his sats improved into the mid 90s. He was put on the ventilator 500 mL tidal volume, 20 respiratory rate, PEEP of 15, FiO2 100%. [facility] [place], [place] NAME: [facility] REC#: [id number] PT STATUS: ADM IN : 1965 PHYSICIAN: SANTI SALEH DO ADMIT DATE: 07/31/21/ICU Signed Date of Exam:08/11/21 CHEST 1 VIEW, AP/PA ONLY Indication: Intubation, line placement COMPARISON: Imaging from the same date TECHNIQUE: 2 radiographs the chest dated 08/11/2021 FINDINGS: Interval placement of endotracheal tube with the distal tip overlying the tracheal column, above the level of the jamaal at the level of the clavicular heads. Interval placement of an enteric catheter with the distal tip extending the left upper abdomen. Interval placement of a right IJ central venous catheter with the distal tip overlying the superior aspect of the superior vena cava. The cardiac silhouette is stable. Pulmonary vasculature is obscured. Extensive bilateral pulmonary infiltrates are again identified. No pneumothorax. No acute osseous abnormality. IMPRESSION: Placement of lines and tubes as described above without significant pneumothorax. Persistent extensive bilateral pulmonary infiltrates Dictated by: Dictated on workstation # [id number] Dict: 08/11/21 0722 Trans: 08/11/21 0902 [facility] [id number] Interpreted by: JOSEF MILLER MD Electronically signed by: JOSEF MILLER MD 08/11/21 0902 Care turned over to: ALEXANDRE Dumont Aug 11, 2021 06:52
--- NOTE | 2021-08-11 07:28 | Diagnostic Imaging Report ---
Indication: Intubation, line placement COMPARISON: Imaging from the same date TECHNIQUE: 2 radiographs the chest dated 08/11/2021 FINDINGS: Interval placement of endotracheal tube with the distal tip overlying the tracheal column, above the level of the jamaal at the level of the clavicular heads. Interval placement of an enteric catheter with the distal tip extending the left upper abdomen. Interval placement of a right IJ central venous catheter with the distal tip overlying the superior aspect of the superior vena cava. The cardiac silhouette is stable. Pulmonary vasculature is obscured. Extensive bilateral pulmonary infiltrates are again identified. No pneumothorax. No acute osseous abnormality. IMPRESSION: Placement of lines and tubes as described above without significant pneumothorax. Persistent extensive bilateral pulmonary infiltrates Dictated by: Dictated on workstation # [id number]
--- NOTE | 2021-08-11 07:56 | Physical Therapy Progress Note ---
Therapy Progress Note According to reports patient is declining medically. PT doesn't have any orders to continue tx. Will DC from PT services at this time. JES HINOJOSA PT Aug 11, 2021 07:56
--- NOTE | 2021-08-11 08:11 | Speech Therapy Progress Note ---
Therapy Progress Note Speech language pathology wanted to acknowledge the consultation for a "swallow study." Following a chart review, the patient was recently intubated and is not appropriate for a clinical bedside swallowing evaluation at this time. Due to intubation, speech pathology will sign off. Please re-consult speech pathology once the patient is appropriate post extubation. Thank you. RAJAN WYMAN Aug 11, 2021 08:10
[2021-08-11] MEDS ORDERED: meTOprolol TARTRATE 25 MG (LOPRESSOR) TABLET ONE (08:39)
[2021-08-11] MEDS: SENNA W/DOCUSATE (SENOKOT S) TABLET PO SCH (08:41)
[2021-08-11] MEDS: rOPINIRole 5 MG TAB (REQUIP) PO SCH (08:41)
[2021-08-11] MEDS: PANTOPRAZOLE 40 MG (PROTONIX) TAB PO SCH (08:41)
[2021-08-11] MEDS: AMIODARONE 200 MG (CORDARONE) TAB PO SCH (08:41)
[2021-08-11] MEDS: PROPOFOL DRIP (ICU) 100 ML IV SCH ×2 (08:51→11:44)
[2021-08-11] MEDS: NS IV 1000 ML 1,000 ML IV SCH (08:52)
[2021-08-11] MEDS ORDERED: meTOprolol TARTRATE 25 MG (LOPRESSOR) TABLET PO SCH (09:00)
[2021-08-11] MEDS ORDERED: NS IV SCH (11:00)
[2021-08-11] MEDS ORDERED: DAPTOMYCIN IV SCH (11:00)
--- NOTE | 2021-08-11 11:48 | Diagnostic Imaging Report ---
HISTORY: Advanced ET tube TECHNIQUE: Frontal view of the chest COMPARISON: Radiographs from the same day. FINDINGS: The endotracheal tube is about 7 cm above the jamaal. The right central line tip projects over the mid SVC. There are extensive airspace opacities throughout the lungs bilaterally, stable on the right and mildly improved on the left. No large effusion or pneumothorax is seen although the right costophrenic angle is incompletely included. The cardiac silhouette is stable in size. The tip of the enteric tube projects over the stomach. IMPRESSION: 1. The endotracheal tube is about 7 cm above the jamaal. 2. Extensive airspace opacities in the lungs, stable right and mildly improved on the left. Dictated by: Dictated on workstation # [id number]
[2021-08-11] MEDS ORDERED: inSUlin ASPART (NovoLOG) 1 UNIT/0.01 ML (CHARGE PER UNIT) SC SCH (12:00)
--- NOTE | 2021-08-11 12:47 | Tele-ICU Progress Note ---
Subjective Date Seen by a Provider: Aug 11, 2021 Time Seen by a Provider: 09:18 Sepsis Event Evaluation Height, Weight, BMI Height: 6'0.00" Weight: 269lbs. 5.0oz. 122.290859hz; 34.47 BMI Method:Stated Exam Exam Patient acknowledged, consented, and participated in this virtual visit which was conducted using real time audio/video Vital Signs Date Time Temp Pulse Resp B/P (MAP) Pulse Ox O2 Delivery O2 Flow Rate FiO2 08/11/21 12:00 80 22 102/73 (83) 97 NIV Bilevel 70.00 08/11/21 11:45 35.4 08/11/21 11:44 81 98/60 08/11/21 11:00 81 24 90/56 (67) 97 NIV Bilevel 70.00 08/11/21 10:56 81 21 97 50 08/11/21 09:00 87 39 87/63 (71) 95 NIV Bilevel 70.00 08/11/21 08:51 98 99/77 08/11/21 08:00 91 19 91/68 (76) 94 NIV Bilevel 70.00 08/11/21 08:00 97 Room Air 50 08/11/21 07:45 36.3 08/11/21 07:11 100 08/11/21 07:00 105 08/11/21 07:00 99 19 89/66 (74) 94 NIV Bilevel 70.00 08/11/21 06:56 98 20 96 100 08/11/21 06:05 96 166/34 08/11/21 06:00 96 49 166/34 (78) 99 NIV Bilevel 70.00 08/11/21 05:00 93 30 83/39 (54) 99 NIV Bilevel 70.00 08/11/21 04:49 NIV Bilevel 70.00 08/11/21 04:00 96 26 122/36 (64) 92 High Flow N/C 5.00 08/11/21 03:48 36.4 08/11/21 03:47 High Flow N/C 5.00 08/11/21 03:46 92 Room Air 08/11/21 03:00 97 32 120/37 (64) 88 Room Air 08/11/21 02:00 97 37 122/53 (76) 92 Room Air 08/11/21 01:00 99 29 117/80 (92) 93 Room Air 08/11/21 00:30 94 Room Air 08/11/21 00:00 98 53 119/86 (97) 93 Room Air 08/11/21 00:00 100 08/10/21 23:54 36.8 08/10/21 23:00 Room Air 08/10/21 23:00 100 43 112/85 (94) 93 Room Air 08/10/21 22:00 96 26 129/45 (73) 91 Room Air 08/10/21 21:00 98 40 130/78 (95) 94 Room Air 08/10/21 20:34 100 Room Air 08/10/21 20:01 35.1 08/10/21 20:00 93 23 130/88 (102) 95 Room Air 08/10/21 19:00 92 37 150/94 (112) 94 Room Air 08/10/21 19:00 93 08/10/21 19:00 Room Air 08/10/21 18:00 31 148/88 (108) 95 Room Air 08/10/21 17:00 91 23 131/87 (102) 97 Room Air 08/10/21 16:06 36.7 08/10/21 16:00 90 27 136/104 (115) 94 Room Air 08/10/21 15:31 99 Room Air 08/10/21 15:00 85 135/91 (106) 94 Room Air 08/10/21 14:00 130/80 (97) 94 Room Air 08/10/21 13:00 86 08/10/21 13:00 87 137/83 (101) 92 Room Air I & O 08/11/21 07:00 Intake Total 2230 ml Output Total 1925 ml Balance 305 ml Height & Weight Height: 6'0.00" Weight: 269lbs. 5.0oz. 122.093255jy; 34.47 BMI Method:Stated General Appearance: No Apparent Distress, WD/WN, Chronically ill, Obese HEENT: PERRL/EOMI, Normal ENT Inspection, Pharynx Normal, Moist Mucous Membranes Neck: Full Range of Motion, Normal Inspection, Non Tender Respiratory: No Accessory Muscle Use, No Respiratory Distress, Decreased Breath Sounds Cardiovascular: Regular Rate, Rhythm Peripheral Pulses: 1+ Dorsalis Pedis (R), 1+ Left Dors-Pedis (L) Extremity: Normal Capillary Refill, Normal Inspection, Normal Range of Motion, No Calf Tenderness, No Pedal Edema Neurologic/Psychiatric: Alert, Disoriented Skin: Normal Color, Warm/Dry Lymphatic: No Adenopathy Results Lab Laboratory Tests 08/10/21 05:45 08/11/21 04:20 Assessment/Plan Assessment/Plan (Tele-ICU Physician , Progress Note ) Available chart/ vitals / labs / Images reviewed Video assessment done using teleICU camera, rest of exam as per RN Discussed with RN , EXAM PER RN Events overnight : (08/07) CT head: redemonstrated foci of acute hemorrhage left cerebellum Afebrile FiO2 - ra I/O = neg Drips: Pressors: , hemodynamically stable Consultants: Hospital course: 07/31 - to ICU from ER with COVID , hyperglycemia, o2 - FM 5L 08/01 - BIPAP 08/02 - on ra , off insulin gtt 08/06 - afib RVR , cardizem gtt 08/07 RA , cardisem PO , lethargic - ICH - left cerebellar hemispheric hematoma slightly larger- same edema 08/11 - INTUBATED for worsenign SOB and increased infiltrates ( failed BIPAP with agitation ) A/P ACute resp failure - INTUBATED - AC 500- 50% - peep 8 ICH (08/07) CT head: redemonstrated foci of acute hemorrhage left cerebellum -CT head repeatedd - - left cerebellar hemispheric hematoma slightly larger- unchanged edema -mass effect effacing the 4th ventricle- but no hydrocephalus. No supratentorial abnormality. - neurochecks q 1 h - keep SBP < 130 - off lovenox now - as per bedside - attempts to transfer to other centers with neuro STAPH AUREUS bacteremis - SOURSE ? - as per cards - no obvious valvular vegetations and no significant valvular regurgitation noted on his transthoracic echocardiogram- ( do nor see ECHO ressults in EMR 0 NEEDS REPEATED ECHO - follow repeated cx -TO REPEAT TODAY AGAIN = on DAPTO / cefepime - Elevated LFTS -WILL NEED TO DISCUSS WITH pcp - ?DUE TO DAPTO VS OTHER ETIOLOGY SUSPECTED [id number]/COVID-19 PNA ( Symptom onset ~07/23 DX unvaccinted --Dexamethasone - STOPPED 08/09 - consider take off isolation id no more resp symptoms A fib - as per cards - off lovenox - on amio po as per cards TED - improved , follow Diabetes Mellitus with severe hyperglycemia - OFF insulin gtt - ISS , close f/up on steroids - starting levemir Hyponatremia ( adjusted to BS NA =126 - now is adjusted 131 - follow closely with hemorrahic stroke with edema , prefer to keep in high range Plans in collaboration with bedside consultants and IM MDs. Discussed with RN to reach out if any questions or concerns A total of 40 minutes of critical care time was devoted to this patient today, required to treat and/or prevent further deterioration of critical care condition ( as above) . ONIEL SOTO MD Aug 11, 2021 12:47
[2021-08-11] MEDS ORDERED: EPINEPHrine 0.1 MG/ML 10 ML (HOSPIRA) SYR IJ ONE (13:05)
[2021-08-11] MEDS ORDERED: MIDAZOLAM 5 MG/5 ML (VERSED) VIAL IJ ONE (13:05)
[2021-08-11] MEDS ORDERED: ONDANSETRON 4 MG/2 ML (SDV) Z0FRAN IVP PRN (15:15)
[2021-08-11] MEDS ORDERED: SALIVA STIMULANT MOUTH SPRAY (BIOTENE) 1.5 OZ MM PRN (15:15)
[2021-08-11] MEDS ORDERED: GLYCOPYRROLATE 0.2 MG/ML (ROBINUL) 2 ML VIAL IV PRN (15:15)
[2021-08-11] MEDS ORDERED: ARTIFICAL TEARS 0.4 ML UNIT DOSE (REFRESH PLUS) OU PRN (15:15)
[2021-08-11] MEDS ORDERED: BISACODYL 10 MG SUPP (DULCOLAX) PR PRN (15:15)
[2021-08-11] MEDS ORDERED: morphine INJ 4 MG/ML 1 ML (VIAL/SYRINGE) IV PRN (15:15)
[2021-08-11] MEDS ORDERED: RT-ALBUTEROL/IPRATROPIUM 3 ML (DUONEB) VIAL INH PRN (15:15)
[2021-08-11] MEDS ORDERED: ACETAMINOPHEN 650 MG SUPP (TYLENOL) PR PRN (15:15)
[2021-08-11] MEDS ORDERED: LORazepam INJ 2 MG/ML (ATIVAN) VIAL IVP PRN (15:15)
--- NOTE | 2021-08-11 18:42 | Discharge Summary ---
Discharge Summary Hospital Course Was the Problem List Reviewed?: Yes Problems/Dx: (1) Pneumonia due to COVID-19 virus Status: Acute (2) Staphylococcus aureus bacteremia (3) Paroxysmal atrial fibrillation (4) Intracerebral hemorrhage (5) Mixed hyperlipidemia Hospital Course Date of Admission: Jul 31, 2021 at 16:10 Admission Diagnosis : Family Physician/Provider: Jarocho Birmingham MD Date of Discharge: 08/11/21 Discharge Diagnosis: COVID-19 pneumonia, acute hypoxic respiratory failure, hyperosmolar hyperglycemic nonketotic state requiring insulin drip on admission, hemorrhagic stroke, MRSA bacteremia suspect endocarditis acute respiratory failure requiring intubation Hospital Course: Patient had a lengthy hospital course with all of it requiring mostly ICU care. He was diagnosed with COVID-19 pneumonia placed in isolation and required insulin drip for hyperosmolar hyperglycemic nonketotic state, IV abx, and supportive care. Management ensued aggressively but patient did not improve to any extent. Updated in-depth on multiple occasions. CT brain obtained due to increased confusion which revealed hemorrhagic CVA so [facility] was contacted and NSG was pursued through mission control but after 96 hours of searching hundreds of hospitals due to COVID 19 diversion status no one was able to accept him. MRSA bacteremia diagnosed and endocarditis suspected and Daptomycin was initiated. Overall he became more hypotensive and unstable required intubation when was given option of comfort care or intubation due to poor prognosis she chose intubation but patient continued to decline and was made comfort care and terminally extubated. Labs and Pending Lab Test: Laboratory Tests 08/10/21 21:02: Glucometer 85 08/10/21 23:53: Glucometer 50*L 08/11/21 00:56: Glucometer 105 08/11/21 03:56: Glucometer 84 08/11/21 04:20: White Blood Count 53.8*H, Red Blood Count 4.81, Hemoglobin 14.0, Hematocrit 41, Mean Corpuscular Volume 85, Mean Corpuscular Hemoglobin 29, Mean Corpuscular Hemoglobin Concent 34, Red Cell Distribution Width 14.8H, Platelet Count 159, Mean Platelet Volume 11.4, Immature Granulocyte % (Auto) 4, Neutrophils (%) (Auto) 90H, Lymphocytes (%) (Auto) 4L, Monocytes (%) (Auto) 3, Eosinophils (%) (Auto) 0, Basophils (%) (Auto) 0, Neutrophils # (Auto) 48.2H, Lymphocytes # (Auto) 1.9, Monocytes # (Auto) 1.5H, Eosinophils # (Auto) 0.0, Basophils # (Auto) 0.2H, Immature Granulocyte # (Auto) 2.1H, Percent Immature Platelet Fraction 6.6, Blood Gas Puncture Site LEFT RADIAL, Blood Gas Patient Temperature 36.6, Arterial Blood pH 7.43, Arterial Blood Partial Pressure CO2 23L, Arterial Blood Partial Pressure O2 50L, Arterial Blood HCO3 15*L, Arterial Blood Total CO2 16.0L, Arterial Blood Oxygen Saturation 84L, Arterial Blood Base Excess - 8.3L, Dima Test YES-POS, Blood Gas Ventilator Setting NO, Blood Gas Inspired Oxygen 6L, Sodium Level 132L, Potassium Level 5.0, Chloride Level 110H, Carbon Dioxide Level 12L, Anion Gap 10, Blood Urea Nitrogen 50H, Creatinine 0.81, Estimat Glomerular Filtration Rate 98, BUN/Creatinine Ratio 62, Glucose Level 100, Calcium Level 7.8L, Corrected Calcium 9.2, Total Bilirubin 1.1H, Aspartate Amino Transf (AST/SGOT) 97H, Alanine Aminotransferase (ALT/SGPT) 212H, Alkaline Phosphatase 1080H, Total Creatine Kinase 103, Total Protein 6.7, Albumin 2.2L, Triglycerides Level 101 Microbiology 08/09/21 Blood Culture - Preliminary, Resulted Staphylococcus aureus Culture In Progress Home Meds Active Reported Turmeric 500 mg Capsule (Turmeric/Turmeric Root Extract) 1 Each Capsule 1 Each PO DAILY Fish Oil 1,000 mg Softgel (Griffin-3/Dha/Epa/Fish Oil) 1 Each Capsule 1 Each PO DAILY Aspirin EC (Aspirin) 81 Mg Tablet. 81 Mg PO DAILY Ropinirole HCl 5 Mg Tablet 10 Mg PO DAILY TAKES 2 (5MG) TABS Jardiance (Empagliflozin) 10 Mg Tablet 10 Mg PO DAILY Rosuvastatin Calcium 20 Mg Tablet 20 Mg PO DAILY Tresiba (Insulin Degludec) 100 Unit/1 Ml Vial 60 Unit SQ HS Novolog Flexpen (Insulin Aspart) 300 Units/3 Ml Solution 40 Units SQ AC Omeprazole 40 Mg Capsule.dr 40 Mg PO DAILY Assessment/Pt Instructions Discharge Planning: <30 minutes discharge planning Discharge Physical Examination Vital Signs Vital Signs Date Time Temp Pulse Resp B/P (MAP) Pulse Ox O2 Delivery O2 Flow Rate FiO2 08/11/21 16:00 95 Room Air 50 08/11/21 15:43 35.2 08/11/21 15:11 80 24 08/11/21 15:08 102/73 08/11/21 15:00 70.00 Allergies: Coded Allergies: No Known Drug Allergies (Unverified , 01/04/18) Discharge Summary Date of Admission Jul 31, 2021 at 16:10 Date of Discharge Admission Diagnosis Assessment: Respiratory failure maintain on BiPAP COVID-19 pneumonia Sepsis Hyperosmolar hyperglycemic nonketotic state placed on insulin drip Hyponatremia of 115 Acute kidney injury MRSA bacteremia Hyperkalemia Elevated D-dimer unable to rule out PE so placed on Lovenox therapeutic dose Noncompliance Plan: Vancomycin Rocephin eICU management BiPAP Insulin drip Lovenox Aggressive IV fluid of D5NS Comfort Measures/ End of Life Care: Comfort Measures Discharge Diagnosis Assessment: Respiratory failure status post BiPAP now on nasal cannula and room air Hypovolemia from dehydration due to not eating or drinking requiring ICU transfer again on 08/05/2021 COVID-19 pneumonia Sepsis Hyperosmolar hyperglycemic nonketotic state status post insulin drip Hyponatremia of 115 now much improved Acute kidney injury MRSA bacteremia change from vancomycin to daptomycin due to breakthrough with positive repeat cultures suspect endocarditis needs ELI Hyperkalemia Elevated D-dimer unable to rule out PE so placed on Lovenox therapeutic dose Noncompliance as outpatient Hemorrhagic CVA diagnosed 08/07/2021 holding Lovenox and aspirin Plan: Vancomycin Rocephin eICU management BiPAP Insulin drip Lovenox Aggressive IV fluid of D5NS 08/02/2021: Transfer to stepdown Hep-Lock IV fluid Vancomycin for bacteremia Appreciate cardiology Aggressive insulin regimen Add hemoglobin A1c 08/03/2021: Increase insulin Supportive care IV antibiotics PT and OT Isolation Decadron 08/04/2021: Supportive care Needs custodial Apathy noted may ultimately become hospice candidate 08/05/2021: Transfer to ICU Aggressive IV fluid IV antibiotics High risk for intubation Severe apathy noted Updated 08/06/2021: Daptomycin Supportive care 08/07/2021: Severe apathy and lethargy precludes anything but a poor prognosis Severe noncompliance as an outpatient 08/08/2021: Pursue higher level of care with patient control due to needing ELI due to suspected endocarditis with infectious disease since failing daptomycin and vancomycin in edition needing ICU bed for Covid related issues with neurosurgery capabilities for hemorrhagic CVA 08/09/2021: [place] control pending Continue aggressive care 08/10/2021: No possibility of a bed for higher level of care per [place] control Continue what we can can here locally (1) Paroxysmal atrial fibrillation Assessment & Plan: This is a new finding in this patient during this admission. I suspect this was related to the Covid infection. He is on oral diltiazem and metoprolol for rate control and amiodarone for rhythm management. He remains in sinus rhythm. He had been on therapeutic dosing of enoxaparin and I had planned to change this over to oral apixaban. However, he has developed an intracerebral hemorrhage and all anticoagulation is now on hold. (2) Intracerebral hemorrhage Assessment & Plan: This certainly raises a concern for possible septic emboli. He has persistent MRSA bacteremia. All anticoagulation is now on hold. A transesophageal echocardiogram may be of some help but we cannot presently do this in our hospital since we have no providers available to perform this procedure at the present time. The hospitalist is working on finding a hospital with an available ICU bed and neurosurgery to transfer the patient. (3) Staphylococcus aureus bacteremia Assessment & Plan: There were no obvious valvular vegetations and no signi ficant valvular regurgitation noted on his transthoracic echocardiogram. However, due to the finding of an intracerebral hemorrhage, coupled with persistent bacteremia despite antibiotics, this again raises a concern of endocarditis. He may benefit from a transesophageal echocardiogram but my partners who perform this test are both out of town until August 19. (4) Mixed hyperlipidemia Assessment & Plan: Continue statin medication. SANTI SALEH DO Aug 11, 2021 18:42
== END 2021-08-11 17:25 | disposition expired | DRG 871 ==
LOC: EDUNIT# 12:59 → ER FS 13:05 → ICU 16:10 → CSD 08-02 15:00 → 4TH 08-04 18:05 → ICU 08-05 16:51
PROVIDERS: ADMIT Family Medicine; ATTEND Internal Medicine
PROC: 5A09457 Assistance with Respiratory Ventilation, 24-96 Consecutive Hours, Continuous Positive Airway Pressure (ICD-10-PCS; 2021-07-31)
PROC: 02HV33Z Insertion of Infusion Device into Superior Vena Cava, Percutaneous Approach (ICD-10-PCS; principal; 2021-08-11)
PROC: 0BH17EZ Insertion of Endotracheal Airway into Trachea, Via Natural or Artificial Opening (ICD-10-PCS; 2021-08-11)
DX: A41.9 Sepsis, unspecified organism (principal); U07.1 COVID-19; J12.82 Pneumonia due to coronavirus disease 2019; G93.6 Cerebral edema; I61.9 Nontraumatic intracerebral hemorrhage, unspecified; J80 Acute respiratory distress syndrome; J15.212 Pneumonia due to Methicillin resistant Staphylococcus aureus; E87.1 Hypo-osmolality and hyponatremia; N17.9 Acute kidney failure, unspecified; Z66 Do not resuscitate; Z51.5 Encounter for palliative care; E87.5 Hyperkalemia; Z91.19 Patient's noncompliance with other medical treatment and regimen; E86.0 Dehydration; E11.51 Type 2 diabetes mellitus with diabetic peripheral angiopathy without gangrene; E11.65 Type 2 diabetes mellitus with hyperglycemia; E11.40 Type 2 diabetes mellitus with diabetic neuropathy, unspecified; M19.90 Unspecified osteoarthritis, unspecified site; G89.29 Other chronic pain; M54.9 Dorsalgia, unspecified; F41.9 Anxiety disorder, unspecified; F32.A Depression, unspecified; F17.210 Nicotine dependence, cigarettes, uncomplicated; R41.0 Disorientation, unspecified; I48.0 Paroxysmal atrial fibrillation; E78.2 Mixed hyperlipidemia
CPT/HCPCS: 36415; 70450; 71045; 74176; 80048; 80053; 80202; 82140; 82550; 82805; 82947; 83036; 83605; 83735; 83880; 83930; 84100; 84145; 84478; 84484; 85007; 85025; 85027; 85379; 85610; 85730; 86141; 87040; 87070; 87077; 87186; 87205; 93005; 93306; 94002; 94660; 94799; 99291